=== PATIENT | female | born 1980 | race Caucasian/White ===

== ENCOUNTER → 2017-07-12 09:26 | Outpatient (CLI) | payer BC, SELFPAY ==
[2017-07-12 10:00] LABS: Basophils # 0.1 K/mm3 (0-0.2); Basophils % 0.6 % (0.1-2.0); Eosinophils # 0.1 K/mm3 (0.0-0.4); Eosinophils % 1.2 % (0.1-12.0); Hematocrit 44.5 % (37.0-47.0); Hemoglobin 14.8 g/dL (12.2-16.2); Lymphocytes # 2.2 K/mm3 (0.7-4.5); Lymphocytes % 28.5 K/mm3 (10-50); Mean Corpuscular HGB Conc 33.2 g/dL (31.8-35.4); Mean Corpuscular Hemoglobin 29.2 pg (27.0-31.2); Mean Corpuscular Volume 87.9 fl (81-99); Monocytes # 0.5 K/mm3 (0.1-1.0); Monocytes % 6.6 % (1.7-9.3); Neutrophils # 4.7 K/mm3 (1.8-7.8); Platelet Count 290 K/mm3 (142-424); Red Blood Count 5.06 M/mm3 (4.20-5.40); White Blood Count 7.5 K/mm3 (4.8-10.8)
[2017-07-12 10:56] LABS: Anion Gap 12.6 mEq/L (5-15); Blood Urea Nitrogen 12 mg/dL (7-18); Carbon Dioxide 29 mmol/L (21.0-32.0); Chloride 102 mmol/L (98-107); Creatinine,Serum 0.66 mg/dL (0.55-1.02); Estimated Glomerular Filt Rate 101 ml/min (>60); GFR (African American) 123 ML/MIN (>60); Glucose 90 mg/dL (74-106); Potassium 4.6 mmoL/L (3.5-5.1); Sodium 139 mmol/L (136-145); T4 (Thyroxine) 9.2 ug/dl (4.7-13.3); Thyroid Stimulating Hormone 1.95 uIU/ml (0.358-3.740); Triiodothryronine (T3) Uptake 33 % (31-39)
== END ==
PROVIDERS: PCP Physician Assistant; Visit Provider Nurse Practitioner Obstetrics & Gynecology
DX: N93.9 Abnormal uterine and vaginal bleeding, unspecified (principal)
CPT/HCPCS: 80048; 84436; 84443; 84479; 85025

== ENCOUNTER → 2017-07-18 11:02 | Outpatient (CLI) | payer BC, SELFPAY ==
--- NOTE | 2017-07-18 11:07 | US_ITS ---
US transvaginal HISTORY: Irregular periods. Dysfunctional uterine bleeding ITS.REASON: extremely heavy periods ORDERING PHYSICIAN: Bob Govea MD PATIENT AGE: 37 years COMPARISON: 04/22/2015 FINDINGS: The uterus is 9 x 4 x 6 cm with a combined endometrial thickness of 7 mm. There is a 1.6 cm area of increased echogenicity in the posterior aspect of the body the uterus suggesting a fibroid. Left ovary is 2.5 x 2.3 cm with small peripheral follicles. Blood flow is present. The right ovary is 2.7 x 1.5 cm with small follicles. Blood flow is present. No cul-de-sac fluid apparent. IMPRESSION: 1. Small uterine fibroid at 1.6 cm 2. Bilateral ovarian follicles with no dominant cyst or mass
== END ==
LOC: RAD 11:05
PROVIDERS: PCP Physician Assistant; Visit Provider Nurse Practitioner Obstetrics & Gynecology
DX: N93.9 Abnormal uterine and vaginal bleeding, unspecified (principal); N92.1 Excessive and frequent menstruation with irregular cycle
CPT/HCPCS: 76830

== ENCOUNTER → 2017-08-31 14:03 | Outpatient (CLI) | payer BC, SELFPAY ==
--- NOTE | 2017-08-31 14:11 | US_ITS ---
ULTRASOUND THYROID PROCEDURE: Multiple sagittal & transverse ultrasound images of the thyroid. HISTORY: Choking sensation. Follow-up thyroid ultrasound COMPARISON: Previous thyroid ultrasound January 2017 ----- FINDINGS: Diffuse inhomogeneous architecture makes visualization of any discrete nodule difficult given the diffuse swirl appearance. Question be other possible other nodules hidden by the inhomogeneous character. Mildly enlarged thyroid. RIGHT LOBE: 4.2 cm 1.8 cm 1.6 cm. Nodule A: :Vague not well discerned solid nodule 8.4 mm x 1.8 mm .: LEFT LOBE: 3.9 cm as 1.8 cm x 1.6 cm. Nodule A: Solid nodule 10 mm X8.3 x 5.5 mm. Lower left lobe. ISTHMUS: Slightly generous ~ 6.5 mm AP dimension. This was actually appears slightly thicker than on previous studies although this could merely be image sampling (Addendum if palpable thyroid nodule developed in the patient a may want to consider either CT or radionuclide study in attempt to rule out any discrete cold nodule hidden among the inhomogeneous gland. No dominant nodule is seen currently) IMPRESSION 1. Thyroid mildly enlarged bilaterally right lobe more generous than left. . Isthmus appears slightly thicker today but this may merely be due to submitted images 2. Diffuse inhomogeneous patchy appearance bilaterally makes it difficult to discern discrete nodules . Small ill-defined nodules bilaterally noted. No discrete dominant mass or nodule (Addendum if palpable thyroid nodule developed in the patient a may want to consider either CT or radionuclide study in attempt to rule out any discrete cold nodule hidden among the inhomogeneous gland. No dominant nodule is seen currently)
== END ==
PROVIDERS: PCP Physician Assistant; Visit Provider Otolaryngology
DX: E01.0 Iodine-deficiency related diffuse (endemic) goiter (principal)
CPT/HCPCS: 76536

== ENCOUNTER → 2018-02-04 09:57 | Outpatient (CLI) | payer BC, SELFPAY ==
--- NOTE | 2018-02-04 09:58 | US_ITS ---
US thyroid HISTORY: Enlarged thyroid ITS.REASON: thyroid nodules ORDERING PHYSICIAN: Raimundo Wang MD PATIENT AGE: 37 years Comparison: 08/31/2017 FINDINGS: The right lobe is 4.3 x 1.6 x 1.7 cm. Heterogeneous echogenicity with possible upper pole nodule at 8 mm unchanged The left lobe is 4.3 x 1.2 x 1.7 cm Nodule A: Isodense hypoechoic nodule lower pole at 12 mm x 8 mm. The isthmus measures 5 mm IMPRESSION: Mildly enlarged thyroid gland with bilateral isoechoic nodules the largest on the left at approximately 12 x 8 mm previously 10 x 6
== END ==
PROVIDERS: PCP Physician Assistant; Visit Provider Otolaryngology
DX: E04.9 Nontoxic goiter, unspecified (principal); E06.9 Thyroiditis, unspecified
CPT/HCPCS: 76536

== ENCOUNTER → 2018-03-12 12:38 | Outpatient (POV) | payer BC, SELFPAY | PROVIDERS: Visit Provider Otolaryngology | DX: Z00.00 Encounter for general adult medical examination without abnormal findings (principal) ==

== ENCOUNTER → 2018-04-22 13:56 | Outpatient (CLI) | payer BC, SELFPAY | PROVIDERS: PCP Physician Assistant; Visit Provider Otolaryngology | DX: G47.30 Sleep apnea, unspecified (principal); R40.0 Somnolence; R06.83 Snoring; R53.83 Other fatigue | CPT/HCPCS: 95806 ==

== ENCOUNTER → 2018-05-14 11:36 | Outpatient (POV) | payer BC, SELFPAY | PROVIDERS: Visit Provider Otolaryngology | DX: Z00.00 Encounter for general adult medical examination without abnormal findings (principal) ==

== ENCOUNTER → 2018-08-12 12:57 | Outpatient (CLI) | payer BC, SELFPAY ==
--- NOTE | 2018-08-12 12:59 | US_ITS ---
US thyroid HISTORY: Thyroiditis , trouble swallowing ITS.REASON: thyroid nodule ORDERING PHYSICIAN: Bob Govea MD PATIENT AGE: 38 years Comparison: 02/04/2018 FINDINGS: The isthmus is thickened at 6 mm The right lobe is 4.3 x 1.8 x 1.5 cm there is diffuse heterogeneous echogenicity. A 5 mm isoechoic nodule present in the upper pole and change. The left lobe is 3.5 x 1.1 x 1.6 cm. A 1.1 cm isoechoic nodule present in the mid polar region unchanged. A 5 mm isoechoic nodule is present medial Isthmus. This is not significant change. IMPRESSION: Heterogeneous thyroid echogenicity with stable bilateral nodules.
--- NOTE | 2018-08-12 12:59 | FL_ITS ---
EXAM: Barium swallow/esophagram. INDICATION: Dysphagia, difficulty swallowing ITS.REASON: Goiter ORDERING PHYSICIAN: Bob Govea MD PATIENT AGE: 38 years COMPARISON: None TECHNIQUE: In the upright position the patient was observed to swallow barium in both the AP and lateral view. The cervical esophagus was examined under fluoroscopy with images obtained. The patient was then placed prone in the right anterior oblique position and was observed to swallow barium with Valsalva technique . FLUOROSCOPY TIME: 51 seconds FINDINGS: There was no evidence of aspiration. There was normal peristalsis. No filling defects or mucosal abnormalities. No masses or strictures. No hiatal hernia. The esophagus is not deviated. There are small osteophytes along the internal aspect of C5 and C6 causing some indentation upon the posterior aspect of the esophagus IMPRESSION: Small anterior osteophytes at C5-C6 causing some mild indentation upon the esophagus posteriorly otherwise negative barium swallow.
--- NOTE | 2018-08-12 12:59 | MM_ITS ---
MM Dig mamm BI DX w/CAD, US breast LT complete INDICATION: Palpable abnormality left breast at 5:00 with nipple discharge, baseline mammogram ORDERING PHYSICIAN: Bob Govea MD PATIENT AGE: 38 years COMPARISON: None TECHNIQUE: Standard images performed of both breasts along with spot compression views of the left breast and left breast ultrasound FINDINGS: There is dense fibroglandular tissue which decreases sensitivity of mammography. Right breast: Unremarkable. No malignant appearing mass or malignant appearing microcalcifications evident. There is a faint nodular opacity in the deep aspect of the right breast which is only seen on the X cc view and may be related to fibroglandular tissue Left breast: There is dense fibroglandular tissue with asymmetric increased density in the left axillary region consistent with axillary fibroglandular tissue. Asymmetric density also present medially. No discrete nodule evident in the retroareolar region. Left breast ultrasound: There is a 3 mm x 4 mm isoechoic slightly hypoechoic nodule at 5:00 near the nipple corresponding to the area of palpable abnormality and may represent a small complex cyst. Small nodes are present in the axilla. IMPRESSION: No convincing evidence of malignancy. Probably benign findings with suspected asymmetric fibroglandular tissue on the left, small left breast cyst, and a probably benign. Nodular density in the deep aspect of the right breast. Recommend bilateral 6 month follow-up mammogram and left breast ultrasound BI-RADS Category: 3 Probably Benign Finding Short Term Follow-up RECOMMENDED FOLLOW-UP: 6M - 6 MONTH FOLLOW-UP (A letter has been sent to the patient regarding results of the study.)
== END ==
LOC: RAD 12:58
PROVIDERS: PCP Physician Assistant; Visit Provider Nurse Practitioner Obstetrics & Gynecology
DX: N63.0 Unspecified lump in unspecified breast (principal); E04.1 Nontoxic single thyroid nodule; E04.9 Nontoxic goiter, unspecified
CPT/HCPCS: 74220; 76536; 76641; 77066

== ENCOUNTER → 2018-11-18 13:53 | Outpatient (POV) | payer BC, SELFPAY | PROVIDERS: PCP Physician Assistant; Visit Provider Nurse Practitioner Family | DX: Z00.00 Encounter for general adult medical examination without abnormal findings (principal) ==

== ENCOUNTER → 2018-11-25 11:55 | Outpatient (CLI) | payer BC, SELFPAY ==
[2018-11-25 12:20] LABS: Basophils # 0.1 K/mm3 (0-0.2); Basophils % 0.8 % (0.1-2.0); Eosinophils # 0.1 K/mm3 (0.0-0.4); Eosinophils % 1.2 % (0.1-12.0); Hematocrit 41.9 % (37.0-47.0); Hemoglobin 13.4 g/dL (12.2-16.2); Lymphocytes # 2.4 K/mm3 (0.7-4.5); Lymphocytes % 35.4 % (10-50); Mean Corpuscular Hemoglobin 27.5 pg (27.0-31.2); Mean Corpuscular Volume 86.2 fl (81-99); Mean Platelet Volume 7.5 fl (7.4-10.4); Monocytes # 0.3 K/mm3 (0.1-1.0); Monocytes % 3.8 % (1.7-9.3); Neutrophils % 58.9 % (37.0-80.0); Platelet Count 311 K/mm3 (142-424); Red Blood Count 4.86 M/mm3 (4.20-5.40); Red Cell Distribution Width 13.6 % (11.5-17.5); White Blood Count 6.8 K/mm3 (4.8-10.8)
[2018-11-25 12:45] LABS: HCG Qualitative, Serum Negative (Negative)
[2018-11-25 12:48] LABS: Alanine Aminotransferase 26 U/L (12-78); Albumin Level 3.7 gm/dL (3.4-5.0); Albumin/Globulin Ratio 0.9 (1.1-1.8); Alkaline Phosphatase 79 U/L (46-116); Anion Gap 15.7 mEq/L (5-15); Aspartate Amino Transferase 17 U/L (15-37); Bilirubin,Total 0.3 mg/dL (0.2-1.0); Blood Urea Nitrogen 10 mg/dL (7-18); Calcium 9.2 mg/dL (8.5-10.1); Carbon Dioxide 26 mmol/L (21.0-32.0); Chloride 103 mmol/L (98-107); Creatinine,Serum 0.79 mg/dL (0.55-1.02); Estimated Glomerular Filt Rate 82 ml/min (>60); GFR (African American) 99 ML/MIN (>60); Glucose 140 mg/dL (74-106); Potassium 3.7 mmoL/L (3.5-5.1); Sodium 141 mmol/L (136-145); Total Protein,Serum 7.7 gm/dL (6.4-8.2)
== END ==
PROVIDERS: PCP Physician Assistant; Visit Provider Nurse Practitioner Family
DX: R14.0 Abdominal distension (gaseous) (principal); R19.4 Change in bowel habit; R10.11 Right upper quadrant pain; R13.10 Dysphagia, unspecified; K21.9 Gastro-esophageal reflux disease without esophagitis
CPT/HCPCS: 36415; 80053; 84703; 85025

== ENCOUNTER → 2018-11-27 09:40 | Outpatient (CLI) | payer BC, SELFPAY ==
[2018-11-27 09:43] LABS: Adenovirus F 40/41, stool Not Detected (NotDetected); Astrovirus Not Detected (NotDetected); Campylobacter Not Detected (NotDetected); Clostridium Difficile A/B, PCR Not Detected (NotDetected); Cryptosporidium Not Detected (NotDetected); Cyclospora Cayetanesis Not Detected (NotDetected); Entamoeba histolytica Not Detected (NotDetected); Enteroaggregative E coli Not Detected (NotDetected); Enteropathogenic E coli Not Detected (NotDetected); Enterotoxigenic E coli Not Detected (NotDetected); Giardia lamblia Not Detected (NotDetected); Norovirus Not Detected (NotDetected); Plesimonas Shigalloides, PCR Not Detected (NotDetected); Rotavirus A Not Detected (NotDetected); Salmonella, PCR Not Detected (NotDetected); Sapovirus Not Detected (NotDetected); Shiga-like toxin E coli Not Detected (NotDetected); Shigella Enterovasive E coli Not Detected (NotDetected); Vibrio Cholerae Not Detected (NotDetected); Vibrio, PCR Not Detected (NotDetected); Yersinia Entercolitica, PCR Not Detected (NotDetected)
--- NOTE | 2018-11-27 09:46 | CT_ITS ---
PROCEDURE: CT ABDOMEN PELVIS W CON CLINICAL HISTORY: BLOATING,ALTERED BOWEL FUNCTION,ABD PAIN,DYSPHAGIA,GERD COMPARISON: ABDPELW CT abdomen pelvis w con from 02/27/2018 TECHNIQUE: 75 mL Optiray 350 Readi-Cat by mouth Axial images obtained with sagittal and coronal reformats. All CT scans at the facility use one or more dose reduction, viz: automated exposure control, ma/kV adjustment per patient size (including targeted exams where dose is matched to indication, i.e. head), or iterative reconstruction technique. FINDINGS: Lung bases are clear. The liver, spleen, adrenal glands, pancreas, in gallbladder have an unremarkable appearance. There are punctate bilateral renal calculi measuring up to 4 mm in the upper pole on the left. No ureteral calculi. No hydronephrosis. No intestinal obstruction or free air. Unremarkable appendix. There is mucosal thickening of the jejunum in the mid and upper abdominal region. No pelvic mass abnormal fluid collection or focal inflammatory change in the pelvis. No acute bony anomalies. IMPRESSION: 1. Mucosal thickening of the jejunum in the mid upper abdominal region consistent with enteritis. 2. Nonobstructing bilateral renal calculi. Dictated by: Cesar Quinonez MD 11/28/2018 06:51 Electronically signed by Cesar Quinonez MD in [place] 11/28/2018 06:51
== END ==
LOC: RAD 09:40
PROVIDERS: PCP Physician Assistant; Visit Provider Nurse Practitioner Family
DX: R14.0 Abdominal distension (gaseous) (principal); R19.4 Change in bowel habit; R10.11 Right upper quadrant pain; R13.10 Dysphagia, unspecified; K21.9 Gastro-esophageal reflux disease without esophagitis
CPT/HCPCS: 74177; 87507; Q9967

== ENCOUNTER → 2018-12-17 09:20 | Outpatient (CLI) | payer BC, SELFPAY ==
--- NOTE | 2018-12-17 09:25 | US_ITS ---
PROCEDURE: US ABDOMEN LIMITED CLINICAL INDICATION: RUQ PAIN Right upper quadrant pain, bloating after eating, diarrhea COMPARISON: CT ABDOMEN PELVIS W CON from 11/27/2018 FINDINGS: PANCREAS: Unremarkable. No obvious mass or abnormal fluid collection. No ductal dilatation LIVER: No focal liver lesions demonstrated. Homogeneous echogenicity. No intrahepatic biliary ductal dilatation evident. There is appropriate direction of blood flow within a non dilated portal vein RIGHT KIDNEY: There is a small hyperechoic focus in the upper pole of the right kidney which may represent a nonobstructing stone. No hydronephrosis GALLBLADDER: No gallstones, gallbladder wall thickening, pericholecystic fluid, or biliary dilatation. IMPRESSION: 1. Negative gallbladder ultrasound. 2. Right nephrolithiasis Dictated by: Cesar Quinonez MD 12/17/2018 13:06 Electronically signed by Ceasr Quinonez MD in [place] 12/17/2018 13:06
--- NOTE | 2018-12-17 09:26 | NM_ITS ---
PROCEDURE: NM HEPATOBILIARY W PHARM CLINICAL INDICATION: RUQ PAIN Right upper quadrant pain and nausea COMPARISON: No exams were available for comparison TECHNIQUE: DOSE: 8.01 mCi technetium Choletec 1.3 mcg of CCK. Cramping was reported with CCK FINDINGS: Homogeneous activity is present within the hepatic parenchyma. Activity is present in the gallbladder by 15 minutes. Activity is present in the small bowel by 50 minutes. The gallbladder ejection fraction is calculated to be 54 minutes which is within normal limits. The patient reported mild cramping with CCK IMPRESSION: No evidence of common or cystic duct obstruction. Ejection fraction is within normal limits. There was mild delay and small bowel visualization and some pain reported with CCK infusion which could be seen with mild gallbladder dyskinesia Dictated by: Cesar Quinonez MD 12/17/2018 16:01 Electronically signed by Cesar Quinonez MD in [place] 12/17/2018 16:01
== END ==
LOC: RAD 09:20
PROVIDERS: PCP Physician Assistant; Visit Provider Internal Medicine Gastroenterology
DX: R10.11 Right upper quadrant pain (principal)
CPT/HCPCS: 76705; 78227; A9537; J2805

== ENCOUNTER → 2019-02-03 14:35 | Outpatient (CLI) | payer BC, SELFPAY ==
--- NOTE | 2019-02-03 14:36 | MM_ITS ---
PROCEDURE: MM DIG MAMM BI DX W/CAD CLINICAL INDICATION: 6 month follow up COMPARISON: DIG MAMM-DX UNI-LT from 08/12/2018 BREASTLT US breast LT complete from 08/12/2018 US BREAST LT COMPLETE from 02/03/2019 TECHNIQUE: Standard images performed along with spot compression views and left breast ultrasound FINDINGS: There is dense fibroglandular tissue which decreases the sensitivity of mammography. The Right breast: On the CC view there was a asymmetric density in the central aspect of the right breast slightly lateral which did appear to compress out on the focal spot compression view. Left breast: Asymmetric density once again noted in the axillary region consistent with axillary breast tissue not significantly changed. No malignant appearing mass or malignant-appearing microcalcification is evident in either breast. The Left breast ultrasound: 5 mm hypoechoic nodule at 12 o'clock and may represent a small complex cyst. There is a linear septation in this region. Fibroglandular tissue is also consideration. No change 4 mm hypoechoic nodule at 5 o'clock. No malignant appearing mass apparent. Small hypoechoic nodule at 1 o'clock which may represent fibroglandular tissue at 8 mm. IMPRESSION: Benign findings overall with no significant change BI-RAD Category: 2 Benign Finding(s) FOLLOW-UP: 1YR 1 Year Follow-up the (A letter has been sent to the patient regarding results of the study.) July you Dictated by: Cesar Quinonez MD 02/13/2019 09:45 Electronically signed by Cesar Quinonez MD in [place] 02/13/2019 09:45
== END ==
PROVIDERS: PCP Physician Assistant; Visit Provider Nurse Practitioner Obstetrics & Gynecology
DX: R92.8 Other abnormal and inconclusive findings on diagnostic imaging of breast (principal)
CPT/HCPCS: 76641; 77066

== ENCOUNTER → 2019-02-18 14:15 | Outpatient (CLI) | payer BC, SELFPAY ==
[2019-02-18 15:40] LABS: Free T4 (Free Thyroxine) 0.89 ng/dl (0.76-1.46)
[2019-02-18 15:40] LABS: Free Thyroxine Index 2.6 ug/dL (5.93-13.13); T4 (Thyroxine) 7.4 ug/dl (4.7-13.3); Thyroid Stimulating Hormone 3.27 uIU/ml (0.358-3.740); Triiodothryronine (T3) Uptake 35 % (31-39)
[2019-02-20 08:17] LABS: Thyroid Peroxidase Antibodies 271 IU/mL (0-34)
[2019-02-20 21:11] LABS: FSH 6.3 mIU/mL (.); LH 22.7 mIU/mL (.); Prolactin 21.6 ng/mL (4.8-23.3)
[2019-02-20 21:11] LABS: Triiodothyronine (T3) Free 2.8 pg/mL (2.0-4.4)
[2019-02-21 17:25] LABS: Thyroid Stimulating Immunoglob <0.10 IU/L (0.00-0.55)
== END ==
PROVIDERS: Otolaryngology; Visit Provider Nurse Practitioner Obstetrics & Gynecology
DX: N64.4 Mastodynia (principal); R53.82 Chronic fatigue, unspecified; E06.3 Autoimmune thyroiditis
CPT/HCPCS: 36415; 83001; 83002; 84146; 84436; 84439; 84443; 84445; 84479; 84481; 86376

== ENCOUNTER → 2019-03-10 14:36 | Outpatient (POV) | payer BC, SELFPAY | PROVIDERS: Visit Provider Nurse Practitioner Family | DX: Z00.00 Encounter for general adult medical examination without abnormal findings (principal) ==

== ENCOUNTER → 2019-04-17 17:45 | Outpatient (CLI) | payer BC, SELFPAY ==
[2019-04-17 18:15] LABS: Basophils # 0.1 K/mm3 (0-0.2); Basophils % 0.7 % (0.1-2.0); Eosinophils # 0.1 K/mm3 (0.0-0.4); Eosinophils % 1.4 % (0.1-12.0); Hematocrit 39.1 % (37.0-47.0); Hemoglobin 12.6 g/dL (12.2-16.2); Lymphocytes # 2.3 K/mm3 (0.7-4.5); Lymphocytes % 25.3 % (10-50); Mean Corpuscular HGB Conc 32.2 g/dL (31.8-35.4); Mean Corpuscular Hemoglobin 27.7 pg (27.0-31.2); Mean Corpuscular Volume 86.2 fl (81-99); Mean Platelet Volume 8.4 fl (7.4-10.4); Monocytes # 0.5 K/mm3 (0.1-1.0); Neutrophils # 6.1 K/mm3 (1.8-7.8); Neutrophils % 66.6 % (37.0-80.0); Platelet Count 315 K/mm3 (142-424); Red Blood Count 4.54 M/mm3 (4.20-5.40); Red Cell Distribution Width 13.6 % (11.5-17.5); White Blood Count 9.1 K/mm3 (4.8-10.8)
[2019-04-17 18:40] LABS: Erythrocyte Sedimentation Rate 23 mm/hr (0-20)
[2019-04-17 18:52] LABS: Alanine Aminotransferase 32 U/L (12-78); Albumin Level 3.8 gm/dL (3.4-5.0); Albumin/Globulin Ratio 1.1 (1.1-1.8); Alkaline Phosphatase 77 U/L (46-116); Anion Gap 13.4 mEq/L (5-15); Aspartate Amino Transferase 20 U/L (15-37); Bilirubin,Total 0.2 mg/dL (0.2-1.0); Blood Urea Nitrogen 18 mg/dL (7-18); Calcium 8.9 mg/dL (8.5-10.1); Carbon Dioxide 27 mmol/L (21.0-32.0); Chloride 106 mmol/L (98-107); Creatinine,Serum 0.82 mg/dL (0.55-1.02); Estimated Glomerular Filt Rate 78 ml/min (>60); GFR (African American) 95 ML/MIN (>60); Globulin 3.5 gm/dl (1.3-3.2); Glucose 90 mg/dL (74-106); Potassium 4.4 mmoL/L (3.5-5.1); Sodium 142 mmol/L (136-145); Total Protein,Serum 7.3 gm/dL (6.4-8.2)
[2019-04-17 18:59] LABS: C-Reactive Protein < 0.2 mg/dL (0.0-0.9)
[2019-04-19 09:45] LABS: RA Latex Turbid. <10.0 IU/mL (0.0-13.9)
[2019-04-19 12:08] LABS: Anti-Centromere B Antibodies <0.2 AI (0.0-0.9); Anti-Jo-1 <0.2 AI (0.0-0.9); Anti-Smith Antibody <0.2 AI (0.0-0.9); Antichromatin Antibodies <0.2 AI (0.0-0.9); Antiscleroderma-70 Antibodies <0.2 AI (0.0-0.9); RNP Antibodies <0.2 AI (0.0-0.9); Sjogren's Anti-SS-A <0.2 AI (0.0-0.9); Sjogren's Anti-SS-B <0.2 AI (0.0-0.9)
[2019-04-19 13:31] LABS: Anti-DNA (DS) Ab Qn 2 IU/mL (0-9)
[2019-04-20 10:59] LABS: Anti-Cyclic Citrullinated Pept 9 units (0-19)
== END ==
LOC: LAB.DROPOF 17:46
PROVIDERS: Visit Provider Physician Assistant
DX: M25.50 Pain in unspecified joint (principal)
CPT/HCPCS: 80053; 85025; 85651; 86140; 86200; 86225; 86235; 86431

== ENCOUNTER → 2019-05-19 13:49 | Outpatient (POV) | payer BC, SELFPAY | PROVIDERS: PCP Physician Assistant; Visit Provider Nurse Practitioner Family | DX: Z00.00 Encounter for general adult medical examination without abnormal findings (principal) ==

== ENCOUNTER → 2019-07-07 08:57 | Outpatient (POV) | payer BC, SELFPAY ==
[2019-07-07 09:15] VITALS: BP 121/81; PULSE 84; RESP 18; O2SAT 99; BMI 30.7
--- NOTE | 2019-07-07 09:24 | HMH.PMCON ---
Assessment and Plan (1) Osteoarthritis Current visit: Yes Status: Chronic Qualifiers: Osteoarthritis location: multiple joints Osteoarthritis type: primary Qualified Code(s): M89.49 - Other hypertrophic osteoarthropathy, multiple sites Category: Medical Code(s): M19.90 - Unspecified osteoarthritis, unspecified site - Assessment and plan all Dx Assessment and Plan for all problems:: We will start the patient on some compounding cream and also on diclofenac 75 mg 1 p.o. twice daily. I will see her back in 3 weeks reassess her symptoms at that time she has been instructed to call office if she has any issues prior to next appointment. We specifically discussed risk factors for Covid-19 including age, heart or lung disease, diabetes, immunosuppression and travel. We also discussed that NSAIDs may worsen Covid-19 infection symptoms and that they should not be used to treat Covid-19 symptoms. Patient was also informed that corticosteroids in any form oral or injectable will decrease immune response and may increase risk of Covid-[address] Mclean has reviewed this patient's chart and this note and agrees with plan of care. Patient has been instructed to call the office if they have any issues prior to the next appointment. This note was dictated using voice recognition software and may contain errors or omissions HPI - Data of Consult Consult date: 07/07/19 Requesting Physician: Naomi Johnson APRN Primary Care Provider: EKLLY Russo - Consult Narrative Reason for consult: Joint pain History of present illness: Ms. Tiwari is a 39 year old female who presents today for consultation regards to her multiple joint pain. Patient has recently seen her ceramics technician and was diagnosed with osteoarthritis. Patient was referred to pain management. Patient and I had a long discussion in regards to this. Patient is uninterested in any narcotic medications and is currently not on any anti-inflammatories. Patient rates her pain a 5 out of 10. It is worse in her wrists. I also do believe she may need a carpal tunnel evaluation. Patient does have a positive Phalen test. Patient's been on meloxicam and Celebrex which has not been that beneficial for her. She takes Tylenol at times CC: Naomi Johnson APRN [facility] History I have reviewed the patient's past medical history: Yes 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: Reports:: Anxiety Denies:: Cancer, Diabetes Mellitus Type 1, Diabetes Mellitus Type 2, Internal Pacemaker, Lung Disease, MRSA, Seizures *Have you ever received a pneumonia vaccine?: Yes *Have you received a flu vaccine this season?: Yes Other 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: Reports: Arthritis, Hypothyroidism, Thyroid Disease (hashimotos). Denies: Blood Transfusion Reaction Laterality Cases: Bilateral: Other Other Surgeries: Yes: Colonoscopy, EGD, Ureter Stent, Other (Cystoscopy). 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 Gastrointestinal: no new onset incontinence, normal bowel movements reported Genitourinary: no new onset incontinence Musculoskeletal: Multiple joint pain Psychiatric: normal mood/ affect, [denies depression], [denies anxiety] Neurological: [denies new onset weakness in extremities], [sherin
== END ==
PROVIDERS: PCP Physician Assistant; Visit Provider Clinical Nurse Specialist Family Health
DX: M89.49 Other hypertrophic osteoarthropathy, multiple sites (principal); M19.90 Unspecified osteoarthritis, unspecified site
CPT/HCPCS: 99202

== ENCOUNTER → 2019-07-21 11:02 | Outpatient (CLI) | payer BC, SELFPAY ==
[2019-07-21 13:54] LABS: Free T4 (Free Thyroxine) 0.98 ng/dl (0.78-2.19)
[2019-07-21 14:07] LABS: Thyroid Stimulating Hormone 5.42 uIU/mL (0.465-4.68)
[2019-07-22 12:44] LABS: Thyroid Peroxidase Antibodies 311 IU/mL (0-34)
[2019-07-24 15:04] LABS: Thyroid Stimulating Immunoglob <0.10 IU/L (0.00-0.55)
== END ==
PROVIDERS: Visit Provider Otolaryngology
DX: E06.9 Thyroiditis, unspecified (principal)
CPT/HCPCS: 36415; 84439; 84443; 84445; 86376

== ENCOUNTER → 2019-07-28 09:26 | Outpatient (POV) | payer BC, SELFPAY ==
--- NOTE | 2019-07-28 09:43 | P.CONS_ITS ---
[facility] Virtual Visit SOAP Consent for virtual visit:: With the recent concerns about the COVID-19, we are trying to minimize exposure to you by shifting to telehealth appointments whenever possible. It restricts me from seeing you in person, but the trade off is protecting you during this pandemic. Can you see and hear me okay, and do you consent to this option? If not, I would be happy to see if we can reschedule your appointment in the future, when feasible. Has patient consented to this virtual visit?: Yes Subjective:: Patient is a pleasant 39-year-old white female who presents today for follow-up after starting diclofenac and compounding cream. She is doing extremely well. She rates her pain today a 0 out of 10. Patient states her inflammation has decreased significantly. At this time she is having no side effects to her diclofenac. We will continue this. ROS General: no recent weight change, no fever, no sleep disturbances Respiratory: no cough, no shortness of air, no recurring pulmonary infections Cardiovascular/Peripheral Vascular: No chest pain, No palpitations, no edema, no shortness of breath. Gastrointestinal: no new onset incontinence, normal bowel movements reported Genitourinary: no new onset incontinence Musculoskeletal: Joint pain at times Psychiatric: normal mood/ affect Neurological: [denies new onset weakness in extremities], [denies new onset balance issues] Objective:: Physical exam: Constitutional: Healthy appearing, well-developed, alert, in no acute distress Psychiatric: Judgment and insight intact, Alert and oriented x4 Mood and affect: Mood normal, affect appropriate Head and face: Inspection: Normocephalic atraumatic, extraocular movement intact Respiratory: Breathing nonlabored, nondyspneic Cardiovascular: No cyanosis, clubbing, or edema observed Skin: Head and neck: Skin with no lesions or rash observed Gait: Able to walk without assistive device: Able to heel and toe walk Neurologic: Sensation grossly intact per patient Musculoskeletal: Patient has normal range of motion noted on video Assessment:: Osteoarthritis Plan:: Patient will continue on her compounding cream and diclofenac 75 mg 1 p.o. twice daily. I will follow-up with her in 3 months reassess her symptoms at that time she is been instructed to call the office if she has any issues prior to her next appointment. Dr. Mclean has reviewed this note and agrees with this plan of care. This note was dictated using voice recognition software and may contain errors or omissions Time In:: 09:25 Time Out:: 09:35 [facility] History I have reviewed the patient's past medical history: Yes 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: Reports:: Anxiety Denies:: Cancer, Diabetes Mellitus Type 1, Diabetes Mellitus Type 2, Internal Pacemaker, Lung Disease, MRSA, Seizures *Have you ever received a pneumonia vaccine?: No *Have you received a flu vaccine this season?: Yes Other 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: Reports: Arthritis, Hypothyroidism, Thyroid Disease. Denies: Blood Transfusion Reaction Laterality Cases: Bilateral: Other Other Surgeries: Yes: Colonoscopy, EGD, Ureter Stent, Other (Cystoscopy). 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
== END ==
PROVIDERS: Visit Provider Clinical Nurse Specialist Family Health
DX: M19.90 Unspecified osteoarthritis, unspecified site (principal)
CPT/HCPCS: 99212

== ENCOUNTER 2019-08-24 12:42 | Emergency (ER) | payer BC, SELFPAY ==
[2019-08-24 12:44] VITALS: BP 100/61; BP 143/103; PULSE 73; PULSE 92; RESP 18; RESP 20; TEMP 36.4; O2SAT 98; O2SAT 99; BMI 28.3
--- NOTE | 2019-08-24 12:57 | XR_ITS ---
PROCEDURE: XR ANKLE RT MIN 3V CLINICAL INDICATION: injury Twisting injury with pain COMPARISON: No exams were available for comparison FINDINGS: There is a nondisplaced avulsion fracture involving the tip of the lateral malleolus with some overlying soft tissue swelling. Otherwise negative. The ankle mortise is preserved IMPRESSION: Nondisplaced avulsion fracture at the tip of the lateral malleolus Dictated by: Cesar Quinonez MD 08/24/2019 13:29 Electronically signed by Cesar Quinonez MD in [place] 08/24/2019 13:29
--- NOTE | 2019-08-24 13:32 | PC.NURSE ---
Iv pack and elevation provided to pt
--- NOTE | 2019-08-24 13:47 | HMH.EDLOEX ---
ED Disposition Clinical Impression: Ankle fracture Qualifiers: Encounter type: initial encounter Fracture type: closed Laterality: right Qualified Code(s): S82.891A - Other fracture of right lower leg, initial encounter for closed fracture Disposition: Home, Self-Care Condition on Discharge: Good Instructions: Ankle Fracture Additional Instructions: ice and no wt bearing Prescriptions: Ketorolac Tromethamine [Toradol 10mg tablet] 10 mg PO Q6H 5 Days #10 tab Transmission Status: Pending to [id number] Referrals: Cheryl Moreira PA [Primary Care Provider] - - Critical Care Critical Care Time: No Attestation: On 08/24/19, the high probability of a clinically significant, sudden or life threatening deterioration of the following system(s) required my full and direct attention, intervention and personal management. The time I documented below is in addition to time spent performing reported procedures but includes the following listed in this critical care notation. Medical Decision Making - Medical Records Medical records reviewed: Yes: I reviewed the patient's medical records. - Monty Inquiry Pt receiving controlled substance: No Vital Signs: 08/24/19 12:44 Temperature 97.6 F Temperature Source Oral Pulse Rate [Right] 73 Respiratory Rate 20 Blood Pressure [Right Arm] 100/61 L Blood Pressure Mean [Right Arm] 74 Blood Pressure Source [Right Arm] Automatic Cuff 02 Sat by Pulse Oximetry 98 Orders (Tests/Meds): ED MEDICATIONS Discontinued Medications Generic Name Dose Route Start Last Admin Trade Name Freq PRN Reason Stop Dose Admin Acetaminophen 1,000 mg 08/24/19 13:32 08/24/19 13:33 Tylenol 500mg Tablet PO 08/24/19 13:33 1,000 mg ONCE ONE Administration - Radiology Data #1 Image(s): Ankle Image Reviewed: Yes I reviewed the patient's radiology image Preliminary Findings: Abnormal (fx seen ) Lower Extremity Injury HPI - General Chief Complaint: Extremity Injury, Lower Stated Complaint: rt ankle pain Time Seen by Provider: 08/24/19 13:00 Mode of Arrival: Ambulatory Source of Information: Patient, Spouse, Medical Record Limitations: No Limitations Description of Symptoms (Recalled from ER Triage Doc. by RN): Pt states she was walking and injured right her ankle 20 minutes ago - History of Present Illness HPI Narrative: acute eversion type injury to rt ankle nikita pain swelling MD complaint: ankle injury Onset (ago): hour(s) Injury: Right: ankle Type of Injury: eversion Place: home Severity: moderate Context: walking Associated symptoms: snap/pop sensation, swelling, able to partially bear weight Other symptoms: none - Related Data Home Medications Medication Instructions Recorded Confirmed Buspirone HCl [Buspar 10mg 10 mg PO BID 01/08/19 07/24/19 tablet] linaclotide 72 mcg capsule 72 mcg PO DAILY cap 04/17/19 07/24/19 doxepin 150 mg capsule 150 mg PO BID cap 07/09/19 07/24/19 Previous Rx's Medication Instructions Recorded levothyroxine 50 mcg tablet 50 mcg PO DAILY #90 tab 03/28/19 celecoxib 200 mg capsule 200 mg PO DAILY #30 cap 05/13/19 Diclofenac Sodium [Diclofenac 75mg 75 mg PO BID #60 tab 07/07/19 Tab] paroxetine HCl 20 mg tablet See Rx Instructions .ROUTE 07/07/19 .COMPLEX #90 tablet loratadine 10 mg tablet 10 mg PO DAILY #30 tab 07/09/19 Synthroid 75 mcg tablet 75 mcg PO DAILY #90 tab NS 07/24/19 Ketorolac Tromethamine [Toradol 10 mg PO Q6H 5 Days #10 tab 08/24/19 10mg tablet] Allergies Allergy/AdvReac Type Severity Reaction Status Date / Time No Known Allergies Allergy Verified 07/24/19 13:47 [facility] History - Hepatitis A Screen Drug use history?: No High risk sexual behaviors?: No History of sexually transmitted infection?: No Currently employed?: No Childcare worker?: No Do you have indoor plumbing?: Yes Do you have electricity?: Yes Attestation statement:: This patient
[2019-08-24 14:14] VITALS: BP 120/87; PULSE 87; RESP 20; TEMP 36.8; O2SAT 98
== END 2019-08-24 14:15 | disposition home or self-care (01) ==
PROVIDERS: Emergency Provider Emergency Medicine; PCP Physician Assistant
DX: S82.64XA Nondisplaced fracture of lateral malleolus of right fibula, initial encounter for closed fracture (principal); X50.1XXA Overexertion from prolonged static or awkward postures, initial encounter; Y93.01 Activity, walking, marching and hiking; Y92.018 Other place in single-family (private) house as the place of occurrence of the external cause; F41.9 Anxiety disorder, unspecified; E03.9 Hypothyroidism, unspecified; Z79.899 Other long term (current) drug therapy
CPT/HCPCS: 29515; 73610; 96372; 99284

== ENCOUNTER → 2019-08-25 13:19 | Outpatient (CLI) | payer BC, SELFPAY ==
--- NOTE | 2019-08-25 13:20 | XR_ITS ---
PROCEDURE: XR FOOT WT BEARING RT 3V CLINICAL INDICATION: Fracture Pain following injury COMPARISON: FTR3 FOOT-RT-3 VIEWS from 06/20/2012 FINDINGS: No fracture or dislocation. No lytic or blastic change. There is normal mineralization. The joint spaces are well-preserved. No significant degenerative/arthritic changes. No erosive changes evident. Other findings:There is a nondisplaced avulsion fracture involving the tip the lateral malleolus which is only best seen on the mortise view of the ankle. IMPRESSION: Negative foot Dictated by: Cesar Quinonez MD 08/25/2019 14:09 Electronically signed by Cesar Quinonez MD in [place] 08/25/2019 14:09
--- NOTE | 2019-08-25 13:20 | XR_ITS ---
PROCEDURE: XR TIBIA FIBULA RT 2V CLINICAL INDICATION: fracture Posttraumatic pain, follow-up fracture COMPARISON: XR ANKLE RT MIN 3V from 08/24/2019 FINDINGS: The avulsion fracture at the tip of the lateral malleolus is barely visible on the AP view and is better demonstrated on the mortise view of the ankle. This fracture is nondisplaced. The ankle mortise is preserved. The remaining tib fib have an unremarkable appearance. IMPRESSION: Nondisplaced avulsion fracture at the tip of the lateral malleolus Dictated by: Cesar Quinonez MD 08/25/2019 14:08 Electronically signed by Cesar Quinonez MD in [place] 08/25/2019 14:08
--- NOTE | 2019-08-25 13:20 | US_ITS ---
PROCEDURE: US THYROID CLINICAL INDICATION: hypothyroid Follow-up thyroid nodules COMPARISON: THY US thyroid from 08/12/2018 FINDINGS: Right lobe: 4.2 x 1.7 x 1.5 cm. There is diffuse heterogeneous echogenicity of both lobes of the thyroid gland. It is difficult to determine definite dimensions of possible nodules due to the heterogeneous echogenicity. In the upper pole there is a 5 mm area of decreased echogenicity which may be due to small nodule unchanged. There may be a 5 mm hypoechoic nodule in the lower pole not previously demonstrated. Left lobe: 3.5 x 1.1 x 1.8 cm. There is a 5 mm hypoechoic nodule in the upper pole unchanged. Isthmus: Thickened at 5 mm Additional findings: IMPRESSION: Vague nodules noted in both lobes of the thyroid gland unchanged in the right upper pole and in the left lobe. There may be a new nodule in the lower pole on the right. Consider six-month follow-up. Dictated by: Cesar Quinonez MD 08/25/2019 15:03 Electronically signed by Cesar Quinonez MD in [place] 08/25/2019 15:03
== END ==
LOC: RAD 13:20
PROVIDERS: PCP Physician Assistant; Visit Provider Otolaryngology
DX: E03.9 Hypothyroidism, unspecified (principal); T14.8XXA Other injury of unspecified body region, initial encounter; S82.891A Other fracture of right lower leg, initial encounter for closed fracture
CPT/HCPCS: 73590; 73630; 76536

== ENCOUNTER → 2019-09-11 08:20 | Outpatient (CLI) | payer BC, SELFPAY ==
--- NOTE | 2019-09-11 08:24 | XR_ITS ---
PROCEDURE: XR ANKLE WT BEARING RT MIN 3V CLINICAL INDICATION: fracture follow up COMPARISON: ANKL3 ANKLE-LT-3 VIEWS from 11/13/2016 XR ANKLE RT MIN 3V from 08/24/2019 FINDINGS: Nondisplaced avulsion fracture involves the tip of the lateral malleolus. The joint spaces are well-preserved. No significant degenerative/arthritic changes. No erosive changes evident. Other findings:None. IMPRESSION: No change nondisplaced avulsion fracture of the tip the lateral malleolus Dictated by: Cesar Quinonez MD 09/11/2019 17:26 Electronically signed by Cesar Quinonez MD in [place] 09/11/2019 17:26
== END ==
LOC: RAD 08:21
PROVIDERS: PCP Physician Assistant; Visit Provider Podiatrist
DX: S93.491D Sprain of other ligament of right ankle, subsequent encounter (principal); S82.831D Other fracture of upper and lower end of right fibula, subsequent encounter for closed fracture with routine healing
CPT/HCPCS: 73610

== ENCOUNTER 2019-10-01 08:00 | Outpatient (RCR) | payer BC, SELFPAY ==
--- NOTE | 2019-09-24 16:09 | HMH.PTOPEV ---
PT Outpatient Evaluation Rehab PT Outpatient Evaluation Start: 09/24/19 14:59 Freq: Status: Active Protocol: Document 09/24/19 15:55 PHOANJELICA (Rec: 09/24/19 16:09 PHORNE [id number]) Electronically Signed By Braydon Jorgensen, PT 09/24/19 15:55 Outpatient Therapy Subjective History Subjective History Pt is 39 yowf who presents with R lateral ankle pain and stiffness S/P R inversion ankle sprain with small distal fibula avulsion fx occuring ~ 1 mo ago. She reports mild pain in the lateral R ankle and increased ankle jt stiffness. She reports increased edema and pain with prolonged standing and walking . Chief Complaint Pain,Stiff Symptom Type Ache Symptoms Relieved By Rest/Positioning Symptoms Aggravated By Standing,Walking Prior Functional Limitations None Current Functional Limitations Standing,Walking Symptom Description Intermittent,Activity Dependent Level of pain today (0-10) 1 Pain scale - at its worst (0-10) 2 Ankle/Foot Eval Gait Observation General Gait Pattern Observation Antalgic Gait Palpation Tenderness right Ankle/Foot Palpation Findings Tenderness ATF TTP positive ROM Ankle/Foot Dorsiflexion w/Knee Extended 0 Active Range Motion (degrees) Ankle/Foot Plantar Flexion Active Range 0-45 of Motion (degrees) Ankle/Foot Eversion Active Range of 0-10 Motion (degrees) Ankle/Foot Inversion Active Range of 0-37 Motion (degrees) MMT Ankle Dorsiflexion Strength Grade 4 Good Ankle Plantarflexion Strength Grade 5 Normal Foot Eversion Strength Grade 5 Normal Foot Inversion Strength Grade 4- Good- Special Tests Talar Tilt Test Negative Left,Positive Right Outpatient Therapy Assessment Impairments Problems/Impairmments Palpation Tenderness,Impaired Range of Motion,Impaired Strength,Impaired Endurance, Impaired Gait Pattern,Impaired Walking,Impaired Standing, Subjective C/O Pain,Impaired Self Care/Self Management Prognosis Rehab Potential Good Clinical Impression Consistent with Diagnosis Yes Short Term Goals Number of Weeks 4 Decreased Palpation Tenderness Yes: to min Increase Range of Motion Yes: R ankle by 5 deg
== END 2019-10-01 08:05 | disposition home or self-care (01) ==
LOC: PT 08:00
PROVIDERS: PCP Physician Assistant; Visit Provider Podiatrist
DX: S82.831A Other fracture of upper and lower end of right fibula, initial encounter for closed fracture (principal); S93.401A Sprain of unspecified ligament of right ankle, initial encounter; S99.911A Unspecified injury of right ankle, initial encounter
CPT/HCPCS: 97033; 97035; 97110; 97163; 97530

== ENCOUNTER → 2019-10-06 09:26 | Outpatient (CLI) | payer BC, SELFPAY ==
--- NOTE | 2019-10-06 09:36 | XR_ITS ---
PROCEDURE: XR DEXA AXIAL SKELETON CLINICAL HISTORY: fracture COMPARISON: No exams were available for comparison FINDINGS: The right hip BMD is 0.802 with a t-score of -0.4. The left hip BMD is 0.809 with a t-score of -1.1. The lumbar spine BMD is 1.041 with a t-score of -1.0. IMPRESSION: This patient is considered osteopenic according to the World Health Organization criteria. Bone density is between 10 and 25 percent below young normal . Fracture risk is moderate. Treatment is advised. Based on these results of follow-up exam is recommended in 2 years Dictated by: Cesar Quinonez MD 10/07/2019 11:04 Electronically signed by Cesar Quinonez MD in [place] 10/07/2019 11:04
== END ==
PROVIDERS: PCP Physician Assistant; Visit Provider Nurse Practitioner Obstetrics & Gynecology
DX: S82.899A Other fracture of unspecified lower leg, initial encounter for closed fracture (principal); M85.89 Other specified disorders of bone density and structure, multiple sites
CPT/HCPCS: 77080

== ENCOUNTER → 2019-10-10 13:49 | Outpatient (CLI) | payer BC, SELFPAY ==
[2019-10-10 14:10] LABS: Basophils # 0.1 K/mm3 (0-0.2); Basophils % 0.6 % (0.1-2.0); Eosinophils # 0.1 K/mm3 (0.0-0.4); Eosinophils % 1.5 % (0.1-12.0); Hematocrit 39.2 % (37.0-47.0); Hemoglobin 13.6 g/dL (12.2-16.2); Lymphocytes # 2.7 K/mm3 (0.7-4.5); Lymphocytes % 30.5 % (10-50); Mean Corpuscular HGB Conc 34.7 g/dL (31.8-35.4); Mean Corpuscular Hemoglobin 29.4 pg (27.0-31.2); Mean Corpuscular Volume 84.5 fl (81-99); Monocytes # 0.5 K/mm3 (0.1-1.0); Monocytes % 5.1 % (1.7-9.3); Neutrophils # 5.4 K/mm3 (1.8-7.8); Neutrophils % 62.2 % (37.0-80.0); Platelet Count 288 K/mm3 (142-424); Red Blood Count 4.64 M/mm3 (4.20-5.40); Red Cell Distribution Width 13.9 % (11.5-17.5); White Blood Count 8.7 K/mm3 (4.8-10.8)
[2019-10-12 10:02] LABS: Vitamin B12 563 pg/mL (232-1245)
[2019-10-16 12:31] LABS: 1,25 Dihydroxy Vitamin D 63 pg/mL (.); 1,25-Dihydroxy, Vitamin D-2 <10 pg/mL (.); 1,25-Dihydroxy, Vitamin D-3 63 pg/mL (.)
== END ==
PROVIDERS: Visit Provider Nurse Practitioner Obstetrics & Gynecology
DX: R53.82 Chronic fatigue, unspecified (principal); S82.899A Other fracture of unspecified lower leg, initial encounter for closed fracture
CPT/HCPCS: 36415; 82607; 82652; 85025

== ENCOUNTER 2019-11-03 17:50 | Emergency (ER) | payer BC, SELFPAY ==
--- NOTE | 2019-11-03 17:50 | ECG_ITS ---
APPROVED REPORT Exam: Resting ECG HR:75 bpm ECG Measurements Heart Rate 75 AXES TX 142 P 38 QRSd 92 QRS 14 QT 382 T 51 QTc 426 <Conclusion> Normal sinus rhythm Possible Left atrial enlargement Incomplete RBBB Borderline ECG Electronically signed by : Tank Erazo, 11/04/2019 15:05:30
[2019-11-03 17:56] VITALS: BP 144/95; PULSE 77; RESP 18; TEMP 36.8; O2SAT 99; BMI 28.3
[2019-11-03 18:13] LABS: Basophils # 0.1 K/mm3 (0-0.2); Basophils % 0.6 % (0.1-2.0); Eosinophils # 0.2 K/mm3 (0.0-0.4); Eosinophils % 1.4 % (0.1-12.0); Hematocrit 39.6 % (37.0-47.0); Hemoglobin 13.4 g/dL (12.2-16.2); Lymphocytes % 29.6 % (10-50); Mean Corpuscular HGB Conc 33.9 g/dL (31.8-35.4); Mean Corpuscular Hemoglobin 28.9 pg (27.0-31.2); Mean Corpuscular Volume 85.4 fl (81-99); Mean Platelet Volume 7.5 fl (7.4-10.4); Monocytes # 0.6 K/mm3 (0.1-1.0); Monocytes % 5.6 % (1.7-9.3); Neutrophils # 6.4 K/mm3 (1.8-7.8); Neutrophils % 62.7 % (37.0-80.0); Platelet Count 314 K/mm3 (142-424); Red Blood Count 4.64 M/mm3 (4.20-5.40); Red Cell Distribution Width 13.8 % (11.5-17.5); White Blood Count 10.2 K/mm3 (4.8-10.8)
[2019-11-03 18:15] VITALS: BP 122/87; PULSE 70; O2SAT 99
[2019-11-03 18:16] LABS: Chloride 103 mmol/L (98-107); Potassium 3.8 mmoL/L (3.5-5.1); Sodium 140 mmol/L (136-145)
[2019-11-03 18:19] LABS: Anion Gap 13.8 mEq/L (5-15); Blood Urea Nitrogen 13 mg/dl (7-17); Calcium 10.3 mg/dl (8.4-10.2); Carbon Dioxide 27 mmol/L (22.0-30.0); Creatinine Clearance Estimated 137 mL/min (50-200); Estimated Glomerular Filt Rate 112 ml/min (>60); GFR (African American) 135 ML/MIN (>60); Glucose 125 mg/dl (74-100)
[2019-11-03 18:40] LABS: Troponin I < 0.01 ng/ml (0.00-0.034)
--- NOTE | 2019-11-03 18:47 | XR_ITS ---
PROCEDURE: XR CHEST PORTABLE CLINICAL HISTORY: CHest Pain COMPARISON: No exams were available for comparison FINDINGS: The cardiomediastinal silhouette and pulmonary vascularity are within normal limits. The lungs are clear without infiltrates, suspicious nodules, or pleural effusions. No acute bony abnormalities. IMPRESSION: No acute findings. Dictated b Cesar Quinonez MD 11/03/2019 22:41 Cesar Quinonez MD in [place] 11/03/2019 22:41
[2019-11-03 18:48] VITALS: BP 113/97; PULSE 69; O2SAT 97
[2019-11-03 19:00] VITALS: BP 118/84; PULSE 64; O2SAT 98
--- NOTE | 2019-11-03 19:13 | HMH.EDCP ---
ED Disposition Clinical Impression: Chest pain, Atypical chest pain Disposition: Home, Self-Care Condition on Discharge: Good Instructions: DI for Atypical Chest Pain Referrals: Susie Dela Cruz APRN [Primary Care Provider] - - Critical Care Critical Care Time: No Attestation: On 11/03/19, the high probability of a clinically significant, sudden or life threatening deterioration of the following system(s) required my full and direct attention, intervention and personal management. The time I documented below is in addition to time spent performing reported procedures but includes the following listed in this critical care notation. Medical Decision Making - Medical Records Medical records reviewed: Yes: I reviewed the patient's medical records. - Monty Inquiry Pt receiving controlled substance: No Vital Signs: 11/03/19 17:56 11/03/19 18:15 11/03/19 18:48 Temperature 98.2 F Temperature Source Oral Pulse Rate [Right Radial] 77 70 69 Respiratory Rate 18 Blood Pressure [Right Arm] 144/95 H 122/87 113/97 H Blood Pressure Mean [Right Arm] 111 98 102 Blood Pressure Source [Right Arm] Automatic Cuff Automatic Cuff Automatic Cuff Blood Pressure Position [Right Arm] Sitting Sitting Sitting 02 Sat by Pulse Oximetry 99 99 97 Oxygen Delivery Method Room Air Room Air Room Air 11/03/19 19:00 Temperature Temperature Source Pulse Rate [Right Radial] 64 Respiratory Rate Blood Pressure [Right Arm] 118/84 Blood Pressure Mean [Right Arm] 95 Blood Pressure Source [Right Arm] Automatic Cuff Blood Pressure Position [Right Arm] Sitting 02 Sat by Pulse Oximetry 98 Oxygen Delivery Method Room Air - Lab Data Lab results reviewed: Yes: I reviewed the patient's lab results. Lab Results 11/03/19 18:00: WBC 10.2, RBC 4.64, Hgb 13.4, Hct 39.6, MCV 85.4, MCH 28.9, MCHC 33.9, RDW 13.8, Plt Count 314, MPV 7.5, Neut % (Auto) 62.7, Lymph % (Auto) 29.6, Chambers % (Auto) 5.6, Eos % (Auto) 1.4, Baso % (Auto) 0.6, Neut # (Auto) 6.4, Lymph # (Auto) 3.0, Chambers # (Auto) 0.6, Eos # (Auto) 0.2, Baso # (Auto) 0.1 11/03/19 18:00: Sodium 140, Potassium 3.8, Chloride 103, Carbon Dioxide 27, Anion Gap 13.8, BUN 13, Creatinine 0.60, Estimated Creat Clear 137, Estimated GFR 112, Est GFR ( Amer) 135, Glucose 125 H, Calcium 10.3 H, Troponin I < 0.01 Result diagrams: 11/03/19 18:00 11/03/19 18:00 Orders (Tests/Meds): ED MEDICATIONS Discontinued Medications Generic Name Dose Route Start Last Admin Trade Name Jason PRN Reason Stop Dose Admin Aspirin 324 mg 11/03/19 18:02 11/03/19 18:07 Aspirin 81mg Chewable Tablet PO 11/03/19 18:03 324 mg ONCE ONE Administration ORDERS Category Date Time Status XR chest portable Stat Exams 11/03/19 18:47 Taken Troponin I Q3H Lab 11/03/19 21:15 Ordered Troponin I Q3H Lab 11/04/19 00:15 Ordered - ECG Data Tracing #1 I reviewed this ECG and interpreted as documented below: Normal Sinus Rhythm: Yes Medical Decision Narrative: We had put patient on a Holter monitor for 48 hours. Chest Pain HPI - General Chief Complaint: Chest Pain Stated Complaint: chest pain Time Seen by Provider: 11/03/19 18:00 Mode of Arrival: Ambulatory Source of Information: Patient Limitations: No Limitations Description of Symptoms (Recalled from ER Triage Doc. by RN): Pt reports aching type L sided chest pain, pt reports pain radiates into her neck. Pt also reports SOA and nausea. Pt reports pain began approx 12 pm today while at work. - History of Present Illness HPI narrative: A healthy 39-year-old female presents the emergency department with with chest pressure chest pain and fluctuation of heart rate. Patient states that her heart rate was bouncing up to the 130s and coming back to the 80s. She said this happened to 3 times today. She does wear a fitness monitor on her while on her hand and that is how she noticed that her heart rate was elevated when she started t
[2019-11-03 20:07] VITALS: BP 135/87; PULSE 76; RESP 14; TEMP 36.7; O2SAT 99
== END 2019-11-03 20:09 | disposition home or self-care (01) ==
PROVIDERS: Emergency Provider Family Medicine; PCP Nurse Practitioner Family
DX: R07.89 Other chest pain (principal); R06.02 Shortness of breath; F41.9 Anxiety disorder, unspecified; E03.9 Hypothyroidism, unspecified; Z87.442 Personal history of urinary calculi; Z79.899 Other long term (current) drug therapy
CPT/HCPCS: 71045; 80048; 84484; 85025; 93005; 93225; 93226; 99284

== ENCOUNTER 2019-11-25 01:24 | Emergency (ER) | payer BC, SELFPAY ==
[2019-11-25 01:39] VITALS: BP 147/88; PULSE 114; RESP 16; TEMP 37.7; O2SAT 98; BMI 28.3
--- NOTE | 2019-11-25 01:47 | HMH.EDGENADL ---
ED Disposition Clinical Impression: Suspected COVID-19 virus infection Upper respiratory infection Qualifiers: URI type: unspecified viral URI Qualified Code(s): J06.9 - Acute upper respiratory infection, unspecified Disposition: Home, Self-Care Condition on Discharge: Good Instructions: DI for Acute Bronchitis, Preventing the Spread of Coronavirus Discharge Instructions Additional Instructions: You have been evaluated for myalgias, headache, nausea. Please take Tylenol for pain. Take Zofran for nausea. Please self isolate. Avoid contact with others. You will be called in 24 to 48 hours with COVID results. Follow-up with your primary care doctor. Prescriptions: Ondansetron [Zofran 4mg ODT] 4 mg PO Q6 PRN #10 tab.rapdis PRN Reason: Nausea Transmission Status: Sent to [facility] Referrals: Susie Dela Cruz APRN [Primary Care Provider] - Forms: Work/School Release Time of Disposition: 01:54 - Critical Care Critical Care Time: No Attestation: On 11/25/19, the high probability of a clinically significant, sudden or life threatening deterioration of the following system(s) required my full and direct attention, intervention and personal management. The time I documented below is in addition to time spent performing reported procedures but includes the following listed in this critical care notation. Medical Decision Making - Medical Records Medical records reviewed: Yes: I reviewed the patient's medical records. - Monty Inquiry Pt receiving controlled substance: No Vital Signs: 11/25/19 01:39 Temperature 99.9 F H Temperature Source Oral Pulse Rate [Right] 114 H Respiratory Rate 16 Blood Pressure [Right Arm] 147/88 H Blood Pressure Mean [Right Arm] 107 Blood Pressure Source [Right Arm] Automatic Cuff Blood Pressure Position [Right Arm] Sitting 02 Sat by Pulse Oximetry 98 Oxygen Delivery Method Room Air Orders (Tests/Meds): ORDERS Category Date Time Status Covid-19 Nasal PCR Sendout Gerardo Stat Lab 11/25/19 01:46 Ordered UA [Urinalysis and Microscopic] Stat Lab 11/25/19 01:45 Received Medical Decision Narrative: In summary this is a 39-year-old previously healthy female presenting to the emergency department with fatigue, myalgias, nausea, headache. Clinically stable on arrival. Temperature is 99 Fahrenheit. Slightly tachycardic. Most likely diagnosis is COVID-19. Also concern for urinary tract infection, other viral illness. Does not appear consistent with bacterial or viral meningitis. No abdominal pain. COVID swab obtained. Patient given prescription for ondansetron. Recommended to take Tylenol for pain and fever. Given COVID isolation precautions. Stable for discharge. General Adult HPI - General Chief complaint: Upper Respiratory Infection Stated complaint: Fever,body aches,headache Time Seen by Provider: 11/25/19 01:37 Mode of Arrival: Ambulatory Limitations: No Limitations Description of Symptoms (Recalled from ER Triage Doc. by RN): PT c/o headache, fever, body aches, chills - History of Present Illness HPI narrative: 39-year-old female presenting to the emergency department with generalized malaise, headaches, nausea, chills. Symptoms started yesterday. She felt generally fatigued. Had fevers and chills. Global throbbing headache. No neck pain or vision changes. Today she felt very cold before she went to bed. When she woke up in the night she had fever and chills, temperature at home was 101 Fahrenheit. She took 500 mg of acetaminophen. Has sinus pressure, congestion, sore throat. No cough, shortness of breath. No known positive COVID contacts. She has not been tested previously - Related Data Home Medications Medication Instructions Recorded Confirmed Buspirone HCl [Buspar 10mg 10 mg PO BID 01/08/19 10/30/19 tablet] Previous Rx's Medication Instructions Recorded Diclofenac Sodium [Diclofenac 75mg 75 mg PO BID #60 tab
[2019-11-25 01:48] LABS: Microscopic, Urine URINE MICROSCOPIC (MICROSCOPIC)
[2019-11-25 02:02] VITALS: BP 123/84; PULSE 94; RESP 18; TEMP 37.2; O2SAT 100
[2019-11-25 03:13] LABS: Appearance,Urine CLEAR (Clear); Bilirubin,Urine Negative (Negative); Blood, Urine 1+ (Negative); Color,Urine YELLOW (Yellow); Glucose,Urine (UA) Negative (Negative); Ketones,Urine Negative (Negative); Leukocyte Esterase,Urine Negative (Negative); Nitrate,Urine Negative (Negative); PH,Urine 6.5 (5.0-8.5); Protein,Urine Negative (Negative); Specific Gravity, Urine 1.025 (1.005-1.030)
[2019-11-25 03:29] LABS: Bacteria,Urine 1+ /lpf; Mucus,Urine 1+ /lpf
[2019-11-26 14:15] LABS: Covid-19 Nasal PCR Sendout Lex Not Detected
== END 2019-11-25 02:03 | disposition home or self-care (01) ==
PROVIDERS: Emergency Provider Emergency Medicine; PCP Nurse Practitioner Family
DX: Z20.828 Contact with and (suspected) exposure to other viral communicable diseases (principal); J06.9 Acute upper respiratory infection, unspecified; F41.9 Anxiety disorder, unspecified; E03.9 Hypothyroidism, unspecified; Z79.899 Other long term (current) drug therapy
CPT/HCPCS: 81001; 99282; U0004

== ENCOUNTER 2019-12-02 17:43 | Emergency (ER) | payer BC, SELFPAY ==
[2019-12-02 18:21] LABS: UTC Influenza A Antigen Negative (Negative); UTC Influenza B Antigen Negative (Negative); UTC Strep Screen (Rapid) Positive (Negative)
[2019-12-02 18:22] VITALS: BP 121/78; PULSE 104; RESP 19; TEMP 36.9; O2SAT 99; BMI 25.7
--- NOTE | 2019-12-02 18:44 | HMH.EDUTC ---
[facility] [place] Clinical Impression: Strep throat Disposition: Home, Self-Care Condition on Discharge: Good Instructions: Strep Throat, DI for Strep Throat Additional Instructions: Drink plenty of fluids. Take tylenol or ibuprofen for pain or fever. Take the medications as directed. Follow up with your regular doctor. GO TO THE ER FOR ANY WORSENING SYMPTOMS Throw your tooth brush away and get a new one. Prescriptions: Ondansetron [Zofran 4mg ODT] 4 mg PO Q8HP PRN #20 tab.rapdis PRN Reason: Nausea Transmission Status: Received by [facility] Amoxicillin/Potassium Clav [Augmentin 875-125 Tablet] 1 tab PO Q12H 10 Days #20 tab Transmission Status: Received by [facility] Fluconazole [Diflucan 150mg tab] 150 mg PO ONCE #1 tab Transmission Status: Received by [facility] Referrals: Susie Dela Cruz APRN [Primary Care Provider] - Forms: Work/School Release Time of Disposition: 18:46 Medical Decision Making - Medical Records Medical records reviewed: No: I reviewed the patient's medical records. - Monty Inquiry Pt receiving controlled substance: No Vital Signs: 12/02/19 18:22 12/02/19 18:48 Temperature 98.4 F 98.4 F Temperature Source Oral Pulse Rate 104 H Pulse Rate [Right Brachial] 104 H Respiratory Rate 19 19 Blood Pressure 121/78 Blood Pressure [Right Arm] 121/78 Blood Pressure Mean [Right Arm] 92 Blood Pressure Source [Right Arm] Automatic Cuff Blood Pressure Position [Right Arm] Sitting 02 Sat by Pulse Oximetry 99 Oxygen Delivery Method Room Air - Lab Data Lab results reviewed: Yes: I reviewed the patient's lab results. Lab Results 12/02/19 17:58: Influenza Type A Ag Negative, Influenza Type B Ag Negative 12/02/19 17:58: Strep Scn Rapid [facility] Positive [place] [facility] [place] - General Stated complaint: Feever, headache, nausea Time Seen by Provider: 12/02/19 18:30 Mode of Arrival: Ambulatory Source of Information: Patient Limitations: No Limitations Description of Symptoms (Recalled from Triage Doc. by RN): PATIENT C/O FEVER, LOSS OF APPETITE AND HEADACHE HEENT Symptoms (Recalled from RN notes): Yes Resp Symptoms (Recalled from RN notes): No Skin Symptoms (Recalled from RN notes): No MS Symptoms (Recalled from RN notes): No Functional Status (Recalled from RN notes): WNL - History of Present Illness Provider Complaint: She c/o 2 days of feeling bad, sore throat and poor appetite. - Related Data Home Medications Medication Instructions Recorded Confirmed Buspirone HCl [Buspar 10mg 10 mg PO BID 01/08/19 12/02/19 tablet] Levothyroxine Sodium [Synthroid] 75 mcg PO DAILY 12/02/19 12/02/19 PARoxetine HCL [Paxil 20mg Tablet] See Rx Instructions .ROUTE .COMPLEX 12/02/19 12/02/19 Previous Rx's Medication Instructions Recorded Amoxicillin/Potassium Clav 1 tab PO Q12H 10 Days #20 tab 12/02/19 [Augmentin 875-125 Tablet] Fluconazole [Diflucan 150mg tab] 150 mg PO ONCE #1 tab 12/02/19 Ondansetron [Zofran 4mg ODT] 4 mg PO Q8HP PRN #20 tab.rapdis 12/02/19 Allergies Allergy/AdvReac Type Severity Reaction Status Date / Time No Known Allergies Allergy Verified 11/25/19 01:45 - Worker's Comp Is this a Worker's Comp case?: No [facility] History - Hepatitis A Screen Drug use history?: No High risk sexual behaviors?: No History of sexually transmitted infection?: No Currently employed?: No Childcare worker?: No Do you have indoor plumbing?: Yes Do you have electricity?: Yes Attestation statement:: This patient has been screened for Hepatitis A risk factors. I have reviewed the patient's past medical history: Yes 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: Reports:: Anxiety Denies:: Cancer, Diabetes Mellitus Type 1, Diabetes Mellitus Type 2, Internal Pacemaker, Lung Disease, MRSA, Seizures Other 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: Reports: Arthritis, Hypothyroidism, Thyroid Disease. Denies: Blood Transfusion Reaction Comment: [facility] uses CPAP Latera
[2019-12-02 18:48] VITALS: BP 121/78; PULSE 104; RESP 19; TEMP 36.9; O2SAT 99
== END 2019-12-02 18:52 | disposition home or self-care (01) ==
PROVIDERS: Emergency Provider Nurse Practitioner Family; PCP Nurse Practitioner Family
DX: J02.0 Streptococcal pharyngitis (principal); F41.9 Anxiety disorder, unspecified; E03.9 Hypothyroidism, unspecified; Z79.899 Other long term (current) drug therapy
CPT/HCPCS: 87804; 87880; 99202

== ENCOUNTER → 2020-02-25 13:22 | Outpatient (CLI) | payer BC, SELFPAY ==
--- NOTE | 2020-02-25 13:23 | US_ITS ---
PROCEDURE: US THYROID CLINICAL INDICATION: thyroiditis Follow-up thyroid nodules COMPARISON: US US THYROID from 08/25/2019 FINDINGS: The right lobe is 4 x 1.4 x 1.2 cm. The left lobe is 3 x 1.2 x 1.3 cm. The isthmus is thickened at 5 mm. There is diffuse heterogeneous echogenicity. The thyroid gland has a nodular contour. No discrete dominant nodule is evident IMPRESSION: Mild diffuse heterogeneous echogenicity of the thyroid gland not significantly changed with no discrete dominant nodule apparent Dictated by: Cesar Qunionez MD 02/25/2020 19:17 Cesar Quinonez MD in [place] 02/25/2020 19:17
[2020-02-27 13:02] LABS: Thyroid Peroxidase Antibodies 246 IU/mL (0-34)
[2020-02-28 12:54] LABS: Thyroid Stimulating Immunoglob <0.10 IU/L (0.00-0.55)
== END ==
PROVIDERS: PCP Physician Assistant; Visit Provider Otolaryngology
DX: E04.1 Nontoxic single thyroid nodule (principal); E06.9 Thyroiditis, unspecified
CPT/HCPCS: 36415; 76536; 84439; 84443; 84445; 86376

== ENCOUNTER → 2020-04-13 13:24 | Outpatient (CLI) | payer BC, SELFPAY ==
--- NOTE | 2020-04-13 13:24 | MM_ITS ---
PROCEDURE: MM DIG SCREENING MAMM BI W/CAD Digital Breast Tomosynthesis Included CLINICAL INDICATION: screening xmg There is no personal or family history of breast cancer. COMPARISON: MG DIG MAMM-DX UNI-LT from 08/12/2018 MG MM DIG MAMM BI DX W/CAD from 02/03/2019 TECHNIQUE: Standard CC and MLO images and 3D Tomosynthesis was obtained. R2 CAD reviewed. FINDINGS: Moderate diffuse somewhat heterogenic fibroglandular densities are seen throughout both breast. The findings are bilateral and symmetrical. There is no suspicious lesion and no suspicious microcalcifications. IMPRESSION: Moderate breast density with no suspicious lesions seen BI-RAD Category: 1 Negative FOLLOW-UP: 1YR 1 Year Follow-up (A letter has been sent to the patient regarding results of the study.) Dictated by: Dr. Fernando Moody MD 04/19/2020 10:48 Dr. Fernando Moody MD in [place] 04/19/2020 10:48
== END ==
PROVIDERS: PCP Physician Assistant; Visit Provider Nurse Practitioner Obstetrics & Gynecology
DX: Z12.31 Encounter for screening mammogram for malignant neoplasm of breast (principal)
CPT/HCPCS: 77063; 77067

== ENCOUNTER → 2020-04-15 13:16 | Outpatient (CLI) | payer BC, SELFPAY ==
--- NOTE | 2020-04-15 13:19 | XR_ITS ---
PROCEDURE: XR LUMBAR SPINE MIN 4V CLINICAL INDICATION: Back pain radiating down BLE COMPARISON: No exams were available for comparison FINDINGS: No fracture or dislocation. No lytic or blastic change. There is normal mineralization. The joint spaces are well-preserved. No significant degenerative/arthritic changes. No erosive changes evident. Other findings:There is minimal spurring along the superior endplate of L4. Incidental note is made left-sided nephrolithiasis with a least 3 stones present on the left measuring up to 3 mm. There are multiple pelvic calcifications consistent phleboliths IMPRESSION: 1. No acute finding of the lumbar spine with minimal spurring of L4. 2. Left-sided nephrolithiasis Dictated by: Cesar Quinonez MD 04/15/2020 15:19 Cesar Quinonez MD in [place] 04/15/2020 15:19
--- NOTE | 2020-04-15 13:19 | XR_ITS ---
PROCEDURE: XR CERVICAL SPINE 4V CLINICAL INDICATION: neck pain radiating down LUE COMPARISON: No exams were available for comparison FINDINGS: There is reversal of the cervical lordosis at the C4-C5 level with degenerative disc disease at C5-C6 with endplate hypertrophic change. There is normal alignment. No fracture or dislocation. No lytic or blastic change. No cervical ribs. There is mild narrowing of the left C5-C6 foramen. IMPRESSION: 1. Reversal cervical lordosis with degenerative disc disease and left-sided foraminal narrowing at C5-C6 Dictated by: Cesar Quinonez MD 04/15/2020 15:21 Cesar Quinonez MD in [place] 04/15/2020 15:21
== END ==
LOC: RAD 13:17
PROVIDERS: PCP Physician Assistant; Visit Provider Physician Assistant
DX: M54.2 Cervicalgia (principal); M54.9 Dorsalgia, unspecified; M54.5 Low back pain
CPT/HCPCS: 72050; 72110

== ENCOUNTER → 2020-04-30 07:58 | Outpatient (CLI) | payer BC, SELFPAY ==
--- NOTE | 2020-04-30 07:59 | MR_ITS ---
PROCEDURE: MR LUMBAR SPINE WO CON CLINICAL INDICATION: lumbar Low back pain with bilateral lower extremity numbness COMPARISON: CR XR LUMBAR SPINE MIN 4V from 04/15/2020 MR MR CERVICAL SPINE WO CON from 04/30/2020 TECHNIQUE: Standard multiplanar multiecho sequences are performed without contrast. 3-D MIP and myelographic images are also rendered and reviewed FINDINGS: The spinal cord ends at the L1-L2 level. There is normal alignment. No fracture or dislocation evident. L1-L2: Unremarkable. L2-L3: There is a minuscule left paracentral disc protrusion without impingement. L3-L4: Unremarkable. L4-5: Mild facet and ligamentum hypertrophy. L5-S1: Unremarkable. IMPRESSION: No extruded herniated disc or canal stenosis. Mild facet and ligamentum hypertrophy is present at L4-5 with a miniscule left paracentral disc protrusion at L2-L3 Dictated by: Cesar Quinonez MD 04/30/2020 09:33 Cesar Quinonez MD in [place] 04/30/2020 09:33
--- NOTE | 2020-04-30 07:59 | MR_ITS ---
PROCEDURE: MR CERVICAL SPINE WO CON CLINICAL INDICATION: neck pain radiating down LUE PT C/O NECK PAIN RADIATING DOWN LUE X A FEW MONTHS COMPARISON: CR XR CERVICAL SPINE 4V from 04/15/2020 TECHNIQUE: Standard multiplanar multiecho sequences are performed without contrast. 3-D MIP and myelographic images are also rendered and reviewed FINDINGS: There is normal alignment. The craniocervical junction has an unremarkable appearance. There is reversal of the cervical lordosis which may be due to patient positioning or muscle spasm. C2-C3: Unremarkable. C3-C4: Unremarkable. C4-C5: Small central disc protrusion versus prominent posterior longitudinal ligament without impingement. C5-C6: Degenerative disc disease with endplate ridging and bulging disc with canal stenosis of 9 mm without impingement. There is mild bilateral lateral recess and foraminal narrowing slightly greater on the left. C6-C7: There is a small right paracentral disc protrusion without impingement. C7-T1 unremarkable. T1-T2: Mild bulging disc. IMPRESSION: 1. C4-C5: Small central disc protrusion versus prominent posterior longitudinal ligament without impingement. 2. C5-C6: Degenerative disc disease with endplate ridging and bulging disc with canal stenosis of 9 mm without impingement. There is mild bilateral lateral recess and foraminal narrowing slightly greater on the left. 3. C6-C7: There is a small right paracentral disc protrusion without impingement. 4. Reversal of normal cervical lordosis Dictated by: Cesar Quinonez MD 05/02/2020 11:42 Cesar Quinonez MD in [place] 05/02/2020 11:42
== END ==
LOC: RAD 07:58
PROVIDERS: PCP Physician Assistant; Visit Provider Physician Assistant
DX: M54.2 Cervicalgia (principal); M54.5 Low back pain
CPT/HCPCS: 72141; 72148; 76376

== ENCOUNTER 2020-05-01 09:41 | Emergency (ER) | payer BC, SELFPAY ==
[2020-05-01 09:45] VITALS: BP 139/89; PULSE 89; RESP 18; TEMP 37; O2SAT 98; BMI 29.2
--- NOTE | 2020-05-01 09:58 | HMH.EDUTC ---
[facility] Disposition Clinical Impression: Sinusitis Qualifiers: Sinusitis location: maxillary Chronicity: acute Recurrence: non-recurrent Qualified Code(s): J01.00 - Acute maxillary sinusitis, unspecified Disposition: Home, Self-Care Condition on Discharge: Good Additional Instructions: You have been tested for COVID19. Please isolate as if you are positive until test results received. Prescriptions: Cefdinir [Omnicef 300mg Capsule] 300 mg PO BID #20 cap Transmission Status: Pending to [id number] predniSONE [Prednisone 20mg Tab] 20 mg PO BID 5 Days #10 tab Transmission Status: Pending to [id number] Referrals: Cheryl Moreira PA [Primary Care Provider] - Time of Disposition: 10:05 Medical Decision Making - Monty Inquiry Pt receiving controlled substance: No - Lab Data Lab results reviewed: Yes: I reviewed the patient's lab results. [facility] HPI - General Stated complaint: sore throat, stuffy nose Time Seen by Provider: 05/01/20 09:59 - History of Present Illness Provider Complaint: Sore throat, headache, nasal congestion. Has been on Amoxil for 5 days for ear pain but started feeling much worse last night. No fever. No N/V/D. No known exposure to COVID19. Onset (ago): day(s) (1) Location: mouth Radiation: non-radiation Relieving factors: none Exacerbating factors: none Associated symptoms: denies other symptoms Treatments prior to arrival: other (Amoxil) - Related Data Home Medications Medication Instructions Recorded Confirmed Buspirone HCl [Buspar 10mg 10 mg PO BID 01/08/19 04/21/20 tablet] Previous Rx's Medication Instructions Recorded Ondansetron [Zofran 4mg ODT] 4 mg PO Q8HP PRN #20 tab.rapdis 12/02/19 levothyroxine 75 mcg tablet 75 mcg PO DAILY #90 tab 03/02/20 paroxetine HCl 20 mg tablet See Rx Instructions .ROUTE 03/16/20 .COMPLEX #90 tab amoxicillin 500 mg tablet 500 mg PO BID 10 Days #20 tab 04/21/20 Cefdinir [Omnicef 300mg Capsule] 300 mg PO BID #20 cap 05/01/20 predniSONE [Prednisone 20mg 20 mg PO BID 5 Days #10 tab 05/01/20 Tab] Allergies Allergy/AdvReac Type Severity Reaction Status Date / Time No Known Allergies Allergy Verified 04/21/20 13:53 [facility] History - Hepatitis A Screen Attestation statement:: This patient has been screened for Hepatitis A risk factors. I have reviewed the patient's past medical history: Yes 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: Reports:: Anxiety Denies:: Cancer, Diabetes Mellitus Type 1, Diabetes Mellitus Type 2, Internal Pacemaker, Lung Disease, MRSA, Seizures Other 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: Reports: Arthritis, Hypothyroidism, Thyroid Disease. Denies: Blood Transfusion Reaction Comment: [facility] uses CPAP Laterality Cases: Bilateral: Other Other Surgeries: Yes: Colonoscopy, EGD, Ureter Stent, Other. No: Pacemaker Amputation: No Fractures: No Comment: 07/2017 Novasure Ablation. 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 , Abnormal Uterine Bleeding ROS Obtained: Yes All systems reviewed & no additional complaints - Constitutional Constitutional: Reports headache(s) - ENT Ears, Nose, Mouth, and Throat: Reports nasal congestion, Reports sore throat Physical Exam - General General appearance: alert, in no apparent distress - Head Head exam: atraumatic, normocephalic, normal inspection - Eye Eye exam: Present: normal appearance, PERRL, EOMI - ENT ENT exam: Present: normal exam, normal oropharynx, mucous membranes moist, TM's normal bilaterally, normal external ear exam - Expanded ENT Exam Throat exam: Present: tonsillar erythema, tonsillomegaly - Neck Neck exam: Present: nor
[2020-05-01 10:05] LABS: UTC Strep Screen (Rapid) Negative (Negative)
[2020-05-01 10:24] VITALS: BP 139/89; PULSE 89; RESP 18; TEMP 37; O2SAT 98
== END 2020-05-01 10:27 | disposition home or self-care (01) ==
PROVIDERS: Emergency Provider Physician Assistant; PCP Physician Assistant
DX: J01.00 Acute maxillary sinusitis, unspecified (principal); Z20.822 Contact with and (suspected) exposure to COVID-19; F41.9 Anxiety disorder, unspecified; Z79.899 Other long term (current) drug therapy
CPT/HCPCS: 87880; 96372; 99202; G0463; J1030; U0003

== ENCOUNTER → 2020-06-03 18:18 | Outpatient (CLI) | payer BC, SELFPAY ==
[2020-06-03 18:32] LABS: Basophils # 0.1 K/mm3 (0-0.2); Basophils % 0.9 % (0.1-2.0); Eosinophils # 0.1 K/mm3 (0.0-0.4); Eosinophils % 1.1 % (0.1-12.0); Hematocrit 41.6 % (37.0-47.0); Hemoglobin 13.6 g/dL (12.2-16.2); Lymphocytes # 3.7 K/mm3 (0.7-4.5); Lymphocytes % 39.9 % (10-50); Mean Corpuscular HGB Conc 32.6 g/dL (31.8-35.4); Mean Corpuscular Hemoglobin 28.2 pg (27.0-31.2); Mean Corpuscular Volume 86.5 fl (81-99); Mean Platelet Volume 8.8 fl (7.4-10.4); Monocytes # 0.5 K/mm3 (0.1-1.0); Monocytes % 5.8 % (1.7-9.3); Neutrophils # 4.9 K/mm3 (1.8-7.8); Neutrophils % 52.3 % (37.0-80.0); Platelet Count 356 K/mm3 (142-424); Red Blood Count 4.82 M/mm3 (4.20-5.40); Red Cell Distribution Width 14.6 % (11.5-17.5); White Blood Count 9.3 K/mm3 (4.8-10.8)
[2020-06-03 20:04] LABS: Chloride 103 mmol/L (98-107); Sodium 141 mmol/L (136-145)
[2020-06-03 20:05] LABS: Potassium 4.4 mmoL/L (3.5-5.1)
[2020-06-03 20:07] LABS: Alanine Aminotransferase 26 U/L (12-78); Albumin Level 4.7 g/dl (3.5-5.0); Albumin/Globulin Ratio 1.2 (1.1-1.8); Alkaline Phosphatase 87 U/L (38-126); Anion Gap 14.4 mEq/L (5-15); Aspartate Amino Transferase 26 U/L (14-36); Bilirubin,Total 0.4 mg/dl (0.2-1.3); Blood Urea Nitrogen 15 mg/dl (7-17); Carbon Dioxide 28 mmol/L (22.0-30.0); Estimated Glomerular Filt Rate 94 ml/min (>60); GFR (African American) 113 ML/MIN (>60); Globulin 3.8 g/dL (1.3-3.2); Total Protein,Serum 8.5 g/dl (6.3-8.2)
[2020-06-03 20:08] LABS: Calcium 9.9 mg/dl (8.4-10.2); Chol/HDL Ratio 5.2 (1-3.5); Cholesterol 289 mg/dl (140-200); Glucose 91 mg/dl (74-100); HDL Cholesterol 56 mg/dl (40-60); Triglycerides 271 mg/dl (30-150); VLDL Cholesterol 54 mg/dL (0-40)
[2020-06-03 20:19] LABS: Direct LDL Cholesterol 175.87 mg/dL (100-129)
[2020-06-03 20:27] LABS: T4 (Thyroxine) 9.8 ug/dl (5.53-11.0)
[2020-06-03 20:38] LABS: Thyroid Stimulating Hormone 2.62 uIU/mL (0.465-4.68)
[2020-06-05 08:34] LABS: Testosterone,Total 40 ng/dL (8-48)
[2020-06-05 09:35] LABS: FSH 6.9 mIU/mL (.); LH 11.4 mIU/mL (.); Progesterone 0.2 ng/mL (.); Thyroid Peroxidase Antibodies 213 IU/mL (0-34)
[2020-06-08 18:49] LABS: Thyroid Stimulating Immunoglob <0.10 IU/L (0.00-0.55)
[2020-06-10 11:38] LABS: Estrogen 130 pg/mL (.)
== END ==
LOC: LAB.DROPOF 18:19
PROVIDERS: Visit Provider Physician Assistant
DX: R23.2 Flushing (principal); Z79.899 Other long term (current) drug therapy
CPT/HCPCS: 80053; 80061; 82672; 83001; 83002; 84144; 84403; 84436; 84443; 84445; 85025; 86376

== ENCOUNTER 2020-06-15 08:00 | Outpatient (RCR) | payer BC, SELFPAY ==
--- NOTE | 2020-05-25 14:32 | HMH.PTOPEV ---
PT Outpatient Evaluation Rehab PT Outpatient Evaluation Start: 05/25/20 13:21 Freq: Status: Active Protocol: Document 05/25/20 14:17 LAURA (Rec: 05/25/20 14:31 PHORCARLOS [id number]) Electronically Signed By Braydon Jorgensen, PT 05/25/20 14:17 Outpatient Therapy Subjective History Subjective History Pt is 39 yowf who presents with c/o pain in neck and B shlds x ~ 6 mos with insidious onset of symptoms. She reports frequent headaches and intermittent numbness/ tingling in B UE. SHe had MRI performed which shows DDD with disc bulge at C4/5, C5/6, C6/ 7. She reports PMH of hasimoto 's thyroid disease. Chief Complaint Pain Symptom Type Burning,Numbness,Tingling Symptoms Relieved By Rest/Positioning Symptoms Aggravated By Sitting Prior Functional Limitations None Current Functional Limitations Desk Work/Reading,Driving, Sleeping,Sitting,Recreation Activity Symptom Description Constant but Variable Level of pain today (0-10) 2 Pain scale - at its worst (0-10) 5 Cervical Eval Palpation Cervical Muscles R Cervical Paraspinal,L Cervical Paraspinal,R Suboccipital,L Suboccipital,R Upper Trapezius,L Upper Trapezius Cervical/Thoracic Palpation Findings Tenderness Flexibility Deficits Upper Trapezius Muscle Length (R) Mild Tightness,(L) Mild Tightness Levaetor Scapulae Muscle Length (R) Mild Tightness,(L) Mild Tightness Scalene Group Muscle Length (R) Mild Tightness,(L) Mild Tightness Passive Joint Mobility Cervical PIVM Dec: R C4/5 L C4/5 R C5/6 L C5/6 R C6/7 L C6/7 R C7/T1 L C7/T1 WNL: R OA L OA R AA L AA R C2/3 L C2/3 R C3/4 L C3/4 AROM Cervical Spine Extension Active Range of
== END 2020-06-15 08:05 | disposition home or self-care (01) ==
LOC: PT 08:00
PROVIDERS: PCP Physician Assistant; Visit Provider Physician Assistant
DX: M48.02 Spinal stenosis, cervical region (principal); M50.20 Other cervical disc displacement, unspecified cervical region
CPT/HCPCS: 97010; 97012; 97014; 97110; 97140; 97163; G0283

== ENCOUNTER 2020-06-15 18:42 | Observation (INO) | payer BC, SELFPAY ==
[2020-06-15] VITALS (12 sets, daily range): BP systolic 111–133; BP diastolic 78–98; PULSE 62–86; RESP 14–21; TEMP 36.7; O2SAT 95–100; BMI 25.6
--- NOTE | 2020-06-15 18:38 | ECG_ITS ---
APPROVED REPORT Exam: Resting ECG HR:69 bpm ECG Measurements Heart Rate 69 AXES AK 146 P 20 QRSd 92 QRS 16 QT 404 T 33 QTc 432 Conclusion Normal sinus rhythm Normal ECG Electronically signed by : Riog Dennis, 06/16/2020 17:46:44
--- NOTE | 2020-06-15 18:48 | XR_ITS ---
PROCEDURE: XR CHEST PORTABLE CLINICAL HISTORY: chest pain COMPARISON: CR XR CHEST PORTABLE from 11/03/2019 FINDINGS: The cardiomediastinal silhouette and pulmonary vascularity are within normal limits. The lungs are clear without infiltrates, suspicious nodules, or pleural effusions. No acute bony abnormalities. IMPRESSION: No acute findings. Dictated by: Cesar Quinonez MD 06/15/2020 19:07 Cesar Quinonez MD in [place] 06/15/2020 19:07
[2020-06-15 19:16] LABS: Chloride 103 mmol/L (98-107); Potassium 3.9 mmoL/L (3.5-5.1); Sodium 139 mmol/L (136-145)
[2020-06-15 19:17] LABS: Basophils # 0.1 K/mm3 (0-0.2); Basophils % 0.5 % (0.1-2.0); Eosinophils # 0.1 K/mm3 (0.0-0.4); Eosinophils % 0.7 % (0.1-12.0); Hematocrit 39.2 % (37.0-47.0); Hemoglobin 13.1 g/dL (12.2-16.2); Lymphocytes # 4.3 K/mm3 (0.7-4.5); Lymphocytes % 40.6 % (10-50); Mean Corpuscular HGB Conc 33.4 g/dL (31.8-35.4); Mean Corpuscular Hemoglobin 28.8 pg (27.0-31.2); Mean Platelet Volume 7.9 fl (7.4-10.4); Monocytes # 0.5 K/mm3 (0.1-1.0); Neutrophils # 5.7 K/mm3 (1.8-7.8); Neutrophils % 53.2 % (37.0-80.0); Platelet Count 270 K/mm3 (142-424); Red Blood Count 4.56 M/mm3 (4.20-5.40); Red Cell Distribution Width 14.2 % (11.5-17.5); White Blood Count 10.7 K/mm3 (4.8-10.8)
[2020-06-15 19:19] LABS: Anion Gap 12.9 mEq/L (5-15); Blood Urea Nitrogen 10 mg/dl (7-17); Carbon Dioxide 27 mmol/L (22.0-30.0); Creatinine Clearance Estimated 126 mL/min (50-200); Estimated Glomerular Filt Rate 111 ml/min (>60); GFR (African American) 135 ML/MIN (>60); Glucose 102 mg/dl (74-100)
[2020-06-15 19:33] LABS: Troponin I < 0.01 ng/ml (0.00-0.034)
--- NOTE | 2020-06-15 21:33 | HMH.EDCP ---
ED Disposition Clinical Impression: Chest pain at rest HLD (hyperlipidemia) Qualifiers: Hyperlipidemia type: unspecified Qualified Code(s): E78.5 - Hyperlipidemia, unspecified Disposition: Admitted as Observation Condition on Discharge: Good - Critical Care Critical Care Time: No Attestation: On 06/15/20, the high probability of a clinically significant, sudden or life threatening deterioration of the following system(s) required my full and direct attention, intervention and personal management. The time I documented below is in addition to time spent performing reported procedures but includes the following listed in this critical care notation. Medical Decision Making - Medical Records Medical records reviewed: Yes: I reviewed the patient's medical records. - Monty Inquiry Pt receiving controlled substance: No Vital Signs: 06/15/20 18:43 06/15/20 19:07 06/15/20 19:30 Temperature 98.1 F Temperature Source Oral Pulse Rate 66 62 Pulse Rate [Right Brachial] 73 Respiratory Rate 20 14 21 Blood Pressure 129/78 132/81 Blood Pressure [Right Arm] 120/98 H Blood Pressure Mean 90 Blood Pressure Mean [Right Arm] 105 Blood Pressure Source Automatic Cuff Blood Pressure Source [Right Arm] Automatic Cuff 02 Sat by Pulse Oximetry 98 96 Oxygen Delivery Method Room Air 06/15/20 20:00 06/15/20 20:30 06/15/20 21:00 Temperature Temperature Source Pulse Rate 86 64 75 Pulse Rate [Right Brachial] Respiratory Rate 16 20 18 Blood Pressure 126/79 129/78 133/90 Blood Pressure [Right Arm] Blood Pressure Mean 91 89 102 Blood Pressure Mean [Right Arm] Blood Pressure Source Blood Pressure Source [Right Arm] 02 Sat by Pulse Oximetry 100 98 99 Oxygen Delivery Method 06/15/20 21:30 06/15/20 21:35 06/15/20 22:00 Temperature Temperature Source Pulse Rate 71 85 74 Pulse Rate [Right Brachial] Respiratory Rate 16 17 16 Blood Pressure 121/90 123/84 111/79 Blood Pressure [Right Arm] Blood Pressure Mean 103 94 86 Blood Pressure Mean [Right Arm] Blood Pressure Source Blood Pressure Source [Right Arm] 02 Sat by Pulse Oximetry 97 95 96 Oxygen Delivery Method - Lab Data Lab results reviewed: Yes: I reviewed the patient's lab results. Lab Results 06/15/20 18:55: WBC 10.7, RBC 4.56, Hgb 13.1, Hct 39.2, MCV 86.0, MCH 28.8, MCHC 33.4, RDW 14.2, Plt Count 270, MPV 7.9, Neut % (Auto) 53.2, Lymph % (Auto) 40.6, [place] % (Auto) 5.0, Eos % (Auto) 0.7, Baso % (Auto) 0.5, Neut # (Auto) 5.7, Lymph # (Auto) 4.3, [place] # (Auto) 0.5, Eos # (Auto) 0.1, Baso # (Auto) 0.1 06/15/20 18:55: Sodium 139, Potassium 3.9, Chloride 103, Carbon Dioxide 27, Anion Gap 12.9, BUN 10, Creatinine 0.60, Estimated Creat Clear 126, Estimated GFR 111, Est GFR ( Amer) 135, Glucose 102 H, Calcium 10.0, Troponin I < 0.01 Result diagrams: 06/15/20 18:55 06/15/20 18:55 Orders (Tests/Meds): ED MEDICATIONS Discontinued Medications Generic Name Dose Route Start Last Admin Trade Name Jason PRN Reason Stop Dose Admin Aspirin 324 mg 06/15/20 18:49 06/15/20 18:51 Aspirin 81mg Chewable Tablet PO 06/15/20 18:50 324 mg ONCE ONE Administration Nitroglycerin 0.4 mg 06/15/20 21:33 06/15/20 21:38 Nitroglycerin 0.4mg Sl Tablet SL 06/15/20 21:34 1 tab ONCE ONE Administration Nitroglycerin 1 gm 06/15/20 21:40 06/15/20 21:41 Nitroglycerin 1 Gm Ointment TD 06/15/20 21:41 1 gm ONCE ONE Administration ORDERS Category Date Time Status Covid-19 Nasal PCR ([facility]) Routine Lab 06/15/20 19:45 Received Troponin I Q3H Lab 06/15/20 22:20 Received Troponin I Q3H Lab 06/16/20 01:00 Ordered - Radiology Data #1 Image(s): Chest Image Reviewed: Yes I reviewed the patient's radiology image Preliminary Findings: Normal/NAD - ECG Data Tracing #1 Normal Sinus Rhythm: Yes Ischemic changes: non-specific ST-T wave changes Medical Decision Narrative:
[2020-06-15 23:05] LABS: Troponin I < 0.01 ng/ml (0.00-0.034)
--- NOTE | 2020-06-15 23:15 | PC.NURSE ---
pt arrived via w/c to floor from ed with staff at [phone]
[2020-06-16] VITALS (17 sets, daily range): BP systolic 97–116; BP diastolic 59–77; PULSE 58–79; RESP 14–20; TEMP 36.7; O2SAT 91–100; BMI 27.2
--- NOTE | 2020-06-16 | IR_ITS ---
APPROVED REPORT Patient Location: Inpatient PROCEDURES Left heart catheterization Left ventriculogram Selective coronary angiogram INDICATION Family history of sudden cardiac , Unstable angina Informed consent was obtained prior to the procedure. COMPLICATIONS None Estimated Blood Loss: Less than 10 mls TECHNIQUE One percent lidocaine used to anesthetize the right anterior aspect of the wrist. The right radial artery was accessed via the Seldinger technique. A 6 Polish sheath was placed in the right radial artery. 2.5 mg of verapamil, 800 mcg of nitroglycerin, 1mg Lidocaine and 5000 U Heparin were given through the arterial sheath. The trap catheter was also used to perform left heart catheterization, left ventriculogram and selective coronary angiogram. At the end of the procedure the sheath was removed good hemostasis was achieved using Traclet band, patient was transferred to the postop holding area in stable condition. ANGIOGRAPHIC RESULTS The left main artery Normal The left anterior descending artery Normal The circumflex artery Normal The right coronary artery Dominant normal The DRAPER ventriculogram reveals Hyperdynamic 70% The left ventricular end-diastolic pressure Less than 20 mmHg IMPRESSION Normal coronary arteries Hyperdynamic ventricle Mildly elevated LVEDP PLAN 1. Medical management 2. Patient appears to have some type of a tachyarrhythmia. During the cardiac catheterization and sedate she developed a tachycardia at 135 bpm. 3. Patient will be started on bisoprolol 10 mg daily and then referred to EP for EP study. Also given patient's family history of sudden cardiac in her sibling at age 26 I believe additional work-up is warranted Electronically signed by : Yuo Nava, 06/21/2020 12:30:15
[2020-06-16 01:48] LABS: Troponin I < 0.01 ng/ml (0.00-0.034)
--- NOTE | 2020-06-16 05:03 | PC.NURSE ---
pt is AxOx4, has rested well t/o shift, lungs CTA, remains on room air, monitor worker shows NSR, no complaints of chest pain since arriving to floor, no complaints of SOA, N/V, HR 65-80, systolic BP 115-117
[2020-06-16 06:52] LABS: Basophils # 0.1 K/mm3 (0-0.2); Basophils % 0.5 % (0.1-2.0); Eosinophils # 0.1 K/mm3 (0.0-0.4); Eosinophils % 0.9 % (0.1-12.0); Hematocrit 37.6 % (37.0-47.0); Hemoglobin 12.8 g/dL (12.2-16.2); Lymphocytes # 4.3 K/mm3 (0.7-4.5); Lymphocytes % 39.8 % (10-50); Mean Corpuscular HGB Conc 34.1 g/dL (31.8-35.4); Mean Platelet Volume 7.9 fl (7.4-10.4); Monocytes # 0.6 K/mm3 (0.1-1.0); Monocytes % 5.2 % (1.7-9.3); Neutrophils # 5.8 K/mm3 (1.8-7.8); Neutrophils % 53.7 % (37.0-80.0); Platelet Count 268 K/mm3 (142-424); Red Blood Count 4.42 M/mm3 (4.20-5.40); Red Cell Distribution Width 14.3 % (11.5-17.5); White Blood Count 10.8 K/mm3 (4.8-10.8)
[2020-06-16 07:02] LABS: Anion Gap 13.8 mEq/L (5-15); Blood Urea Nitrogen 9 mg/dl (7-17); Calcium 9.2 mg/dl (8.4-10.2); Carbon Dioxide 23 mmol/L (22.0-30.0); Chloride 106 mmol/L (98-107); Creatinine Clearance Estimated 112 mL/min (50-200); Estimated Glomerular Filt Rate 93 ml/min (>60); GFR (African American) 113 ML/MIN (>60); Glucose 99 mg/dl (74-100); Magnesium 1.7 mg/dl (1.6-2.3); Potassium 3.8 mmoL/L (3.5-5.1); Sodium 139 mmol/L (136-145)
--- NOTE | 2020-06-16 07:17 | HMH.PHAVTE ---
[facility] Pharmacy VTE Monitoring - Patient Demographics Admission date: 06/16/20 Report Date: 06/16/20 Time: 07:17 Allergies/Adverse Reactions: Patient Allergies No Known Allergies Allergy (Verified 06/07/20 13:31) Height: 1.55 m Weight: 65.459 kg Patient Problems: Current Active Problems Chest pain at rest (Acute) HLD (hyperlipidemia) (Chronic) - VTE Risk Labs: VTE Related Lab Results Hgb 12.8 g/dL (12.2-16.2) 06/16/20 06:39 Hct 37.6 % (37.0-47.0) 06/16/20 06:39 Plt Count 268 K/mm3 (142-424) 06/16/20 06:39 BUN 10 mg/dl (7-17) 06/15/20 18:55 Creatinine 0.60 mg/dl (0.52-1.04) 06/15/20 18:55 Estimated Creat Clear 126 mL/min (50-200) 06/15/20 18:55 Was VTE Risk Assessment Performed: Yes VTE Score: 0 VTE Risk Level: Very Low Risk Clinical Trial Participant: No - Prophylaxis VTE Prophylaxis Ordered?: Yes Types of VTE Prophylaxis: TEDS Knee High
--- NOTE | 2020-06-16 07:20 | HMH.PHAINT ---
HOME MED LIST VERIFIED USING LIST FROM [facility]
--- NOTE | 2020-06-16 08:00 | CA_ITS ---
APPROVED REPORT EXAM: Comprehensive 2D, Doppler, and color-flow Echocardiogram Executive Steward: Ирина Durham CRT Ht: 5 ft 1 in Wt: 140lbs BSA: 1.62 BP: 126/83 mmHg Indications: Chest Pain, Dizziness and Vertigo, Palpitations, Hyperlipidemia, Hypertension/HDD 2D Dimensions LVOT 1.82 cm (M/F) 1.5-2.5 M-Mode Dimensions RVDd 2.44 cm (0.9-2.6) LA Diam 2.73 cm (1.9-4.0) LVDd 3.94 cm (3.5-5.7) Ao Diam 3.04 cm (2.0-3.7) LVDs 2.47 cm (3.5-5.7) IVSd 1.00 cm (0.6-1.1) PWd 1.10 cm (0.6-1.1) EF (Teich) 67.90% FS 37.30% EDV (Teich) 67.50 mL TAPSE 2.54 (<1.7) ESV (Teich) 21.70 mL LV Diastology E Decel Time 183.00 (160-240 msec) E/A Ratio 1.56 MED E' 6.20 (< 7 cm/sec) MED A' 6.50 cm/s E'/MED E' Ratio 14.60 (>14) LAT E' 12.10 (<10 cm/sec) LAT A' 9.20 cm/s E/LAT E' Ratio 7.48 (>14) Aortic Valve AO Peak GR. 6.00 mmHg Mitral Valve MV A Velocity 58.00 (40-130 cm/s) E/A Ratio 1.56 MV Decel. Time 183.00 (160-240 ms) Pulmonary Valve PV Peak Velocity 62.00 (50-150 cm/s) Tricuspid Valve TR P. Velocity 103.00 cm/s RAP Estimate 10.00 mmHg RVSP 14.20 mmHg Left Ventricle Left atrium is normal size, left ventricle is normal size, there is no concentric left ventricular hypertrophy, visually estimated ejection fraction 55% with no regional wall motion abnormality, diastolic parameters are within normal range. Right Ventricle Right atrium and right ventricle are normal size and contractility. Aortic Valve Aortic valve is grossly normal, there is no aortic stenosis or aortic insufficiency. Mitral Valve Mitral valve grossly normal, there is trace mitral regurgitation. Tricuspid Valve Tricuspid grossly normal, there is trace tricuspid regurgitation. Tricuspid regurgitation jet velocity is inadequate for calculation of the right ventricular systolic pressure. Pulmonic Valve Pulmonic valve is poorly visualized. Great Vessels Aortic root is normal size. Pericardium No significant pericardial effusion noted. Conclusion 1. Normal left ventricular size, preserved left ventricular systolic function, visually estimated ejection fraction 55% with no regional wall motion abnormality, diastolic parameters are within normal range. 2. Trace mitral and tricuspid regurgitation. 3. No significant pericardial effusion noted. Electronically signed by : Satish Doll, 06/17/2020 14:52:07
--- NOTE | 2020-06-16 08:02 | HMH.CNCARD ---
<Renetta Sawyer - Last Filed: 06/16/20 09:13> History of Present Illness Consult date: 06/16/20 Requesting physician: Ervin Cantu Consult reason: chest pain Chief complaint: Chest pain History of present illness: 40-year female presented to [facility] ED with heaviness in center of chest. Patient states she was sitting in the car, started experiencing heaviness in her chest nonradiating. Patient states the heaviness became very intense to where she felt nauseated and near syncope. Patient stated this heaviness lasted for 15 to 20 minutes. Patient then became very concerned and presented to the emergency room. Patient had been seen by cardiology 1 week ago for the same complaint. Patient at that time stated that she had been having this chest heaviness off and on for the past couple weeks. Patient states that shortness of breath that accompanies the chest heaviness. Patient states nitroglycerin seems to relieve the chest heaviness and improves the shortness of breath. Patient denies chest pain, tightness or pressure at this time. Patient denies shortness of breath. No swelling noted of the lower extremities. Patient denies dizziness. Patient does complain of palpitations especially with exertion. Patient has extensive family history of coronary artery disease. Father at the age of 60 after having multiple MIs. Brother at the age of 26 had an NE. Brother at the age of 39. Patient does have history of hyperlipidemia. LDL was 175, patient was prescribed Lipitor. EKG revealed normal sinus rhythm with a heart rate of [address] changes were noted. Initial lab work was unremarkable. Serial enzymes were noted as negative. Vital signs are stable. Chest x-ray noted with no acute findings. Patient does have history of obstructive sleep apnea. Patient states she does have a CPAP at home but does not use it because her face breaks out. Discussed plan of care with Dr. Nava and PCP. Patient to undergo left heart catheterization this a.m due to atypical chest pain and significant family history. Discussed the benefits and risk of left heart catheterization accessing the right wrist. Patient verbalized understanding of procedure and is agreeable. Obtain echocardiogram to assess LV function and valve status. Pending on the results of the echocardiogram and left heart catheterization, medication changes may be recommended. Please notify cardiology of any changes in patient status. Thank you for allowing cardiology to participate in the care of this patient. [facility] History I have reviewed the patient's past medical history: Yes 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: Reports:: Anxiety Denies:: Cancer, Diabetes Mellitus Type 1, Diabetes Mellitus Type 2, Internal Pacemaker, Lung Disease, MRSA, Seizures *Have you ever received a pneumonia vaccine?: No *Have you received a flu vaccine this season?: No Other 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: Reports: Arthritis, Hypothyroidism, Thyroid Disease. Denies: Blood Transfusion Reaction Laterality Cases: Bilateral: Other Other Surgeries: Yes: Colonoscopy, EGD, Ureter Stent, Other. 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
[2020-06-16 09:48] LABS: HCG Qualitative, Serum Negative (Negative)
--- NOTE | 2020-06-16 10:54 | PC.NURSE ---
Pt to lab director at this time.
--- NOTE | 2020-06-16 16:34 | HMH.HPDC ---
General - General Admission date:: 06/15/20 Discharge date: 06/16/20 *Admission Date: 06/16/20 *Chief complaint: Chest Pain *History of present illness: 40-year-old female patient presented to the emergency department with complaints of heaviness in her chest. She states she was sitting in the car and started having nonradiating chest heaviness. She reports she became nauseated and almost fainted, reporting the heaviness lasted for 15 to 20 minutes. She has been seen by cardiology 1 week prior for same complaint and was scheduled for testing tomorrow. During previous episode she reports shortness of breath, chest pain, tightness, and pressure. She reports pain will radiate into her neck and into her shoulder she reports she does have a family history of coronary artery disease, father at 60 with multiple MIs, brother [place] at age 26, other brother at age 39. She does have a history of hyperlipidemia, history of SHAWN but does not use her CPAP. Chest x-ray revealed no acute abnormalities Lab work was unremarkable Troponins negative x3 [facility] History I have reviewed the patient's past medical history: Yes 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: Reports:: Anxiety Denies:: Cancer, Diabetes Mellitus Type 1, Diabetes Mellitus Type 2, Internal Pacemaker, Lung Disease, MRSA, Seizures *Have you ever received a pneumonia vaccine?: No *Have you received a flu vaccine this season?: No Other 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: Reports: Arthritis, Hypothyroidism, Thyroid Disease. Denies: Blood Transfusion Reaction Laterality Cases: Bilateral: Other Other Surgeries: Yes: Colonoscopy, EGD, Ureter Stent, Other. 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 , Abnormal Uterine Bleeding Review of Systems - Review of Systems Review of systems:: pertinent systems reviewed and negative unless documented below - Constitutional Denies anorexia, Denies body ache(s) - Eyes Denies blurry vision, Denies double vision - ENT Denies abnormal hearing, Denies ear pain - *Cardiovascular Reports chest pain, Reports chest pain at rest, Reports chest pain with activity, Reports shortness of breath, Reports shortness of breath with activity, Reports radiating jaw, neck or arm pain - *Respiratory Reports shortness of breath, Reports shortness of breath with activity - *Gastrointestinal Denies abdominal pain, Denies excessive passing of gas - *Musculoskeletal Denies abnormal walking, Denies muscle cramps - Integumentary/Breasts Denies changing lesions, Denies redness - *Neurologic Reports weakness, Denies localized weakness, Denies headache(s) - Psychiatric Denies behavioral changes, Denies confusion - Endocrine Denies cold intolerance, Denies heat intolerance - Hematologic/Lymphatic Denies easy bleeding, Denies enlarged lymph nodes - Allergic/Immunologic Denies GI upset with certain foods, Denies wheezing Exam Vital signs and Labs for Last 24 Hours: Temp Pulse Resp BP Pulse Ox 98.1 F 78 18 116/77 96 06/16/20 07:41 06/16/20 16:00 06/16/20 16:00 06/16/20 16:00 06/16/20 14:35 Laboratory Results - last 24 hr 06/15/20 18:55: WBC 10.7, RBC 4.56, Hgb 13.1, Hct 39.2, MCV 86.0, MCH 28.8, MCHC 33.4, RDW 14.2, Plt Count 270, MPV 7.9, Neut % (Auto) 53.2, Lymph % (Auto) 40.6, Tift % (Auto) 5.0, Eos % (Auto) 0.7, Baso % (Auto) 0.5, Neut # (Auto) 5.7, Lymph # (Auto) 4.3, Tift # (Auto) 0.5, Eos # (Auto) 0.1, Baso # (Auto) 0.1 06/15/20 18:55: Sodium 139, Potassium 3.9, Chloride 103, Carbon Dioxide 27, Anion Gap 12.9, BUN 10, Creatinine 0.60, Estimated Creat Cl
== END 2020-06-16 17:00 | disposition home or self-care (01) ==
LOC: ER 19:00 → 2ND 22:41
PROVIDERS: Internal Medicine; Admitting Provider Emergency Medicine; Emergency Provider Emergency Medicine; PCP Physician Assistant; Visit Provider Emergency Medicine
DX: R07.9 Chest pain, unspecified (principal); Z82.49 Family history of ischemic heart disease and other diseases of the circulatory system; E03.9 Hypothyroidism, unspecified; R00.0 Tachycardia, unspecified; R42 Dizziness and giddiness; G47.33 Obstructive sleep apnea (adult) (pediatric); R00.2 Palpitations
CPT/HCPCS: 36415; 71045; 80048; 83735; 84484; 84703; 85025; 93005; 93306; 93458; 99152; 99284; C1725; C1769; G0378; J1644; Q9967; U0003

== ENCOUNTER 2020-07-03 16:48 | Emergency (ER) | payer BC, SELFPAY ==
[2020-07-03 17:32] VITALS: BP 120/74; PULSE 60; RESP 20; TEMP 36.6; O2SAT 98; BMI 27.3
--- NOTE | 2020-07-03 18:12 | HMH.EDGENADL ---
ED Disposition Clinical Impression: Abscess Disposition: Home, Self-Care Condition on Discharge: Good Prescriptions: Sulfamethoxazole/Trimethoprim [Bactrim DS tablet] 1 each PO BID #20 tab Transmission Status: Pending to [facility] Referrals: Cheryl Moreira PA [Primary Care Provider] - - Critical Care Critical Care Time: No Attestation: On 07/03/20, the high probability of a clinically significant, sudden or life threatening deterioration of the following system(s) required my full and direct attention, intervention and personal management. The time I documented below is in addition to time spent performing reported procedures but includes the following listed in this critical care notation. Medical Decision Making - Medical Records Medical records reviewed: Yes: I reviewed the patient's medical records. - Monty Inquiry Pt receiving controlled substance: No Vital Signs: 07/03/20 17:32 Temperature 98 F Temperature Source Oral Pulse Rate [Radial] 60 Respiratory Rate 20 Blood Pressure [Right Radial Artery] 120/74 Blood Pressure Mean [Right Radial Artery] 89 Blood Pressure Position [Right Radial Artery] Sitting 02 Sat by Pulse Oximetry 98 Oxygen Delivery Method Room Air - Lab Data Lab results reviewed: Yes: I reviewed the patient's lab results. Lab Results 07/03/20 18:15: WBC 9.4, RBC 4.41, Hgb 12.7, Hct 37.7, MCV 85.4, MCH 28.8, MCHC 33.8, RDW 14.1, Plt Count 303, MPV 7.6, Neut % (Auto) 52.4, Lymph % (Auto) 40.4, Mobile % (Auto) 5.5, Eos % (Auto) 1.0, Baso % (Auto) 0.8, Neut # (Auto) 4.9, Lymph # (Auto) 3.8, Mobile # (Auto) 0.5, Eos # (Auto) 0.1, Baso # (Auto) 0.1 07/03/20 18:15: Sodium 140, Potassium 3.9, Chloride 106, Carbon Dioxide 26, Anion Gap 11.9, BUN 12, Creatinine 0.60, Estimated Creat Clear 126, Estimated GFR 111, Est GFR ( Amer) 135, Glucose 97, Calcium 9.1 Result diagrams: 07/03/20 18:15 07/03/20 18:15 Orders (Tests/Meds): ORDERS Category Date Time Status Wound Culture and Gram Stain Stat Micro 07/03/20 17:50 Results General Adult HPI - General Chief complaint: PAIN Stated complaint: R arm swelling following heart cath two weeks ago Time Seen by Provider: 07/03/20 16:50 Mode of Arrival: Ambulatory Limitations: No Limitations Description of Symptoms (Recalled from ER Triage Doc. by RN): TO ED PER PVT CAR WITH C/O PAIN RT ARM NUMBNESS TINGLING RT HAND STARTING YESTERDAY STATES HAD A HEART CATH 2 WEEKS AGO. PT WITH REDNESS AT SITE RT WRIST - History of Present Illness HPI narrative: This is a 40-year-old female who presents with right upper extremity pain. Pain is at the wrist. She reports she had recent left heart cath last week and developed a nodule at the right wrist. She reports numbness in her fingers radiating up the arm. Pain is sharp constant and rated at 5 out of 10 intensity. Movement of the arm worsens the pain. She does note purulence at the OpSite. No fever no chills. She also denies any chest pain or shortness of breath. - Related Data Home Medications Medication Instructions Recorded Confirmed Buspirone HCl [Buspar 10mg 10 mg PO BID 01/08/19 06/28/20 tablet] Atorvastatin Calcium [Lipitor 10mg 10 mg PO DAILY 06/15/20 06/28/20 Tab] Levothyroxine Sodium [Synthroid 100 mcg PO DAILY MDD hypothyroidism 06/15/20 06/28/20 100mcg (0.1mg) tablet] PARoxetine HCL [Paxil 20mg Tablet] 20 mg PO DAILY 06/16/20 06/28/20 Previous Rx's Medication Instructions Recorded bisoprolol fumarate 5 mg tablet 5 mg PO DAILY #30 tab 06/23/20 Sulfamethoxazole/Trimethoprim 1 each PO BID #20 tab 07/03/20 [Bactrim DS tablet] Allergies Allergy/AdvReac Type Severity Reaction Status Date / Time No Known Allergies Allergy Verified 06/28/20 13:13 [facility] History - Hepatitis A Screen Drug use history?: No High risk sexual behaviors?: No History of sexually transmitted infection?: No Currently employed?: No [employer]
[2020-07-03 18:27] LABS: Basophils # 0.1 K/mm3 (0-0.2); Basophils % 0.8 % (0.1-2.0); Eosinophils # 0.1 K/mm3 (0.0-0.4); Hematocrit 37.7 % (37.0-47.0); Hemoglobin 12.7 g/dL (12.2-16.2); Lymphocytes # 3.8 K/mm3 (0.7-4.5); Lymphocytes % 40.4 % (10-50); Mean Corpuscular HGB Conc 33.8 g/dL (31.8-35.4); Mean Corpuscular Hemoglobin 28.8 pg (27.0-31.2); Mean Corpuscular Volume 85.4 fl (81-99); Mean Platelet Volume 7.6 fl (7.4-10.4); Monocytes # 0.5 K/mm3 (0.1-1.0); Monocytes % 5.5 % (1.7-9.3); Neutrophils # 4.9 K/mm3 (1.8-7.8); Neutrophils % 52.4 % (37.0-80.0); Platelet Count 303 K/mm3 (142-424); Red Blood Count 4.41 M/mm3 (4.20-5.40); Red Cell Distribution Width 14.1 % (11.5-17.5); White Blood Count 9.4 K/mm3 (4.8-10.8)
[2020-07-03 18:36] LABS: Anion Gap 11.9 mEq/L (5-15); Blood Urea Nitrogen 12 mg/dl (7-17); Calcium 9.1 mg/dl (8.4-10.2); Carbon Dioxide 26 mmol/L (22.0-30.0); Chloride 106 mmol/L (98-107); Creatinine Clearance Estimated 126 mL/min (50-200); Estimated Glomerular Filt Rate 111 ml/min (>60); GFR (African American) 135 ML/MIN (>60); Glucose 97 mg/dl (74-100); Potassium 3.9 mmoL/L (3.5-5.1); Sodium 140 mmol/L (136-145)
[2020-07-03 18:56] VITALS: BP 120/74; PULSE 60; RESP 20; TEMP 36.7; O2SAT 98
== END 2020-07-03 18:56 | disposition home or self-care (01) ==
PROVIDERS: Emergency Provider Emergency Medicine; PCP Physician Assistant
DX: T81.41XA Infection following a procedure, superficial incisional surgical site, initial encounter (principal); L02.413 Cutaneous abscess of right upper limb; F41.9 Anxiety disorder, unspecified; E78.5 Hyperlipidemia, unspecified; R00.2 Palpitations; E03.9 Hypothyroidism, unspecified; Z79.899 Other long term (current) drug therapy
CPT/HCPCS: 10060; 80048; 85025; 87070; 87205; 99283

== ENCOUNTER → 2020-07-05 09:08 | Outpatient (CLI) | payer BC, SELFPAY ==
--- NOTE | 2020-07-05 | CA_ITS ---
APPROVED REPORT Laterality: Unilateral right Kosher Dietary Service Manager: Ирина Durham, PROJECT CONSTRUCTION ASSISTANT MANAGER Comments Pt had cath 06-15-20 right wrist. Pt went to ER 07/03/20 due to pain and treated for right wrist abcess which was drained. Findings Negative for pseudoaneurysm or fistula. Conclusion Negative for pseudoaneurysm or fistula. Electronically signed by : Cesar Quinonez MD 07/05/2020 15:47:24
== END ==
LOC: RT 09:09
PROVIDERS: PCP Physician Assistant; Visit Provider Internal Medicine
DX: M25.531 Pain in right wrist (principal)
CPT/HCPCS: 93931

== ENCOUNTER → 2020-07-19 08:04 | Outpatient (CLI) | payer BC, SELFPAY ==
[2020-07-19 09:21] LABS: Free T4 (Free Thyroxine) 0.84 ng/dl (0.78-2.19)
[2020-07-19 09:35] LABS: Thyroid Stimulating Hormone 3.03 uIU/mL (0.465-4.68)
[2020-07-20 08:34] LABS: Prolactin 13.4 ng/mL (4.8-23.3)
[2020-07-20 15:38] LABS: Adrenocorticotropic Hormone 32.3 pg/mL (7.2-63.3); Estradiol 40.4 pg/mL (.); FSH 5.6 mIU/mL (.); LH 17.5 mIU/mL (.); Triiodothyronine (T3) Free 2.8 pg/mL (2.0-4.4)
[2020-07-23 15:53] LABS: Testosterone, Total, LC/MS 56.2 ng/dL (10.0-55.0)
[2020-07-23 16:09] LABS: Testosterone,Free 7.5 pg/mL (0.0-4.2)
== END ==
LOC: LAB 08:04
PROVIDERS: Visit Provider Internal Medicine Endocrinology, Diabetes & Metabolism
DX: E03.8 Other specified hypothyroidism (principal); E06.3 Autoimmune thyroiditis; L68.0 Hirsutism; R63.5 Abnormal weight gain
CPT/HCPCS: 36415; 82024; 82533; 82626; 82670; 82787; 83001; 83002; 84146; 84402; 84403; 84439; 84443; 84481

== ENCOUNTER → 2020-07-20 15:42 | Outpatient (CLI) | payer BC, SELFPAY ==
[2020-07-25 14:41] LABS: Cortisol,F,ug/L,U 11 ug/L (Undefined)
[2020-07-25 16:38] LABS: Cortisol,F,ug/24hr,U 18 ug/24 hr (6-42)
== END ==
PROVIDERS: Visit Provider Internal Medicine Endocrinology, Diabetes & Metabolism
DX: E03.8 Other specified hypothyroidism (principal); E06.3 Autoimmune thyroiditis; L68.0 Hirsutism; R63.5 Abnormal weight gain
CPT/HCPCS: 82530

== ENCOUNTER → 2020-08-06 17:20 | Outpatient (CLI) | payer BC, SELFPAY ==
--- NOTE | 2020-08-06 19:32 | CA_ITS ---
APPROVED REPORT Tree Trimming Line Technician: Natalia Zhang [facility] Indications Leg Pain Hematoma Risk Factors recent ablation through rt groin post 1 week Findings No evidence of pseudoaneurysm, hematoma, or AV fistula of the right groin. Conclusion No evidence of pseudoaneurysm, hematoma, or AV fistula of the right groin. Electronically signed by : Cesar Quinonez MD 08/09/2020 17:39:02
== END ==
PROVIDERS: PCP Physician Assistant; Visit Provider Internal Medicine Clinical Cardiac Electrophysiology
DX: R10.31 Right lower quadrant pain (principal); Z98.890 Other specified postprocedural states; Z86.79 Personal history of other diseases of the circulatory system
CPT/HCPCS: 93926

== ENCOUNTER → 2020-08-31 13:27 | Outpatient (CLI) | payer BC, SELFPAY ==
--- NOTE | 2020-08-31 13:27 | US_ITS ---
PROCEDURE: US THYROID CLINICAL INDICATION: nodule COMPARISON: US US THYROID from 02/25/2020 FINDINGS: Right lobe: 4.2 x 1.5 x 1.5 cm Left lobe: 4 x 2.2 x 1.4 cm. Isthmus: Thickened at 5 mm Additional findings: There is diffuse heterogeneous echogenicity with nodular contour the thyroid gland overall not significantly changed. No discrete dominant nodule apparent. IMPRESSION: No change mild diffuse heterogeneous echogenicity without discrete dominant nodule Dictated by: Cesar Quinonez MD 08/31/2020 14:13 Cesar Quinonez MD in [place] 08/31/2020 14:13
== END ==
PROVIDERS: PCP Physician Assistant; Visit Provider Otolaryngology
DX: E03.9 Hypothyroidism, unspecified (principal)
CPT/HCPCS: 76536

== ENCOUNTER → 2020-09-07 14:21 | Outpatient (CLI) | payer BC, SELFPAY | PROVIDERS: Visit Provider Nurse Practitioner Family | DX: Z01.812 Encounter for preprocedural laboratory examination (principal); Z11.52 Encounter for screening for COVID-19 | CPT/HCPCS: U0003 ==

== ENCOUNTER → 2020-09-08 20:08 | Outpatient (CLI) | payer BC, SELFPAY | PROVIDERS: PCP Physician Assistant; Visit Provider Nurse Practitioner Family | DX: G47.33 Obstructive sleep apnea (adult) (pediatric) (principal) | CPT/HCPCS: 95811 ==

== ENCOUNTER → 2020-09-21 13:32 | Outpatient (CLI) | payer BC, SELFPAY ==
[2020-09-21 14:44] LABS: Thyroid Stimulating Hormone 4.03 uIU/mL (0.465-4.68)
[2020-09-21 14:57] LABS: Free T4 (Free Thyroxine) 0.81 ng/dl (0.78-2.19)
== END ==
PROVIDERS: Visit Provider Otolaryngology
DX: E03.9 Hypothyroidism, unspecified (principal)
CPT/HCPCS: 36415; 84439; 84443

== ENCOUNTER 2020-10-10 17:56 | Emergency (ER) | payer BC, SELFPAY ==
[2020-10-10 18:17] VITALS: BP 126/84; PULSE 76; RESP 19; TEMP 36.9; O2SAT 100; BMI 28.3
--- NOTE | 2020-10-10 18:24 | XR_ITS ---
PROCEDURE INFORMATION: Exam: XR Right Foot Exam date and time: 10/10/2020 6:24 PM Age: 40 years old Clinical indication: Toes; Right; Patient HX: Stubbed 4th toe, pain, swelling, bruising. ; Additional info: Stubbed toe TECHNIQUE: Imaging protocol: XR Right foot. Views: 3 or more views. COMPARISON: CR XR FOOT WT BEARING RT 3V 08/25/2019 1:42 PM FINDINGS: Bones/joints: A subtle linear lucency is seen in the distal aspect of the proximal phalanx of the 4th toe. This could potentially represent a nondisplaced fracture. Soft tissues: Normal. IMPRESSION: Potential nondisplaced fracture of the proximal phalanx of the 4th toe. If follow-up is obtained, recommend dedicated images of the toes.
--- NOTE | 2020-10-10 19:20 | HMH.EDUTC ---
[facility] [place] Disposition Clinical Impression: Fracture of fourth toe, right, closed Qualifiers: Encounter type: initial encounter Qualified Code(s): S92.501A - Displaced unspecified fracture of right lesser toe(s), initial encounter for closed fracture Disposition: Home, Self-Care Condition on Discharge: Good Instructions: Toe Fracture, DI for Toe Fracture Additional Instructions: Rest the extremity, Elevate the extremity as tolerated while you are resting. Take ibuprofen for pain. I sent in a prescription to your pharmacy. Follow up with Dr. Barragan (podiatry). I put in a referral but you need to call her office and schedule an appointment. Follow up with your regular doctor. GO TO THE ER FOR ANY WORSENING SYMPTOMS Prescriptions: Ibuprofen [Ibuprofen 800mg Tablet] 800 mg PO Q8HP PRN #30 tab PRN Reason: Moderate Pain Transmission Status: Received by [id number] Referrals: Cheryl Moreira PA [Primary Care Provider] - Era Barragan DPM [Staff Physician] - Forms: Work/School Release Time of Disposition: 19:55 Medical Decision Making - Medical Records Medical records reviewed: No: I reviewed the patient's medical records. - Monty Inquiry Pt receiving controlled substance: No Vital Signs: 10/10/20 18:17 10/10/20 19:47 Temperature 98.4 F 98 F Temperature Source Oral Pulse Rate 72 Pulse Rate [Left] 76 Respiratory Rate 19 20 Blood Pressure 122/81 Blood Pressure [Right Arm] 126/84 Blood Pressure Mean [Right Arm] 98 02 Sat by Pulse Oximetry 100 - Radiology Data #1 Image(s): Foot/Toes Image Reviewed: Yes I reviewed the patient's radiology image, Yes I have reviewed radiologist's interpretation Preliminary Findings: Abnormal PROCEDURE INFORMATION: Exam: XR Right Foot Exam date and time: 10/10/2020 6:24 PM Age: 40 years old Clinical indication: Toes; Right; Patient HX: Stubbed 4th toe, pain, swelling, bruising. ; Additional info: Stubbed toe TECHNIQUE: Imaging protocol: XR Right foot. Views: 3 or more views. COMPARISON: CR XR FOOT WT BEARING RT 3V 08/25/2019 1:42 PM FINDINGS: Bones/joints: A subtle linear lucency is seen in the distal aspect of the proximal phalanx of the 4th toe. This could potentially represent a nondisplaced fracture. Soft tissues: Normal. IMPRESSION: Potential nondisplaced fracture of the proximal phalanx of the 4th toe. If follow-up is obtained, recommend dedicated images of the toes. [facility] [place] HPI - General Stated complaint: AO 10/09@1999 injuredR Index toe Time Seen by Provider: 10/10/20 18:30 Mode of Arrival: Ambulatory Source of Information: Patient Limitations: No Limitations Description of Symptoms (Recalled from Triage Doc. by RN): pt stubbed her fourth toe on her R foot. pt has bruising, swelling and pain in her R foot. HEENT Symptoms (Recalled from RN notes): No Resp Symptoms (Recalled from RN notes): No Skin Symptoms (Recalled from RN notes): No MS Symptoms (Recalled from RN notes): Yes (pain, swelling and bruising in fourth toe of R foot) Functional Status (Recalled from RN notes): na - History of Present Illness Provider Complaint: She states that she accidentily bumped her right foot on something last night. Since then she has had pain at the base of her 4th toe on her right foot. The pain is worse with walking and bearing weight on it. - Related Data Home Medications Medication Instructions Recorded Confirmed Buspirone HCl [Buspar 10mg 10 mg PO BID 01/08/19 09/29/20 tablet] Atorvastatin Calcium [Lipitor 10mg 10 mg PO DAILY 06/15/20 09/29/20 Tab] PARoxetine HCL [Paxil 20mg Tablet] 20 mg PO DAILY 06/16/20 09/29/20 Previous Rx's Medication Instructions Recorded levothyroxine 100 mcg tablet 100 mcg PO DAILY #90 tab MDD 09/23/20 hypothyroidism amoxicillin 500 mg capsule 500 mg PO Q12H 10 Days #20 cap 09/29/20 Ibupr
[2020-10-10 19:47] VITALS: BP 122/81; PULSE 72; RESP 20; TEMP 36.6
== END 2020-10-10 19:58 | disposition home or self-care (01) ==
PROVIDERS: Emergency Provider Nurse Practitioner Family; PCP Physician Assistant
DX: S92.514A Nondisplaced fracture of proximal phalanx of right lesser toe(s), initial encounter for closed fracture (principal); W22.8XXA Striking against or struck by other objects, initial encounter; Y92.019 Unspecified place in single-family (private) house as the place of occurrence of the external cause; F41.9 Anxiety disorder, unspecified; Z87.442 Personal history of urinary calculi; E03.9 Hypothyroidism, unspecified; R00.2 Palpitations; Z79.899 Other long term (current) drug therapy
CPT/HCPCS: 73630; 99202; G0463

== ENCOUNTER → 2020-10-21 07:10 | Outpatient (CLI) | payer BC, SELFPAY ==
--- NOTE | 2020-10-21 07:11 | CT_ITS ---
PROCEDURE: CT ABDOMEN PELVIS WO CON CLINICAL INDICATION: back pain Left flank pain COMPARISON: CT CT ABDOMEN PELVIS W CON from 11/27/2018 TECHNIQUE: Axial images obtained with sagittal and coronal reformats. All CT scans at the facility use one or more dose reduction, viz: automated exposure control, ma/kV adjustment per patient size (including targeted exams where dose is matched to indication, i.e. head), or iterative reconstruction technique. FINDINGS: LOWER THORAX: No acute finding ABDOMEN & PELVIS: The liver, spleen, adrenal glands, and pancreas have an unremarkable unenhanced appearance. There is a small hyperdensity in the region of the gallbladder posteriorly and could be due to tiny stone. There are nonobstructing bilateral renal calculi measuring up to 5 mm in the lower pole on the left and 3-4 mm in the upper pole on the right. No ureteral calculi are evident. No evidence of appendicitis. No intestinal obstruction or free air. No pelvic mass or abnormal pelvic fluid collection. Bowel gas pattern is nonspecific with a few air-fluid levels in the lower/pelvic abdominal area. No free fluid apparent. No acute bony findings. IMPRESSION: 1. Nonobstructing bilateral renal calculi. 2. Possible cholelithiasis. 3. Possible mild enteritis Dictated by: Cesar Quinonez MD 10/21/2020 16:47 Cesar Quinonez MD in [place] 10/21/2020 16:47
== END ==
PROVIDERS: PCP Physician Assistant; Visit Provider Urology
DX: R10.31 Right lower quadrant pain (principal); M54.9 Dorsalgia, unspecified
CPT/HCPCS: 74176

== ENCOUNTER → 2020-11-16 17:21 | Outpatient (CLI) | payer BC, SELFPAY | PROVIDERS: Visit Provider Nurse Practitioner Family | DX: N39.0 Urinary tract infection, site not specified (principal) | CPT/HCPCS: 87086 ==

== ENCOUNTER → 2021-02-15 07:38 | Outpatient (CLI) | payer BC, SELFPAY ==
--- NOTE | 2021-02-15 07:38 | MR_ITS ---
PROCEDURE: MR HEAD/BRAIN WO CON CLINICAL INDICATION: headache, brisk reflexes COMPARISON: No exams were available for comparison TECHNIQUE: Routine multiplanar multi echo sequences are performed without gadolinium enhancement. FINDINGS: No midline shift, mass effect, intracranial hemorrhage, or hydrocephalus. The cerebellopontine angles, cerebellum, brainstem and mid brain have an unremarkable appearance. There are scattered T2 white matter hyperintensities. These are located within the frontal and parietal lobes bilaterally. No corpus callosum or cerebellar involvement. No Sellers's fingers type lesions. No restricted diffusion. The pituitary, optic chiasm, corpus callosum, and craniocervical junction have an unremarkable appearance. No mastoid effusion or sinus air-fluid level. IMPRESSION: Scattered T2 white matter hyperintensities which are nonspecific. Patient is somewhat younger than expected for ischemic gliotic change from microvascular disease however insert risk factors could elevate the possibility such as hypertension diabetes or smoking. Multiple sclerosis is also consideration. Certain imaging findings seeing in MS such as corpus callosum , temporal lobe, or cerebellar involvement is not present. Sellers finger white matter lesions also not identified. Please correlate with clinical parameters. Other vascular etiology such as migraine headache also a possibility. Dictated by: Cesar Quinonez MD 02/16/2021 08:43 Cesar Quinonez MD in [place] 02/16/2021 08:43
[2021-02-15 09:02] LABS: Basophils # 0.1 K/mm3 (0-0.2); Basophils % 0.9 % (0.1-2.0); Eosinophils # 0.1 K/mm3 (0.0-0.4); Eosinophils % 1.3 % (0.1-12.0); Hematocrit 40.4 % (37.0-47.0); Hemoglobin 13.8 g/dL (12.2-16.2); Lymphocytes # 2.6 K/mm3 (0.7-4.5); Lymphocytes % 41.3 % (10-50); Mean Corpuscular HGB Conc 34.2 g/dL (31.8-35.4); Mean Corpuscular Volume 84.8 fl (81-99); Mean Platelet Volume 8.3 fl (7.4-10.4); Monocytes # 0.3 K/mm3 (0.1-1.0); Monocytes % 5.1 % (1.7-9.3); Neutrophils # 3.2 K/mm3 (1.8-7.8); Neutrophils % 51.4 % (37.0-80.0); Platelet Count 283 K/mm3 (142-424); Red Blood Count 4.77 M/mm3 (4.20-5.40); Red Cell Distribution Width 14.2 % (11.5-17.5); White Blood Count 6.3 K/mm3 (4.8-10.8)
[2021-02-15 10:21] LABS: Albumin Level 4.4 g/dl (3.5-5.0); Albumin/Globulin Ratio 1.4 (1.1-1.8); Anion Gap 12.1 mEq/L (5-15); Aspartate Amino Transferase 27 U/L (14-36); Bilirubin,Total 0.5 mg/dl (0.2-1.3); Blood Urea Nitrogen 10 mg/dl (7-17); Calcium 9.3 mg/dl (8.4-10.2); Carbon Dioxide 32 mmol/L (22.0-30.0); Chloride 101 mmol/L (98-107); Estimated Glomerular Filt Rate 93 ml/min (>60); GFR (African American) 113 ML/MIN (>60); Globulin 3.1 g/dL (1.3-3.2); Glucose 107 mg/dl (74-100); Potassium 4.1 mmoL/L (3.5-5.1); Sodium 141 mmol/L (136-145); Total Protein,Serum 7.5 g/dl (6.3-8.2)
[2021-02-15 11:28] LABS: Vitamin B12 415 pg/mL (239-931)
[2021-02-15 11:41] LABS: Alanine Aminotransferase 19 U/L (12-78); Alkaline Phosphatase 76 U/L (38-126)
== END ==
PROVIDERS: PCP Physician Assistant; Visit Provider Nurse Practitioner Family
DX: G43.909 Migraine, unspecified, not intractable, without status migrainosus (principal); G89.29 Other chronic pain; I10 Essential (primary) hypertension; M54.2 Cervicalgia; R29.2 Abnormal reflex; Z68.28 Body mass index [BMI] 28.0-28.9, adult
CPT/HCPCS: 36415; 70551; 80053; 82607; 82746; 85025

== ENCOUNTER → 2021-02-15 08:18 | Outpatient (CLI) | payer BC, SELFPAY | PROVIDERS: Visit Provider Nurse Practitioner Family | DX: R51.9 Headache, unspecified (principal) | CPT/HCPCS: 36415; 80053; 82607; 82746; 85025 ==

== ENCOUNTER 2021-02-24 14:30 | Outpatient (RCR) | payer BC, SELFPAY ==
--- NOTE | 2021-02-11 10:24 | HMH.PTOPEV ---
PT Outpatient Evaluation Rehab PT Outpatient Evaluation Start: 02/11/21 08:13 Freq: Status: Active Protocol: Document 02/11/21 10:08 LAURA (Rec: 02/11/21 10:24 PHORNE [id number]) Electronically Signed By Braydon Jorgensen, PT 02/11/21 10:08 Outpatient Therapy Subjective History Subjective History Pt is 40 yowf who presents with c/o pain in neck, worse on L side, and headaches x ~ 1 -2 yrs. She reports burning pain in the post area of her head, fairly dull, but constant. She also reports B hand tingling intermittently, worse on the L side. She had previous Physical Terapy for same condition with relief during treatment, but return of symptoms while not undergoing treatment. 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 She reports hx of anxiety, kidney stones, and SVT S/P ablation. 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/Reading,Driving Symptom Description Constant but Variable Level of pain today (0-10) 1 Pain scale - at its worst (0-10) 5 Cervical Eval Palpation Cervical Muscles R Suboccipital,L Suboccipital, R Upper Trapezius,L Upper Trapezius Cervical/Thoracic Palpation Findings Tenderness Flexibility Deficits Upper Trapezius Muscle Length (R) Mild Tightness,(L) Mild Tightness Levaetor Scapulae Muscle Length (R) Mild Tightness,(L) Mild Tightness Pectoralis Major Muscle Length (R) Mild Tightness,(L) Mild Tightness Pectoralis Minor Muscle Length (R) Mild Tightness,(L) Mild Tightness Passive Joint Mobility Cervical PIVM WNL: R OA L OA R AA L AA R C2/3 L C2/3 R C3/4 L C3/4 R C4/5 L C4/5
== END 2021-02-24 14:35 | disposition home or self-care (01) ==
LOC: PT 14:30
PROVIDERS: PCP Physician Assistant; Visit Provider Nurse Practitioner Family
DX: G43.909 Migraine, unspecified, not intractable, without status migrainosus (principal); M54.2 Cervicalgia; G89.29 Other chronic pain; R29.2 Abnormal reflex
CPT/HCPCS: 97010; 97014; 97033; 97110; 97140; 97163; G0283

== ENCOUNTER → 2021-02-25 07:44 | Outpatient (CLI) | payer BC, SELFPAY ==
--- NOTE | 2021-02-25 07:44 | MR_ITS ---
PROCEDURE: MR ANGIO HEAD WO CON CLINICAL INDICATION: eval for vasculitis Headache and dizziness COMPARISON: No exams were available for comparison TECHNIQUE: 3D [id number] images are obtained with multi slab reformats. FINDINGS: No aneurysm, AVM, or major vascular occlusion apparent. The vessels have an unremarkable appearance without obvious beading or irregularity. Single-shot MRV is unremarkable. IMPRESSION: Negative MRA of the brain Dictated by: Cesar Quinonez MD 02/28/2021 08:08 Cesar Quinonez MD in [place] 02/28/2021 08:08
[2021-02-25 09:10] LABS: Erythrocyte Sedimentation Rate 21 mm/hr (0-20)
[2021-05-11 10:04] LABS: Antinuclear Antibodies (ANA) NEGATIVE
== END ==
PROVIDERS: PCP Physician Assistant; Visit Provider Nurse Practitioner Family
DX: R51.9 Headache, unspecified (principal); G89.29 Other chronic pain; R90.89 Other abnormal findings on diagnostic imaging of central nervous system
CPT/HCPCS: 36415; 70544; 85651; 86038

== ENCOUNTER 2021-03-02 16:50 | Emergency (ER) | payer BC, SELFPAY ==
[2021-03-02 17:10] VITALS: BP 128/89; PULSE 87; RESP 18; TEMP 37.5; O2SAT 98; BMI 27.9
--- NOTE | 2021-03-02 17:34 | HMH.EDUTC ---
[facility] [place] Disposition Clinical Impression: Viral syndrome Skin abscess Qualifiers: Site of cutaneous abscess: unspecified site Qualified Code(s): L02.91 - Cutaneous abscess, unspecified Disposition: Home, Self-Care Condition on Discharge: Good Instructions: Trimethoprim/Sulfamethoxazole (Alternative Therapy), DI for Skin Abscess, DI for COVID-19 (Suspected or Confirmed ) Additional Instructions: *Start antibiotic(s) immediately and be sure to take as ordered for the FULL length of time although you may be feeling better or start to see improvement in the next 24-48 hours *Monitor closely. Outlined redness so that you can monitor easier. Follow up immediately for new or worsening symptoms including but not limited to redness, swelling, streaking from site fever or chills. *Warm compress 15 minutes 3-4 times day *Never squeeze or pop these on your own. Seek immediate medical attention next time this occurs *Monitor Temp. Tylenol every 4 hours as needed and ibuprofen every 6 hours as needed (as long as your primary care doctor has told you that it is ok to take both. For fever, aches, pain. ER if no less that 101 despite Tylenol and ibuprofen Follow up with your family doctor/primary care physician in the next 48-72 hours if no improvement *Monitor Temp, Over the counter Motrin or Tylenol as directed/as needed Tylenol every 4 hours and Motrin every 6 hours (as long as your family doctor has told you that you can take it) for fever or pain. and straight to ER if unable to lower temp less than 101.0 after medication given Follow up IMMEDIATELY for new or worsening symptoms or no Noticeable improvement over the next 48-72 hours. 911 for difficulty breathing or swallowing You were tested for today for COVID19 your test result should be back in the next 24-48 hours, you check your results on the [facility] My Health Portal if you have trouble logging on or seeing your results you may call You was given a handout with instructions for Self Quarantine and Self isolation for while you wait on test results and what to do if they are positive If you are positive the Health Dept will be contacting you also Make sure to take your Vitamins Vit. C Vit D and Zinc if you can take them Prescriptions: Sulfamethoxazole/Trimethoprim [Bactrim DS tablet] 1 each PO BID 10 Days #20 tab [facility] Mupirocin Calcium [Mupirocin 2% Cream 15gm] 1 applicatio TP TID 10 Days #15 gm Transmission Status: [facility] Referrals: Cheryl Moreira PA [Primary Care Provider] - As needed Forms: Work/School Release Time of Disposition: 18:01 Medical Decision Making - Monty Inquiry Pt receiving controlled substance: No Monty was queried for this patient: No Vital Signs: 03/02/21 17:10 Temperature 99.5 F Temperature Source Oral Pulse Rate [Left] 87 Respiratory Rate 18 Blood Pressure [Right Arm] 128/89 Blood Pressure Mean [Right Arm] 102 02 Sat by Pulse Oximetry 98 Orders (Tests/Meds): ORDERS Category Date Time Status Full Resp Panel w/COVID ([facility]) Routine Lab 03/02/21 17:35 Ordered Wound Culture and Gram Stain Stat Micro 03/02/21 17:34 Ordered Medical Decision Narrative: Patient states that she has taken bactim before with medication with no reaction or complications [facility] [place] HPI - General Stated complaint: Fever; chills Time Seen by Provider: 03/02/21 17:35 Mode of Arrival: Ambulatory Source of Information: Patient Limitations: No Limitations Description of Symptoms (Recalled from Triage Doc. by RN): pt c/o fever and chills. pt states she has an infected area on the L lower side of her back. HEENT Symptoms (Recalled from RN notes): No Resp Symptoms (Recalled from RN notes): No Skin Symptoms (Recalled from RN notes): Yes MS Symptoms (Recalled from RN notes): No Functional Status (Recalled from RN notes): wnl - History of Present Illness Provider Complaint: Patient state that she has h
[2021-03-02 18:05] LABS: UTC Influenza A Antigen Negative (Negative)
[2021-03-02 18:06] LABS: UTC Influenza B Antigen Negative (Negative)
[2021-03-02 18:09] VITALS: BP 128/89; PULSE 87; RESP 18; TEMP 37.5
[2021-03-02 19:10] LABS: Adenovirus,PCR Not Detected (NotDetected); Bordetella Pertussis Not Detected (NotDetected); Chlamydophila Pneumoniae, PCR Not Detected (NotDetected); Coronavirus 19, PCR Not Detected (NotDetected); Coronavirus 229E Not Detected (NotDetected); Coronavirus NL63 Not Detected (NotDetected); Coronavirus OC43 Not Detected (NotDetected); Coronovirus HKU1,PCR Not Detected (NotDetected); Human Metapneumovirus Not Detected (NotDetected); Influenza A, PCR Not Detected (NotDetected); Influenza AH1, 2009 Not Detected (NotDetected); Influenza AH1, PCR Not Detected (NotDetected); Influenza AH3,PCR Not Detected (NotDetected); Influenza B, PCR Not Detected (NotDetected); Mycoplasma Pneumoniae, PCR Not Detected (NotDetected); Parainfluenza 1, PCR Not Detected (NotDetected); Parainfluenza 2, PCR Not Detected (NotDetected); Parainfluenza 3, PCR Not Detected (NotDetected); Parainfluenza 4, PCR Not Detected (NotDetected); Respiratory Syncytial Virus Not Detected (NotDetected); Rhinovirus/Enterovirus Not Detected (NotDetected)
== END 2021-03-02 18:13 | disposition home or self-care (01) ==
PROVIDERS: Emergency Provider Nurse Practitioner; PCP Physician Assistant
DX: L02.212 Cutaneous abscess of back [any part, except buttock and flank] (principal); B95.7 Other staphylococcus as the cause of diseases classified elsewhere; B34.9 Viral infection, unspecified; F41.9 Anxiety disorder, unspecified; I47.2 Ventricular tachycardia; E03.9 Hypothyroidism, unspecified; Z79.899 Other long term (current) drug therapy
CPT/HCPCS: 10060; 87070; 87077; 87186; 87205; 87581; 87632; 87798; 87804; 99203; C9803; G0463; U0003; U0005

== ENCOUNTER → 2021-03-08 12:22 | Outpatient (CLI) | payer BC, SELFPAY ==
[2021-04-01 15:09] LABS: Antinuclear Antibodies (ANA) NEGATIVE
== END ==
PROVIDERS: Visit Provider Nurse Practitioner Family
DX: G43.709 Chronic migraine without aura, not intractable, without status migrainosus (principal); G47.33 Obstructive sleep apnea (adult) (pediatric); G89.29 Other chronic pain; I10 Essential (primary) hypertension; M54.2 Cervicalgia; R29.2 Abnormal reflex; E66.3 Overweight; Z68.28 Body mass index [BMI] 28.0-28.9, adult; Z86.79 Personal history of other diseases of the circulatory system
CPT/HCPCS: 36415; 86038

== ENCOUNTER → 2021-04-21 08:20 | Outpatient (CLI) | payer BC, SELFPAY ==
--- NOTE | 2021-04-21 08:20 | US_ITS ---
FINAL REPORT CLINICAL HISTORY: ruq pain FINDINGS: ULTRASOUND RIGHT UPPER QUADRANT Sonographic imaging of the right upper quadrant was obtained. The pancreas is partially obscured. The liver is unremarkable. There is a minimal, trace amount of sludge in the gallbladder. There is no evidence of gallstones. There is no gallbladder wall thickening. There is no biliary ductal dilatation. The common duct is normal at 2 mm. Limited images of the right kidney are unremarkable. IMPRESSION: A minimal, trace amount of sludge in the gallbladder. Reviewed, Interpreted and Dictated by Philip Carbajal MD Transcribed by Kassandra Sinclair Authenticated by Philip Carbajal MD on 04/21/2021 01:34:47 PM [facility]
== END ==
LOC: RAD 08:20
PROVIDERS: PCP Nurse Practitioner Family; Visit Provider Nurse Practitioner Family
DX: R10.11 Right upper quadrant pain (principal)
CPT/HCPCS: 76705

== ENCOUNTER → 2021-05-05 10:29 | Outpatient (CLI) | payer BC, SELFPAY ==
--- NOTE | 2021-05-05 10:35 | NM_ITS ---
FINAL REPORT CLINICAL HISTORY: RUQ PAIN 10:45am 7.85 mci tc choletec 11:55am ensure FINDINGS: Sequential anterior projection images of the abdomen were obtained after the intravenous injection of 7.85 mCi technetium 99m Choletec. There is normal uptake of radiotracer by the liver. The bile ducts are visualized by 10 minutes. Gallbladder activity is seen by 40 minutes. Bowel activity is noted by 15 minutes. After 1 hour, 1.0 Ensure was given for calculation of gallbladder ejection fraction. The gallbladder ejection fraction is 85%, which is within normal limits. IMPRESSION: No evidence of cystic duct or bile duct obstruction. Normal gallbladder ejection fraction of 85%. Reviewed, Interpreted and Dictated by Lazaro Uribe III, MD Transcribed by Marianne Slaughter Authenticated by Lazaro Uribe III, MD on 05/05/2021 03:32:[address] [facility]
== END ==
LOC: RAD 10:29
PROVIDERS: PCP Nurse Practitioner Family; Visit Provider Physician Assistant
DX: R10.11 Right upper quadrant pain (principal)
CPT/HCPCS: 78226; A9537

== ENCOUNTER → 2021-05-14 09:59 | Outpatient (CLI) | payer BC, SELFPAY | PROVIDERS: Visit Provider Internal Medicine Gastroenterology | DX: Z01.812 Encounter for preprocedural laboratory examination (principal); Z11.52 Encounter for screening for COVID-19 | CPT/HCPCS: C9803; U0003; U0005 ==

== ENCOUNTER 2021-06-14 17:30 | Emergency (ER) | payer BC, SELFPAY ==
[2021-06-14 18:54] VITALS: BP 111/69; PULSE 118; RESP 16; TEMP 37.9; O2SAT 97; BMI 27.0
[2021-06-14 18:57] LABS: UTC Influenza A Antigen Negative (Negative)
[2021-06-14 18:58] LABS: UTC Influenza B Antigen Negative (Negative)
--- NOTE | 2021-06-14 18:59 | HMH.EDUTC ---
[facility] Disposition Clinical Impression: Viral syndrome Disposition: Home, Self-Care Condition on Discharge: Good Instructions: Diarrhea, Nausea and Vomiting-Adult Additional Instructions: Drink extra fluids with and between meals. If you have difficulty drinking, try very small amounts of water or suck on ice chips. ? Avoid fruit juices, as these do not replace minerals and can actually increase diarrhea. ? Children and adults can use sports drinks to replenish electrolytes. Younger children and infants should use products formulated for children, like oral rehydration solutions. ? Eat food in small amounts and let your stomach recover. ? Get lots of rest. You may feel tired or weak. ? No greasy or fried foods for the next 24-48 hours BRAT diet Bananas Rice Apples and Fenton ? Make sure to drink plenty of liquids ? Return if needed ? Straight to ER if any life threatening symptoms ? Zofran as prescribed ? You was given an outpatient order for diarrhea panel, please collect specimen and bring back to outpatient lab then call back to the [facility] or follow up with family doctor for results ? Follow up with family doctor in the next 48-72 hours if no improvement or any worsening of symptoms Referrals: Marianne Null APRN [Primary Care Provider] - As needed Forms: Work/School Release Time of Disposition: 20:05 Medical Decision Making - Monty Inquiry Pt receiving controlled substance: No Monty was queried for this patient: No Vital Signs: 06/14/21 18:54 Temperature 100.3 F H Temperature Source Oral Pulse Rate [Left] 118 H Respiratory Rate 16 Blood Pressure [Right Arm] 111/69 Blood Pressure Mean [Right Arm] 83 02 Sat by Pulse Oximetry 97 - Lab Data Lab results reviewed: Yes: I reviewed the patient's lab results. Lab Results 06/14/21 18:45: Influenza Type A Ag Negative, Influenza Type B Ag Negative Orders (Tests/Meds): ED MEDICATIONS Generic Name Dose Route Start Last Admin Trade Name Freq PRN Reason Stop Dose Admin Sodium Chloride 500 mls @ 999 mls/hr 06/14/21 20:15 Sod Chlor 0.9% 1000ml Bag IV 06/14/21 20:45 .Q31M KIMBERLY ORDERS Category Date Time Status Full Resp Panel w/COVID ([facility]) Routine Lab 06/14/21 19:14 Received Medical Decision Narrative: After fluids patient states that she is feeling much better an not feeling as weak as she was sitting up on exam table drinking sprite [facility] HPI - General Stated complaint: V/D, body aches Time Seen by Provider: 06/14/21 18:59 Mode of Arrival: Wheelchair Source of Information: Patient Limitations: No Limitations Description of Symptoms (Recalled from Triage Doc. by RN): pt c/o body aches, fever, n/v and a OZUNA since this am. pt states she is too weak to walk. HEENT Symptoms (Recalled from RN notes): Yes Resp Symptoms (Recalled from RN notes): No Skin Symptoms (Recalled from RN notes): No MS Symptoms (Recalled from RN notes): No Functional Status (Recalled from RN notes): wnl - History of Present Illness Provider Complaint: Patient states that she has been having N/V/D body aches, chills and low grade fever all day today States that she hasnt been able to keep much down States that she did have Zofran at home and has took it and it did help her but this evening she was still feeling achy and was worried that she may have flu or stomach bug so she came in - Related Data Home Medications Medication Instructions Recorded Confirmed Buspirone HCl [Buspar 10mg 10 mg PO BID 01/08/19 03/08/21 tablet] Previous Rx's Medication Instructions Recorded Ibuprofen [Ibuprofen 800mg 800 mg PO Q8HP PRN #30 tab 10/10/20 Tablet] clonazepam 0.5 mg tablet 0.5 mg PO BID PRN #30 tab 11/30/20 Mupirocin Calcium [Mupirocin 2% 1 applicatio TP TID 10 Days #15 gm 03/02/21 Cream 15gm] Sulfamethoxazole/Trimethoprim 1 each PO BID 10 Days #20 tab 03/02/21 [Bactrim DS tablet] amitriptyline 25 mg tablet 25 mg PO HS #30 tab 03/08/21 methylprednisol
[2021-06-14 19:32] LABS: Adenovirus,PCR Not Detected (NotDetected); Coronavirus 229E Not Detected (NotDetected); Coronavirus NL63 Not Detected (NotDetected); Coronavirus OC43 Not Detected (NotDetected); Coronovirus HKU1,PCR Not Detected (NotDetected); Human Metapneumovirus Not Detected (NotDetected); Influenza A, PCR Not Detected (NotDetected); Influenza AH1, 2009 Not Detected (NotDetected); Influenza AH1, PCR Not Detected (NotDetected); Influenza AH3,PCR Not Detected (NotDetected); Influenza B, PCR Not Detected (NotDetected); Parainfluenza 1, PCR Not Detected (NotDetected); Parainfluenza 2, PCR Not Detected (NotDetected); Rhinovirus/Enterovirus Not Detected (NotDetected)
[2021-06-14 19:33] LABS: Bordetella Pertussis Not Detected (NotDetected); Chlamydophila Pneumoniae, PCR Not Detected (NotDetected); Coronavirus 19, PCR Not Detected (NotDetected); Mycoplasma Pneumoniae, PCR Not Detected (NotDetected); Parainfluenza 3, PCR Not Detected (NotDetected); Parainfluenza 4, PCR Not Detected (NotDetected); Respiratory Syncytial Virus Not Detected (NotDetected)
[2021-06-14 20:08] VITALS: BP 0/0; PULSE 92; RESP 16; TEMP 37.9
== END 2021-06-14 20:27 | disposition home or self-care (01) ==
PROVIDERS: Emergency Provider Nurse Practitioner; PCP Nurse Practitioner Family
DX: B34.9 Viral infection, unspecified (principal); F41.9 Anxiety disorder, unspecified; I47.2 Ventricular tachycardia; E03.9 Hypothyroidism, unspecified; Z79.899 Other long term (current) drug therapy
CPT/HCPCS: 87581; 87632; 87798; 87804; 99213; C9803; G0463; U0003; U0005

== ENCOUNTER → 2021-07-15 17:17 | Outpatient (CLI) | payer BC, SELFPAY ==
--- NOTE | 2021-07-15 17:17 | MR_ITS ---
PROCEDURE INFORMATION: Exam: MR Head Without and With Contrast Exam date and time: 07/15/2021 5:23 PM Age: 41 years old Clinical indication: Other: Memory loss; Additional info: Worsening of symptoms. Memory loss x few months , worse in the last few weeks. Headaches , pressure behind eyes. 14 ml prohance given to patient. TECHNIQUE: Imaging protocol: MR of the head without and with intravenous contrast. Contrast material: PROHANCE; Contrast volume: 14 ml; Contrast route: IV; COMPARISON: MR HEAD/BRAIN WO CON 02/15/2021 7:48 AM FINDINGS: Brain: No acute infarct identified on the diffusion-weighted imaging. No evidence of brain parenchymal edema or intracranial mass effect. The T2 weighted imaging demonstrates foci of increased signal intensity in the deep and subcortical white matter which are nonspecific, may reflect mild chronic small vessel ischemic change, perhaps migrainous angiopathy if there is a longstanding history of headaches, stable. No enhancing intracranial pathology. Cerebral ventricles: No ventriculomegaly. Bones/joints: Unremarkable. Paranasal sinuses: Pneumatization of the sphenoid sinuses extends into the pterygoid plates. A small amount of fluid in the right sphenoid sinus/pneumatized right pterygoid plate is new. Mastoid air cells: Normal as visualized. No mastoid effusion. Orbital cavities: Unremarkable. Soft tissues: Unremarkable. IMPRESSION: No acute intracranial abnormality. A small amount of fluid in the right sphenoid sinus, new since the prior study, this can be seen in the setting of acute sinusitis.
== END ==
LOC: RAD 17:17
PROVIDERS: PCP Nurse Practitioner Family; Visit Provider Nurse Practitioner Family
DX: R42 Dizziness and giddiness (principal); R41.89 Other symptoms and signs involving cognitive functions and awareness; F68.8 Other specified disorders of adult personality and behavior; G44.52 New daily persistent headache (NDPH); R26.89 Other abnormalities of gait and mobility; R90.89 Other abnormal findings on diagnostic imaging of central nervous system
CPT/HCPCS: 70553; A9576

== ENCOUNTER → 2021-07-18 16:47 | Outpatient (CLI) | payer BC, SELFPAY ==
--- NOTE | 2021-07-18 16:52 | MM_ITS ---
PROCEDURE INFORMATION: Exam: MG Bilateral Screening 3D Mammography Exam date and time: 07/18/2021 5:06 PM Age: 41 years old Clinical indication: Screening examination; Additional info: Screening xmg TECHNIQUE: Imaging protocol: Bilateral Screening tomosynthesis and 2D mammography including computer-aided detection (CAD) when performed. COMPARISON: 1. MG MM DIG SCREENING MAMM BI W/CAD 04/13/2020 1:30 PM 2. MG MM DIG MAMM BI DX W/CAD 02/03/2019 2:54 PM 3. MG DIG MAMM-DX UNI-LT 08/12/2018 1:35 PM 4. US BREAST LT COMPLETE 02/03/2019 3:29 PM FINDINGS: MAMMOGRAPHY: Breast composition: The breasts are heterogeneously dense, which may obscure small masses. Mass: None. Architectural distortion: None. Calcifications: No suspicious calcifications. Asymmetric density: None. Skin thickening: None. Axillary adenopathy: None. IMPRESSION: No mammographic evidence of malignancy. Annual screening is recommended unless otherwise clinically indicated. ASSESSMENT: BI-RADS Category 1: Negative
[2021-07-18 20:22] LABS: Basophils # 0.2 K/mm3 (0-0.2); Basophils % 1.8 % (0.1-2.0); Eosinophils # 0.1 K/mm3 (0.0-0.4); Eosinophils % 1.4 % (0.1-12.0); Hematocrit 38.9 % (37.0-47.0); Lymphocytes # 2.7 K/mm3 (0.7-4.5); Mean Corpuscular HGB Conc 33.4 g/dL (31.8-35.4); Mean Corpuscular Volume 86.8 fl (81-99); Mean Platelet Volume 8.1 fl (7.4-10.4); Monocytes # 0.3 K/mm3 (0.1-1.0); Monocytes % 3.1 % (1.7-9.3); Neutrophils % 64.6 % (37.0-80.0); Platelet Count 298 K/mm3 (142-424); Red Blood Count 4.49 M/mm3 (4.20-5.40); Red Cell Distribution Width 14.5 % (11.5-17.5); White Blood Count 9.2 K/mm3 (4.8-10.8)
[2021-07-18 20:28] LABS: Alanine Aminotransferase 34 U/L (12-78); Albumin Level 4.2 g/dl (3.5-5.0); Albumin/Globulin Ratio 1.3 (1.1-1.8); Alkaline Phosphatase 89 U/L (38-126); Anion Gap 9.2 mEq/L (5-15); Aspartate Amino Transferase 31 U/L (14-36); Bilirubin,Total 0.5 mg/dl (0.2-1.3); Blood Urea Nitrogen 12 mg/dl (7-17); Calcium 9.1 mg/dl (8.4-10.2); Carbon Dioxide 29 mmol/L (22.0-30.0); Chloride 104 mmol/L (98-107); Estimated Glomerular Filt Rate 93 ml/min (>60); GFR (African American) 112 ML/MIN (>60); Globulin 3.3 g/dL (1.3-3.2); Glucose 142 mg/dl (74-100); Potassium 3.2 mmoL/L (3.5-5.1); Sodium 139 mmol/L (136-145); Total Protein,Serum 7.5 g/dl (6.3-8.2)
[2021-07-18 20:33] LABS: C-Reactive Protein 2.9 mg/L (0-4)
[2021-07-18 20:59] LABS: Thyroid Stimulating Hormone 1.14 uIU/mL (0.465-4.68)
[2021-07-18 21:34] LABS: Vitamin B12 377 pg/mL (239-931)
[2021-07-18 21:35] LABS: Folate 4.31 ng/mL
[2021-07-18 21:59] LABS: Erythrocyte Sedimentation Rate 20 mm/hr (0-20)
[2021-07-20 13:46] LABS: Rapid Plasma Reagin Ab Titer Non Reactive (NonRea<1:1)
[2021-07-25 08:53] LABS: Antinuclear Antibodies (ANA) Negative
== END ==
PROVIDERS: Nurse Practitioner Family; PCP Nurse Practitioner Family; Visit Provider Nurse Practitioner Obstetrics & Gynecology
DX: Z12.31 Encounter for screening mammogram for malignant neoplasm of breast (principal); F68.8 Other specified disorders of adult personality and behavior; G44.52 New daily persistent headache (NDPH); R26.89 Other abnormalities of gait and mobility; R41.89 Other symptoms and signs involving cognitive functions and awareness; R42 Dizziness and giddiness; R90.89 Other abnormal findings on diagnostic imaging of central nervous system
CPT/HCPCS: 77063; 77067; 80053; 82607; 82746; 83036; 84443; 85025; 85651; 86038; 86140; 86225; 86235; 86592

== ENCOUNTER → 2021-09-21 13:38 | Outpatient (CLI) | payer BC, SELFPAY ==
--- NOTE | 2021-09-21 13:41 | US_ITS ---
FINAL REPORT CLINICAL HISTORY: HASHIMOTOS DISEASE FINDINGS: THYROID ULTRASOUND Sonographic images of the thyroid was obtained. The right lobe of the thyroid measures 3.5 x 1.5 x 1.1 cm. The left lobe of the thyroid measures 3.3 x 1.4 x 1.3 cm. The isthmus measures 4 mm. The thyroid appears heterogeneous without a well-defined mass or nodule. IMPRESSION: Heterogeneous appearance without a well-defined mass or nodule. Reviewed, Interpreted and Dictated by Lazaro Uribe III, MD Transcribed by Kassandra Sinclair Authenticated and [facility]
== END ==
PROVIDERS: PCP Nurse Practitioner Family; Visit Provider Otolaryngology
DX: E06.3 Autoimmune thyroiditis (principal)
CPT/HCPCS: 76536

== ENCOUNTER → 2021-10-01 10:16 | Outpatient (CLI) | payer BC, SELFPAY ==
[2021-10-01 11:46] LABS: Free T4 (Free Thyroxine) 1.05 ng/dl (0.78-2.19)
[2021-10-01 12:00] LABS: Thyroid Stimulating Hormone 0.79 uIU/mL (0.465-4.68)
[2021-10-02 08:20] LABS: Thyroid Peroxidase Antibodies 250 IU/mL (0-34)
[2021-10-03 22:07] LABS: Thyroglobulin Level <1.0 IU/mL (0.0-0.9)
== END ==
LOC: LAB 10:17
PROVIDERS: PCP Physician Assistant; Visit Provider Otolaryngology
DX: E06.3 Autoimmune thyroiditis (principal)
CPT/HCPCS: 84439; 84443; 86376; 86800

== ENCOUNTER 2021-10-13 12:11 | Emergency (ER) | payer BC, SELFPAY ==
[2021-10-13 12:12] VITALS: BP 112/78; PULSE 89; RESP 18; TEMP 36.7; O2SAT 98; BMI 27.6
--- NOTE | 2021-10-13 12:34 | HMH.EDUTC ---
[facility] [place] Clinical Impression: Viral syndrome Pharyngitis Qualifiers: Pharyngitis/tonsillitis etiology: unspecified etiology Qualified Code(s): J02.9 - Acute pharyngitis, unspecified Disposition: Home, Self-Care Condition on Discharge: Good Instructions: DI for COVID-19 (Suspected or Confirmed ), Preventing the Spread of Coronavirus Discharge Instructions Additional Instructions: Drink plenty of fluids. Take tylenol or ibuprofen for pain or fever. Take the medications as directed. Follow up with your regular doctor. GO TO THE ER FOR ANY WORSENING SYMPTOMS Quarantine until you know the results of your covid-19 test. Notify your school or workplace of your results and follow their instructions regarding return to work/school. Prescriptions: Ondansetron [Zofran 4mg ODT] 4 mg PO Q8HP PRN #12 tab PRN Reason: Nausea [facility] Benzonatate [Benzonatate 100mg cap] 100 mg PO TIDP PRN #30 cap PRN Reason: Cough Transmission Status: Received by [facility] predniSONE [Deltasone 10mg tablet] 10 mg PO BID 3 Days #6 tab Transmission Status: Received by [facility] Azithromycin [Z-Andrew 250mg Tab*] 250 mg PO UD DOSE PK #6 tab [facility] Referrals: Tika Mojica PA [Primary Care Provider] - Time of Disposition: 12:56 Medical Decision Making - Medical Records Medical records reviewed: No: I reviewed the patient's medical records. - Monty Inquiry Pt receiving controlled substance: No Vital Signs: 10/13/21 12:12 10/13/21 13:05 Temperature 98.1 F 98.1 F Temperature Source Oral Oral Pulse Rate 89 Pulse Rate [Radial] 89 Respiratory Rate 18 18 Blood Pressure 112/78 Blood Pressure [Right Arm] 112/78 Blood Pressure Mean [Right Arm] 89 02 Sat by Pulse Oximetry 98 Oxygen Delivery Method Room Air - Lab Data Lab Results 10/13/21 12:27: Strep Scn Rapid Clinic Negative Orders (Tests/Meds): ORDERS Category Date Time Status Strep Screen Confirmation Stat Micro 10/13/21 12:27 Received [facility] [place]PI - General Stated complaint: Sore throat; headache; cough Time Seen by Provider: 10/13/21 12:34 - History of Present Illness Provider Complaint: She states that she has had body aches, chills, n/v/d for the past 2 days. She states that she feels like she is dehydrated. She denies any shortness of breath, chest pain, chest congestion and significant cough. - Related Data Home Medications Medication Instructions Recorded Confirmed Buspirone HCl [Buspar 10mg 10 mg PO BID 01/08/19 07/12/21 tablet] linaclotide 72 mcg capsule 72 mcg PO DAILY cap 07/12/21 07/12/21 omeprazole 40 mg capsule,delayed 40 mg PO DAILY cap 07/12/21 07/12/21 release Previous Rx's Medication Instructions Recorded Ibuprofen [Ibuprofen 800mg 800 mg PO Q8HP PRN #30 tab 10/10/20 Tablet] clonazepam 0.5 mg tablet 0.5 mg PO BID PRN #30 tab 11/30/20 paroxetine HCl 20 mg tablet 20 mg PO DAILY #90 tab 03/23/21 levothyroxine 100 mcg tablet 100 mcg PO DAILY #90 tab MDD 04/18/21 hypothyroidism amoxicillin 875 mg-potassium 1 tab PO BID 10 Days #20 tab 07/18/21 clavulanate 125 mg tablet Azithromycin [Z-Andrew 250mg Tab*] 250 mg PO UD DOSE PK #6 tab 10/13/21 Benzonatate [Benzonatate 100mg 100 mg PO TIDP PRN #30 cap 10/13/21 cap] Ondansetron [Zofran 4mg ODT] 4 mg PO Q8HP PRN #12 tab 10/13/21 predniSONE [Deltasone 10mg tablet] 10 mg PO BID 3 Days #6 tab 10/13/21 Allergies Allergy/AdvReac Type Severity Reaction Status Date / Time No Known Allergies Allergy Verified 07/12/21 14:39 [facility] History - Hepatitis A Screen Attestation statement:: This patient has been screened for Hepatitis A risk factors. I have reviewed the patient's past medical history: Yes 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: Reports:: Anxiety, Kidney Stones, Palpitations, Supraventricular Tachycardia Michael
[2021-10-13 12:45] LABS: UTC Strep Screen (Rapid) Negative (Negative)
[2021-10-13 13:05] VITALS: BP 112/78; PULSE 89; RESP 18; TEMP 36.7; O2SAT 98
== END 2021-10-13 13:08 | disposition home or self-care (01) ==
PROVIDERS: Emergency Provider Nurse Practitioner Family; PCP Physician Assistant
DX: J02.9 Acute pharyngitis, unspecified (principal); B34.9 Viral infection, unspecified
CPT/HCPCS: 87880; 99212; G0463

== ENCOUNTER → 2021-12-01 16:37 | Outpatient (CLI) | payer OTHER, SELFPAY ==
--- NOTE | 2021-12-01 16:44 | XR_ITS ---
PROCEDURE INFORMATION: Exam: XR Cervical Spine Exam date and time: 12/01/2021 4:45 PM Age: 41 years old Clinical indication: Pain; Cervicalgia; Additional info: Neck pain, abn cspine mri 04/2020 TECHNIQUE: Imaging protocol: Radiologic exam of the cervical spine. Views: 4 or 5 views. COMPARISON: MR CERVICAL SPINE WO CON 04/30/2020 8:22 AM FINDINGS: Bones/joints: Mild disc space narrowing and anterior osteophyte at C5-C6. No acute fracture or subluxation. No abnormal motion of the spine with flexion or extension. Soft tissues: Unremarkable. Lungs: Lung apices are clear. IMPRESSION: Mild degenerative changes at the C5-C6 level.
== END ==
PROVIDERS: PCP Physician Assistant; Visit Provider Nurse Practitioner Family
DX: M54.2 Cervicalgia (principal); G89.29 Other chronic pain; R29.2 Abnormal reflex; R93.7 Abnormal findings on diagnostic imaging of other parts of musculoskeletal system; G47.33 Obstructive sleep apnea (adult) (pediatric); E66.3 Overweight; Z68.28 Body mass index [BMI] 28.0-28.9, adult; Z86.79 Personal history of other diseases of the circulatory system
CPT/HCPCS: 72052; 95806

== ENCOUNTER → 2021-12-08 07:34 | Outpatient (CLI) | payer OTHER, SELFPAY ==
--- NOTE | 2021-12-08 07:34 | MR_ITS ---
FINAL REPORT CLINICAL HISTORY: abn cspine xray 04/2020. HEADACHE. NECK PAIN WITH INTERMITTENT BILATERAL ARM NUMBNESS AND TINGLING. NO INJURY OR TRAUMA. FINDINGS: Multiplanar MR imaging of the cervical spine was performed without contrast. On the sagittal T2-weighted images, disc degeneration is seen at multiple levels. There is no evidence of fracture. There is mild kyphosis centered at C5. The cervical spinal cord has an unremarkable appearance without evidence of mass, edema or syrinx. No significant canal stenosis is identified. The cervicomedullary junction is normal. C2-3: There is no significant canal stenosis or neural foraminal narrowing. C3-4: There is no significant canal stenosis or neural foraminal narrowing. C4-5: There is a small central disc protrusion which indents the thecal sac. C5-6: A disc osteophyte complex is present with mild left neural foraminal narrowing. C6-7: An annular disc bulge is present. There is a small right paracentral disc protrusion. C7-T1: There is no significant canal stenosis or neural foraminal narrowing. IMPRESSION: Multilevel degenerative disc disease and spondylosis as described. Reviewed, Interpreted and Dictated by Lazaro Uribe III, MD Transcribed by Kassandra Sinclair Authenticated and [facility]
== END ==
LOC: RAD 07:34
PROVIDERS: PCP Physician Assistant; Visit Provider Nurse Practitioner Family
DX: M54.2 Cervicalgia (principal); G89.29 Other chronic pain; R29.2 Abnormal reflex; R93.7 Abnormal findings on diagnostic imaging of other parts of musculoskeletal system
CPT/HCPCS: 72141; 76376

== ENCOUNTER 2021-12-21 17:00 | Outpatient (RCR) | payer OTHER, SELFPAY ==
--- NOTE | 2021-12-06 17:44 | HMH.PTOPEV ---
PT Outpatient Evaluation Rehab PT Outpatient Evaluation Start: 12/06/21 16:50 Freq: Status: Active Protocol: Document 12/06/21 17:28 BYRON (Rec: 12/06/21 17:43 BYRON [id number]) E-signed By Ata White, PT Outpatient Therapy Subjective History Subjective History Patient is a 41 year old female presenting to outpatient PT with reports of chronic cervical spine pain starting approximately 2 years ago. Most recent imaging indicates multi-level DDD CS. Patient reports BUE radicular symptoms. Patient has previously been seen by LMT and chiro with minimal improvements noted. No other comorbidities to report. Chief Complaint Pain,Spasms,Stiff,Paresthesia Symptom Type Ache,Sharp,Dull,Numbness, Tingling Symptoms Relieved By Ice,OTC Meds Symptoms Aggravated By Physical Activity,Lifting Prior Functional Limitations None Current Functional Limitations Reaching,Lifting,Desk Work/ Reading Symptom Description Constant but Variable Level of pain today (0-10) 5 Pain scale - at its best (0-10) 4 Pain scale - at its worst (0-10) 10 Cervical Eval Palpation Cervical Muscles R Cervical Paraspinal,L Cervical Paraspinal,R Suboccipital,L Suboccipital,R CT Junction,L CT Junction,R Upper Trapezius,L Upper Trapezius,R Thoracic Paraspinals,L Thoracic Paraspinals Posture Head/C-Spine Posture Sitting Position C-Spine Flattened Head/C-Spine Posture Standing Position C-Spine Flattened Flexibility Deficits Upper Trapezius Muscle Length (R) Moderate Tightness,(L) Moderate Tightness Levaetor Scapulae Muscle Length (R) Moderate Tightness,(L) Moderate Tightness Pectoralis Minor Muscle Length (R) Moderate Tightness,(L) Moderate Tightness Passive Joint Mobility Cervical PIVM Dec: R OA L OA R AA L AA R C2/3 L C2/3 R C3/4 L C3/4
== END 2021-12-21 17:05 | disposition home or self-care (01) ==
LOC: PT 17:00
PROVIDERS: PCP Physician Assistant; Visit Provider Nurse Practitioner Family
DX: M54.2 Cervicalgia (principal); G89.29 Other chronic pain; G43.719 Chronic migraine without aura, intractable, without status migrainosus; G44.86 Cervicogenic headache
CPT/HCPCS: 20560; 20561; 97010; 97014; 97110; 97163; 97535; G0283

== ENCOUNTER → 2021-12-29 15:04 | Outpatient (POV) | payer OTHER, SELFPAY ==
[2021-12-29 15:19] VITALS: BP 138/83; PULSE 99; RESP 20; TEMP 37; O2SAT 99; BMI 30.2
--- NOTE | 2021-12-29 15:43 | EXP.PAIN.OV ---
HPI Data of Consult Patient: new to practice Consult date: 12/29/21 Requesting Physician: Goldie Baird APRN Consult Narrative Reason for consult: Neck pain, headache History of present illness: Ms. Tiwari is a 41 year old female who presents today as a new patient. Today the patient rates her pain a 3 out of 10. She states the pain is all in her neck that radiates into her bilateral upper extremities as well as frequent headaches. Patient states that last week she did in fact have a spinal tap trying to figure out where her pain was coming from. Patient states that she had a horrible headache following this procedure and did go to the ER for treatment. Patient describes this pain as a aching, throbbing, sharp, pressure sensation that varies at different times throughout the day. Patient states the pain is worsened with increased activity or range of motion of her head. Patient has tried heat which provides some improvement of her symptoms. Patient denies any new trauma or injury. She states she has had this on again off again for over 2 years and it is worsened with time. Patient has been to physical therapy with her last visit being last week. Patient states that it did help while she was at therapy however when she had left within about an hour all her pain symptoms would return. Patient was scheduled for a visit this week however she did cancel it due to not seeing any improvement of her symptoms. Patient does take naproxen 500 mg that she states at first did seem to help however now is not as effective. Patient has tried ibuprofen 800 mg in the past however it did not touch her pain. Patient is also been prescribed a muscle relaxer, Flexeril 10 mg however she has not started this medication. Patient is scheduled to see neurosurgery but not until April. Patient states she is not on any scheduled medications. CC: Goldie Baird APRN [facility] 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 (Updated 12/29/21 @ 15:54 by Goldie Baird APRN) Arrhythmia History of left heart catheterization Kidney stones Normal colonoscopy Obstructive Sleep Apnea-Hypopnea Syndrome Tachyarrhythmia Surgical History (Updated 12/29/21 @ 15:22 by Terrie Moreira RN) H/O cardiac radiofrequency ablation H/O lithotripsy History of esophagogastroduodenoscopy (EGD) Family History (Updated 11/30/21 @ 16:10 by Damaris Mahmood) Other Coronary artery disease Hypertension Thyroid disorder Social History (Updated 12/29/21 @ 15:23 by Terrie Moreira RN) Smoking Status: Former smoker second hand exposure: No alcohol intake: current substance use type: denies use current occupational status: employed Travel in the last 8 weeks: None household members: spouse housing: house marital status: current occupation: [employer] current occupational exposures/hazards: No caffeine: Yes Review of Systems Review of Systems Review of systems:: pertinent systems reviewed and negative unless documented below Review of systems (narrative): Review of Systems: General: No recent weight changes, no fever, no sleep disturbances Respiratory: No cough, no shortness of air, no recurring pulmonary infections Cardiovascular/peripheral vascular: No chest pain, no palpitations, no edema, no shortness of breath Gastrointestinal: No new onset incontinence, normal bowel movements reported Genitourinary: No new onset incontinence Musculoskeletal: Neck pain, headache Psychiatric: [Normal mood/affect] Neurological: [Denies weakness in extremities], [denies balance issues] Meds Home Medications and Allergies Home Medications Medication Instructions Recorded Confirmed Type buspirone 10 mg tablet 10 mg PO BID Depression 01/08/19 12/29/21 History clonazepam 0.5 mg tablet (Klonopin) 0.5 mg PO BID PRN anxiety/grief 11/30/20 12/29/21 Rx #30 tabs paroxetine HCl 20 mg tablet 20 mg PO DAILY Depression #90 tabs 03/23/21 12/29/21 Rx levothyroxine 100 mcg tablet 100 mcg
== END ==
LOC: SC.PAIN 15:05
PROVIDERS: Visit Provider Nurse Practitioner Family
DX: M50.10 Cervical disc disorder with radiculopathy, unspecified cervical region (principal); M47.22 Other spondylosis with radiculopathy, cervical region
CPT/HCPCS: 99202; G0463

== ENCOUNTER 2022-01-03 08:24 | Day surgery (SDC) | payer OTHER, SELFPAY ==
[2022-01-03 08:39] VITALS: BP 132/84; PULSE 69; RESP 18; TEMP 36.7; O2SAT 98; BMI 29.2
[2022-01-03 09:01] VITALS: BP 122/85; PULSE 81; RESP 18; O2SAT 99
[2022-01-03 09:02] VITALS: BP 149/92; PULSE 62; RESP 18; O2SAT 99
[2022-01-03 09:08] VITALS: BP 131/87; PULSE 67; RESP 20; O2SAT 99
--- NOTE | 2022-01-03 09:45 | P.PCN_ITS ---
Procedure Date: 01/03/22 Time: 09:00 Anesthesiologist:: Brian Rubio CRNA Complications:: None Pre-procedure Diagnosis:: Degenerative disc disease cervical spine multilevels. Cervical radiculopathy. Post-procedure Diagnosis:: Same. Indications for Procedure:: Very pleasant 41-year-old female comes our clinic today for cervical epidural steroid injection. She has cervical spine symptoms as well as chronic headaches. She rates her pain 6/10. Procedure Details:: Procedure:Cervical epidural steroid injection Informed consent was obtained and the risks and benefits of the procedure were explained to the patient. The patient was taken to the procedure room and noninvasive monitors placed, including noninvasive blood pressure cuff and pulse oximeter. The neck was prepped using Betadine as a cleansing solution. The C6-C7 interspace was palpated. The skin and subcutaneous tissues were anesthetized using lidocaine 1.5% and a 25-gauge needle. After this an 18-gauge Touhy epidural needle was placed into the C6-C7 interspace and advanced using loss of resistance to air until the epidural space was encountered. After confirmation of needle placement in the epidural space, a solution containing normal saline, 2 mL and Depo-Medrol 80 mg was incrementally injected into the cervical epidural space.~ The patient tolerated the procedure well with no complications. The patient was observed in the Pain Clinic and then discharged home n eurologically intact. Plan and Disposition:: Patient was discharged without incident.
== END 2022-01-03 09:09 | disposition home or self-care (01) ==
LOC: SC.PAINP 08:25
PROVIDERS: PCP Nurse Practitioner Family; Visit Provider Nurse Anesthetist, Certified Registered
DX: M50.123 Cervical disc disorder at C6-C7 level with radiculopathy (principal); M47.22 Other spondylosis with radiculopathy, cervical region
CPT/HCPCS: 62321; J1040

== ENCOUNTER → 2022-01-13 15:52 | Outpatient (CLI) | payer OTHER, SELFPAY | LOC: LAB.DROPOF 15:54 | PROVIDERS: PCP Family Medicine; Visit Provider Family Medicine | DX: R31.9 Hematuria, unspecified (principal) | CPT/HCPCS: 87086 ==

== ENCOUNTER → 2022-02-01 09:25 | Outpatient (CLI) | payer OTHER, SELFPAY ==
[2022-02-01 09:53] LABS: Adenovirus,PCR Not Detected (NotDetected); Bordetella Pertussis Not Detected (NotDetected); Chlamydophila Pneumoniae, PCR Not Detected (NotDetected); Coronavirus 19, PCR Not Detected (NotDetected); Coronavirus 229E Not Detected (NotDetected); Coronavirus NL63 Not Detected (NotDetected); Coronavirus OC43 Not Detected (NotDetected); Coronovirus HKU1,PCR Not Detected (NotDetected); Human Metapneumovirus Not Detected (NotDetected); Influenza A, PCR Not Detected (NotDetected); Influenza AH1, 2009 Not Detected (NotDetected); Influenza AH1, PCR Not Detected (NotDetected); Influenza AH3,PCR Not Detected (NotDetected); Influenza B, PCR Not Detected (NotDetected); Mycoplasma Pneumoniae, PCR Not Detected (NotDetected); Parainfluenza 1, PCR Not Detected (NotDetected); Parainfluenza 2, PCR Not Detected (NotDetected); Parainfluenza 3, PCR Not Detected (NotDetected); Parainfluenza 4, PCR Not Detected (NotDetected); Respiratory Syncytial Virus Not Detected (NotDetected); Rhinovirus/Enterovirus Not Detected (NotDetected)
== END ==
LOC: LAB 09:26
PROVIDERS: PCP Family Medicine; Visit Provider Family Medicine
DX: J02.9 Acute pharyngitis, unspecified (principal)
CPT/HCPCS: 87581; 87632; 87798; C9803; U0003; U0005

== ENCOUNTER → 2022-03-08 08:09 | Outpatient (CLI) | payer OTHER, SELFPAY ==
[2022-03-08 09:11] LABS: Basophils # 0.1 K/mm3 (0-0.2); Basophils % 1.2 % (0.1-2.0); Eosinophils # 0.1 K/mm3 (0.0-0.4); Eosinophils % 1.4 % (0.1-12.0); Hematocrit 35.3 % (37.0-47.0); Hemoglobin 11.9 g/dL (12.2-16.2); Lymphocytes # 2.5 K/mm3 (0.7-4.5); Lymphocytes % 37.5 % (10-50); Mean Corpuscular HGB Conc 33.7 g/dL (31.8-35.4); Mean Corpuscular Hemoglobin 28.8 pg (27.0-31.2); Mean Corpuscular Volume 85.6 fl (81-99); Mean Platelet Volume 8.1 fl (7.4-10.4); Monocytes # 0.4 K/mm3 (0.1-1.0); Monocytes % 5.7 % (1.7-9.3); Neutrophils # 3.6 K/mm3 (1.8-7.8); Neutrophils % 54.2 % (37.0-80.0); Platelet Count 346 K/mm3 (142-424); Red Blood Count 4.12 M/mm3 (4.20-5.40); Red Cell Distribution Width 14.6 % (11.5-17.5); White Blood Count 6.6 K/mm3 (4.8-10.8)
[2022-03-08 09:23] LABS: Hemoglobin A1C 5.6 % (4.0-6.0)
[2022-03-08 10:23] LABS: Alanine Aminotransferase 39 U/L (12-78); Albumin Level 4.2 g/dl (3.5-5.0); Albumin/Globulin Ratio 1.4 (1.1-1.8); Alkaline Phosphatase 106 U/L (38-126); Anion Gap 12.3 mEq/L (5-15); Aspartate Amino Transferase 33 U/L (14-36); Bilirubin,Total 0.2 mg/dl (0.2-1.3); Blood Urea Nitrogen 14 mg/dl (7-17); Calcium 9.2 mg/dl (8.4-10.2); Carbon Dioxide 27 mmol/L (22.0-30.0); Chloride 106 mmol/L (98-107); Chol/HDL Ratio 5.9 (1-3.5); Cholesterol 252 mg/dl (140-200); Estimated Glomerular Filt Rate 93 ml/min (>60); GFR (African American) 112 ML/MIN (>60); Globulin 2.9 g/dL (1.3-3.2); Glucose 115 mg/dl (74-100); HDL Cholesterol 43 mg/dl (40-60); Potassium 4.3 mmoL/L (3.5-5.1); Sodium 141 mmol/L (136-145); Total Protein,Serum 7.1 g/dl (6.3-8.2); Triglycerides 221 mg/dl (30-150); VLDL Cholesterol 44 mg/dL (0-40)
[2022-03-08 10:56] LABS: Iron 49 ug/dL (37-170)
[2022-03-08 11:05] LABS: Total Iron Binding Capacity 289 ug/dL (265-497)
[2022-03-08 11:11] LABS: Vitamin B12 514 pg/mL (239-931)
[2022-03-08 15:28] LABS: Direct LDL Cholesterol 160.92 mg/dL (100-129)
[2022-03-08 15:48] LABS: Thyroid Stimulating Hormone 0.49 uIU/mL (0.465-4.68)
[2022-03-11 20:28] LABS: Testosterone,Free 9.6 pg/mL (0.0-4.2)
[2022-03-18 19:08] LABS: 1,25 Dihydroxy Vitamin D 52 pg/mL (.); 1,25-Dihydroxy, Vitamin D-2 <10 pg/mL (.); 1,25-Dihydroxy, Vitamin D-3 50 pg/mL (.)
== END ==
LOC: LAB 08:10
PROVIDERS: PCP Family Medicine; Visit Provider Family Medicine
DX: E03.9 Hypothyroidism, unspecified (principal); R53.83 Other fatigue; L67.8 Other hair color and hair shaft abnormalities; E78.5 Hyperlipidemia, unspecified; I10 Essential (primary) hypertension
CPT/HCPCS: 36415; 80053; 80061; 82607; 82652; 83036; 83540; 83550; 84402; 84443; 85025

== ENCOUNTER → 2022-04-21 08:16 | Outpatient (CLI) | payer OTHER, SELFPAY ==
[2022-04-21 09:59] LABS: Chloride 108 mmol/L (98-107); Sodium 143 mmol/L (136-145)
[2022-04-21 10:00] LABS: Potassium 4.4 mmoL/L (3.5-5.1)
[2022-04-21 10:02] LABS: Alanine Aminotransferase 20 U/L (12-78); Albumin Level 3.9 g/dl (3.5-5.0); Albumin/Globulin Ratio 1.3 (1.1-1.8); Alkaline Phosphatase 88 U/L (38-126); Anion Gap 11.4 mEq/L (5-15); Aspartate Amino Transferase 26 U/L (14-36); Bilirubin,Total 0.2 mg/dl (0.2-1.3); Blood Urea Nitrogen 11 mg/dl (7-17); Calcium 8.5 mg/dl (8.4-10.2); Carbon Dioxide 28 mmol/L (22.0-30.0); Cholesterol 142 mg/dl (140-200); Estimated Glomerular Filt Rate 93 ml/min (>60); GFR (African American) 112 ML/MIN (>60); Globulin 3.1 g/dL (1.3-3.2); Glucose 107 mg/dl (74-100); Triglycerides 158 mg/dl (30-150); VLDL Cholesterol 32 mg/dL (0-40)
[2022-04-21 10:03] LABS: HDL Cholesterol 48 mg/dl (40-60)
[2022-04-21 10:14] LABS: Direct LDL Cholesterol 73.45 mg/dL (100-129)
== END ==
LOC: LAB 08:17
PROVIDERS: PCP Family Medicine; Visit Provider Family Medicine
DX: E78.5 Hyperlipidemia, unspecified (principal)
CPT/HCPCS: 36415; 80053; 80061

== ENCOUNTER → 2022-05-19 13:45 | Outpatient (CLI) | payer OTHER, SELFPAY ==
--- NOTE | 2022-05-19 13:49 | CT_ITS ---
FINAL REPORT TECHNIQUE: Axial images through the abdomen and pelvis were performed without contrast.This study was performed with techniques to keep radiation doses as low as reasonably achievable, (ALARA). Individualized dose reduction techniques using automated exposure control or adjustment of mA and/or kV according to the patient's size were employed. CLINICAL HISTORY: stone protocol, flank pain. COMPARISON: 10/21/2020 FINDINGS: ABDOMEN: The lung bases demonstrate mild bibasilar atelectasis. The heart size is normal. Limited images of the liver are unremarkable. Gallbladder is partially collapsed. The spleen is normal. No adrenal mass is identified. The aorta is normal in caliber. There is no significant free fluid or adenopathy. There are multiple, bilateral nonobstructing renal stones measuring up to 4 mm. There is no hydronephrosis. PELVIS: The appendix is normal. The urinary bladder is unremarkable. There is no significant free fluid or adenopathy. IMPRESSION: Bilateral, nonobstructing nephrolithiasis. Reviewed, Interpreted and Dictated by Lazaro Uribe III, MD Transcribed by Leanne Plata Authenticated and [facility]
== END ==
LOC: RAD 13:46
PROVIDERS: PCP Family Medicine; Visit Provider Family Medicine
DX: R10.9 Unspecified abdominal pain (principal)
CPT/HCPCS: 74176

== ENCOUNTER → 2022-06-29 08:02 | Outpatient (CLI) | payer OTHER, SELFPAY ==
--- NOTE | 2022-06-29 08:03 | US_ITS ---
FINAL REPORT CLINICAL HISTORY: RUQ Pain COMPARISON: 04/21/2021 FINDINGS: Sonographic images of the right upper quadrant were obtained. The pancreas is partially obscured. There is mild fatty infiltration of the liver. There is a minimal amount of sludge in the gallbladder. There is no evidence of biliary ductal dilatation.The common duct measures 4mm. Limited images of the right kidney are unremarkable. IMPRESSION: Minimal sludge in the gallbladder. Mild fatty infiltration of the liver. Reviewed, Interpreted and Dictated by Philip Carbajal MD Transcribed by Melody Alexandra Authenticated and [facility]
== END ==
LOC: RAD 08:03
PROVIDERS: PCP Nurse Practitioner Family; Visit Provider Nurse Practitioner Family
DX: R10.11 Right upper quadrant pain (principal)
CPT/HCPCS: 76705

== ENCOUNTER → 2022-07-04 13:31 | Outpatient (CLI) | payer OTHER, SELFPAY ==
[2022-07-08 18:09] LABS: Testosterone, Total, LC/MS 55 ng/dL (.)
== END ==
LOC: LAB.DROPOF 07-18 13:31
PROVIDERS: PCP Physician Assistant; Visit Provider Physician Assistant
DX: R79.89 Other specified abnormal findings of blood chemistry (principal)
CPT/HCPCS: 82397; 82626; 84403

== ENCOUNTER → 2022-07-04 14:18 | Outpatient (CLI) | payer OTHER, SELFPAY | PROVIDERS: PCP Physician Assistant; Visit Provider Physician Assistant | DX: R79.89 Other specified abnormal findings of blood chemistry (principal) ==

== ENCOUNTER → 2022-07-10 17:05 | Outpatient (CLI) | payer OTHER, SELFPAY ==
--- NOTE | 2022-07-10 17:05 | US_ITS ---
FINAL REPORT CLINICAL HISTORY: high testosterone FINDINGS: Transvaginal sonographic images of the pelvis were obtained. The uterus measures 8.4 x 3.6 x 4.3 cm. There is a 1.6 cm presumed uterine fibroid. The endometrium is not well appreciated. The right ovary measures up to 4.0 cm. There is a 2.3 cm right ovarian cyst. The left ovary measures up to 2.9 cm. No free fluid is identified. IMPRESSION: Presumed uterine fibroid. Right ovarian cyst. Reviewed, Interpreted and Dictated by Lazaro Uribe III, MD Transcribed by Marianne Slaughter Authenticated and [facility]
== END ==
LOC: RAD 17:05
PROVIDERS: PCP Physician Assistant; Visit Provider Physician Assistant
DX: R79.89 Other specified abnormal findings of blood chemistry (principal)
CPT/HCPCS: 76830

== ENCOUNTER → 2022-07-14 12:47 | Outpatient (CLI) | payer OTHER, SELFPAY ==
[2022-07-14 13:20] LABS: Basophils # 0.1 K/mm3 (0-0.2); Eosinophils # 0.1 K/mm3 (0.0-0.4); Hematocrit 43.1 % (37.0-47.0); Lymphocytes # 4.1 K/mm3 (0.7-4.5); Lymphocytes % 34.4 % (10-50); Mean Corpuscular HGB Conc 32.5 g/dL (31.8-35.4); Mean Corpuscular Volume 82.8 fl (81-99); Monocytes # 0.7 K/mm3 (0.1-1.0); Monocytes % 5.9 % (1.7-9.3); Neutrophils # 6.9 K/mm3 (1.8-7.8); Neutrophils % 57.7 % (37.0-80.0); Platelet Count 314 K/mm3 (142-424); Red Blood Count 5.21 M/mm3 (4.20-5.40); Red Cell Distribution Width 15.3 % (11.5-17.5)
[2022-07-14 13:21] LABS: Urine Pregnancy, HCG Qual. Negative (Negative)
[2022-07-14 13:36] LABS: Chloride 101 mmol/L (98-107); Sodium 138 mmol/L (136-145)
[2022-07-14 13:37] LABS: Potassium 4.1 mmoL/L (3.5-5.1)
[2022-07-14 13:39] LABS: Alanine Aminotransferase 23 U/L (12-78); Albumin Level 4.7 g/dl (3.5-5.0); Albumin/Globulin Ratio 1.4 (1.1-1.8); Alkaline Phosphatase 99 U/L (38-126); Anion Gap 11.1 mEq/L (5-15); Aspartate Amino Transferase 24 U/L (14-36); Bilirubin,Total 0.6 mg/dl (0.2-1.3); Blood Urea Nitrogen 12 mg/dl (7-17); Carbon Dioxide 30 mmol/L (22.0-30.0); Estimated Glomerular Filt Rate 79 ml/min (>60); GFR (African American) 96 ML/MIN (>60); Globulin 3.4 g/dL (1.3-3.2); Total Protein,Serum 8.1 g/dl (6.3-8.2)
[2022-07-14 13:40] LABS: Calcium 9.4 mg/dl (8.4-10.2); Glucose 90 mg/dl (74-100)
== END ==
PROVIDERS: PCP Physician Assistant; Visit Provider Surgery
DX: Z01.818 Encounter for other preprocedural examination (principal); R10.11 Right upper quadrant pain
CPT/HCPCS: 36415; 80053; 81025; 85025

== ENCOUNTER 2022-07-27 16:25 | Observation (INO) | payer OTHER, SELFPAY ==
[2022-07-25 14:30] VITALS: BMI 29.2
[2022-07-27] VITALS (26 sets, daily range): BP systolic 108–152; BP diastolic 74–99; PULSE 65–130; RESP 12–24; TEMP 36.2–43; O2SAT 87–99; BMI 31.0
--- NOTE | 2022-07-27 08:31 | ECG_ITS ---
APPROVED REPORT Exam: Resting ECG HR:65 bpm ECG Measurements Heart Rate 65 AXES IA 151 P 22 QRSd 104 QRS 36 QT 389 T 35 QTc 401 Conclusion SINUS RHYTHM POSSIBLE INFERIOR MYOCARDIAL INFARCTION , PROBABLY OLD [30 ms Q WAVE IN II/aVF] BORDERLINE ECG UNCONFIRMED REPORT Electronically signed by : Rigo Dennis MD 07/27/2022 21:23:16
[2022-07-27 10:23] LABS: Urine Pregnancy, HCG Qual. Negative (Negative)
--- NOTE | 2022-07-27 10:37 | EXP.ANES.CKL ---
[facility] Disclaimer: The information contained in this section may have been updated after the patient was seen, as this information can be updated by other users. 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 Abnormal MRI, cervical spine Ankle fracture Arrhythmia BMI 28.0-28.9,adult Brisk deep tendon reflexes Chest pain Chest pain at rest Chronic headaches Chronic intractable headache DDD (degenerative disc disease) Dizziness Dyspnea Fracture of fourth toe, right, closed History of left heart catheterization Hypothyroidism Kidney stones Neuroforaminal stenosis of cervical spine Normal colonoscopy Normal Pap smear Apr 2020 Obstructive Sleep Apnea-Hypopnea Syndrome Pharyngitis Right ankle sprain Right lower quadrant pain Sinusitis Sinusitis, acute Skin abscess Strep throat Suspected COVID-19 virus infection Tachyarrhythmia Upper respiratory infection URI (upper respiratory infection) Viral syndrome Surgical History H/O cardiac radiofrequency ablation H/O colonoscopy with polypectomy 09/2021 H/O lithotripsy History of endometrial ablation History of esophagogastroduodenoscopy (EGD) Family History Father Heart attack Family history of diabetes mellitus type II Brother Heart attack Other Coronary artery disease Hypertension Thyroid disorder Social History (Updated 07/27/22 @ 10:19 by Chanel Crane RN) Smoking Status: Former smoker years smoked: 2 second hand exposure: No alcohol intake: current substance use type: denies use current occupational status: employed Travel in the last 8 weeks: None adopted: No caregiver/support person: Yes foster care: No household members: spouse housing: house lives independently: Yes marital status: number of children: 3 number of grandchildren: 0 current occupation: [employer] Main current occupational exposures/hazards: No pets and animals: Yes sexually active: Yes other: Last 2020 caffeine: Yes physical activity: none [employer] Anesthesia Checklist Patient Identification Patient Identification: Arm Band and Verbal (Name & ) Structural Data Admitted From: Home Planned Operative Procedure/s: Laparascopic Cholecystecytomy Consent for Planned Operative Procedure(s) Verified: Yes Verified Documents: Surgical Consent NPO Status Verified Time NPO: 00:00 Chart Verification Results Verified: CBC, BMP and HCG Additional verifications Anesthesia Reactions: No Hx Blood Transfusions: No Blood Transfusion Reaction: No Airway Assessment C-Spine Mobility Assessed: Yes TMJ Mobility Assessed: Yes Dentition: Good Dentition Neurological Assessment Level of Consciousness: Awake, Alert and Appropriate Anesthesia Plan ASA Class: II Anesthesia Type: General
--- NOTE | 2022-07-27 12:20 | P.PN_ITS ---
[facility] Disclaimer: The information contained in this section may have been updated after the patient was seen, as this information can be updated by other users. 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 Abnormal MRI, cervical spine Ankle fracture Arrhythmia BMI 28.0-28.9,adult Brisk deep tendon reflexes Chest pain Chest pain at rest Chronic headaches Chronic intractable headache DDD (degenerative disc disease) Dizziness Dyspnea Fracture of fourth toe, right, closed History of left heart catheterization Hypothyroidism Kidney stones Neuroforaminal stenosis of cervical spine Normal colonoscopy Normal Pap smear Apr 2020 Obstructive Sleep Apnea-Hypopnea Syndrome Pharyngitis Right ankle sprain Right lower quadrant pain Sinusitis Sinusitis, acute Skin abscess Strep throat Suspected COVID-19 virus infection Tachyarrhythmia Upper respiratory infection URI (upper respiratory infection) Viral syndrome Surgical History H/O cardiac radiofrequency ablation H/O colonoscopy with polypectomy 09/2021 H/O lithotripsy History of endometrial ablation History of esophagogastroduodenoscopy (EGD) Family History Father Heart attack Family history of diabetes mellitus type II Brother Heart attack Other Coronary artery disease Hypertension Thyroid disorder Social History (Updated 07/27/22 @ 10:19 by Chanel Crane RN) Smoking Status: Former smoker years smoked: 2 second hand exposure: No alcohol intake: current substance use type: denies use current occupational status: employed Travel in the last 8 weeks: None adopted: No caregiver/support person: Yes foster care: No household members: spouse housing: house lives independently: Yes marital status: number of children: 3 number of grandchildren: 0 current occupation: [employer] Main current occupational exposures/hazards: No pets and animals: Yes sexually active: Yes other: Last 2020 caffeine: Yes physical activity: none [employer] Anesthesia Checklist Patient Identification Patient Identification: Verbal (Name & ) Structural Data Admitted From: Home Planned Operative Procedure/s: lap alli Consent for Planned Operative Procedure(s) Verified: Yes NPO Status Verified Time NPO: 00:00 Additional verifications Anesthesia Reactions: No Hx Blood Transfusions: No Blood Transfusion Reaction: No Airway Assessment C-Spine Mobility Assessed: Yes TMJ Mobility Assessed: Yes Dentition: Good Dentition Neurological Assessment Level of Consciousness: Awake, Alert and Appropriate Anesthesia Plan Anesthesia Risk discussed: Yes Anesthesia Plan: Verified ASA Class: II Anesthesia Type: General
--- NOTE | 2022-07-27 12:51 | P.OP_ITS ---
Date of procedure: 07/27/22 Pre-op Diagnosis:: Biliary dyskinesia Post-op Diagnosis:: Chronic cholecystitis Procedure performed:: Laparoscopic cholecystectomy Surgeon:: Jareth Cota MD CORPORATE QUALITY ASSURANCE MANAGER:: Ced De Souza Anesthesia: GETA Estimated blood loss (mL): 15 Operative findings:: Moderate fat stranding with adhesed stomach and small bowel to gallbladder margin Infundibular thickening Operative note:: After informed consent was obtained, the patient was taken to the operating room and placed in the supine position. General anesthesia was induced and the abdomen was prepped and draped in a sterile fashion. After infiltration with local anesthetic an infraumbilical incision was made. A Veress needle was placed in position. The abdomen was insufflated. A 5 mm optical trocar was placed in position. Under direct visualization, a 12 mm trocar was placed in the subxiphoid position and 2 additional 5 mm trocars were placed in the right upper quadrant. The gallbladder was elevated up and over the liver margin. The tissue around the cystic duct was carefully dissected. 3 clips were placed proximally and the duct was transected with harmonic joyce. Harmonic joyce were then utilized to dissect the gallbladder away from the liver margin with careful attention to the control of the cystic artery. The gallbladder was placed in a retrieval bag and removed through the subxiphoid trocar site. The right upper quadrant was thoroughly irrigated. No active bleeding or bile leak was noted. Fascia at the subxiphoid trocar site was reapproximated utilizing the NeoClose device. The remaining trocars were removed. All wounds were irrigated and skin was closed with 4-0 Monocryl in a mattress fashion to facilitate hemostasis. Steri-Strips were applied. The patient's anesthetic agents were reversed and extubation was completed prior to transfer to recovery in stable condition. Condition: stable Disposition: PACU Specimens:: Gallbladder and contents Complications:: No immediate
--- NOTE | 2022-07-27 13:27 | EXP.ANES.I ---
[facility] Anesthesia Record Part I Anesthesia Record I Intake, IV Amount: 1,900 Estimated blood loss (mL): 0 Urine output (mL): 0 Blood Pressure: 125/79 SaO2: 95 Pulse Rate: 87 Respiratory Rate: 14 Temperature: 97.2 F Patient is:: Awake and Stable Stable to PACU at:: 13:15 Comments:: shaking and clenching entering pacu = versed 2 mg iv
--- NOTE | 2022-07-27 14:15 | SUR.PHASEI ---
1315- upon arrival to pacu pt started to shake and clench on airway (opa). Jtaylor,fax machine repairer administered 2mg IV versed and the patient relaxed. CTM, no further orders at this time
--- NOTE | 2022-07-27 14:18 | ECG_ITS ---
APPROVED REPORT Exam: Resting ECG HR:87 bpm ECG Measurements Heart Rate 87 AXES AZ 158 P 30 QRSd 97 QRS 5 QT 308 T 46 QTc 352 Conclusion SINUS RHYTHM NONSPECIFIC T-WAVE ABNORMALITY BORDERLINE ECG UNCONFIRMED REPORT Electronically signed by : Rigo Dennis MD 07/27/2022 21:20:47
--- NOTE | 2022-07-27 14:35 | SUR.PHASEI ---
1415- respiratory in at this time to do 12 lead ekg per jtaylor,intelligence manager
--- NOTE | 2022-07-27 14:39 | SUR.PHASEI ---
1440- family updated of pt current status via marce chiang
--- NOTE | 2022-07-27 16:44 | PC.NURSE ---
pt arrived to floor per wheelchair, assisted to bathroom.
--- NOTE | 2022-07-27 16:56 | EXP.HP ---
History of Present Illness *Admission Date: 07/27/22 *Reason for visit:: Seizure-like *History of present illness: 42-year-old female with no history of seizure disorder. Does have a history of anxiety, headaches, and hypothyroidism. She presented today for an elective laparoscopic cholecystectomy. After surgery, had a seizure-like episode in postop. Received 2 mg of Versed with improvement in her condition. Proceeded to begin to have another episode and received 1 more milligram of Versed. Patient is hemodynamically stable. Has not had episodes like this before. Does have significant anxiety and had anxiety about her procedure today. Appears slightly confused on evaluation in the PACU. Decision made to admit for monitoring overnight. After arriving to the floor, patient was reevaluated. She does not recall speaking to me in the PACU. She is much more alert and oriented. Knows who she is, where she is, why she is here. Tolerating p.o. intake without any nausea. Does have some mild abdominal pain PFSH PFS Disclaimer: The information contained in this section may have been updated after the patient was seen, as this information can be updated by other users. 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 Abnormal MRI, cervical spine Ankle fracture Arrhythmia BMI 28.0-28.9,adult Brisk deep tendon reflexes Chest pain Chest pain at rest Chronic headaches Chronic intractable headache DDD (degenerative disc disease) Dizziness Dyspnea Fracture of fourth toe, right, closed History of left heart catheterization Hypothyroidism Kidney stones Neuroforaminal stenosis of cervical spine Normal colonoscopy Normal Pap smear Obstructive Sleep Apnea-Hypopnea Syndrome Pharyngitis Right ankle sprain Right lower quadrant pain Sinusitis Sinusitis, acute Skin abscess Strep throat Suspected COVID-19 virus infection Tachyarrhythmia Upper respiratory infection URI (upper respiratory infection) Viral syndrome Surgical History H/O cardiac radiofrequency ablation H/O colonoscopy with polypectomy H/O lithotripsy History of endometrial ablation History of esophagogastroduodenoscopy (EGD) Family History Coronary artery disease Heart attack Father Brother Family history of diabetes mellitus type II Father Hypertension Thyroid disorder Social History Smoking Status: Former smoker years smoked: 2 second hand exposure: No alcohol intake: current substance use type: denies use current occupational status: employed Travel in the last 8 weeks: None adopted: No caregiver/support person: Yes foster care: No household members: spouse housing: house lives independently: Yes marital status: number of children: 3 number of grandchildren: 0 current occupation: [employer] Main current occupational exposures/hazards: No pets and animals: Yes sexually active: Yes other: Last Papsm2020 caffeine: Yes physical activity: none Review of Systems Review of Systems Review of systems (narrative): 14 point review of systems performed, pertinent positives and negatives as per [facility] Meds Home Medications and Allergies Home Medications Medication Instructions Recorded Confirmed Type buspirone 10 mg tablet 10 mg PO DAILY Depression 01/08/19 07/27/22 History omeprazole 20 mg capsule,delayed 40 mg PO DAILY gerd 01/10/22 07/27/22 History release atorvastatin 10 mg tablet See Rx Instructions .Route 07/25/22 07/27/22 History .COMPLEX Cholesterol levothyroxine 100 mcg tablet 100 mcg PO DAILY thyroid 07/25/22 07/27/22 History (Synthroid) paroxetine HCl 20 mg tablet See Rx Instructions .Route 07/25/22 07/27/22 History .COMPLEX . semaglutide 0.25 mg or 0.5 mg (2 0.25 mg SQ WEEKLY Diabetes 07/25/22 07/27/22 History m
--- NOTE | 2022-07-27 17:00 | PC.NURSE ---
pt arrived to the floor from PACU. pt alert and oriented at this time. LS clear t/o. abdomen distended, soft, bowl sounds active t/o. [address] with 2 dressings having scant amount of serosanguineous drainage that was noted when pt arrived to her room. dressings outlined to monitor drainage. pt getting up and ambulating to the bathroom with standby assistance. scds in place. bed in lowest position with call light w/i reach. pt's at bedside.
--- NOTE | 2022-07-27 17:14 | SUR.PHASEI ---
1600- Dr Vargas and family at bedside 1620- [facility] reports pt will be going to room 210 1623- 20g PIV placed in pt's left hand per [place] Arias 1630- Report called to [place] Erickosn
[2022-07-28] VITALS: BP 116/81; PULSE 66; RESP 20; TEMP 36.8; O2SAT 95
[2022-07-28 03:38] VITALS: BP 110/68; PULSE 72; RESP 20; TEMP 36.8; O2SAT 94
[2022-07-28 03:48] LABS: Coronavirus 19, PCR Not Detected (NotDetected); Influenza A, PCR Not Detected (NotDetected); Influenza B, PCR Not Detected (NotDetected)
--- NOTE | 2022-07-28 04:50 | HMH.PHAINT ---
PATIENT HAS RESTED WELL THIS SHIFT. SPOUSE AT BEDSIDE. COVID SWAB OBTAINED AND SENT TO LAB. ABDOMEN SOFT, MILDLY DISTENDED. BOWEL SOUNDS HYPOACTIVE. HAS NOT PASSED GAS YET. DRSGS X 4 DRY AND INTACT AND SECURED WITH OPSITE. SMALL AMT OF OLD BLOODY DRAINAGE ON 2 OF THE DRSGS. VOIDING WITHOUT DIFFICULTY. TOLERATING FLUIDS. SAYS HER POST OP PAIN IS TOLERABLE AND THAT SHE IS NOT MUCH ON NARCOTICS.
--- NOTE | 2022-07-28 06:26 | EXP.DC.SUM ---
General Admission date:: 07/27/22 Discharge date: 07/28/22 HPI HPI HPI: 42-year-old female with no history of seizure disorder. Does have a history of anxiety, headaches, and hypothyroidism. She presented today for an elective laparoscopic cholecystectomy. After surgery, had a seizure-like episode in postop. Received 2 mg of Versed with improvement in her condition. Proceeded to begin to have another episode and received 1 more milligram of Versed. Patient is hemodynamically stable. Has not had episodes like this before. Does have significant anxiety and had anxiety about her procedure today. Appears slightly confused on evaluation in the PACU. Decision made to admit for monitoring overnight. After arriving to the floor, patient was reevaluated. She does not recall speaking to me in the PACU. She is much more alert and oriented. Knows who she is, where she is, why she is here. Tolerating p.o. intake without any nausea. Does have some mild abdominal pain Hospital Course Hospital Course Hospital Course: 42-year-old female with seizure-like episode after surgery.? Differential diagnosis includes new onset seizure, anxiety attack, emergence reaction from anesthesia.? No further events overnight. Patient feels at her baseline this morning aside from some slight abdominal pain which is to be expected after surgery. Tolerating p.o. intake. Stable on room air. Stable for discharge home. Problems addressed as follows: Seizure-like activity -No previous history of seizures.? Back to baseline mentation after arrival to the floor. Maintained normal neurologic function throughout admission. No further episodes. Of note, received Demerol after her surgery, has potential side effects of agitation, anxiety, tachycardia, seizures.? Unclear if this is an etiology however it does not appear patient has had this medication before. Given that there were no further episodes, no EEG obtained at this time. Would recommend considering outpatient referral to neurology after discussion with PCP. Suspect confusion after surgery and episode related to postictal versus Versed induced, appears to have been amnestic as she does not remember encounter in the PACU with provider. Anxiety: Continue home medication with Paxil and BuSpar at home dose Hypothyroidism: Continue home levothyroxine 100 mcg daily Continue home omeprazole for GERD Status post cholecystectomy, Tylenol ibuprofen for pain.? Advance diet as tolerated. Medically stable for discharge home. Follow-up with surgery as scheduled. Follow-up with PCP in the next 1 to 2 weeks. Defer further evaluation for seizure-like activity to primary care physician. Exam Data for Last 24 hours Vital signs and Labs for Last 24 Hours: Temp Pulse Resp BP Pulse Ox 98.2 F 72 20 110/68 94 L 07/28/22 03:38 07/28/22 03:38 07/28/22 03:38 07/28/22 03:38 07/28/22 03:38 Laboratory Results - last 24 hr 07/27/22 10:00: Urine HCG, Qual Negative 07/28/22 03:30: SARS-CoV-2 (PCR) Not detected, Influenza A Untype (PCR) Not detected, Influenza Type B (PCR) Not detected I & O for Last 24 hours: Intake & Output 07/25/22 07/26/22 07/27/22 07/28/22 23:59 23:59 23:59 23:59 Intake Total 1899 120 / 120 Output Total 0 / 0 Balance 1898 120 / 120 Weight 68.039 kg 72.15 kg Constitutional Constitutional: no acute distress *Routine HEENT Exam Head: Present normocephalic and atraumatic Eye: Present EOMI and PERRL ENT: Present mucous membranes moist *Routine Neck Exam Neck: Present supple; Absent lymphadenopathy *Routine Respiratory Exam Respiratory: Present CTA bilaterally; Absent rhonchi, wheezes or crackles *Routine Cardiovascular Exam Cardiovascular: Present RRR *Routine Abdominal Exam Abdominal: Present soft, normoactive bowel sounds and tenderness (At surgical sites, mild in right upper quadrant. Minimal blood staining of dressings. No significant bruising. Active b
[2022-07-28 06:52] LABS: Basophils % 0.1 % (0.1-2.0); Eosinophils % 0.3 % (0.1-12.0); Hematocrit 36.6 % (37.0-47.0); Hemoglobin 11.6 g/dL (12.2-16.2); Lymphocytes # 1.6 K/mm3 (0.7-4.5); Lymphocytes % 13.1 % (10-50); Mean Corpuscular HGB Conc 31.6 g/dL (31.8-35.4); Mean Corpuscular Hemoglobin 26.4 pg (27.0-31.2); Mean Corpuscular Volume 83.7 fl (81-99); Mean Platelet Volume 7.8 fl (7.4-10.4); Monocytes # 0.8 K/mm3 (0.1-1.0); Monocytes % 6.5 % (1.7-9.3); Neutrophils # 10.1 K/mm3 (1.8-7.8); Platelet Count 276 K/mm3 (142-424); Red Blood Count 4.37 M/mm3 (4.20-5.40); Red Cell Distribution Width 14.9 % (11.5-17.5); White Blood Count 12.6 K/mm3 (4.8-10.8)
--- NOTE | 2022-07-28 07:00 | HMH.PHAINT1 ---
Pharmacy Intervention Comments: MEDICATION RECONCILIATION COMPLETED ON PATIENT USING EXTERNAL FILL HISTORY FROM PHARMACY. -LEA LEWIS, STUARTD
[2022-07-28 07:09] LABS: Alanine Aminotransferase 308 U/L (12-78); Albumin Level 3.7 g/dl (3.5-5.0); Albumin/Globulin Ratio 1.2 (1.1-1.8); Alkaline Phosphatase 135 U/L (38-126); Anion Gap 9.7 mEq/L (5-15); Aspartate Amino Transferase 198 U/L (14-36); Bilirubin,Total 0.6 mg/dl (0.2-1.3); Blood Urea Nitrogen 10 mg/dl (7-17); Calcium 8.4 mg/dl (8.4-10.2); Carbon Dioxide 27 mmol/L (22.0-30.0); Chloride 103 mmol/L (98-107); Creatinine Clearance Estimated 141 mL/min (50-200); Estimated Glomerular Filt Rate 110 ml/min (>60); GFR (African American) 133 ML/MIN (>60); Globulin 3.2 g/dL (1.3-3.2); Glucose 112 mg/dl (74-100); Magnesium 1.5 mg/dl (1.6-2.3); Potassium 3.7 mmoL/L (3.5-5.1); Sodium 136 mmol/L (136-145); Total Protein,Serum 6.9 g/dl (6.3-8.2)
[2022-07-28 08:00] VITALS: BP 113/71; PULSE 68; RESP 18; TEMP 36.9; O2SAT 97
--- NOTE | 2022-07-28 09:32 | HMH.PHAINT1 ---
Pharmacy Intervention Comments: DISCHARGE MEDICATION COUNSELING PROVIDED. DISCUSSED THE NORCO (FOR PAIN, TAKE EVERY 6 HOURS NEEDED FOR PAIN, IF NOT IN PAIN YOU DONT HAVE TO TAKE, MAY CAUSE NAUSEA, TAKING WITH FOOD CAN ALLEVIATE THAT, MAY CAUSE CONSTIPATION AND SEDATION. PATIENT VERBALIZED NO QUESTIONS AT THIS TIME.
--- NOTE | 2022-07-28 11:08 | P.PNANES_ITS ---
[facility] Anesthesia Record Part II Anesthesia Record Part II Discharge Time: 13:45 Destination: Surgical Day Care (OP Surgery) PACU nurse assessment reviewed?: Yes Patient Condition:: Good Anesthesia Complications:: None Swallowing reflex intact?: Yes Cyanosis?: No Blood Pressure: 127/85 Pulse Rate: 90 Temperature: 97 F Mental Status: Alert & Oriented Pain level:: 0 Nausea and/or vomitting:: None Intake, IV Amount: 0
[2022-07-28 11:10] VITALS: BP 127/85; PULSE 90; TEMP 36.1
--- NOTE | 2022-07-31 14:23 | CARE MANAGER ---
Left message for patient for post-discharge phone interview, left message.
--- NOTE | 2022-08-01 11:49 | CARE MANAGER ---
Attempted to contact patient related to hospital discharge x2. Left VM message. [place] Quezada
== END 2022-07-28 09:59 | disposition home or self-care (01) ==
LOC: 2ND 16:27
PROVIDERS: Surgery; Admitting Provider Internal Medicine Adolescent Medicine; PCP Physician Assistant; Visit Provider Internal Medicine Adolescent Medicine
PROC: 0FT44ZZ Resection of Gallbladder, Percutaneous Endoscopic Approach (ICD-10-PCS; CPT 47562; principal; 2022-07-27 11:00)
DX: K81.1 Chronic cholecystitis (principal); E03.9 Hypothyroidism, unspecified; Z20.822 Contact with and (suspected) exposure to COVID-19; F41.9 Anxiety disorder, unspecified; G47.33 Obstructive sleep apnea (adult) (pediatric); Z79.899 Other long term (current) drug therapy; Z87.891 Personal history of nicotine dependence; R56.9 Unspecified convulsions; T40.2X5A Adverse effect of other opioids, initial encounter; T42.4X5A Adverse effect of benzodiazepines, initial encounter; Y92.234 Operating room of hospital as the place of occurrence of the external cause
CPT/HCPCS: 47562; 36415; 80053; 81025; 83735; 85025; 93005; 96374; C9803; G0378; J2405; J2710; U0003; U0005

== ENCOUNTER 2022-11-18 16:54 | Emergency (ER) | payer BC, SELFPAY ==
--- NOTE | 2022-11-18 17:19 | PC.NURSE ---
rounded on pt advised that we were full we would get to er as soon as possible, pt given a blanket and urine obtained and sent to lab.
[2022-11-18 17:25] VITALS: BP 154/90; PULSE 82; RESP 18; TEMP 37.1; O2SAT 97; BMI 28.9
[2022-11-18 17:36] LABS: Microscopic, Urine URINE MICROSCOPIC (MICROSCOPIC)
[2022-11-18 17:45] LABS: Urine Pregnancy, HCG Qual. Negative (Negative)
[2022-11-18 17:47] VITALS: BP 133/73; PULSE 69; RESP 18; O2SAT 97
--- NOTE | 2022-11-18 17:58 | PC.NURSE ---
DR NGUYEN AT BEDSIDE
--- NOTE | 2022-11-18 18:02 | CT_ITS ---
PROCEDURE INFORMATION: Exam: CT Abdomen And Pelvis Without Contrast Exam date and time: 11/18/2022 6:47 PM Age: 42 years old Clinical indication: Abdominal pain; Flank; Left; Additional info: L flank pain, R/O stone TECHNIQUE: Imaging protocol: Computed tomography of the abdomen and pelvis without contrast. Radiation optimization: All CT scans at this facility use at least one of these dose optimization techniques: automated exposure control; mA and/or kV adjustment per patient size (includes targeted exams where dose is matched to clinical indication); or iterative reconstruction. REPORTING DATA: Count of CT and Cardiac NM exams in prior 12 months: This patient has received [address] and 0 known cardiac nuclear medicine studies in the 12 months prior to the current study. COMPARISON: CT ABDOMEN PELVIS WO CON 05/19/2022 1:50 PM FINDINGS: Liver: Normal. No mass. Gallbladder and bile ducts: The patient is status post cholecystectomy. Pancreas: Normal. No ductal dilation. Spleen: There are multiple calcifications in the spleen most likely reflects small granulomas. Adrenal glands: Normal. No mass. Kidneys and ureters: There is moderate left hydroureteronephrosis extending to a 6 mm left distal ureteral calculus (image 89 series 3) . . . There are nonobstructing bilateral intrarenal calculi. Stomach and bowel: Unremarkable. No obstruction. No mucosal thickening. Appendix: No evidence of appendicitis. Intraperitoneal space: Unremarkable. No free air. No significant fluid collection. Vasculature: Multiple pelvic phleboliths are present. There is atherosclerotic disease of the visualized aorta and its major branch vessels. Lymph nodes: Unremarkable. No enlarged lymph nodes. Urinary bladder: Unremarkable as visualized. Reproductive: Unremarkable as visualized. Bones/joints: There is diffuse degenerative disease of the visualized osseous structures. Soft tissues: Unremarkable. IMPRESSION: There is moderate left hydroureteronephrosis extending to a 6 mm left distal ureteral calculus (image 89 series 3) .
--- NOTE | 2022-11-18 18:11 | HMH.EDGENADL ---
Discharge Plan Disposition Patient Disposition: Home, Self-Care Condition: Good Prescriptions Prescriptions: New tamsulosin [Flomax] 0.4 mg capsule 0.4 mg PO DAILY Qty: 10 0RF ketorolac 10 mg tablet 10 mg PO Q8H PRN (Reason: pain) Qty: 20 0RF oxycodone 5 mg tablet 5 mg PO Q8H PRN (Reason: pain) Qty: 12 0RF ondansetron 4 mg tablet,disintegrating 4 mg PO Q8H PRN (Reason: nausea and vomiting) 4 Days Qty: 12 0RF No Action omeprazole 20 mg capsule,delayed release(DR/EC) 20 mg PO DAILY Patient Comments: TAKE ONE CAPSULE BY MOUTH EVERY MORNING paroxetine HCl 20 mg tablet See Rx Instructions .ROUTE .COMPLEX Qty: 150 0RF Dose Instruction: TAKE ONE TABLET BY MOUTH EVERY DAY Rx Instructions: TAKE ONE TABLET BY MOUTH EVERY DAY amoxicillin 875 mg tablet 875 mg PO BID 10 Days Qty: 20 0RF buspirone 10 MG tablet 10 mg PO BID atorvastatin 10 mg tablet 10 mg PO DAILY spironolactone 25 mg tablet 25 mg PO DAILY levothyroxine [Synthroid] 100 mcg tablet 100 mcg PO DAILY Ozempic 0.25 mg or 0.5 mg (2 mg/3 mL) pen injector 0.25 mg SQ WEEKLY Referrals Follow up/Referrals: Cheryl Moreira PA [Primary Care Provider] - See instructions Chase Rich MD [Referring] - See instructions Activity Restrictions/Add. Instructions Additional Instructions/Restrictions: You were evaluated in the emergency department today. You have a 6 mm kidney stone. Please chicken picker your prescriptions at the pharmacy and take them as prescribed. You may also take Tylenol in addition to this as needed for pain. Follow-up outpatient with urology and your primary care provider as soon as possible. Return to the emergency department for new or worsening symptoms, such as fever, worsening pain, intractable vomiting, or other concerns. Clinical Impressions Clinical Impression: Calculus of left ureter Instructions Patient Instructions: DI for Kidney Stones Discharge ED Provider: Goldie Melo General Adult HPI General Chief complaint: PAIN Stated complaint: suspects kidney stones, back pain Time Seen by Provider: 11/18/22 18:03 Mode of Arrival: Ambulatory Source of Information: Patient Limitations: No Limitations Description of Symptoms (Recalled from ER Triage Doc. by RN): pt reports L flank pain that began lastnight, burning with urination that started today. Pt reports blood note urine this afternoon. Pt reports hx of kidney stones, states the pain she is currently having in the same as previous time of having kidney stones History of Present Illness HPI narrative: This patient is a 42-year-old female with a history of kidney stones and previous cholecystectomy presenting to the emergency department for evaluation with concern for left flank pain radiating around to her groin.? She states that started yesterday.? It was initially cramping, but today has become more intermittent and severe.? She states she is also noted blood in her urine.? This was similar to prior kidney stones.? No fevers, chills, vomiting, change in bowel movements, or other concerns.? She does note nausea when the pain becomes severe. Related Data Home Medications Medication Instructions Recorded Confirmed buspirone 10 mg tablet 10 mg PO BID Anxiety 01/08/19 08/03/22 omeprazole 20 mg capsule,delayed 20 mg PO DAILY Acid reflux 01/10/22 08/03/22 release atorvastatin 10 mg tablet 10 mg PO DAILY Cholesterol 07/25/22 08/03/22 levothyroxine 100 mcg tablet 100 mcg PO DAILY thyroid 07/25/22 08/03/22 (Synthroid) semaglutide 0.25 mg or 0.5 mg (2 0.25 mg SQ WEEKLY Diabetes 07/25/22 08/03/22 mg/3 mL) subcutaneous pen injector (Ozempic) spironolactone 25 mg tablet 25 mg PO DAILY fluid 07/25/22 08/03/22 Previous Rx's Medication Instructions Recorded paroxetine HCl 20 mg tablet See Rx Instructions .Route 09/20/22 .COMPLEX #150 tabs amoxicillin 875 mg tablet 875 mg PO BID 10 days
[2022-11-18 18:22] LABS: Basophils # 0.1 K/mm3 (0-0.2); Basophils % 0.5 % (0.1-2.0); Eosinophils # 0.1 K/mm3 (0.0-0.4); Eosinophils % 0.5 % (0.1-12.0); Hematocrit 41.3 % (37.0-47.0); Hemoglobin 13.5 g/dL (12.2-16.2); Lymphocytes # 1.9 K/mm3 (0.7-4.5); Lymphocytes % 18.3 % (10-50); Mean Corpuscular HGB Conc 32.7 g/dL (31.8-35.4); Mean Corpuscular Hemoglobin 27.5 pg (27.0-31.2); Mean Corpuscular Volume 84.1 fl (81-99); Mean Platelet Volume 8.1 fl (7.4-10.4); Monocytes # 0.5 K/mm3 (0.1-1.0); Monocytes % 5.1 % (1.7-9.3); Neutrophils % 75.6 % (37.0-80.0); Platelet Count 338 K/mm3 (142-424); Red Blood Count 4.91 M/mm3 (4.20-5.40); Red Cell Distribution Width 14.6 % (11.5-17.5); White Blood Count 10.6 K/mm3 (4.8-10.8)
[2022-11-18 18:28] LABS: Alanine Aminotransferase 40 U/L (12-78); Albumin Level 4.5 g/dl (3.5-5.0); Alkaline Phosphatase 106 U/L (38-126); Anion Gap 16.7 mEq/L (5-15); Aspartate Amino Transferase 35 U/L (14-36); Bilirubin,Total 0.3 mg/dl (0.2-1.3); Blood Urea Nitrogen 12 mg/dl (7-17); Calcium 9.3 mg/dl (8.4-10.2); Carbon Dioxide 25 mmol/L (22.0-30.0); Chloride 103 mmol/L (98-107); Creatinine Clearance Estimated 98 mL/min (50-200); Estimated Glomerular Filt Rate 79 ml/min (>60); GFR (African American) 96 ML/MIN (>60); Globulin 4.3 g/dL (1.3-3.2); Glucose 108 mg/dl (74-100); Potassium 3.7 mmoL/L (3.5-5.1); Sodium 141 mmol/L (136-145); Total Protein,Serum 8.8 g/dl (6.3-8.2)
[2022-11-18 18:44] LABS: Appearance,Urine Cloudy (Clear); Color,Urine Dark Yellow (Yellow)
--- NOTE | 2022-11-18 18:46 | PC.NURSE ---
pt resting in bed no needs,call light at bs
[2022-11-18 18:47] LABS: PH,Urine 6.5 (5.0-8.5)
[2022-11-18 18:48] LABS: Bilirubin,Urine 1+ (Negative); Blood, Urine 3+ (Negative); Glucose,Urine (UA) Negative (Negative); Ketones,Urine Negative (Negative); Leukocyte Esterase,Urine Negative (Negative); Nitrate,Urine Negative (Negative); Protein,Urine 2+ (Negative); Specific Gravity, Urine > 1.030 (1.005-1.030)
[2022-11-18 18:49] LABS: RBC,Urine TNTC #/hpf (0-3); WBC,Urine Occasional #/hpf (0-3)
--- NOTE | 2022-11-18 19:27 | PC.NURSE ---
upon shift change patient had returned from ct scan, RN went in and hooked patient back up to monitor and iv fluids, pt has no complaints at this time and RN answered all questions.
[2022-11-18 20:13] VITALS: BP 139/76; PULSE 67; RESP 16; TEMP 36.7; O2SAT 99
== END 2022-11-18 20:14 | disposition home or self-care (01) ==
PROVIDERS: Emergency Provider Emergency Medicine; PCP Physician Assistant
DX: N20.1 Calculus of ureter (principal); R10.2 Pelvic and perineal pain; E03.9 Hypothyroidism, unspecified; G47.33 Obstructive sleep apnea (adult) (pediatric)
CPT/HCPCS: 74176; 80053; 81001; 81025; 85025; 96361; 96374; 99285

== ENCOUNTER 2022-11-26 21:34 | Emergency (ER) | payer SELFPAY ==
[2022-11-26 21:35] VITALS: BP 160/108; PULSE 91; RESP 18; TEMP 36.5; O2SAT 98; BMI 28.3
[2022-11-26 22:00] VITALS: PULSE 66; RESP 20; O2SAT 96
--- NOTE | 2022-11-26 22:47 | PC.NURSE ---
in room talking with patient at this time.
[2022-11-26 23:00] VITALS: PULSE 77; RESP 18; O2SAT 99
--- NOTE | 2022-11-26 23:08 | HMH.EDGENADL ---
Discharge Plan Disposition Patient Disposition: Home, Self-Care Prescriptions Prescriptions: New cefdinir 300 mg capsule 300 mg PO BID 7 Days Qty: 14 0RF No Action omeprazole 20 mg capsule,delayed release(DR/EC) 20 mg PO DAILY Patient Comments: TAKE ONE CAPSULE BY MOUTH EVERY MORNING paroxetine HCl 20 mg tablet See Rx Instructions .ROUTE .COMPLEX Qty: 150 0RF Dose Instruction: TAKE ONE TABLET BY MOUTH EVERY DAY Rx Instructions: TAKE ONE TABLET BY MOUTH EVERY DAY amoxicillin 875 mg tablet 875 mg PO BID 10 Days Qty: 20 0RF buspirone 10 MG tablet 10 mg PO BID tamsulosin [Flomax] 0.4 mg capsule 0.4 mg PO DAILY Qty: 10 0RF ketorolac 10 mg tablet 10 mg PO Q8H PRN (Reason: pain) Qty: 20 0RF oxycodone 5 mg tablet 5 mg PO Q8H PRN (Reason: pain) Qty: 12 0RF ondansetron 4 mg tablet,disintegrating 4 mg PO Q8H PRN (Reason: nausea and vomiting) 4 Days Qty: 12 0RF atorvastatin 10 mg tablet 10 mg PO DAILY spironolactone 25 mg tablet 25 mg PO DAILY levothyroxine [Synthroid] 100 mcg tablet 100 mcg PO DAILY Ozempic 0.25 mg or 0.5 mg (2 mg/3 mL) pen injector 0.25 mg SQ WEEKLY Referrals Follow up/Referrals: Cheryl Moreira PA [Primary Care Provider] - See instructions Activity Restrictions/Add. Instructions Additional Instructions/Restrictions: You have a distal left ureteral stone with hydronephrosis and hydroureter. Please continue to take your Percocet Toradol your Zofran and Flomax until you see Dr. Rich. Your urinalysis that was done at [facility] was positive for white blood cells and leukocyte esterase which most the time is secondary to inflammatory changes from the kidney stone on infection itself. However we will give you Omnicef and send for urine culture have Dr. Rich follow-up on the urine culture result if it is negative you can discontinue your antibiotic. As discussed if your symptoms are refractory again you will need to go somewhere where there is urology coverage as refractory symptoms or indication for surgical intervention. Clinical Impressions Clinical Impression: Hydronephrosis with renal and ureteral calculous obstruction Instructions Patient Instructions: DI for Acute Abdominal Pain Discharge ED Provider: Bertha Delaney General Adult HPI General Chief complaint: Abdominal Pain Stated complaint: abd pain Time Seen by Provider: 11/26/22 22:46 Mode of Arrival: Ambulatory Source of Information: Patient Limitations: No Limitations Description of Symptoms (Recalled from ER Triage Doc. by RN): pt reports pain in the abdoman after leaving the hospital in [facility] this after noon. pt states that she has a hx of stones and UTI and that she was diagnosed with a 3 mm obstructing stone in the left ureter History of Present Illness HPI narrative: Patient is a 42-year-old female here for refractory abdominal pain after recent diagnosis of a kidney stone. She was here last week was diagnosed with an obstructing ureteral stone that was noted to be 6 mm went home had worsening symptoms decided to go to [facility] where she knew there is urology coverage she had repeat CT scan there and has the results with her which showed a distal 3 mm ureteral stone with hydronephrosis she also had blood work and urinalysis which was done urinalysis showed positive leukocyte esterase and white blood cells in the urine and she was started on Keflex. She denies any fever or UTI symptoms. On her way home she started having some abdominal discomfort and she called them back and they told her to come to the nearest ER for symptoms. She was given morphine and Zofran and IV fluids prior to my evaluation and her symptoms have significantly resolved at this point. Related Data Home Medications Medication Instructions Recorded Confirmed buspirone 10 mg tablet 10 mg PO BID Anxiety 01/08/19 08/03/22 omeprazole 20 mg capsule,delayed 20
[2022-11-26 23:23] LABS: Microscopic, Urine URINE MICROSCOPIC (MICROSCOPIC)
[2022-11-26 23:32] VITALS: BP 134/74; PULSE 81; RESP 17; TEMP 36.9; O2SAT 98
[2022-11-26 23:50] LABS: Appearance,Urine Slightly Cloudy (Clear); Bilirubin,Urine Negative (Negative); Blood, Urine Trace (Negative); Color,Urine Yellow (Yellow); Glucose,Urine (UA) Negative (Negative); Ketones,Urine Trace (Negative); Leukocyte Esterase,Urine Negative (Negative); Nitrate,Urine Negative (Negative); PH,Urine 6.5 (5.0-8.5); Protein,Urine 1+ (Negative)
[2022-11-26 23:51] LABS: Bacteria,Urine Trace /lpf; WBC,Urine Occasional #/hpf (0-3)
== END 2022-11-26 23:32 | disposition home or self-care (01) ==
PROVIDERS: Emergency Provider Student in an Organized Health Care Education/Training Program; PCP Physician Assistant
DX: N13.2 Hydronephrosis with renal and ureteral calculous obstruction (principal)
CPT/HCPCS: 81001; 96361; 96374; 96375; 99284; J2405

== ENCOUNTER → 2022-12-11 13:30 | Outpatient (CLI) | payer BC, SELFPAY | PROVIDERS: PCP Nurse Practitioner Family; Visit Provider Nurse Practitioner Family | DX: J02.9 Acute pharyngitis, unspecified (principal); R50.9 Fever, unspecified | CPT/HCPCS: 87070 ==

== ENCOUNTER → 2022-12-13 13:41 | Outpatient (CLI) | payer BC, SELFPAY ==
[2022-12-13 13:48] LABS: Adenovirus,PCR Not Detected (NotDetected); Coronavirus 19, PCR Not Detected (NotDetected); Coronavirus 229E Not Detected (NotDetected); Coronavirus NL63 Not Detected (NotDetected); Coronavirus OC43 Not Detected (NotDetected); Coronovirus HKU1,PCR Not Detected (NotDetected); Human Metapneumovirus Not Detected (NotDetected); Influenza A, PCR Not Detected (NotDetected); Influenza AH1, 2009 Not Detected (NotDetected); Influenza AH1, PCR Not Detected (NotDetected); Influenza AH3,PCR Not Detected (NotDetected); Influenza B, PCR Not Detected (NotDetected); Parainfluenza 1, PCR Not Detected (NotDetected); Parainfluenza 2, PCR Not Detected (NotDetected); Parainfluenza 3, PCR Not Detected (NotDetected); Parainfluenza 4, PCR Not Detected (NotDetected); Respiratory Syncytial Virus Not Detected (NotDetected)
[2022-12-13 15:56] LABS: Bordetella Pertussis Not Detected (NotDetected); Chlamydophila Pneumoniae, PCR Not Detected (NotDetected); Mycoplasma Pneumoniae, PCR Not Detected (NotDetected); Rhinovirus/Enterovirus Detected (NotDetected)
== END ==
LOC: LAB 13:42
PROVIDERS: PCP Nurse Practitioner Family; Visit Provider Nurse Practitioner Family
DX: J06.9 Acute upper respiratory infection, unspecified (principal); B34.1 Enterovirus infection, unspecified
CPT/HCPCS: 87581; 87632; 87798

== ENCOUNTER 2023-01-21 12:08 | Emergency (ER) | payer BC, SELFPAY ==
--- NOTE | 2023-01-21 12:11 | XR_ITS ---
PROCEDURE INFORMATION: Exam: XR Right Ankle Exam date and time: 01/21/2023 12:25 PM Age: 42 years old Clinical indication: Pain; Ankle; Right; Additional info: Pain after squatting down TECHNIQUE: Imaging protocol: Radiologic exam of the right ankle. Views: 3 or more views. COMPARISON: CR XR ANKLE WT BEARING RT MIN 3V 09/11/2019 8:31 AM FINDINGS: Bones/joints: Normal. Soft tissues: Normal. IMPRESSION: No acute findings.
[2023-01-21 12:15] VITALS: BP 139/92; PULSE 69; RESP 18; TEMP 36.6; O2SAT 97; BMI 28.9
--- NOTE | 2023-01-21 12:15 | PC.NURSE ---
Called RAD about xray
--- NOTE | 2023-01-21 12:27 | EXP.UTC ---
Discharge Plan Disposition Patient Disposition: Home, Self-Care Condition: Good Prescriptions Prescriptions: No Action omeprazole 20 mg capsule,delayed release(DR/EC) 20 mg PO DAILY Patient Comments: TAKE ONE CAPSULE BY MOUTH EVERY MORNING paroxetine HCl 20 mg tablet See Rx Instructions .ROUTE .COMPLEX Qty: 150 0RF Dose Instruction: TAKE ONE TABLET BY MOUTH EVERY DAY Rx Instructions: TAKE ONE TABLET BY MOUTH EVERY DAY buspirone 10 MG tablet 10 mg PO BID levothyroxine [Synthroid] 100 mcg tablet 100 mcg PO DAILY Referrals Follow up/Referrals: Joyce Mckeon APRN [Primary Care Provider] - See instructions Activity Restrictions/Add. Instructions Additional Instructions/Restrictions: *weight bearing as tolerated *RICE, Rest the extremity, Ice 15-20 minutes 3-4 times daily, Compress- wear the boy wrap as discussed as much as possible to help reduce swelling and pain, Elevate the extremity when at rest *Boy wrap is for support and help control swelling, use it except in the shower. Be sure that is not to tight but not to loose either *Elevate when resting? *Ibuprofen 600-800mg every 6-8 hours as needed for pain an inflammation. If need something more can take Tylenol in between doses of Ibuprofen to help Immediately follow up with your family doctor for new or worsening of symptoms, or no noticeable improvement over the next 3-5 days Clinical Impressions Clinical Impression: Ankle sprain Qualifiers: Encounter type: initial encounter Involved ligament of ankle: unspecified ligament Laterality: right Qualified Code(s): S93.401A - Sprain of unspecified ligament of right ankle, initial encounter Instructions Patient Instructions: Ankle Sprain, How To Perform RICE (Rest, Ice, Compress, Elevate) Discharge ED Provider: Arabella Reed [facility] General Stated complaint: right ankle pain Mode of Arrival: Ambulatory Source of Information: Patient and Spouse Limitations: No Limitations Time Seen by Provider: 01/21/23 12:27 Description of Symptoms (Recalled from Triage Doc. by RN): Pt stated that yesterday she was squating down and she felt a pop in her right ankle. She went down a step and it had a second popping noise and she could no longer bare weight. She stated that it swollen and starting to bruise. HEENT Symptoms (Recalled from RN notes): No Resp Symptoms (Recalled from RN notes): No Skin Symptoms (Recalled from RN notes): No MS Symptoms (Recalled from RN notes): Yes Functional Status (Recalled from RN notes): n/a History of Present Illness Provider Complaint: Patient states that she squatted down yesterday and felt a pop in her right ankle States that she then stepped down the steps and felt another pop and after that she was having pain when she tried to put weight on it so today when it was swollen and looked like it was starting to bruise she came in to get it checked Related Data Home Medications Medication Instructions Recorded Confirmed buspirone 10 mg tablet 10 mg PO BID Anxiety 01/08/19 01/21/23 omeprazole 20 mg capsule,delayed 20 mg PO DAILY Acid reflux 01/10/22 01/21/23 release levothyroxine 100 mcg tablet 100 mcg PO DAILY thyroid 07/25/22 01/21/23 (Synthroid) Previous Rx's Medication Instructions Recorded paroxetine HCl 20 mg tablet See Rx Instructions .Route 09/20/22 .COMPLEX #150 tabs Allergies Allergy/AdvReac Type Severity Reaction Status Date / Time meperidine [From Demerol] AdvReac Intermediate seizure Verified 01/21/23 12:26 like episode Worker's Comp Is this a Worker's Comp case?: No [facility] Disclaimer: The information contained in this section may have been updated after the patient was seen, as this information can be updated by other users. 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 (Updated 01/21/23 @ 13:33 by Arabella Reed APRN) Abnormal MRI, cervical spine Ankle fracture Arrhythmia BMI 28.0-28.9,adult Brisk ocby
[2023-01-21 13:44] VITALS: BP 139/92; PULSE 69; RESP 18; TEMP 36.6; O2SAT 97
== END 2023-01-21 13:43 | disposition home or self-care (01) ==
PROVIDERS: Emergency Provider Nurse Practitioner; PCP Nurse Practitioner Family
DX: S93.401A Sprain of unspecified ligament of right ankle, initial encounter (principal); E03.9 Hypothyroidism, unspecified; K21.9 Gastro-esophageal reflux disease without esophagitis; X50.0XXA Overexertion from strenuous movement or load, initial encounter
CPT/HCPCS: 73610; 99212; 99214; G0463

== ENCOUNTER → 2023-02-14 09:37 | Outpatient (CLI) | payer BC, SELFPAY ==
[2023-02-14 11:41] LABS: Free T4 (Free Thyroxine) 0.65 ng/dl (0.78-2.19)
[2023-02-14 11:53] LABS: Thyroid Stimulating Hormone 4.14 uIU/mL (0.465-4.68)
== END ==
PROVIDERS: PCP Nurse Practitioner Family; Visit Provider Nurse Practitioner
DX: E03.9 Hypothyroidism, unspecified (principal)
CPT/HCPCS: 36415; 84439; 84443

== ENCOUNTER → 2023-03-14 15:17 | Outpatient (POV) | payer BC, SELFPAY | PROVIDERS: Visit Provider Specialist/Technologist | DX: Z00.00 Encounter for general adult medical examination without abnormal findings (principal) ==

== ENCOUNTER → 2023-03-15 16:42 | Outpatient (CLI) | payer BC, SELFPAY ==
[2023-03-15 20:22] LABS: Alanine Aminotransferase 30 U/L (12-78); Albumin Level 4.7 g/dl (3.5-5.0); Albumin/Globulin Ratio 1.3 (1.1-1.8); Alkaline Phosphatase 86 U/L (38-126); Anion Gap 13.1 mEq/L (5-15); Aspartate Amino Transferase 33 U/L (14-36); Bilirubin,Direct 0.2 mg/dl (0.0-0.4); Bilirubin,Indirect 0.2 mg/dL (0.0-0.9); Bilirubin,Total 0.4 mg/dl (0.2-1.3); Bilirubin,Unconjugated 0.2 mg/dL (0.0-1.1); Blood Urea Nitrogen 11 mg/dl (7-17); Calcium 9.2 mg/dl (8.4-10.2); Carbon Dioxide 28 mmol/L (22.0-30.0); Chloride 102 mmol/L (98-107); Estimated Glomerular Filt Rate 79 ml/min (>60); GFR (African American) 96 ML/MIN (>60); Globulin 3.7 g/dL (1.3-3.2); Glucose 79 mg/dl (74-100); Potassium 4.1 mmoL/L (3.5-5.1); Sodium 139 mmol/L (136-145); Total Protein,Serum 8.4 g/dl (6.3-8.2)
[2023-03-15 20:27] LABS: Basophils # 0.1 K/mm3 (0-0.2); Basophils % 0.8 % (0.1-2.0); Eosinophils # 0.1 K/mm3 (0.0-0.4); Eosinophils % 0.9 % (0.1-12.0); Hemoglobin 14.5 g/dL (12.2-16.2); Lymphocytes # 3.2 K/mm3 (0.7-4.5); Lymphocytes % 34.5 % (10-50); Mean Corpuscular HGB Conc 32.9 g/dL (31.8-35.4); Mean Corpuscular Hemoglobin 28.5 pg (27.0-31.2); Mean Corpuscular Volume 86.6 fl (81-99); Monocytes # 0.6 K/mm3 (0.1-1.0); Monocytes % 6.5 % (1.7-9.3); Neutrophils # 5.2 K/mm3 (1.8-7.8); Neutrophils % 57.4 % (37.0-80.0); Platelet Count 301 K/mm3 (142-424); Red Blood Count 5.08 M/mm3 (4.20-5.40); Red Cell Distribution Width 14.9 % (11.5-17.5); White Blood Count 9.1 K/mm3 (4.8-10.8)
[2023-03-15 20:41] LABS: Troponin I < 0.01 ng/ml (0.00-0.034)
[2023-03-15 20:56] LABS: Thyroid Stimulating Hormone 1.66 uIU/mL (0.465-4.68)
[2023-03-15 21:15] LABS: Vitamin B12 524 pg/mL (239-931)
== END ==
LOC: RT 16:43
PROVIDERS: Visit Provider Family Medicine
DX: R06.09 Other forms of dyspnea (principal); R00.0 Tachycardia, unspecified; R07.89 Other chest pain; I20.89 Other forms of angina pectoris; R68.84 Jaw pain; R53.83 Other fatigue; R74.8 Abnormal levels of other serum enzymes
CPT/HCPCS: 80053; 80076; 82306; 82607; 84443; 84484; 85025; 93270

== ENCOUNTER → 2023-03-23 13:03 | Outpatient (CLI) | payer BC, SELFPAY ==
--- NOTE | 2023-03-23 13:04 | US_ITS ---
FINAL REPORT CLINICAL HISTORY: Swelling right submandibular mass FINDINGS: Limited sonographic images of the soft tissue neck were obtained. There is a 1.6 x 1.0 cm ovoid hypoechoic nodule corresponding to the palpable abnormality in the right neck, probably related to a mildly enlarged lymph node. Fatty hilum is not seen. Pathologic involvement is not excluded. Other smaller benign-appearing nodes are other smaller cysts present. IMPRESSION: Enlarged hypoechoic nodule corresponding to the palpable abnormality, can not exclude a pathologically involved lymph node. Consider needle sampling. Reviewed, Interpreted and Dictated by Philip Carbajal MD Transcribed by Marianne Slaughter Authenticated and [facility]
== END ==
LOC: RAD 13:04
PROVIDERS: PCP Nurse Practitioner Family; Visit Provider Nurse Practitioner
DX: K11.20 Sialoadenitis, unspecified (principal)
CPT/HCPCS: 76536

== ENCOUNTER 2023-04-02 10:27 | Outpatient (CLI) | payer OTHER, SELFPAY ==
--- NOTE | 2023-04-02 10:28 | US_ITS ---
FINAL REPORT CLINICAL HISTORY: K11.20 - Sialoadenitis, unspecified -- EZRA MENDOZA -- PALPABLE LYMPH NODE RT NECK FINDINGS: Ultrasound guided lymph node biopsy. HISTORY: . Submental lymph node. Attending radiologist: Dr. Uribe Physician Test Director: Ezra Rose PA-C PROCEDURE: After informed consent was obtained and a time-out was performed, the patient was prepped and draped in usual sterile fashion over the neck midline. Utilizing local anesthesia and sterile technique with a 25-gauge needle, access to lesion was obtained. A total of 3 passes were made under direct ultrasound guidance. The pathologist historian research assistant stated that the samples contained diagnostic material. The patient received no conscious sedation. The patient tolerated procedure well and left the department in good condition. IMPRESSION: Status post ultrasound guided biopsy of submental lymph nodewithout immediate complication. Films reviewed , interpreted and dictated by Dr. Uribe. Transcribed by Ezra Rose PA-C. Reviewed, Interpreted and Dictated by Lazaro Uribe III, MD Transcribed by KELLY Farfan Authenticated and [facility]
== END 2023-04-02 23:59 ==
LOC: RAD 10:28
PROVIDERS: PCP Nurse Practitioner Family; Visit Provider Nurse Practitioner
DX: R22.0 Localized swelling, mass and lump, head (principal); K11.20 Sialoadenitis, unspecified
CPT/HCPCS: 10005

== ENCOUNTER 2023-04-09 13:26 | Outpatient (CLI) | payer OTHER, SELFPAY | END 2023-04-09 23:59 | LOC: RT 13:27 | PROVIDERS: PCP Nurse Practitioner Family; Visit Provider Family Medicine | DX: I20.89 Other forms of angina pectoris (principal); R00.0 Tachycardia, unspecified; R07.89 Other chest pain; R94.31 Abnormal electrocardiogram [ECG] [EKG] | CPT/HCPCS: 93270 ==

== ENCOUNTER 2023-05-14 17:16 | Emergency (ER) | payer OTHER, SELFPAY ==
[2023-05-14] VITALS (7 sets, daily range): BP systolic 119–139; BP diastolic 76–94; PULSE 59–68; RESP 18–21; TEMP 36.7–36.8; O2SAT 97–100; BMI 29.2
--- NOTE | 2023-05-14 17:15 | ECG_ITS ---
APPROVED REPORT Exam: Resting ECG HR:65 bpm ECG Measurements Heart Rate 65 AXES OR 142 P 45 QRSd 119 QRS 29 QT 404 T 65 QTc 415 Conclusion SINUS RHYTHM MODERATE INTRAVENTRICULAR CONDUCTION DELAY [110+ ms QRS DURATION] BORDERLINE ECG UNCONFIRMED REPORT Electronically signed by : Rigo Dennis MD 05/15/2023 20:09:50
--- NOTE | 2023-05-14 17:26 | ED_ITS ---
The above medical decision making portion was authored by KELLY Boles. I was consulted by the TYLER and we discussed the complexity of the problems being addressed. I approved the treatment and management plan for this patient's care in the emergency department, thus performing a substantive portion of the medical decision making. Signed, Kiki Edmondson MD Discharge Plan Disposition Patient Disposition: Home, Self-Care Condition: Good Prescriptions Prescriptions: No Action bisoprolol fumarate 5 mg tablet 5 mg PO DAILY Qty: 90 3RF omeprazole 20 mg capsule,delayed release(DR/EC) 20 mg PO DAILY Patient Comments: TAKE ONE CAPSULE BY MOUTH EVERY MORNING levothyroxine [Synthroid] 100 mcg tablet 100 mcg PO DAILY Qty: 90 3RF azelastine 137 mcg (0.1 %) aerosol,spray 1 spray intranasal BID Qty: 30 3RF Rx Instructions: administer into each nostril levocetirizine [Xyzal] 5 mg tablet 5 mg PO DAILY Qty: 30 3RF paroxetine HCl 20 mg tablet See Rx Instructions .ROUTE .COMPLEX Qty: 150 0RF Dose Instruction: TAKE ONE TABLET BY MOUTH EVERY DAY Rx Instructions: TAKE ONE TABLET BY MOUTH EVERY DAY buspirone 10 MG tablet 10 mg PO BID Referrals Follow up/Referrals: Joyce Mckeon APRN [Primary Care Provider] - See instructions Activity Restrictions/Add. Instructions Additional Instructions/Restrictions: Please call your supervisor [employer] in the a.m. about your visit to the ER. Please return to the ER for recurrence of symptoms or symptoms worsen or change. Clinical Impressions Clinical Impression: Acute chest pain Discharge ED Provider: Kiki Edmondson HPI General Chief Complaint: Chest Pain Stated Complaint: CP Time Seen by Provider: 05/14/23 17:26 Mode of Arrival: Ambulatory Source of Information: Patient Limitations: No Limitations Description of Symptoms (Recalled from ER Triage Doc. by RN): PT REPORTS DIFFUSE CHEST PAIN ALL WEEKEND, WORSE TODAY. REPORTS SHORTNESS OF BREATH, UPPER BACK PAIN AND BECOMING LIGHTHEADED UPON STANDING History of Present Illness HPI narrative: Patient presents for evaluation of diffuse upper anterior chest pain with shortness of breath upper back pain and lightheadedness with standing. Relieving factors: leaning forward Related Data On Oral Contraceptives: No Home Medications Medication Instructions Recorded Confirmed buspirone 10 mg tablet 10 mg PO BID Anxiety 01/08/19 04/12/23 omeprazole 20 mg capsule,delayed 20 mg PO DAILY Acid reflux 01/10/22 04/12/23 release Previous Rx's Medication Instructions Recorded levothyroxine 100 mcg tablet 100 mcg PO DAILY thyroid #90 tabs 02/14/23 (Synthroid) paroxetine HCl 20 mg tablet See Rx Instructions .Route 02/28/23 .COMPLEX #150 tabs bisoprolol fumarate 5 mg tablet 5 mg PO DAILY #90 tabs 03/15/23 azelastine 137 mcg (0.1 %) nasal 1 spray intranasal BID #30 mL 04/12/23 spray aerosol levocetirizine 5 mg tablet (Xyzal) 5 mg PO DAILY #30 tabs 04/12/23 Allergies Allergy/AdvReac Type Severity Reaction Status Date / Time meperidine [From Demerol] AdvReac Intermediate seizure Verified 04/12/23 13:15 like episode [facility] Disclaimer: The information contained in this section may have been updated after the pat ient was seen, as this information can be updated by other users. 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 (Updated 05/14/23 @ 19:49 by KELLY Boles) Abnormal MRI, cervical spine Ankle fracture Arrhythmia Bilateral chronic serous otitis media BMI 28.0-28.9,adult Brisk deep tendon reflexes Chest pain Chest pain at rest Chronic headaches Chronic intractable headache DDD (degenerative disc disease) Dizziness Dyspnea Family history of ischemic heart disease before age 50 Fracture of fourth toe, right, closed History of left heart catheterization History of paroxysmal supraventricular tachycardia Hypothyroidism Kidney stones Lipoma Neuroforaminal stenosis of cervical spine Normal colonoscopy Normal Pap smear Obstructive Sleep Apnea-Hypopnea Syndrome Pharyngitis Right ankle sprain Right lower quadrant pain Sialoadenitis of submandibular gland Sinusitis Sinusitis, acute Skin abscess Strep throat Suspected COVID-19 virus infection Tachyarrhythmia Upper respiratory infection URI (upper respiratory infection) Viral syndrome Surgical History H/O cardiac radiofrequency ablation H/O colonoscopy with polypectomy H/O lithotripsy History of colonoscopy History of endometrial ablation History of esophagogastroduodenoscopy (EGD) History of laparoscopic cholecystectomy S/P laparoscopic cholecystectomy Family History Father Heart attack Family history of diabetes mellitus type II Brother Heart attack Other Coronary artery disease Hypertension Thyroid disorder Social History Smoking Status: Former smoker years smoked: 2 second hand exposure: No alcohol intake: current substance use type: denies use current occupational status: employed Travel in the last 8 weeks: None adopted: No caregiver/support person: Yes foster care: No household members: spouse housing: house lives independently: Yes marital status: number of children: 3 number of grandchildren: 0 current occupation: [employer] Main current occupational exposures/hazards: No pets and animals: Yes sexually active: Yes other: Last Papsmear 2020 caffeine: Yes physical activity: none ROS Obtained: Yes Systems reviewed as appropriate & no additional complaints except as documented Physical Exam Narrative Physical exam: Patient is very pleasant well-nourished well-developed 42-year-old female who otherwise is in no acute distress General General appearance: alert and in no apparent distress Head Head exam: atraumatic and normal inspection Eye Eye exam: Present normal appearance, PERRL and EOMI ENT ENT exam: Present normal exam, normal oropharynx and mucous membranes moist Neck Neck exam: Present normal inspection, full ROM and trachea midline; Absent lymphadenopathy Chest Chest inspection: Present normal inspection and symmetric chest wall rise Respiratory Respiratory exam: Present normal lung sounds bilaterally; Absent accessory muscle use Cardiovascular Cardiovascular exam: Present regular rate, normal rhythm, normal heart sounds, +S1 and +S2 Abdominal Exam Abdominal exam: Present soft and normal bowel sounds; Absent tenderness, guarding or rebound Extremities Exam Extremities exam: Present normal inspection and full ROM Neurological Exam Neurological exam: Present alert, oriented X3 and CN II-XII intact Psychiatric Psychiatric exam: Present normal affect and normal mood Skin Skin exam: Present warm, dry and normal color Lymphatic Lymphatic Findings: no adenopathy HEART Score HEART Score HEART Score assessment performed?: Yes History (anamnesis): Moderately suspicious ECG: Normal Age: <45 years Risk factors: 1-2 risk factors Troponin: </= normal limit HEART Score: 2 Critical Care Critical Care Time Critical Care Time: No Medical Decision Making Monty Inquiry Pt receiving controlled substance: No Vital Signs Vital Signs: 05/14/23 17:16 05/14/23 17:54 05/14/23 18:30 Temperature 98.0 F Temperature Source Oral Pulse Rate 63 62 Pulse Rate [Apical] 68 Respiratory Rate 18 19 20 Blood Pressure 130/86 119/76 Blood Pressure [Right Arm] 134/83 Blood Pressure Mean 100 94 Blood Pressure Mean [Right Arm] 100 Blood Pressure Source [Right Arm] Automatic Cuff 02 Sat by Pulse Oximetry 98 100 98 Oxygen Delivery Method Room Air 05/14/23 19:00 05/14/23 19:30 05/14/23 20:00 Temperature Temperature Source Pulse Rate 67 59 L Pulse Rate [Apical] Respiratory Rate 20 21 Blood Pressure 120/83 122/80 139/94 H Blood Pressure [Right Arm] Blood Pressure Mean 92 97 109 Blood Pressure Mean [Right Arm] Blood Pressure Source [Right Arm] 02 Sat by Pulse Oximetry 97 98 Oxygen Delivery Method Lab Data Lab results reviewed: Yes I reviewed the patient's lab results. Labs: Lab Results 05/14/23 17:26: WBC 9.1, RBC 4.68, Hgb 13.6, Hct 38.9, MCV 83.1, MCH 28.9, MCHC 34.8, RDW 14.7, Plt Count 230, MPV 8.6, Neut % (Auto) 56.8, Lymph % (Auto) 36.8, [place] % (Auto) 4.0, Eos % (Auto) 1.8, Baso % (Auto) 0.6, Neut # (Auto) 5.2, Lymph # (Auto) 3.4, [place] # (Auto) 0.4, Eos # (Auto) 0.2, Baso # (Auto) 0.1 05/14/23 17:50: Sodium 139, Potassium 3.8, Chloride 106, Carbon Dioxide 29, Anion Gap 7.8, BUN 11, Creatinine 0.70, Estimated Creat Clear 114, Estimated GFR 92, Est GFR ( Amer) 112, Glucose 114 H, Calcium 8.7, Magnesium 1.9, Total Bilirubin 0.5, AST 34, ALT 23, Alkaline Phosphatase 82, Troponin I < 0.01, Total Protein 7.7, Albumin 4.2, Globulin 3.5 H, Albumin/Globulin Ratio 1.2, TSH 3.78 05/14/23 18:10: SARS-CoV-2 (PCR) Not detected, Influenza A Untype (PCR) Not detected, Influenza Type B (PCR) Not detected 05/14/23 18:23: PT 10.8, INR 1.00, D-Dimer 0.36 05/14/23 17:26 05/14/23 17:50 Response Orders (Tests/Meds): ED MEDICATIONS Generic Name Dose Route Start Last Admin Trade Name Jason PRN Reason Stop Dose Admin Sodium Chloride 10 ml 05/14/23 17:27 Sodium Chloride 0.9% 10ml Flush Syringe IV 06/13/23 17:26 NEEDED PRN Maintain IV Site Discontinued Medications Generic Name Dose Route Start Last Admin Trade Name Jason PRN Reason Stop Dose Admin Acetaminophen 1,000 mg 05/14/23 17:40 05/14/23 17:59 Acetaminophen 1,000mg/100ml Vial IV 05/14/23 17:41 1,000 mg ONCE ONE Administration Belladonna Alkaloids 60 ml 05/14/23 19:14 05/14/23 19:20 Belladonna Alkaloids 60 Ml Ml PO 05/14/23 19:15 60 ml ONCE ONE Administration Ketorolac Tromethamine 15 mg 05/14/23 17:40 05/14/23 17:57 Ketorolac 30mg/Ml Vial IM 05/14/23 17:41 Not Given ONCE ONE Ketorolac Tromethamine 15 mg 05/14/23 17:57 05/14/23 17:58 Ketorolac 30mg/Ml Vial IV 05/14/23 17:58 15 mg ONCE ONE Administration ORDERS Category Date Time Status CXR 2 view (NOT portable) [XR chest 2V] Stat Exams 05/14/23 17:27 Completed CMP [Comprehensive Metabolic Panel] Stat Lab 05/14/23 17:50 Completed Complete Blood Count Auto Diff Stat Lab 05/14/23 17:26 Completed D-Dimer Stat Lab 05/14/23 18:23 Completed INR [Prothrombin Time INR] Stat Lab 05/14/23 18:23 Completed Magnesium Stat Lab 05/14/23 17:50 Completed Rapid PCR Covid and Flu A/B Stat Lab 05/14/23 18:10 Completed TSH [Thyroid Stimulating Hormone] Stat Lab 05/14/23 17:50 Completed Trop I [Troponin I] Stat Lab 05/14/23 17:50 Completed Troponin I Q3H Lab 05/14/23 20:30 Ordered Troponin I Q3H Lab 05/14/23 23:30 Ordered ECG initial Besson Stat Y 05/14/23 17:15 Completed MDM Narrative Medical Decision Narrative: In summary patient is a 42-year-old female who presents to the emergency department for evaluation of chest pain back pain shortness of breath. Patient is hemodynamically stable upon arrival, and afebrile. Patient has a 9 reproducible chest pain on exam. Currently her pain is a 4 out of 10 however it has been as high as 7 out of 10 today. Additionally patient reports back pain and left neck pain. Patient does have a fairly long history of cardiac arrhythmia who underwent cardiac ablation last fall. Additionally she has had a 2-week Holter monitor followed by 30-day Holter monitor that was recently completed last week. She has a follow-up appointment with cardiology scheduled. Patient however is been having intermittent chest pain since February which is the reason for the prolonged Holter event monitor. There are no aggravating or relieving factors. There is no worsening with food intake. She denies diaphoresis today nausea vomiting fever chills hemoptysis hematochezia melena. Differential diagnosis includes ACS versus cardiac arrhythmia versus PE versus musculoskeletal injury etc. Initial workup will be conducted with hematologic labs twelve-lead EKG. Initial interventions include Toradol and acetaminophen GI cocktail. Initial workup reviewed by me shows nonactionable laboratory results including a negative troponin and a normal D-dimer for age. Upon repeat evaluation patient had resolution of her back pain after administration of Toradol and acetaminophen. Patient still reports chest pressure that is essen tially unchanged since arrival rating it at a proximately a 4 out of 10. Given this is appropriate for discharge to home with close follow-up with her supervisor [employer]. Patient return to the ER for worsening symptoms.
--- NOTE | 2023-05-14 17:27 | XR_ITS ---
PROCEDURE INFORMATION: Exam: XR Chest Exam date and time: 05/14/2023 5:30 PM Age: 42 years old Clinical indication: Pain; Chest pressure; Additional info: Chest pain since Sunday. HX of smoking TECHNIQUE: Imaging protocol: Radiologic exam of the chest. Views: 2 views. COMPARISON: CR XR CHEST PORTABLE 06/15/2020 6:57 PM FINDINGS: Lungs: Unremarkable. No consolidation. Pleural spaces: Unremarkable. No pleural effusion. No pneumothorax. Heart/Mediastinum: Unremarkable. No cardiomegaly. Bones/joints: Unremarkable. IMPRESSION: No acute findings.
[2023-05-14 17:42] LABS: Basophils # 0.1 K/mm3 (0-0.2); Basophils % 0.6 % (0.1-2.0); Eosinophils # 0.2 K/mm3 (0.0-0.4); Eosinophils % 1.8 % (0.1-12.0); Hematocrit 38.9 % (37.0-47.0); Hemoglobin 13.6 g/dL (12.2-16.2); Lymphocytes # 3.4 K/mm3 (0.7-4.5); Lymphocytes % 36.8 % (10-50); Mean Corpuscular HGB Conc 34.8 g/dL (31.8-35.4); Mean Corpuscular Hemoglobin 28.9 pg (27.0-31.2); Mean Corpuscular Volume 83.1 fl (81-99); Mean Platelet Volume 8.6 fl (7.4-10.4); Monocytes # 0.4 K/mm3 (0.1-1.0); Neutrophils # 5.2 K/mm3 (1.8-7.8); Neutrophils % 56.8 % (37.0-80.0); Platelet Count 230 K/mm3 (142-424); Red Blood Count 4.68 M/mm3 (4.20-5.40); Red Cell Distribution Width 14.7 % (11.5-17.5); White Blood Count 9.1 K/mm3 (4.8-10.8)
[2023-05-14] MEDS: KETOROLAC 30MG/ML VIAL 15 MG IV (17:58)
[2023-05-14] MEDS: ACETAMINOPHEN 1,000MG/100ML VIAL 1000 MG IV (17:59)
[2023-05-14 18:07] LABS: Chloride 106 mmol/L (98-107)
[2023-05-14 18:08] LABS: Potassium 3.8 mmoL/L (3.5-5.1); Sodium 139 mmol/L (136-145)
[2023-05-14 18:10] LABS: Alanine Aminotransferase 23 U/L (12-78); Aspartate Amino Transferase 34 U/L (14-36); Blood Urea Nitrogen 11 mg/dl (7-17); Creatinine Clearance Estimated 114 mL/min (50-200); Estimated Glomerular Filt Rate 92 ml/min (>60); GFR (African American) 112 ML/MIN (>60)
[2023-05-14 18:11] LABS: Albumin Level 4.2 g/dl (3.5-5.0); Albumin/Globulin Ratio 1.2 (1.1-1.8); Alkaline Phosphatase 82 U/L (38-126); Anion Gap 7.8 mEq/L (5-15); Bilirubin,Total 0.5 mg/dl (0.2-1.3); Calcium 8.7 mg/dl (8.4-10.2); Carbon Dioxide 29 mmol/L (22.0-30.0); Globulin 3.5 g/dL (1.3-3.2); Glucose 114 mg/dl (74-100); Magnesium 1.9 mg/dl (1.6-2.3); Total Protein,Serum 7.7 g/dl (6.3-8.2)
[2023-05-14 18:17] LABS: Coronavirus 19, PCR Not Detected (NotDetected); Influenza A, PCR Not Detected (NotDetected); Influenza B, PCR Not Detected (NotDetected)
[2023-05-14 18:25] LABS: Troponin I < 0.01 ng/ml (0.00-0.034)
[2023-05-14 18:42] LABS: Thyroid Stimulating Hormone 3.78 uIU/mL (0.465-4.68)
[2023-05-14 18:44] LABS: Prothrombin Time 10.8 seconds (10.1-12.5)
--- NOTE | 2023-05-14 18:50 | PC.NURSE ---
Rounded on pt. No needs or complaints voiced at this time. Call light within reach.
--- NOTE | 2023-05-14 18:57 | PC.NURSE ---
Dr. Edmondson at [facility] for pt eval
[2023-05-14 19:06] LABS: D-Dimer 0.36 ug/mL (0.0-0.5)
[2023-05-14] MEDS: BELLADONNA ALKALOIDS 60 ML ML PO (19:20)
== END 2023-05-14 20:13 | disposition home or self-care (01) ==
PROVIDERS: Physician Assistant; Emergency Provider Emergency Medicine; PCP Nurse Practitioner Family
DX: R07.9 Chest pain, unspecified (principal); R06.02 Shortness of breath; M54.6 Pain in thoracic spine; R42 Dizziness and giddiness; E03.9 Hypothyroidism, unspecified; Z87.891 Personal history of nicotine dependence
CPT/HCPCS: 36415; 71046; 80053; 83735; 84443; 84484; 85025; 85378; 85610; 87636; 93005; 96372; 96374; 96375; 99285; J0131

== ENCOUNTER 2023-05-31 12:16 | Outpatient (CLI) | payer OTHER, SELFPAY ==
--- NOTE | 2023-05-31 12:17 | CT_ITS ---
APPROVED REPORT Receiving Worker: CLINICAL INDICATION Chest Pain TECHNIQUE Image Acquisition: A 128 slice MDCT scanner ([employer] Locallera View) was used for data acquisition. A noncontrast coronary calcium scan was performed. A CT attenuation threshold of 130 Hounsfield units (HU) was used for the detection of calcium in contiguous voxels of 1 sq mm in area to be counted as individual lesions. Bolus tracking in the ascending aorta with a threshold of 180 HU was performed. Immediately afterwards, ECG synchronized cardiac CT was then performed from the cardiac base to apex using retrospective gating with ECG tube current modulation. A total of 85 mL of Isovue 370 mg/mL contrast medium was administered at 5 mL/sec followed by a saline flush using a biphasic injection protocol. A tube voltage of 120 KVp was used. The patient received the following medications prior to the cardiac CT. 0.8 mg of sublingual nitroglycerin The average heart rate at the time of acquisition was 69 bpm and regular. Image Reconstruction Transaxial images were reconstructed at 0.67 mm slide thickness. Data was reviewed interactively on an advanced workstation capable of 2 and 3-dimensional displays in all conventional reconstruction formats, including multiplanar reformations, maximum intensity projections, curved multiplanar reformations, and volume rendered reconstructions. When applicable, selected routine images describing the relevant coronary anatomy and pathology were saved and sent to PACS. Complications None Technical Quality Overall image quality was good. Coronary artery opacification was adequate. Total DLP (Dose-Length Product) is 1201.2 mGy-cm. The reported value represents the total of one or more individual components during the CT acquisition of this date and at this time, and as such, the same value may appear in more than one CT report depending on the interpreting/reporting physicians. COMPARISON None FINDINGS CT Coronary Calcium Scoring LMA (Left Main Artery) = 0 LAD (Left Anterior Descending) = 0 LCX (Left Coronary Circumflex) = 0 RCA (Right Coronary Artery) = 0 Total Calcium Score = 0 using the AJ-130 method. The interpretation of the calcium heart score is based on the following continuum*: 0 = no calcified plaque detected (risk of coronary artery disease is very low ??? less than 5%) 1-10 = calcium detected in extremely minimal levels (risk of coronary diseases is still low ??? less than 10%) 11-100 = mild levels of plaque detected with certainty (mild or minimal narrowing of heart arteries is likely) 101-400 = definite,at least moderate levels of plaque detected (relatively high risk of a heart attack within 3-5 years) >401-999 = extensive levels of plaque detected (high risk of heart attack, high levels of vascular disease are present, high likelihood of at least one significant coronary narrowing) *The calcium heart score quantifies the burden of coronary calcification/plaque in the coronary arteries. The calcium heart score is not able to evaluate the presence or burden of non-calcified (i.e. soft) plaque. There is no identifiable calcification in the aortic valve, mitral annulus or mitral valve, pericardium, or myocardium. Coronary CT Angiography The coronary arterial system is right dominant. Quantitative Stenosis Grading: Left Main (LM): The left main originates normally from the left sinus of Valsalva. The LM trifurcates into the left anterior descending artery, ramus intermedius, and left circumflex artery. The LM is patent with no evidence of atherosclerosis. Left Anterior Descending (LAD) and Diagonal Branches: The LAD gives off 2 diagonal branches. The LAD and its branches are patent with no evidence of atherosclerosis. There is no evidence of LAD-myocardial bridge. Ramus-intermedius (RI): The RI is patent. Left Circumflex (LCX) and Obtuse Marginals (OM): The LCX gives off 1 Obtuse Marginal (OM) branch. The LCX and its branches are patent with no evidence of atherosclerosis. Right Coronary Artery (RCA): The RCA originates normally from the right sinus of Valsalva. The RCA gives off a posterior descending artery (PDA) and posterolateral (PL) branches. The RCA and its branches are patent with no evidence of atherosclerosis. Non-Coronary Cardiac Findings: Analysis of the left ventricular (LV) structure and function was performed after 3-D reconstruction of the LV from axial images, with user-corrected automatic contouring for assessment of LV volumes and user-defined reconstruction from oblique planes for measurement of 3-D cardiac structure and function. -The left ventricle systolic function is normal. -There is no left atrial appendage filling defect. Two right pulmonary veins and two left pulmonary veins drain normally into the left atrium. -No pericardial thickening or calcification. -Central and branch pulmonary arteries in the [id number] are unremarkable. -Thoracic aorta within the visualized thoracic aortic-branches in the [id number] is unremarkable. Extracardiac Structures No significant extra-cardiac findings. Note, however, that this study is focused on the cardiac findings. IMPRESSION -No coronary calcification with an Agatston score = 0 using the AJ-130 method. -No evidence of significant flow-limiting atherosclerosis of the coronary arteries. -CAD-RADS 0. Management recommendations per ACC/AHA guidelines*, as clinically appropriate. *Recommendations: CAD RADS 0: Reassurance. Consider non-atherosclerotic causes of chest pain. CAD RADS 1: Consider non-atherosclerotic causes of chest pain. Consider preventive therapy and risk factor modification. CAD RADS 2: Consider non-atherosclerotic causes of chest pain. Consider preventive therapy and risk factor modification, particularly for patients with nonobstructive plaque in multiple segments. CAD RADS 3: Consider further functional testing. Consider symptom-guided anti-ischemic and preventive pharmacotherapy as well as risk factor modification per published guideline statements. CAD RADS 4A: Consider further functional testing or invasive coronary angiography with revascularization per published guideline statements. Consider symptom-guided anti-ischemic and preventive pharmacotherapy as well as risk factor modification per published guideline statements. CAD RADS 4B: Invasive coronary angiography recommended with revascularization per published guideline statements. Consider symptom-guided anti-ischemic and preventive pharmacotherapy as well as risk factor modification per published guideline statements. CAD RADS 5: Consider invasive angiography and/or viability assessment with revascularization per published guideline statements. Consider symptom-guided anti-ischemic and preventive pharmacotherapy as well as risk factor modification per published guideline statements. CRITICAL RESULT None COMMUNICATION Per this written report The coronary and cardiac findings of this CCTA were reviewed, reported, and signed by Scott Skinner MD (Child And Family Therapist) Conclusion Electronically signed by : Mila Skinner MD 06/01/2023 23:03:32
[2023-05-31 12:37] VITALS: BMI 29.2
--- NOTE | 2023-05-31 12:54 | CA_ITS ---
APPROVED REPORT EXAM: Comprehensive 2D, Doppler, and color-flow Echocardiogram [place]erryboat Helper: Kimmy Maxwell RVT Ht: 5 ft 0 in Wt: 157lbs BSA: 1.68 BP: 119/76 mmHg Indications: CP,SOA,SHAWN,HLD TDS-LIMITED WINDOWS 2D Dimensions LA Volume 29.50 mL LA Volume Index 17.56 mL/m2 (M/F) 16-34 M-Mode Dimensions RVDd 3.03 cm (0.9-2.6) LA Diam 3.46 cm (1.9-4.0) LVDd 4.07 cm (3.5-5.7) LVDs 2.71 cm (3.5-5.7) IVSd 0.79 cm (0.6-1.1) PWd 0.86 cm (0.6-1.1) EF (Teich) 62.60% FS 33.40% EDV (Teich) 72.90 mL TAPSE 2.36 (<1.7) ESV (Teich) 27.30 mL LV Diastology E Decel Time 217 (160-240 msec) E/A Ratio 1.9 Aortic Valve RAYSHAWN Index 1.48 cm2/m2 AoV Peak Jose. 128.0 (50-130 cm/s) AO Peak GR. 6.50 mmHg AO Mean GR. 3.60 (<5 mmHg) AO VTI 27.9 (18-25 cm) RAYSHAWN (VTI) 2.54 (2.5-4.5 cm2) Mitral Valve MV E Max Jose. 93.0 (40-130 cm/s) MV A Velocity 50.0 (40-130 cm/s) E/A Ratio 1.85 MV PHT 63.0 ms Pulmonary Valve PV Peak Velocity 59.0 (50-150 cm/s) Left Ventricle The left ventricle is normal size. The left ventricular systolic function is normal. The left ventricular ejection fraction is within the normal range. There is normal left ventricular wall thickness. There is normal LV segmental wall motion. The left ventricular diastolic function is normal. LVEF is 55%. Right Ventricle The right ventricle is mildly dilated. The right ventricular systolic function is normal. Atria The left atrium size is normal. The right atrium size is normal. There is no Doppler evidence of interatrial shunt. Aortic Valve Aortic valve opens well. There is no aortic valvular stenosis. No aortic regurgitation is present. Mitral Valve The mitral valve is normal in structure. No evidence of mitral valve stenosis. There is no mitral valve regurgitation noted. Tricuspid Valve The tricuspid valve leaflets are thin and pliable. Trace tricuspid regurgitation. There is insufficient TR jet to estimate RVSP. Pulmonic Valve The pulmonary valve is normal in structure. Trace pulmonic regurgitation. Great Vessels The aortic root is normal in size. The ascending aorta is normal in size. IVC is normal in size and collapses >50% with inspiration. Pericardium There is no pericardial effusion. Other Information Study Quality: Fair Conclusion Normal biventricular systolic function. Mild RV dilation. No significant valvular stenosis or regurgitation. Electronically signed by : Mila Skinner MD 06/04/2023 12:49:17
[2023-05-31 13:17] LABS: HCG Qualitative, Serum Negative (Negative)
[2023-05-31 13:25] VITALS: BP 141/82; PULSE 54; RESP 18; O2SAT 95
[2023-05-31] MEDS: NITROGLYCERIN 0.4MG SL TABLET 0.800000000000000044 MG SL (13:25)
[2023-05-31 13:30] VITALS: BP 149/94; PULSE 60; RESP 18; O2SAT 97
[2023-05-31 13:35] VITALS: BP 122/76; PULSE 61; RESP 18; O2SAT 97
[2023-05-31] MEDS: IOPAMIDOL-370 (76%);100ML BOTTLE 85 ML IV (13:39)
[2023-05-31] MEDS: 0.9 % SODIUM CHLORIDE 50 ML VIAL IV (13:39)
[2023-05-31 13:45] VITALS: BP 108/75; PULSE 58; RESP 18; O2SAT 97
== END 2023-05-31 23:59 | disposition home or self-care (01) ==
PROVIDERS: PCP Nurse Practitioner Family; Visit Provider Internal Medicine
DX: R07.9 Chest pain, unspecified (principal); E78.5 Hyperlipidemia, unspecified; G47.33 Obstructive sleep apnea (adult) (pediatric); F41.9 Anxiety disorder, unspecified; R06.02 Shortness of breath
CPT/HCPCS: 75571; 75574; 84703; 93306; Q9967

== ENCOUNTER 2023-07-18 16:55 | Outpatient (CLI) | payer OTHER, SELFPAY ==
[2023-07-18 14:38] LABS: Basophils # 0.1 K/mm3 (0-0.2); Eosinophils # 0.1 K/mm3 (0.0-0.4); Eosinophils % 0.9 % (0.1-12.0); Hemoglobin 13.1 g/dL (12.2-16.2); Lymphocytes % 36.6 % (10-50); Mean Corpuscular HGB Conc 33.6 g/dL (31.8-35.4); Mean Corpuscular Hemoglobin 28.9 pg (27.0-31.2); Mean Platelet Volume 8.3 fl (7.4-10.4); Monocytes # 0.4 K/mm3 (0.1-1.0); Monocytes % 5.4 % (1.7-9.3); Neutrophils # 4.5 K/mm3 (1.8-7.8); Neutrophils % 56.1 % (37.0-80.0); Platelet Count 266 K/mm3 (142-424); Red Blood Count 4.53 M/mm3 (4.20-5.40); Red Cell Distribution Width 15.2 % (11.5-17.5); White Blood Count 8.1 K/mm3 (4.8-10.8)
[2023-07-18 15:48] LABS: Alanine Aminotransferase 23 U/L (12-78); Albumin Level 4.4 g/dl (3.5-5.0); Albumin/Globulin Ratio 1.4 (1.1-1.8); Alkaline Phosphatase 80 U/L (38-126); Anion Gap 12.3 mEq/L (5-15); Aspartate Amino Transferase 27 U/L (14-36); Bilirubin,Total 0.5 mg/dl (0.2-1.3); Blood Urea Nitrogen 11 mg/dl (7-17); Calcium 9.7 mg/dl (8.4-10.2); Carbon Dioxide 26 mmol/L (22.0-30.0); Chloride 105 mmol/L (98-107); Estimated Glomerular Filt Rate 110 ml/min (>60); GFR (African American) 133 ML/MIN (>60); Globulin 3.1 g/dL (1.3-3.2); Glucose 99 mg/dl (74-100); Potassium 4.3 mmoL/L (3.5-5.1); Sodium 139 mmol/L (136-145); Total Protein,Serum 7.5 g/dl (6.3-8.2)
[2023-07-18 16:39] LABS: Vitamin B12 448 pg/mL (239-931)
[2023-07-18 16:41] LABS: Ferritin 27.7 ng/ml (6.24-137)
[2023-07-20 21:09] LABS: Magnesium,RBC 5.1 mg/dL (3.7-7.0)
[2023-07-22 10:28] LABS: Antinuclear Antibodies (ANA) Negative
== END 2023-07-18 23:59 | disposition home or self-care (01) ==
LOC: LAB.DROPOF 16:56
PROVIDERS: PCP Nurse Practitioner Family; Visit Provider Nurse Practitioner Family
DX: G24.5 Blepharospasm (principal); H53.8 Other visual disturbances; R51.9 Headache, unspecified
CPT/HCPCS: 80053; 82607; 82728; 83735; 85025; 86038; 86140; 86225; 86235

== ENCOUNTER 2023-07-31 18:30 | Outpatient (CLI) | payer OTHER, SELFPAY ==
--- NOTE | 2023-07-31 18:31 | MR_ITS ---
FINAL REPORT CLINICAL HISTORY: right eye twitching, right sided OZUNA x 1 mo FINDINGS: Multiplanar MR imaging of the brain was performed without contrast. Scattered foci of increased T2 signal are again seen in the cerebral white matter which are stable since the prior exam. These are greater than expected for the patient's age but have a nonspecific appearance. The differential diagnosis includes mild chronic ischemic/gliotic changes, demyelination or changes of vasculitis. There is no evidence of intracranial hemorrhage or mass. The ventricular size is normal. There is no evidence of shift of the midline structures. No abnormal extra-axial fluid collection is identified. The posterior fossa and brainstem have an unremarkable appearance. No area of abnormal restricted diffusion is identified. Normal major vessel vascular flow voids are seen. IMPRESSION: Stable scattered cerebral white matter signal abnormalities with a nonspecific appearance. The differential diagnosis includes mild chronic ischemic/gliotic changes, demyelination or changes of vasculitis. No acute intracranial abnormality identified. Authenticated and ERN
== END 2023-07-31 23:59 | disposition home or self-care (01) ==
LOC: RAD 18:31
PROVIDERS: PCP Nurse Practitioner Family; Visit Provider Nurse Practitioner Family
DX: H53.8 Other visual disturbances (principal); G24.5 Blepharospasm; R51.9 Headache, unspecified
CPT/HCPCS: 70551

== ENCOUNTER 2023-08-28 17:15 | Outpatient (CLI) | payer OTHER, SELFPAY ==
--- NOTE | 2023-08-28 17:15 | MR_ITS ---
FINAL REPORT CLINICAL HISTORY: Cervical neck pain, headaches. Headache on right side. right eye twitching. bilateral arm pain, numbness and tingling FINDINGS: Multiplanar MR imaging of the cervical spine was performed without contrast. On the sagittal T2-weighted images, disc degeneration is seen throughout. There is no evidence of fracture. There is kyphosis once again noted, centered at the C5-6 level. The cervical spinal cord has an unremarkable appearance without evidence of mass, edema or syrinx. The cervicomedullary junction is normal. C2-3: There is no significant canal stenosis or neural foraminal narrowing. C3-4: There is no significant canal stenosis or neural foraminal narrowing. C4-5: An annular bulge is present with a central disc protrusion which indents the thecal sac, and produces mild canal stenosis with an AP canal diameter of 9 mm. This is slightly more prominent than seen on the prior MRI of 2021. C5-6: Disc osteophyte complex is present with mild bilateral neural foraminal narrowing. C6-7: An annular bulge is present with a right paracentral disc protrusion indenting the thecal sac, slightly more prominent than noted on the prior exam. C7-T1: There is no significant canal stenosis or neural foraminal narrowing. Borderline in size bilateral cervical nodes are present, nonspecific. There is also a lobular contour to the thyroid gland anteriorly, which may represent a pyramidal lobe, although other etiologies could produce a similar appearance. Recommend dedicated thyroid ultrasound for further evaluation. IMPRESSION: Multilevel cervical disc disease as described, more prominent at the C4-5 and C6-7 levels than seen on the prior exam of 2021. Lobular contour of the anterior thyroid gland, which may represent a pyramidal lobe although other etiologies could produce a similar appearance. Recommend dedicated thyroid ultrasound for further evaluation. Reviewed, Interpreted and Dictated by Lazaro Uribe III, MD Transcribed by Charissa Jordan Authenticated and [facility]
== END 2023-08-28 23:59 | disposition home or self-care (01) ==
LOC: RAD 17:15
PROVIDERS: PCP Nurse Practitioner Family; Visit Provider Nurse Practitioner Family
DX: M54.12 Radiculopathy, cervical region (principal); M47.812 Spondylosis without myelopathy or radiculopathy, cervical region; R51.9 Headache, unspecified
CPT/HCPCS: 72141

== ENCOUNTER 2023-09-05 12:59 | Outpatient (CLI) | payer OTHER, SELFPAY ==
--- NOTE | 2023-09-05 12:59 | US_ITS ---
FINAL REPORT CLINICAL HISTORY: Irregularity of thyroid noted on CT scan. FINDINGS: Limited sonographic images of the thyroid were obtained. The thyroid demonstrates a heterogeneous echotexture. The right lobe of the thyroid measures 4.0 x 1.4 x 1.4 cm. The left lobe of the thyroid measures 3.8 x 1.5 x 1.4 cm. The isthmus measures 5 mm. No mass or nodule is identified. IMPRESSION: No mass or nodule identified. Reviewed, Interpreted and Dictated by Lazaro Uribe III, MD Transcribed by Marianne Slaughter Authenticated and [facility]
== END 2023-09-05 23:59 | disposition home or self-care (01) ==
LOC: RAD 12:59
PROVIDERS: PCP Nurse Practitioner Family; Visit Provider Nurse Practitioner Family
DX: E03.9 Hypothyroidism, unspecified (principal)
CPT/HCPCS: 76536

== ENCOUNTER 2023-09-07 10:15 | Emergency (ER) | payer OTHER, SELFPAY ==
[2023-09-07 10:30] VITALS: BP 114/70; PULSE 71; RESP 18; TEMP 36.7; O2SAT 97; BMI 29.2
[2023-09-07 10:44] LABS: UTC Strep Screen (Rapid) Positive (Negative)
--- NOTE | 2023-09-07 10:47 | ED_ITS ---
Discharge Plan Disposition Patient Disposition: Home, Self-Care Condition: Good Prescriptions Prescriptions: New amoxicillin-pot clavulanate 875-125 mg Tablet 1 tab PO Q12H Qty: 20 0RF fluconazole 150 mg tablet 150 mg PO Q3D Qty: 2 0RF No Action bisoprolol fumarate 5 mg tablet 5 mg PO DAILY Qty: 90 3RF omeprazole 20 mg capsule,delayed release(DR/EC) 20 mg PO DAILY Patient Comments: TAKE ONE CAPSULE BY MOUTH EVERY MORNING levothyroxine [Synthroid] 100 mcg tablet 100 mcg PO DAILY Qty: 90 3RF isosorbide mononitrate 30 mg tablet extended release 24 hr 30 mg PO DAILY Qty: 30 2RF paroxetine HCl 20 mg tablet See Rx Instructions .ROUTE .COMPLEX Qty: 150 0RF Dose Instruction: Take 1 tablet by mouth once daily Rx Instructions: Take 1 tablet by mouth once daily buspirone 10 MG tablet 10 mg PO BID Referrals Follow up/Referrals: Susie Dela Cruz APRN [Primary Care Provider] - See instructions Clinical Impressions Clinical Impression: Strep pharyngitis Discharge ED Provider[place] [facility] [place] General Stated complaint: sore throat, cough, headache Mode of Arrival: Ambulatory Source of Information: Patient Limitations: No Limitations Time Seen by Provider: 09/07/23 10:50 Description of Symptoms (Recalled from Triage Doc. by RN): Pt's symptoms are sore throat, OZUNA, and fever. HEENT Symptoms (Recalled from RN notes): Yes Resp Symptoms (Recalled from RN notes): No Skin Symptoms (Recalled from RN notes): No MS Symptoms (Recalled from RN notes): No Functional Status (Recalled from RN notes): n/a History of Present Illness Provider Complaint: Sore throat, headache, fever X 2 days. Onset (ago): day(s) (2) Relieving factors: none Exacerbating factors: none Associated symptoms: fever/chills and headaches Treatments prior to arrival: none Related Data Home Medications Medication Instructions Recorded Confirmed buspirone 10 mg tablet 10 mg PO BID Anxiety 01/08/19 09/07/23 omeprazole 20 mg capsule,delayed 20 mg PO DAILY Acid reflux 01/10/22 09/07/23 release Previous Rx's Medication Instructions Recorded levothyroxine 100 mcg tablet 100 mcg PO DAILY thyroid #90 tabs 02/14/23 (Synthroid) bisoprolol fumarate 5 mg tablet 5 mg PO DAILY #90 tabs 03/15/23 isosorbide mononitrate 30 mg 30 mg PO DAILY #30 tabs 06/14/23 tablet,extended release 24 hr paroxetine HCl 20 mg tablet See Rx Instructions .Route 08/24/23 .COMPLEX #150 tabs amoxicillin 875 mg-potassium 1 tab PO Q12H #20 tabs 09/07/23 clavulanate 125 mg tablet fluconazole 150 mg tablet 150 mg PO Q3D 2 doses #2 tabs 09/07/23 Allergies Allergy/AdvReac Type Severity Reaction Status Date / Time meperidine [From Demerol] AdvReac Intermediate seizure Verified 09/07/23 10:42 like episode Worker's Comp Is this a Worker's Comp case?: No [facility] Disclaimer: The information contained in this section may have been updated after the patient was seen, as this information can be updated by other users. 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 Abnormal MRI, cervical spine Ankle fracture Arrhythmia Bilateral chronic serous otitis media BMI 28.0-28.9,adult Brisk deep tendon reflexes Chest pain Chest pain at rest Chronic headaches Chronic intractable headache DDD (degenerative disc disease) Dizziness Dyspnea Endothelial dysfunction of coronary artery Family history of ischemic heart disease before age 50 Fracture of fourth toe, right, closed History of left heart catheterization History of paroxysmal supraventricular tachycardia Hypothyroidism Kidney stones Lipoma Neuroforaminal stenosis of cervical spine Normal colonoscopy Normal Pap smear Apr 2020 Obstructive Sleep Apnea-Hypopnea Syndrome Pharyngitis Right ankle sprain Right lower quadrant pain Sialoadenitis of submandibular gland Sinusitis Sinusitis, acute Skin abscess Strep throat Suspected COVID-19 virus infection Tachyarrhythmia Upper respiratory infection URI (upper respiratory infection) Viral syndrome Surgical History H/O cardiac radiofrequency ablation H/O colonoscopy with polypectomy 09/2021 H/O lithotripsy History of colonoscopy History of endometrial ablation History of esophagogastroduodenoscopy (EGD) History of laparoscopic cholecystectomy S/P laparoscopic cholecystectomy Family History Father Heart attack Family history of diabetes mellitus type II Brother Heart attack Other Coronary artery disease Hypertension Thyroid disorder Social History Smoking Status: Former smoker years smoked: 2 second hand exposure: No alcohol intake: current alcohol intake frequency: a few times a month substance use type: denies use current occupational status: employed Travel in the last 8 weeks: None adopted: No caregiver/support person: Yes foster care: No household members: spouse housing: house lives independently: Yes marital status: number of children: 3 number of grandchildren: 0 current occupation: [employer] Main current occupational exposures/hazards: No pets and animals: Yes sexually active: Yes other: Last Papsmear 2020 caffeine: Yes physical activity: none ROS Obtained: Yes All systems reviewed & no additional complaints except as documented Constitutional Constitutional: Reports fever(s) and Reports headache(s) ENT Ears, Nose, Mouth, and Throat: Reports headache(s) and Reports sore throat Neurologic Neurologic: Reports headache(s) Physical Exam General General appearance: alert and in no apparent distress Head Head exam: atraumatic, normocephalic and normal inspection ENT ENT exam: Present normal exam, normal oropharynx, mucous membranes moist, TM's normal bilaterally and normal external ear exam Expanded ENT Exam Throat exam: Present tonsillar erythema, tonsillomegaly and tonsillar exudate Chest Chest inspection: Present normal inspection and symmetric chest wall rise; Absent tenderness Respiratory Respiratory exam: Present normal lung sounds bilaterally; Absent respiratory distress Cardiovascular Cardiovascular exam: Present regular rate and normal rhythm; Absent JVD Extremities Exam Extremities exam: Present normal inspection, full ROM and normal capillary refill; Absent calf tenderness Neurological Exam Neurological exam: Present alert and oriented X3 Psychiatric Psychiatric exam: Present normal affect and normal mood Skin Skin exam: Present warm, dry, intact and normal color Lymphatic Lymphatic Findings: no adenopathy Medical Decision Making Monty Inquiry Pt receiving controlled substance: No Vital Signs: 09/07/23 10:30 Temperature 98.1 F Temperature Source Oral Pulse Rate [Right Radial] 71 Respiratory Rate 18 Blood Pressure [Right Arm] 114/70 Blood Pressure Mean [Right Arm] 84 Blood Pressure Source [Right Arm] Automatic Cuff Blood Pressure Position [Right Arm] Sitting 02 Sat by Pulse Oximetry 97 Oxygen Delivery Method Room Air Lab Data Lab results reviewed: Yes I reviewed the patient's lab results. Lab Results 09/07/23 10:43: Strep Scn Rapid Clinic Positive A
[2023-09-07] MEDS: PENICILLIN G BENZATHINE 1,200,000 UNITS/2ML SYRINGE 1200000 UNIT IM (10:56)
[2023-09-07 11:10] VITALS: BP 114/70; PULSE 71; RESP 18; TEMP 36.7; O2SAT 97
== END 2023-09-07 11:17 | disposition home or self-care (01) ==
PROVIDERS: Emergency Provider Physician Assistant; PCP Nurse Practitioner Family
DX: J02.0 Streptococcal pharyngitis (principal); R07.0 Pain in throat; R50.9 Fever, unspecified; R51.9 Headache, unspecified
CPT/HCPCS: 87880; 96372; 99212; 99214; G0463; J0561

== ENCOUNTER 2023-09-20 13:20 | Outpatient (POV) | payer OTHER, SELFPAY ==
[2023-09-20 14:06] VITALS: BP 119/83; PULSE 56; RESP 16; O2SAT 99; BMI 30.7
--- NOTE | 2023-09-20 14:07 | A.OFFVIS_ITS ---
[facility] Disclaimer: The information contained in this section may have been updated after the patient was seen, as this information can be updated by other users. 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 Abnormal MRI, cervical spine Ankle fracture Arrhythmia Bilateral chronic serous otitis media BMI 28.0-28.9,adult Brisk deep tendon reflexes Chest pain Chest pain at rest Chronic headaches Chronic intractable headache DDD (degenerative disc disease) Dizziness Dyspnea Endothelial dysfunction of coronary artery Family history of ischemic heart disease before age 50 Fracture of fourth toe, right, closed History of left heart catheterization History of paroxysmal supraventricular tachycardia Hypothyroidism Kidney stones Lipoma Neuroforaminal stenosis of cervical spine Normal colonoscopy Normal Pap smear Apr 2020 Obstructive Sleep Apnea-Hypopnea Syndrome Pharyngitis Right ankle sprain Right lower quadrant pain Sialoadenitis of submandibular gland Sinusitis Sinusitis, acute Skin abscess Strep throat Suspected COVID-19 virus infection Tachyarrhythmia Upper respiratory infection URI (upper respiratory infection) Viral syndrome Surgical History H/O cardiac radiofrequency ablation H/O colonoscopy with polypectomy 09/2021 H/O lithotripsy History of colonoscopy History of endometrial ablation History of esophagogastroduodenoscopy (EGD) History of laparoscopic cholecystectomy S/P laparoscopic cholecystectomy Family History Father Heart attack Family history of diabetes mellitus type II Brother Heart attack Other Coronary artery disease Hypertension Thyroid disorder Social History Smoking Status: Former smoker years smoked: 2 second hand exposure: No alcohol intake: current alcohol intake frequency: a few times a month substance use type: denies use current occupational status: employed Travel in the last 8 weeks: None adopted: No caregiver/support person: Yes foster care: No household members: spouse housing: house lives independently: Yes marital status: number of children: 3 number of grandchildren: 0 current occupation: [employer] Main current occupational exposures/hazards: No pets and animals: Yes sexually active: Yes other: Last Papsm2020 caffeine: Yes physical activity: none PM Subjective & Objective Subjective Subjective:: Patient is a pleasant 43-year-old female who presents today for follow-up. Today she rates her pain a 3 out of 10 however states her pain will get much more severe as she does more activity and as the day goes on. She states that at least goes to a 5 or 6 out of 10. Patient does state that she is still expe riencing the same pain that we saw her last for. She states the pain is all in her neck with radiating symptoms into her upper extremities with numbness and tingling. Patient does state with her last cervical injection she did get about 80% relief lasting 1 month. Patient does state that she would like to try and repeat this injection due to how much improved function she did have. Patient states she has recently had her gallbladder out and that she ended up having a reaction to what they believed was Dilaudid causing seizure-like activity. Patient states that she ended up having 2 seizures back to back. She denies any findings from her MRI or other testing that was done. Patient has tried and failed oral medications, heat and ice, topicals and continued at home exercising and stretching that was physician guided from her previous physical therapy. Her Monty has been reviewed and is appropriate. \ Review of Systems: General: No recent weight changes, no fever, no sleep disturbances Respiratory: No cough, no shortness of air, no recurring pulmonary infections Cardiovascular/peripheral vascular: No chest pain, no palpitations, no edema, no shortness of breath Gastrointestinal: No new onset incontinence, normal bowel movements reported Genitourinary: No new onset incontinence Musculoskeletal: Neck pain, bilateral arm pain Psychiatric: [Normal mood/affect] Neurological: [Denies weakness in extremities], [denies balance issues] Pain at rest (0-10 scale): 5 Objective Objective:: Physical Exam: General: Alert and oriented x3, no acute distress, pleasant and cooperative Lungs: Respirations even and unlabored, symmetrical chest expansion Eyes: PERRL Musculoskeletal: Flexion and extension of cervical [spine] somewhat guarded secondary to pain, [antalgic gait noted] positive Spurling's test Neurological: Speech clear, no gross sensory deficit Has patient had previous pain injection?: No Conservative treatment options previously tried: NSAIDS Length of treatment: Longer than 12 weeks, Home exercise plan Length of treatment: Longer than 12 weeks and Prescription medications Length of treatment: Longer than 12 weeks Meds Home Medications and Allergies Home Medications Medication Instructions Recorded Confirmed Type buspirone 10 mg tablet 10 mg PO BID Anxiety 01/08/19 09/20/23 History omeprazole 20 mg capsule,delayed 20 mg PO DAILY Acid reflux 01/10/22 09/20/23 History release levothyroxine 100 mcg tablet 100 mcg PO DAILY thyroid #90 tabs 02/14/23 09/20/23 Rx (Synthroid) bisoprolol fumarate 5 mg tablet 5 mg PO DAILY #90 tabs 03/15/23 09/20/23 Rx isosorbide mononitrate 30 mg 30 mg PO DAILY #30 tabs 06/14/23 09/20/23 Rx tablet,extended release 24 hr paroxetine HCl 20 mg tablet See Rx Instructions .Route 08/24/23 09/20/23 Rx .COMPLEX #150 tabs amoxicillin 875 mg-potassium 1 tab PO Q12H #20 tabs 09/07/23 09/20/23 Rx clavulanate 125 mg tablet fluconazole 150 mg tablet 150 mg PO Q3D 2 doses #2 tabs 09/07/23 09/20/23 Rx New Prescriptions to Start Prescriptions: Allergies Allergy/AdvReac Type Severity Reaction Status Date / Time meperidine [From Demerol] AdvReac Intermediate seizure Verified 09/07/23 10:42 like episode Assessment and Plan *Assessment and plan (1) Degenerative joint disease of cervical spine: Status: Acute Qualifiers: Spinal osteoarthritis complication: with radiculopathy Qualified Code(s): M47.22 - Other spondylosis with radiculopathy, cervical region Category: Medical Code(s): M47.812 - Spondylosis without myelopathy or radiculopathy, cervical region (2) Cervical radiculopathy: Status: Acute Category: Medical Code(s): M54.12 - Radiculopathy, cervical region Plan Patient is experiencing worsening pain in her neck with radiating numbness and tingling to her upper extremities. Patient did have limited range of motion of the cervical spine with a positive Spurling's test. I discussed with patient that she may benefit from repeat cervical epidural steroid injection. Risk and benefits were discussed with patient and she would like to proceed forward with this plan of care. Patient did previously had 80% relief with her injection that was done in December 2021 lasting over a month. Patient has tried and failed conservative therapy with continued at home stretching exercise for longer than 12 weeks. She did see a neurosurgeon who was recommending additional conservative therapy and injections. We will schedule the patient for a PRISCILLA C6-C7 under fluoroscopy. Patient has been instructed to contact the clinic with any concerns before the next appointment. Dr. Mclean has reviewed this note and agrees with this plan of care. This note was dictated using voice recognition software and make contain errors or omissions.
== END 2023-09-20 23:59 | disposition home or self-care (01) ==
LOC: SC.PAIN 13:21
PROVIDERS: PCP Nurse Practitioner Family; Visit Provider Nurse Practitioner Family
DX: G89.29 Other chronic pain (principal); M47.22 Other spondylosis with radiculopathy, cervical region; M50.10 Cervical disc disorder with radiculopathy, unspecified cervical region
CPT/HCPCS: 99212; G0463

== ENCOUNTER 2023-10-06 10:04 | Emergency (ER) | payer OTHER, SELFPAY ==
[2023-10-06 10:15] VITALS: BP 132/86; PULSE 80; RESP 20; TEMP 37.2; O2SAT 97; BMI 29.9
[2023-10-06 10:29] LABS: UTC Strep Screen (Rapid) Positive (Negative)
--- NOTE | 2023-10-06 10:29 | EXP.UTC ---
Discharge Plan Disposition Patient Disposition: Home, Self-Care Condition: Good Prescriptions Prescriptions: New azithromycin 250 mg tablet 250 mg PO DIRECTED Qty: 6 0RF Rx Instructions: Take two (2) tablets on day #1, then one (1) tablet day #2 thru #5 No Action bisoprolol fumarate 5 mg tablet 5 mg PO DAILY Qty: 90 3RF omeprazole 20 mg capsule,delayed release(DR/EC) 20 mg PO DAILY Patient Comments: TAKE ONE CAPSULE BY MOUTH EVERY MORNING levothyroxine [Synthroid] 100 mcg tablet 100 mcg PO DAILY Qty: 90 3RF paroxetine HCl 20 mg tablet See Rx Instructions .ROUTE .COMPLEX Qty: 150 0RF Dose Instruction: Take 1 tablet by mouth once daily Rx Instructions: Take 1 tablet by mouth once daily buspirone 10 MG tablet 10 mg PO BID Referrals Follow up/Referrals: Susie Dela Cruz APRN [Primary Care Provider] - See instructions Activity Restrictions/Add. Instructions Additional Instructions/Restrictions: Start antibiotics today be sure to take it as ordered with the full length of time although you should start feeling better in 24-48 hours. Change toothbrush and toothpaste 24-48 hours after starting antibiotics Tylenol or Motrin as needed for fever or pain Encourage fluids, water, Gatorade, Powerade, try cold fluids, popsicles, ice cream will make it feel better You are contagious for 24 hours. Avoid kissing anyone, no eating or drinking after anyone. You are contagious. Follow-up the ER for new or worsening symptoms or no noticeable improvement over the next 24-48 hours. Follow-up with PCP this week. Clinical Impressions Clinical Impression: Strep throat Instructions Patient Instructions: DI for Strep Throat Discharge ED Provider: Kapil ([facility] [place] H[place] General Stated complaint: sore throat ear pain Mode of Arrival: Ambulatory Source of Information: Patient Limitations: No Limitations Time Seen by Provider: 10/06/23 10:29 Description of Symptoms (Recalled from Triage Doc. by RN): PATIENT C/O SORE THROAT AND BILATERAL EAR PAIN THAT STARTED YESTERDAY EVENING HEENT Symptoms (Recalled from RN notes): Yes Resp Symptoms (Recalled from RN notes): No Skin Symptoms (Recalled from RN notes): No MS Symptoms (Recalled from RN notes): No Functional Status (Recalled from RN notes): WNL History of Present Illness Provider Complaint: 43 yr old female presents for sore throat and carol ear pain since last pm Related Data Home Medications Medication Instructions Recorded Confirmed buspirone 10 mg tablet 10 mg PO BID Anxiety 01/08/19 10/06/23 omeprazole 20 mg capsule,delayed 20 mg PO DAILY Acid reflux 01/10/22 10/06/23 release Previous Rx's Medication Instructions Recorded levothyroxine 100 mcg tablet 100 mcg PO DAILY thyroid #90 tabs 02/14/23 (Synthroid) bisoprolol fumarate 5 mg tablet 5 mg PO DAILY #90 tabs 03/15/23 paroxetine HCl 20 mg tablet See Rx Instructions .Route 08/24/23 .COMPLEX #150 tabs azithromycin 250 mg tablet 250 mg PO DIRECTED #6 tabs 10/06/23 Allergies Allergy/AdvReac Type Severity Reaction Status Date / Time meperidine [From Demerol] AdvReac Intermediate seizure Verified 09/24/23 13:22 like episode Worker's Comp Is this a Worker's Comp case?: No [facility] Disclaimer: The information contained in this section may have been updated after the patient was seen, as this information can be updated by other users. 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) Depression Anxiety Hyperlipidemia Hypertension Endothelial dysfunction of coronary artery Lipoma Bilateral chronic serous otitis media Sialoadenitis of submandibular gland DDD (degenerative disc disease) Normal Pap smear Hypothyroidism Sinusitis, acute Kidney stones Arrhythmia History of paroxysmal supraventricular tachycardia BMI 28.0-28.9,adult Brisk deep tendon reflexes Abnormal MRI, cervical spine Chronic intractable headache Chronic headaches History of left heart catheterization Normal colonoscopy Pharyngitis Viral syndrome Skin abscess Fracture of fourth toe, right, closed Tachyarrhythmia Chest pain at rest Dizziness Dyspnea Family history of ischemic heart disease before age 50 Neuroforaminal stenosis of cervical spine Upper respiratory infection Suspected COVID-19 virus infection Chest pain Right ankle sprain Ankle fracture URI (upper respiratory infection) Obstructive Sleep Apnea-Hypopnea Syndrome Sinusitis Right lower quadrant pain Strep throat Surgical History , 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) History of colonoscopy History of laparoscopic cholecystectomy S/P laparoscopic cholecystectomy H/O colonoscopy with polypectomy History of endometrial ablation H/O cardiac radiofrequency ablation H/O lithotripsy History of esophagogastroduodenoscopy (EGD) Family History , 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) Coronary artery disease Heart attack Father Brother Family history of diabetes mellitus type II Father Hypertension Thyroid disorder Social History , 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) Smoking Status: Former smoker years smoked: 2 second hand exposure: No alcohol intake: current alcohol intake frequency: a few times a month substance use type: denies use current occupational status: employed Travel in the last 8 weeks: None adopted: No caregiver/support person: Yes foster care: No household members: spouse housing: house lives independently: Yes marital status: number of children: 3 number of grandchildren: 0 current occupation: [employer] Main current occupational exposures/hazards: No pets and animals: Yes sexually active: Yes other: Last Papsmear 2020 caffeine: Yes physical activity: none ROS Obtained: Yes All systems reviewed & no additional complaints except as documented Constitutional Constitutional: Reports system reviewed and no additional complaints, except as documented Eyes Eyes: Reports system reviewed and no additional complaints, except as documented ENT Ears, Nose, Mouth, and Throat: Reports system reviewed and no additional complaints, except as documented, Reports otalgia and Reports sore throat Cardiovascular Cardiovascular: Reports system reviewed and no additional complaints, except as documented Respiratory Respiratory: Reports system reviewed and no additional complaints, except as documented Gastrointestinal Gastrointestingal: Reports system reviewed and no additional complaints, except as documented Musculoskeletal Musculoskeletal: Reports system reviewed and no additional complaints, except as documented Integumentary/Breasts Skin/Breast: Reports system reviewed and no additional complaints, except as documented Neurologic Neurologic: Reports system reviewed and no additional complaints, except as documented Endocrine Endocrine: Reports system reviewed and no additional complaints, except as documented Allergic/Immunologic Allergic/Immunologic: Reports system reviewed and no additional complaints, except as documented Physical Exam General General appearance: alert and in no apparent distress ENT ENT exam: Present mucous membranes moist Expanded ENT Exam Throat exam: Present tonsillar erythema, tonsillomegaly and tonsillar exudate Respiratory Respiratory exam: Present normal lung sounds bilaterally Cardiovascular Cardiovascular exam: Present regular rate and normal rhythm Neurological Exam Neurological exam: Present alert and oriented X3 Skin Skin exam: Present warm and intact Medical Decision Making Medical Records Medical records reviewed: Yes I reviewed the patient's medical records. Monty Inquiry Pt receiving controlled substance: No Monty was queried for this patient: No Vital Signs: 10/06/23 10:15 Temperature 99.0 F Temperature Source Oral Pulse Rate [Left Brachial] 80 Respiratory Rate 20 Blood Pressure [Left Arm] 132/86 Blood Pressure Mean [Left Arm] 101 Blood Pressure Source [Left Arm] Automatic Cuff Blood Pressure Position [Left Arm] Sitting 02 Sat by Pulse Oximetry 97 Oxygen Delivery Method Room Air Lab Data Lab results reviewed: Yes I reviewed the patient's lab results. Lab Results 10/06/23 10:21: Strep Scn Rapid Clinic Positive A
[2023-10-06 10:40] VITALS: BP 132/86; PULSE 80; RESP 20; TEMP 37.2; O2SAT 97
== END 2023-10-06 10:43 | disposition home or self-care (01) ==
PROVIDERS: Emergency Provider Nurse Practitioner Family; PCP Nurse Practitioner Family
DX: J02.0 Streptococcal pharyngitis (principal); H92.03 Otalgia, bilateral; R07.0 Pain in throat
CPT/HCPCS: 87880; 99212; 99214; G0463

== ENCOUNTER 2023-10-09 12:35 | Day surgery (SDC) | payer OTHER, SELFPAY ==
[2023-10-09 12:55] VITALS: BP 111/73; BP 123/66; PULSE 59; PULSE 60; RESP 18; TEMP 36.6; O2SAT 100; O2SAT 97; O2SAT 98; BMI 29.2
[2023-10-09] MEDS: methylPREDNISolone ACETATE 80MG/ML VIAL 80 MG (13:05)
[2023-10-09 13:08] VITALS: BP 123/73; PULSE 58; RESP 18; O2SAT 100
[2023-10-09] MEDS: IOPAMIDOL-200 (41%);10ML VIAL 2 ML IV (13:11)
--- NOTE | 2023-10-09 13:11 | P.PCN_ITS ---
Procedure Date: 10/09/23 Time: 13:00 Anesthesiologist:: Brian Rubio CRNA Complications:: None Pre-procedure Diagnosis:: Degenerative disc cervical spine multilevels. Cervical radiculopathy. Post-procedure Diagnosis:: Same. Indications for Procedure:: Patient is a very pleasant 43-year-old female comes our clinic today for repeat cervical epidural steroid injection. Patient reports 2 months of significant improvement terms of her overall cervical neck pain as well as bilateral arm ra dicular symptoms with previous injection at the same level. Patient describes her posterior cervical neck pain as constant, dull, aching, intermittent. Patient also reports bilateral shoulder radiculopathy. Procedure Details:: Procedure:Cervical epidural steroid injection Informed consent was obtained and the risks and benefits of the procedure were explained to the patient. The patient was taken to the procedure room and noninvasive monitors placed, including noninvasive blood pressure cuff and pulse oximeter. The neck was prepped using Chloraprep as a cleansing solution. The C6- C7 interspace was viewed using fluroscopy. The skin and subcutaneous tissues were anesthetized using lidocaine 1.5% and a 25-gauge needle. After this an 18-gauge Touhy epidural needle was placed into the C6-C7 interspace under fluroscopy guidance and advanced using loss of resistance to air until the epidural space was encountered. After confirmation of needle placement in the epidural space using contrast dye, a solution containing normal saline, 2 mL and Depo-Medrol 80 mg was incrementally injected into the cervical epidural space.~ The patient tolerated the procedure well with no complications. The patient was observed in the Pain Clinic and then discharged home neurologically intact. Plan and Disposition:: Patient was discharged without incident.
== END 2023-10-09 13:10 | disposition home or self-care (01) ==
PROVIDERS: PCP Nurse Practitioner Family; Visit Provider Nurse Anesthetist, Certified Registered
DX: M47.22 Other spondylosis with radiculopathy, cervical region (principal)
CPT/HCPCS: 62321; J1010; Q9966

== ENCOUNTER 2023-11-07 13:41 | Outpatient (POV) | payer OTHER, SELFPAY ==
--- NOTE | 2023-11-07 13:50 | EXP.PAIN.SOA ---
[facility] Disclaimer: The information contained in this section may have been updated after the patient was seen, as this information can be updated by other users. 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 Depression Anxiety Hyperlipidemia Hypertension Endothelial dysfunction of coronary artery Lipoma Bilateral chronic serous otitis media Sialoadenitis of submandibular gland DDD (degenerative disc disease) Normal Pap smear Apr 2020 Hypothyroidism Sinusitis, acute Kidney stones Arrhythmia History of paroxysmal supraventricular tachycardia BMI 28.0-28.9,adult Brisk deep tendon reflexes Abnormal MRI, cervical spine Chronic intractable headache Chronic headaches History of left heart catheterization Normal colonoscopy Pharyngitis Viral syndrome Skin abscess Fracture of fourth toe, right, closed Tachyarrhythmia Chest pain at rest Dizziness Dyspnea Family history of ischemic heart disease before age 50 Neuroforaminal stenosis of cervical spine Upper respiratory infection Suspected COVID-19 virus infection Chest pain Right ankle sprain Ankle fracture URI (upper respiratory infection) Obstructive Sleep Apnea-Hypopnea Syndrome Sinusitis Right lower quadrant pain Strep throat Surgical History History of colonoscopy History of laparoscopic cholecystectomy S/P laparoscopic cholecystectomy H/O colonoscopy with polypectomy 09/2021 History of endometrial ablation H/O cardiac radiofrequency ablation H/O lithotripsy History of esophagogastroduodenoscopy (EGD) Family History Father Heart attack Family history of diabetes mellitus type II Brother Heart attack Other Coronary artery disease Hypertension Thyroid disorder Social History Smoking Status: Former smoker years smoked: 2 second hand exposure: No alcohol intake: current alcohol intake frequency: a few times a month substance use type: denies use current occupational status: other Travel in the last 8 weeks: None adopted: No caregiver/support person: Yes foster care: No household members: spouse housing: house lives independently: Yes marital status: number of children: 3 number of grandchildren: 0 current occupation: [employer] Main current occupational exposures/hazards: No pets and animals: Yes sexually active: Yes other: Last Papsmear 2020 caffeine: Yes physical activity: none PM Subjective & Objective Subjective Subjective:: Patient is a pleasant 43-year-old female who presents today for follow-up of cervical epidural steroid injection C6-C7 on 10/09/2023. Today she rates her pain a 4 out of 10 in that area. She does state that she had approximately 85% improvement lasting 1 week with this injection. Patient states that that 1 week was amazing and that she was able to do more with overall improved function. Patient does state that she is starting to go back towards her baseline and feels like some of the neck pain is even a little bit worse than what it had been. Patient does also states she is experiencing worsening pain in her low back and hips and groin area. She states this pain is a 5 out of 10. Patient does state the right side is worse than the left side and that this has been going on for some time however it is just progressively worsened. Patient states that it has been at least 3 months or more. Patient does state it is a aching, throbbing sensation that is worse with increased activity or prolonged positioning and does interfere with her ability perform activities of daily living such as cooking and cleaning. Patient has not had any updated lumbar imaging for a couple of years. Her Monty has been reviewed and is appropriate. She is prescribed compounded cream. Review of Systems: General: No recent weight changes, no fever, no sleep disturbances Respiratory: No cough, no shortness of air, no recurring pulmonary infections Cardiovascular/peripheral vascular: No chest pain, no palpitations, no edema, no shortness of breath Gastrointestinal: No new onset incontinence, normal bowel movements reported Genitourinary: No new onset incontinence Musculoskeletal: Low back pain, bilateral hip pain, groin pain Psychiatric: [Normal mood/affect] Neurological: [Denies weakness in extremities], [denies balance issues] Pain at rest (0-10 scale): 5 Objective Objective:: Physical Exam: General: Alert and oriented x3, no acute distress, pleasant and cooperative Lungs: Respirations even and unlabored, symmetrical chest expansion Eyes: PERRL Musculoskeletal: Flexion and extension of lumbar [spine] somewhat guarded secondary to pain, [antalgic gait noted] point tenderness along bilateral SIs with positive bilateral Jennyfer's, Viral's, Gaenslen's, compression and distraction exam Neurological: Speech clear, no gross sensory deficit Has patient had previous pain injection?: Yes Percent improvement in pain since last injection: 85% Conservative treatment options previously tried: Home exercise plan Length of treatment: Longer than 12 weeks Meds Home Medications and Allergies Home Medications ?Medication ?Instructions ?Recorded ?Confirmed ?Type omeprazole 20 mg capsule,delayed 20 mg PO DAILY Acid reflux 01/10/22 11/07/23 History release levothyroxine 100 mcg tablet 100 mcg PO DAILY thyroid #90 tabs 02/14/23 11/07/23 Rx (Synthroid) bisoprolol fumarate 5 mg tablet 5 mg PO DAILY #90 tabs 03/15/23 11/07/23 Rx paroxetine HCl 20 mg tablet See Rx Instructions .Route 08/24/23 11/07/23 Rx .COMPLEX #150 tabs buspirone 10 mg tablet 10 mg PO BID Anxiety #180 tabs 10/19/23 11/07/23 Rx New Prescriptions to Start Prescriptions: Allergies Allergy/AdvReac Type Severity Reaction Status Date / Time meperidine [From Demerol] AdvReac Intermediate seizure Verified 10/24/23 15:40 like episode Assessment and Plan *Assessment and plan (1) Low back pain: Status: Acute Qualifiers: Back pain laterality: bilateral Chronicity: chronic Sciatica laterality: bilateral sciatica Sciatica presence: with sciatica Qualified Code(s): M54.42 - Lumbago with sciatica, left side; M54.41 - Lumbago with sciatica, right side; G89.29 - Other chronic pain Category: Medical Code(s): M54.50 - Low back pain, unspecified (2) Sacroiliac joint pain: Status: Acute Category: Medical Code(s): M53.3 - Sacrococcygeal disorders, not elsewhere classified Plan Patient did have point tenderness along her bilateral SIs with a positive bilateral Jennyfer's, Viral's, Gaenslen's, compression and distraction exam. I did discuss with the patient that she may benefit from bilateral SI injections. Risk and benefits were discussed with the patient and she would like to proceed forward with this plan of care. Patient has tried oral medications along with heat and ice and topicals with minimal relief. Patient does try to be very active and exercise and stretches at home over the last 12 weeks with no changes. Patient is unable to tolerate current physical therapy due to her severe pulmonary history. We will schedule the patient for bilateral SI injections under fluoroscopy. Patient has been instructed to contact the clinic with any concerns before the next appointment. Dr. Mclean has reviewed this note and agrees with this plan of care. This note was dictated using voice recognition software and make contain errors or omissions. All injections are used with Lidocaine or Bupivacaine and Depo Medrol.
[2023-11-07 13:59] VITALS: BP 139/73; PULSE 61; RESP 16; O2SAT 98; BMI 29.2
== END 2023-11-07 23:59 | disposition home or self-care (01) ==
LOC: SC.PAIN 13:42
PROVIDERS: PCP Nurse Practitioner Family; Visit Provider Nurse Practitioner Family
DX: M54.42 Lumbago with sciatica, left side (principal); M54.41 Lumbago with sciatica, right side; G89.29 Other chronic pain; M53.3 Sacrococcygeal disorders, not elsewhere classified; Z87.891 Personal history of nicotine dependence; Z73.89 Other problems related to life management difficulty
CPT/HCPCS: 99212; G0463

== ENCOUNTER 2023-11-16 10:12 | Day surgery (SDC) | payer OTHER, SELFPAY ==
[2023-11-16 10:19] VITALS: BP 115/72; PULSE 72; RESP 16; TEMP 36.7; O2SAT 100; BMI 29.2
[2023-11-16] MEDS: LIDOCAINE 1% 30ML PF VIAL 30 ML (11:00)
[2023-11-16] MEDS: BUPIVACAINE 0.25% 10ML INJ 25 MG IJ (11:00)
[2023-11-16] MEDS: methylPREDNISolone ACETATE 80MG/ML VIAL 80 MG (11:00)
[2023-11-16 11:01] VITALS: BP 111/73; PULSE 69; RESP 18; O2SAT 99
[2023-11-16 11:02] VITALS: BP 111/73; PULSE 69; RESP 18; O2SAT 99
[2023-11-16] MEDS: IOPAMIDOL-200 (41%); 20ML VIAL 20 ML IV (11:04)
[2023-11-16 11:10] VITALS: BP 109/70; PULSE 62; RESP 16; O2SAT 100
--- NOTE | 2023-11-16 17:02 | EXP.PAIN.PRO ---
Procedure Date: 11/16/23 Time: 17:02 Anesthesiologist:: Bola Mclean MD Complications:: None Pre-procedure Diagnosis:: Sacroiliitis Post-procedure Diagnosis:: Same Indications for Procedure:: The patient presents for bilateral SI joint injections under fluoroscopy today. She is tender over both SI joints. She has a positive Jennyfer's test bilaterally. She has positive illnesses bilaterally. She has positive SI joint compression test bilaterally. Will plan on bilateral SI joint injections under fluoroscopy today. There is your therapeutic SI joint injections Procedure Details:: B/L SI joint injection under fluoroscopy Informed consent was obtained and the risks and benefits of the procedure was explained to the patient. The patient was taken to the procedure room and placed prone on the procedure table. The patient was prepped using ChloraPrep. The skin and subcutaneous tissues overlying the SI joints were anesthetized using lidocaine. I placed a 22-gauge needle first in the left SI joint and second in the right SI joint. Needle placement was confirmed with dye. After this we injected 5 mL bupivacaine 0.25% and Depo-Medrol 40 mg into each SI joint. Patient tolerated the procedure well with no complication. Plan and Disposition:: Will follow-up with her in 2 weeks to 1 month. Will reevaluate symptoms at that time
== END 2023-11-16 11:10 | disposition home or self-care (01) ==
LOC: SC.PAINP 10:12
PROVIDERS: PCP Nurse Practitioner Family; Visit Provider Anesthesiology
DX: M46.1 Sacroiliitis, not elsewhere classified (principal)
CPT/HCPCS: 27096; G0260; J1010; Q9966

== ENCOUNTER 2023-11-28 13:34 | Emergency (ER) | payer OTHER, SELFPAY ==
[2023-11-28 13:40] VITALS: BP 107/63; PULSE 64; RESP 18; TEMP 37; O2SAT 98; BMI 30.4
--- NOTE | 2023-11-28 14:13 | ED_ITS ---
Discharge Plan Disposition Patient Disposition: Home, Self-Care Condition: Good Prescriptions Prescriptions: New azithromycin [Zithromax Z-Andrew] 250 mg tablet See Rx Instructions .ROUTE .COMPLEX 5 Days Qty: 6 0RF Rx Instructions: For 250 mg dose pack: take 500 mg today (day 1), then 250 mg for 4 days (days 2-5) methylprednisolone [Medrol (Andrew)] 4 mg tablets,dose pack See Rx Instructions .Route .COMPLEX 6 Days Qty: 21 0RF Rx Instructions: taper pack; No Action bisoprolol fumarate 5 mg tablet 5 mg PO DAILY Qty: 90 3RF levothyroxine [Synthroid] 100 mcg tablet 100 mcg PO DAILY Qty: 90 3RF paroxetine HCl 20 mg tablet See Rx Instructions .ROUTE .COMPLEX Qty: 150 0RF Dose Instruction: Take 1 tablet by mouth once daily Rx Instructions: Take 1 tablet by mouth once daily buspirone 10 mg tablet 10 mg PO BID Qty: 180 0RF omeprazole 20 mg capsule,delayed release(DR/EC) 20 mg PO DAILY Qty: 90 0RF amoxicillin 875 mg tablet 875 mg PO Q12H Qty: 20 0RF benzonatate 100 mg capsule 100 mg PO TIDP PRN (Reason: Cough) Qty: 30 0RF Referrals Follow up/Referrals: Susie Dela Cruz APRN [Primary Care Provider] - See instructions Activity Restrictions/Add. Instructions Additional Instructions/Restrictions: *Monitor Temp, Over the counter Motrin or Tylenol as directed/as needed Tylenol every 4 hours and Motrin every 6 hours (as long as your family doctor has told you that you can take it) for fever or pain. and straight to ER if unable to lower temp less than 101.0 after medication given *Warm salt water gargles may help to soothe the throat *Throat Lozenges? *Warm fluids like tea with honey may help to soothe the throat? *Sleep elevated *Humidifier/Vaporizer Follow up IMMEDIATELY for new or worsening symptoms or no Noticeable improvement over the next 48-72 hours. 911 for difficulty breathing or swallowing You were tested for today for COVID19 your test result should be back in the next few hours, you may check your results on the [facility] My Health Portal Clinical Impressions Clinical Impression: Strep throat Instructions Patient Instructions: DI for Strep Throat, Strep Throat Print Language Print Language: Persian Discharge ED Provider[place] Arabella [place] [facility] [place] General Stated complaint: sore throat, ear ache, headache Mode of Arrival: Ambulatory Source of Information: Patient Limitations: No Limitations Time Seen by Provider: 11/28/23 14:14 Description of Symptoms (Recalled from Triage Doc. by RN): PATIENT C/O SORE THROAT, SORE/TENDER NECK, HEADACHE AND EAR ACHE X 2 DAYS. SHE STATES SHE WAS DIAGNOSED WITH STREP ON SUNDAY, BUT HER SYMPTOMS ARE WORSE TODAY HEENT Symptoms (Recalled from RN notes): Yes Resp Symptoms (Recalled from RN notes): No Skin Symptoms (Recalled from RN notes): No MS Symptoms (Recalled from RN notes): No Functional Status (Recalled from RN notes): WNL History of Present Illness Provider Complaint: Patient states she was seen and treated on Sunday for strep throat and was given injection of steriod's States she has been taking her medication since Sunday but not feeling any better States today her throat is hurting her worse and more tender so she came in to get checked again Related Data Previous Rx's ?Medication ?Instructions ?Recorded levothyroxine 100 mcg tablet 100 mcg PO DAILY thyroid #90 tabs 02/14/23 (Synthroid) bisoprolol fumarate 5 mg tablet 5 mg PO DAILY #90 tabs 03/15/23 paroxetine HCl 20 mg tablet See Rx Instructions .Route 08/24/23 .COMPLEX #150 tabs buspirone 10 mg tablet 10 mg PO BID Anxiety #180 tabs 10/19/23 omeprazole 20 mg capsule,delayed 20 mg PO DAILY Acid reflux #90 caps 11/12/23 release amoxicillin 875 mg tablet 875 mg PO Q12H #20 tabs 11/26/23 benzonatate 100 mg capsule 100 mg PO TIDP PRN Cough #30 caps 11/26/23 azithromycin 250 mg tablet See Rx Instructions PO .COMPLEX 5 11/28/23 (Zithromax Z-Andrew) days #6 tabs methylprednisolone 4 mg tablets in See Rx Instructions .Route 11/28/23 a dose pack (Medrol (Andrew)) .COMPLEX 6 days #21 tabs Allergies Allergy/AdvReac Type Severity Reaction Status Date / Time meperidine [From Demerol] AdvReac Intermediate seizure Verified 11/26/23 11:21 like episode Worker's Comp Is this a Worker's Comp case?: No [facility] Disclaimer: The information contained in this section may have been updated after the patient was seen, as this information can be updated by other users. 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 Depression Anxiety Hyperlipidemia Hypertension Endothelial dysfunction of coronary artery Lipoma Bilateral chronic serous otitis media Sialoadenitis of submandibular gland DDD (degenerative disc disease) Normal Pap smear Apr 2020 Hypothyroidism Sinusitis, acute Kidney stones Arrhythmia History of paroxysmal supraventricular tachycardia BMI 28.0-28.9,adult Brisk deep tendon reflexes Abnormal MRI, cervical spine Chronic intractable headache Chronic headaches History of left heart catheterization Normal colonoscopy Pharyngitis Viral syndrome Skin abscess Fracture of fourth toe, right, closed Tachyarrhythmia Chest pain at rest Dizziness Dyspnea Family history of ischemic heart disease before age 50 Neuroforaminal stenosis of cervical spine Upper respiratory infection Suspected COVID-19 virus infection Chest pain Right ankle sprain Ankle fracture URI (upper respiratory infection) Obstructive Sleep Apnea-Hypopnea Syndrome Sinusitis Right lower quadrant pain Strep throat Surgical History History of colonoscopy History of laparoscopic cholecystectomy S/P laparoscopic cholecystectomy H/O colonoscopy with polypectomy 09/2021 History of endometrial ablation H/O cardiac radiofrequency ablation H/O lithotripsy History of esophagogastroduodenoscopy (EGD) Family History Father Heart attack Family history of diabetes mellitus type II Brother Heart attack Other Coronary artery disease Hypertension Thyroid disorder Social History Smoking Status: Former smoker years smoked: 2 second hand exposure: No alcohol intake: current alcohol intake frequency: a few times a month substance use type: denies use current occupational status: other Travel in the last 8 weeks: None adopted: No caregiver/support person: Yes foster care: No household members: spouse housing: house lives independently: Yes marital status: number of children: 3 number of grandchildren: 0 current occupation: [employer] Main current occupational exposures/hazards: No pets and animals: Yes sexually active: Yes other: Last Papsmear 2020 caffeine: Yes physical activity: none ROS Obtained: Yes All systems reviewed & no additional complaints except as documented and Yes Systems reviewed as appropriate & no additional complaints except as documented Constitutional Constitutional: Reports system reviewed and no additional complaints, except as documented, Reports as per HPI and Reports headache(s) ENT Ears, Nose, Mouth, and Throat: Reports system reviewed and no additional complai nts, except as documented, Reports as per HPI, Reports otalgia, Reports headache(s), Reports nasal congestion, Reports nasal discharge and Reports sore throat Cardiovascular Cardiovascular: Reports system reviewed and no additional complaints, except as documented and Reports as per HPI Respiratory Respiratory: Reports system reviewed and no additional complaints, except as documented and Reports as per HPI Gastrointestinal Gastrointestingal: Reports system reviewed and no additional complaints, except as documented and as per HPI Neurologic Neurologic: Reports headache(s) Physical Exam General General appearance: alert and in no apparent distress ENT ENT exam: Present mucous membranes moist Expanded ENT Exam Nose exam: Absent sinus tenderness Throat exam: Present tonsillar erythema and tonsillar exudate Respiratory Respiratory exam: Present normal lung sounds bilaterally; Absent respiratory distress or wheezes Cardiovascular Cardiovascular exam: Present regular rate, normal rhythm and normal heart sounds Neurological Exam Neurological exam: Present alert, oriented X3 and normal gait Medical Decision Making Monty Inquiry Pt receiving controlled substance: No Monty was queried for this patient: No Vital Signs: 11/28/23 13:40 Temperature 98.6 F Temperature Source Oral Pulse Rate [Left Brachial] 64 Respiratory Rate 18 Blood Pressure [Left Arm] 107/63 L Blood Pressure Mean [Left Arm] 77 Blood Pressure Source [Left Arm] Automatic Cuff Blood Pressure Position [Left Arm] Sitting 02 Sat by Pulse Oximetry 98 Oxygen Delivery Method Room Air
[2023-11-28 14:40] VITALS: BP 107/63; PULSE 64; RESP 18; TEMP 37; O2SAT 98
[2023-11-28 16:06] LABS: Coronavirus 19, PCR Not Detected (NotDetected); Influenza A, PCR Not Detected (NotDetected); Influenza B, PCR Not Detected (NotDetected)
== END 2023-11-28 14:50 | disposition home or self-care (01) ==
PROVIDERS: Emergency Provider Nurse Practitioner; PCP Nurse Practitioner Family
DX: J02.0 Streptococcal pharyngitis (principal); M54.2 Cervicalgia; R51.9 Headache, unspecified; R07.0 Pain in throat
CPT/HCPCS: 87636; 99212; 99214; G0463

== ENCOUNTER 2023-12-09 11:37 | Emergency (ER) | payer OTHER, SELFPAY ==
[2023-12-09 12:25] VITALS: BP 122/77; PULSE 78; RESP 20; TEMP 37.1; O2SAT 98; BMI 29.8
[2023-12-09 12:40] LABS: UTC Strep Screen (Rapid) Positive (Negative)
--- NOTE | 2023-12-09 12:42 | ED_ITS ---
Discharge Plan Disposition Patient Disposition: Home, Self-Care Condition: Good Prescriptions Prescriptions: New amoxicillin-pot clavulanate 875-125 mg Tablet 1 tab PO Q12H Qty: 20 0RF No Action bisoprolol fumarate 5 mg tablet 5 mg PO DAILY Qty: 90 3RF levothyroxine [Synthroid] 100 mcg tablet 100 mcg PO DAILY Qty: 90 3RF paroxetine HCl 20 mg tablet See Rx Instructions .ROUTE .COMPLEX Qty: 150 0RF Dose Instruction: Take 1 tablet by mouth once daily Rx Instructions: Take 1 tablet by mouth once daily buspirone 10 mg tablet 10 mg PO BID Qty: 180 0RF omeprazole 20 mg capsule,delayed release(DR/EC) 20 mg PO DAILY Qty: 90 0RF azithromycin [Zithromax Z-Andrew] 250 mg tablet See Rx Instructions .ROUTE .COMPLEX 5 Days Qty: 6 0RF Rx Instructions: For 250 mg dose pack: take 500 mg today (day 1), then 250 mg for 4 days (days 2-5) methylprednisolone [Medrol (Andrew)] 4 mg tablets,dose pack See Rx Instructions .Route .COMPLEX 6 Days Qty: 21 0RF Rx Instructions: taper pack; amoxicillin 875 mg tablet 875 mg PO Q12H Qty: 20 0RF benzonatate 100 mg capsule 100 mg PO TIDP PRN (Reason: Cough) Qty: 30 0RF Referrals Follow up/Referrals: Susie Dela Cruz APRN [Primary Care Provider] - See instructions Activity Restrictions/Add. Instructions Additional Instructions/Restrictions: *Monitor Temp, Over the counter Motrin or Tylenol as directed/as needed Tylenol every 4 hours and Motrin every 6 hours (as long as your family doctor has told you that you can take it) for fever or pain. and straight to ER if unable to lower temp less than 101.0 after medication given *Warm salt water gargles may help to soothe the throat *Throat Lozenges? *Warm fluids like tea with honey may help to soothe the throat? *Sleep elevated *Humidifier/Vaporizer Follow up IMMEDIATELY for new or worsening symptoms or no Noticeable improvement over the next 48-72 hours. 911 for difficulty breathing or swallowing *If you did not take Penicillin shot or was unable to, start taking antibiotic immediately and make sure that you take it for the FULL length of time although you should start to feel better in 24-48 hours *change toothbrush and toothpaste 24-48 hours after starting to take antibiotics so you do not reinfect yourself Monitor Temp. Tylenol and/or Ibuprofen as needed. ER if fever is no less than 101 despite alternating Tylenol and Ibuprofen * Encourage fluids, water, Gatorade, powerade, pedialyte if infant/toddler/or child *Cold fluids, popsicles and ice cream may feel good on his throat Clinical Impressions Clinical Impression: Strep throat Instructions Patient Instructions: Strep Throat, DI for Strep Throat Print Language Print Language: Serbian Discharge ED Provider[place] [facility] [place] General Stated complaint: sore throat, body aches, ear pain, soa Mode of Arrival: Ambulatory Source of Information: Patient Limitations: No Limitations Time Seen by Provider: 12/09/23 12:42 Description of Symptoms (Recalled from Triage Doc. by RN): PATIENT C/O SORE THROAT, EAR PAIN AND BODY ACHES SINCE YESTERDAY EVENING HEENT Symptoms (Recalled from RN notes): Yes Resp Symptoms (Recalled from RN notes): No Skin Symptoms (Recalled from RN notes): No MS Symptoms (Recalled from RN notes): No Functional Status (Recalled from RN notes): WNL History of Present Illness Provider Complaint: Patient states that she had strep throat a couple weeks ago and now feels like she may have it again her throat is hurting, she feels achy, and having pain in her ears Related Data Previous Rx's ?Medication ?Instructions ?Recorded levothyroxine 100 mcg tablet 100 mcg PO DAILY thyroid #90 tabs 02/14/23 (Synthroid) bisoprolol fumarate 5 mg tablet 5 mg PO DAILY #90 tabs 03/15/23 paroxetine HCl 20 mg tablet See Rx Instructions .Route 08/24/23 .COMPLEX #150 tabs buspirone 10 mg tablet 10 mg PO BID Anxiety #180 tabs 10/19/23 omeprazole 20 mg capsule,delayed 20 mg PO DAILY Acid reflux #90 caps 11/12/23 release amoxicillin 875 mg tablet 875 mg PO Q12H #20 tabs 11/26/23 benzonatate 100 mg capsule 100 mg PO TIDP PRN Cough #30 caps 11/26/23 azithromycin 250 mg tablet See Rx Instructions PO .COMPLEX 5 11/28/23 (Zithromax Z-Andrew) days #6 tabs methylprednisolone 4 mg tablets in See Rx Instructions .Route 11/28/23 a dose pack (Medrol (Andrew)) .COMPLEX 6 days #21 tabs amoxicillin 875 mg-potassium 1 tab PO Q12H #20 tabs 12/09/23 clavulanate 125 mg tablet Allergies Allergy/AdvReac Type Severity Reaction Status Date / Time meperidine [From Demerol] AdvReac Intermediate seizure Verified 11/26/23 11:21 like episode Worker's Comp Is this a Worker's Comp case?: No [facility] Disclaimer: The information contained in this section may have been updated after the patient was seen, as this information can be updated by other users. 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 Depression Anxiety Hyperlipidemia Hypertension Endothelial dysfunction of coronary artery Lipoma Bilateral chronic serous otitis media Sialoadenitis of submandibular gland DDD (degenerative disc disease) Normal Pap smear Apr 2020 Hypothyroidism Sinusitis, acute Kidney stones Arrhythmia History of paroxysmal supraventricular tachycardia BMI 28.0-28.9,adult Brisk deep tendon reflexes Abnormal MRI, cervical spine Chronic intractable headache Chronic headaches History of left heart catheterization Normal colonoscopy Pharyngitis Viral syndrome Skin abscess Fracture of fourth toe, right, closed Tachyarrhythmia Chest pain at rest Dizziness Dyspnea Family history of ischemic heart disease before age 50 Neuroforaminal stenosis of cervical spine Upper respiratory infection Suspected COVID-19 virus infection Chest pain Right ankle sprain Ankle fracture URI (upper respiratory infection) Obstructive Sleep Apnea-Hypopnea Syndrome Sinusitis Right lower quadrant pain Strep throat Surgical History History of colonoscopy History of laparoscopic cholecystectomy S/P laparoscopic cholecystectomy H/O colonoscopy with polypectomy 09/2021 History of endometrial ablation H/O cardiac radiofrequency ablation H/O lithotripsy History of esophagogastroduodenoscopy (EGD) Family History Father Heart attack Family history of diabetes mellitus type II Brother Heart attack Other Coronary artery disease Hypertension Thyroid disorder Social History Smoking Status: Former smoker years smoked: 2 second hand exposure: No alcohol intake: current alcohol intake frequency: a few times a month substance use type: denies use current occupational status: other Travel in the last 8 weeks: None adopted: No caregiver/support person: Yes foster care: No household members: spouse housing: house lives independently: Yes marital status: number of children: 3 number of grandchildren: 0 current occupation: [employer] Main current occupational exposures/hazards: No pets and animals: Yes sexually active: Yes other: Last Papsmear 2020 caffeine: Yes physical activity: none ROS Obtained: Yes All systems reviewed & no additional complaints except as documented and Yes Systems reviewed as appropriate & no additional complaints except as documented Constitutional Constitutional: Reports system reviewed and no additional complaints, except as documented and Reports as per HPI ENT Ears, Nose, Mouth, and Throat: Reports system reviewed and no additional complaints, except as documented, Reports as per HPI, Reports otalgia, Reports nasal congestion, Reports nasal discharge and Reports sore throat Cardiovascular Cardiovascular: Reports system reviewed and no additional complaints, except as documented and Reports as per HPI Respiratory Respiratory: Reports system reviewed and no additional complaints, except as documented and Reports as per HPI Gastrointestinal Gastrointestingal: Reports system reviewed and no additional complaints, except as documented and as per HPI Physical Exam General General appearance: alert and in no apparent distress ENT ENT exam: Present mucous membranes moist Expanded ENT Exam Throat exam: Present tonsillar erythema and tonsillar exudate Respiratory Respiratory exam: Present normal lung sounds bilaterally; Absent respiratory distress Cardiovascular Cardiovascular exam: Present regular rate, normal rhythm and normal heart sounds Neurological Exam Neurological exam: Present alert, oriented X3 and normal gait Medical Decision Making Monty Inquiry Pt receiving controlled substance: No Monty was queried for this patient: No Vital Signs: 12/09/23 12:25 Temperature 98.8 F Temperature Source Oral Pulse Rate [Left Brachial] 78 Respiratory Rate 20 Blood Pressure [Left Arm] 122/77 Blood Pressure Mean [Left Arm] 92 Blood Pressure Source [Left Arm] Automatic Cuff Blood Pressure Position [Left Arm] Sitting 02 Sat by Pulse Oximetry 98 Oxygen Delivery Method Room Air Lab Data Lab results reviewed: Yes I reviewed the patient's lab results. Lab Results 12/09/23 12:35: Strep Scn Rapid Clinic Positive A Medical Decision Narrative: Patient was recently on amoxil and azithromycin for strep throat and now testing positive for strep throat again will change to augmentin and patient educated to take probiotic and eat some yogurt
[2023-12-09 12:53] VITALS: BP 122/77; PULSE 78; RESP 20; TEMP 37.1; O2SAT 98
== END 2023-12-09 12:57 | disposition home or self-care (01) ==
PROVIDERS: Emergency Provider Nurse Practitioner; PCP Nurse Practitioner Family
DX: J02.0 Streptococcal pharyngitis (principal); H92.03 Otalgia, bilateral; R07.0 Pain in throat
CPT/HCPCS: 87880; 99212; 99214; G0463

== ENCOUNTER 2024-01-13 20:02 | Emergency (ER) | payer OTHER, SELFPAY ==
[2024-01-13 20:04] VITALS: BP 145/99; PULSE 77; RESP 17; TEMP 37; O2SAT 97; BMI 29.9
[2024-01-13] MEDS: KETOROLAC 30MG/ML VIAL 15 MG IV (20:28)
[2024-01-13] MEDS: MORPHINE 4MG/ML SYRINGE 4 MG IV (20:28)
[2024-01-13 20:30] LABS: Basophils # 0.1 K/mm3 (0-0.2); Basophils % 1.2 % (0.1-2.0); Eosinophils # 0.1 K/mm3 (0.0-0.4); Eosinophils % 1.1 % (0.1-12.0); Hematocrit 40.4 % (37.0-47.0); Hemoglobin 13.5 g/dL (12.2-16.2); Lymphocytes # 3.3 K/mm3 (0.7-4.5); Lymphocytes % 34.3 % (10-50); Mean Corpuscular HGB Conc 33.3 g/dL (31.8-35.4); Mean Corpuscular Hemoglobin 28.4 pg (27.0-31.2); Mean Corpuscular Volume 85.3 fl (81-99); Mean Platelet Volume 8.1 fl (7.4-10.4); Monocytes # 0.6 K/mm3 (0.1-1.0); Monocytes % 6.6 % (1.7-9.3); Neutrophils # 5.5 K/mm3 (1.8-7.8); Neutrophils % 56.8 % (37.0-80.0); Platelet Count 276 K/mm3 (142-424); Red Blood Count 4.73 M/mm3 (4.20-5.40); Red Cell Distribution Width 15.1 % (11.5-17.5); White Blood Count 9.7 K/mm3 (4.8-10.8)
[2024-01-13 20:34] LABS: Albumin Level 4.4 g/dl (3.5-5.0); Chloride 103 mmol/L (98-107); Potassium 3.6 mmoL/L (3.5-5.1); Sodium 138 mmol/L (136-145)
--- NOTE | 2024-01-13 20:36 | CT_ITS ---
PROCEDURE INFORMATION: Exam: CT Abdomen And Pelvis Without Contrast Exam date and time: 01/13/2024 9:40 PM Age: 43 years old Clinical indication: Abdominal pain; Flank; Left; Additional info: L flank pain history of stones TECHNIQUE: Imaging protocol: Computed tomography of the abdomen and pelvis without contrast. Radiation optimization: All CT scans at this facility use at least one of these dose optimization techniques: automated exposure control; mA and/or kV adjustment per patient size (includes targeted exams where dose is matched to clinical indication); or iterative reconstruction. COMPARISON: CT ABDOMEN PELVIS WO CON 11/18/2022 6:47 PM FINDINGS: Lungs: Mild atelectasis in the lung bases. Heart: Heart size normal. Esophagus: The visualized distal esophagus is largely contracted without gross abnormality. Liver: Normal contour. No mass lesions. Mild intrahepatic biliary ductal dilatation. Gallbladder and biliary ducts: Prior cholecystectomy with expected mild postoperative dilatation of the common bile duct. Pancreas: Normal. No inflammatory changes or ductal dilation. Spleen: Granulomatous calcification in the spleen without acute splenic abnormality. Adrenal glands: Adrenal adenoma in the left adrenal gland measuring 9 mm short axis and-12 Hounsfield units. Right adrenal gland is normal. Kidneys and ureters: Mild-moderate left hydronephrosis with 7.5 x 6 x 5 mm left UPJ stone. There are 6 additional small nonobstructive left renal stones, largest 3 mm. There are 5 small nonobstructive right renal stones, largest 3 mm. No right-sided ureteral stones or hydronephrosis. Stomach and bowel: The stomach is unremarkable. The small bowel is nondilated with no gross abnormality. No acute colonic abnormalities. Appendix: The appendix is normal in caliber and demonstrates no evidence of appendicitis. Intraperitoneal space: No peritoneal free fluid or air. Vasculature: No acute process. No abdominal aortic aneurysm. Lymph nodes: No adenopathy. Urinary bladder: The urinary bladder is largely contracted without gross abnormality. Reproductive: Unremarkable as visualized. Bones/joints: No acute osseous abnormalities. Soft tissues: No acute soft tissue abnormalities. IMPRESSION: 1. There is a 7.5 mm left UPJ stone with moderate left hydronephrosis. 2. Numerous additional small nonobstructive renal stones are present bilaterally. 3. Additional nonemergent findings detailed above. COMMENTS: Consistent with the [employer]'s Incidental Findings Committee white paper (J Am Dav Radiol 2017): Any incidental adrenal lesion less than 1 cm is likely benign. No follow-up imaging is recommended for these lesions per consensus recommendations based on imaging criteria. Further lab evaluation could be pursued if warranted based on clinical findings.
[2024-01-13 20:37] LABS: Alanine Aminotransferase 28 U/L (12-78); Albumin/Globulin Ratio 1.1 (1.1-1.8); Alkaline Phosphatase 64 U/L (38-126); Anion Gap 11.6 mEq/L (5-15); Aspartate Amino Transferase 27 U/L (14-36); Bilirubin,Total 0.6 mg/dl (0.2-1.3); Blood Urea Nitrogen 15 mg/dl (7-17); Calcium 9.5 mg/dl (8.4-10.2); Carbon Dioxide 27 mmol/L (22.0-30.0); Creatinine Clearance Estimated 100 mL/min (50-200); Estimated Glomerular Filt Rate 79 ml/min (>60); GFR (African American) 95 ML/MIN (>60); Globulin 3.9 g/dL (1.3-3.2); Glucose 98 mg/dl (74-100); Total Protein,Serum 8.3 g/dl (6.3-8.2)
--- NOTE | 2024-01-13 20:45 | ED_ITS ---
Discharge Plan Disposition Patient Disposition: Home, Self-Care Prescriptions Prescriptions: New tamsulosin 0.4 mg capsule 0.4 mg PO DAILY Qty: 7 0RF ketorolac 10 mg tablet 10 mg PO Q6H PRN (Reason: pain) 5 Days Qty: 20 0RF No Action bisoprolol fumarate 5 mg tablet 5 mg PO DAILY Qty: 90 3RF azithromycin 250 mg tablet See Rx Instructions PO .COMPLEX Rx Instructions: For 250 mg dose pack: take 500 mg today (day 1), then 250 mg for 4 days (days 2-5) PO methylprednisolone [Methylpred DP] 4 mg tablets,dose pack 4 mg PO DAILY levothyroxine [Synthroid] 100 mcg tablet 100 mcg PO DAILY Qty: 90 3RF paroxetine HCl 20 mg tablet See Rx Instructions .ROUTE .COMPLEX Qty: 150 0RF Dose Instruction: Take 1 tablet by mouth once daily Rx Instructions: Take 1 tablet by mouth once daily buspirone 10 mg tablet 10 mg PO BID Qty: 180 0RF omeprazole 20 mg capsule,delayed release(DR/EC) 20 mg PO DAILY Qty: 90 0RF Referrals Follow up/Referrals: Susie Dela Cruz APRN [Primary Care Provider] - See instructions Activity Restrictions/Add. Instructions Additional Instructions/Restrictions: Call your family doctor to establish care for this visit to the emergency department and schedule follow-up within 48 hours to ensure improvement. If you have any worsening of your condition or any other concerning signs or symptoms, return to the emergency department or your primary care doctor for further evaluation. Clinical Impressions Clinical Impression: Calcium ureterolithiasis Print Language Print Language: Tajik Discharge ED Provider: Too Anton General Adult HPI General Chief complaint: PAIN Stated complaint: lower back pain on left side Time Seen by Provider: 01/13/24 20:21 Mode of Arrival: Ambulatory Source of Information: Patient Limitations: No Limitations Description of Symptoms (Recalled from ER Triage Doc. by RN): She reprts lower back pain on her left side and rates pain 12(). She states the pain started 1.5 hours ago while she was bowling. She denies any injury. She reports a hx of kidney stones. She denies any incontinence of bowel or bladder. History of Present Illness HPI narrative: Please note that above description of symptoms, in this electronic medical record under categorization of recalled from ER triage doctor by RN are reflective of an initial nursing assessment, however, is not reflective of my full history and physical exam that was personally taken and clarified. Consequentially, this preceding description of symptoms, which may include the patient's categorized chief complaint in the EMR, do not reflect my personal clinical impression, and the ultimate description of history of present illness and patient stated complaints should be deferred to this section of the note. Unless stated otherwise or congruent with this section of the note, additional signs, symptoms, or incongruence should be interpreted as inaccurate with my clinical impression. Related Data Home Medications ?Medication ?Instructions ?Recorded ?Confirmed azithromycin 250 mg tablet See Rx Instructions PO .COMPLEX 12/11/23 12/11/23 methylprednisolone 4 mg tablets in 4 mg PO DAILY 12/11/23 12/11/23 a dose pack (Methylpred DP) Previous Rx's ?Medication ?Instructions ?Recorded levothyroxine 100 mcg tablet 100 mcg PO DAILY thyroid #90 tabs 02/14/23 (Synthroid) bisoprolol fumarate 5 mg tablet 5 mg PO DAILY #90 tabs 03/15/23 paroxetine HCl 20 mg tablet See Rx Instructions .Route 08/24/23 .COMPLEX #150 tabs buspirone 10 mg tablet 10 mg PO BID Anxiety #180 tabs 10/19/23 omeprazole 20 mg capsule,delayed 20 mg PO DAILY Acid reflux #90 caps 11/12/23 release ketorolac 10 mg tablet 10 mg PO Q6H PRN pain 5 days #20 01/13/24 tabs tamsulosin 0.4 mg capsule 0.4 mg PO DAILY #7 caps 01/13/24 Allergies Allergy/AdvReac Type Severity Reaction Status Date / Time meperidine [From Demerol] AdvReac Intermediate seizure Verified 01/13/24 20:24 like episode [facility] Disclaimer: The information contained in this section may have been updated after the patient was seen, as this information can be updated by other users. 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 (Updated 01/13/24 @ 22:00 by Too Anton MD) Enlarged tonsils Depression Anxiety Hyperlipidemia Hypertension Endothelial dysfunction of coronary artery Lipoma Bilateral chronic serous otitis media Sialoadenitis of submandibular gland DDD (degenerative disc disease) Normal Pap smear Hypothyroidism Sinusitis, acute Kidney stones Arrhythmia History of paroxysmal supraventricular tachycardia BMI 28.0-28.9,adult Brisk deep tendon reflexes Abnormal MRI, cervical spine Chronic intractable headache Chronic headaches History of left heart catheterization Normal colonoscopy Pharyngitis Viral syndrome Skin abscess Fracture of fourth toe, right, closed Tachyarrhythmia Chest pain at rest Dizziness Dyspnea Family history of ischemic heart disease before age 50 Neuroforaminal stenosis of cervical spine Upper respiratory infection Suspected COVID-19 virus infection Chest pain Right ankle sprain Ankle fracture URI (upper respiratory infection) Obstructive Sleep Apnea-Hypopnea Syndrome Sinusitis Right lower quadrant pain Strep throat Surgical History History of colonoscopy History of laparoscopic cholecystectomy S/P laparoscopic cholecystectomy H/O colonoscopy with polypectomy History of endometrial ablation H/O cardiac radiofrequency ablation H/O lithotripsy History of esophagogastroduodenoscopy (EGD) Family History Father Heart attack Family history of diabetes mellitus type II Brother Heart attack Other Coronary artery disease Hypertension Thyroid disorder Social History Smoking Status: Current every day smoker years smoked: 2 second hand exposure: No alcohol intake: current alcohol intake frequency: a few times a month substance use type: denies use current occupational status: other Travel in the last 8 weeks: None adopted: No caregiver/support person: Yes foster care: No household members: spouse housing: house lives independently: Yes marital status: number of children: 3 number of grandchildren: 0 current occupation: [employer] Main current occupational exposures/hazards: No pets and animals: Yes sexually active: Yes other: Last Papsmear 2020 caffeine: Yes physical activity: none Other 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 Have you received the Flu Vaccine for this season: No Have you received the Pneumonia Vaccine: No ROS Obtained: Yes All systems reviewed & no additional complaints except as documented Physical Exam General General appearance: alert and in distress (Mild secondary to pain) Head Head exam: atraumatic and normocephalic Eye Eye exam: Present normal appearance, PERRL and EOMI Neck Neck exam: Present normal inspection, full ROM and trachea midline Respiratory Respiratory exam: Absent respiratory distress, wheezes, stridor, accessory muscle use or prolonged expiratory phase Cardiovascular Cardiovascular exam: Present other (Pulses equal symmetric in upper and lower extremities) Abdominal Exam Abdominal exam: Present soft; Absent distention, tenderness or pulsatile mass Extremities Exam Extremities exam: Absent edema Back Exam Back exam: Present CVA tenderness (L); Absent CVA tenderness (R) Neurological Exam Neurological exam: Present alert, oriented X3 and CN II-XII intact; Absent motor sensory deficit Skin Skin exam: Present warm and dry; Absent diaphoresis or erythema Medical Decision Making Medical Records Medical records reviewed: Yes I reviewed the patient's medical records. Screening: Per USPSTF and CDC recommendations, given the prevalence of disease in our region, it is our hospital?s policy to screen for HIV and viral Hepatitis for all patients aged 18 and over and those with ongoing risk factors. Monty Inquiry Pt receiving controlled substance: No Monty was queried for this patient: No Vital Signs: 01/13/24 20:04 Temperature 98.6 F Temperature Source Temporal Artery Scan Pulse Rate [Right Brachial] 77 Respiratory Rate 17 Blood Pressure [Right Arm] 145/99 H Blood Pressure Mean [Right Arm] 114 Blood Pressure Source [Right Arm] Automatic Cuff Blood Pressure Position [Right Arm] Sitting 02 Sat by Pulse Oximetry 97 Oxygen Delivery Method Room Air Lab Data Lab Results 01/13/24 20:23: WBC 9.7, RBC 4.73, Hgb 13.5, Hct 40.4, MCV 85.3, MCH 28.4, MCHC 33.3, RDW 15.1, Plt Count 276, MPV 8.1, Neut % (Auto) 56.8, Lymph % (Auto) 34.3, [place]onder[place] % (Auto) 6.6, Eos % (Auto) 1.1, Baso % (Auto) 1.2, Neut # (Auto) 5.5, Lymph # (Auto) 3.3, [place] # (Auto) 0.6, Eos # (Auto) 0.1, Baso # (Auto) 0.1, Sodium 138, Potassium 3.6, Chloride 103, Carbon Dioxide 27, Anion Gap 11.6, BUN 15, Creatinine 0.80, Estimated Creat Clear 100, Estimated GFR 79, Est GFR ( Amer) 95, Glucose 98, Calcium 9.5, Total Bilirubin 0.6, AST 27, ALT 28, Alkaline Phosphatase 64, Total Protein 8.3 H, Albumin 4.4, Globulin 3.9 H, Albumin/Globulin Ratio 1.1 01/13/24 21:10: Urine Color Yellow, Urine Appearance Slightly cloudy, Urine pH 6.5, Ur Specific Winston 1.025, Urine Protein Trace, Urine Glucose (UA) Negative, Urine Ketones Negative, Urine Blood 2+ A, Urine Nitrate Negative, Urine Bilirubin Negative, Urine Urobilinogen 1.0, Ur Leukocyte Esterase Negative, Urine RBC 20-50, Urine WBC 3-5, Ur Squamous Epith Cells 10-20, Urine Bacteria 2+, Urine HCG, Qual Negative 01/13/24 20:23 01/13/24 20:23 Orders (Tests/Meds): ED MEDICATIONS Discontinued Medications Generic Name Dose Route Start Last Admin Trade Name Freq PRN Reason Stop Dose Admin Ketorolac Tromethamine 15 mg 01/13/24 20:22 01/13/24 20:28 Ketorolac 30mg/Ml Vial IV 01/13/24 20:23 15 mg ONCE ONE Administration Morphine Sulfate 4 mg 01/13/24 20:22 01/13/24 20:28 Morphine 4mg/Ml Syringe IV 01/13/24 20:23 4 mg ONCE ONE Administration ORDERS Category Date Time Status CT abdomen pelvis wo con Stat Cat Scan 01/13/24 20:36 Taken CBC w/Auto Diff [Complete Blood Count Auto Diff] Stat Lab 01/13/24 20:23 Completed CMP [Comprehensive Metabolic Panel] Stat Lab 01/13/24 20:23 Completed HIV (1&2) Antibody Rapid Stat Lab 01/13/24 20:23 Received Hep C Ab with Reflex to RNA Stat Lab 01/13/24 20:23 Received UA [Urinalysis and Microscopic] Stat Lab 01/13/24 21:10 Completed Urine , HCG Qual. Stat Lab 01/13/24 21:10 Completed Urine Culture Stat Micro 01/13/24 21:10 Received Medical Decision Narrative: 43-year-old female with history of numerous kidney stones in the past, only one needing instrumentation with lithotripsy presenting with left flank pain. It started by an hour prior to arrival. In her left flank, now radiating from her left flank, around her left side into the left side of her groin. No hematuria or dysuria. No fevers or chills or nausea or vomiting. Pain is moderate to severe in intensity, comes in waves. Feels just like her previous kidney stones. Has not taken anything for. History was obtained via conversation with patient and . On arrival, patient hemodynamically stable, alert, oriented x4, appropriate, GCS 15, moving all extremities spontaneously, pupils equal and reactive to light. Full physical exam performed and significant for mild distress secondary to pain. Speaking full sentences, complaining of pain. No rash overlying the left flank or abdomen. Tenderness in left flank. No abdominal tenderness. Nontachycardic. Mildly hypertensive. Differential includes nephrolithiasis, UTI, , ectopic , diverticulitis, constipation, musculoskeletal spasm, early zoster, among others. Patient placed on continuous cardiac monitoring and continuous pulse ox with initial blood pressure 145/99, heart rate 77, saturation 97% on room air . Patient was given Toradol and morphine for symptomatic management and correction of underlying abnormalities. Workup independently interpreted and significant for nonactionable CBC or chemistry. Urinalysis hematuria. Urine negative. On independent interpretation of imaging, 6 mm stone in the mid left ureter. See radiology read for full review of final results. On reevaluation, patient resting comfortably, states she feels much better. Given patient presentation, workup, history, this most likely represents nephrolithiasis on the left. Because patient at baseline without signs or symptoms of clinical decompensation, deemed appropriate for discharge. Results were relayed to patient who voiced understanding and were agreeable to outpatient management and follow up. I discussed my clinical impression with patient and answered all questions. At this time, the evidence for any other entities in the differential is insufficient to warrant any further testing or ED observation. This was explained as well. Advisory was given that persistent or worsening symptoms require further evaluation. I confirmed the understanding of this discussion. Middleware Solutions Architect disclaimer Much of this encounter note is an electronic embossing toolsetter spoken language to printed text. Electronic embossing toolsetter of the spoken language may permit errors. Although I have reviewed the note, some errors may still exist. Critical Care Critical Care Time Critical Care Time: No
[2024-01-13 21:23] LABS: Microscopic, Urine URINE MICROSCOPIC (MICROSCOPIC)
[2024-01-13 21:34] LABS: Bilirubin,Urine Negative (Negative); Blood, Urine 2+ (Negative); Color,Urine YELLOW (Yellow); Glucose,Urine (UA) Negative (Negative); Ketones,Urine Negative (Negative); Leukocyte Esterase,Urine Negative (Negative); Nitrate,Urine Negative (Negative); PH,Urine 6.5 (5.0-8.5); Protein,Urine TRACE (Negative); Specific Gravity, Urine 1.025 (1.005-1.030); Urine Pregnancy, HCG Qual. Negative (Negative)
--- NOTE | 2024-01-13 21:38 | PC.NURSE ---
pt to ct scan via wheelchair
[2024-01-13 21:49] LABS: Appearance,Urine Slightly Cloudy (Clear)
[2024-01-13 21:53] LABS: RBC,Urine 20-50 #/hpf (0-3)
[2024-01-13 21:54] LABS: Bacteria,Urine 2+ /lpf
[2024-01-13 22:08] VITALS: BP 118/75; PULSE 78; RESP 18; TEMP 37; O2SAT 98
[2024-01-13 22:19] LABS: HIV (1&2) Antibody Rapid NONREACTIVE (NONREACTIVE)
[2024-01-15 08:59] LABS: HCV Ab Non Reactive (Non Reactive)
== END 2024-01-13 22:13 | disposition home or self-care (01) ==
PROVIDERS: Emergency Provider Emergency Medicine; PCP Nurse Practitioner Family
DX: N20.1 Calculus of ureter (principal); M54.50 Low back pain, unspecified
CPT/HCPCS: 96374; 96375; 74176; 80053; 81001; 81025; 85025; 86803; 87086; 87389; 99284; J1885; J2270

== ENCOUNTER 2024-01-15 12:37 | Outpatient (CLI) | payer OTHER, SELFPAY ==
--- NOTE | 2024-01-15 12:59 | ECG_ITS ---
APPROVED REPORT Exam: Resting ECG HR:50 bpm ECG Measurements Heart Rate 50 AXES WI 160 P 14 QRSd 93 QRS 0 QT 446 T 11 QTc 418 Conclusion SINUS BRADYCARDIA MINIMAL VOLTAGE CRITERIA FOR LVH, CONSIDER NORMAL VARIANT [MEETS CRITERIA IN ONE OF: R(aVL), S(V1), R(V5), R(V5/V6)+S(V1)] BORDERLINE ECG UNCONFIRMED REPORT Electronically signed by : Rigo Dennis MD 01/16/2024 08:19:46
== END 2024-01-15 23:59 | disposition home or self-care (01) ==
LOC: PREOP 12:38
PROVIDERS: PCP Nurse Practitioner Family; Visit Provider Otolaryngology
DX: R00.1 Bradycardia, unspecified (principal); R94.31 Abnormal electrocardiogram [ECG] [EKG]
CPT/HCPCS: 93005

== ENCOUNTER 2024-03-26 13:19 | Emergency (ER) | payer OTHER, SELFPAY ==
[2024-03-26 13:39] VITALS: BP 131/91; PULSE 91; RESP 18; O2SAT 95; BMI 30.4
[2024-03-26 13:47] LABS: Microscopic, Urine URINE MICROSCOPIC (MICROSCOPIC)
[2024-03-26 13:55] LABS: Appearance,Urine CLEAR (Clear); Bilirubin,Urine Negative (Negative); Blood, Urine TRACE-I (Negative); Color,Urine YELLOW (Yellow); Glucose,Urine (UA) Negative (Negative); Ketones,Urine Negative (Negative); Leukocyte Esterase,Urine 1+ (Negative); Nitrate,Urine Negative (Negative); Protein,Urine Negative (Negative); Specific Gravity, Urine 1.025 (1.005-1.030); Urobilinogen,Urine 0.2 EU/dl (0.2)
--- NOTE | 2024-03-26 14:09 | CT_ITS ---
PROCEDURE INFORMATION: Exam: CT Abdomen And Pelvis Without Contrast Exam date and time: 03/26/2024 3:34 PM Age: 43 years old Clinical indication: Abdominal pain; Flank; Left; Additional info: Left flank pain, HX stones TECHNIQUE: Imaging protocol: Computed tomography of the abdomen and pelvis without contrast. Radiation optimization: All CT scans at this facility use at least one of these dose optimization techniques: automated exposure control; mA and/or kV adjustment per patient size (includes targeted exams where dose is matched to clinical indication); or iterative reconstruction. COMPARISON: CT ABDOMEN PELVIS WO CON 01/13/2024 9:40 PM FINDINGS: Lungs: Imaging through the visualized lung ryder demonstrates mild bibasilar subsegmental atelectasis. Liver: The liver appears within normal limits. Gallbladder and biliary ducts: There has been a cholecystectomy. Pancreas: The pancreas is normal. Spleen: The spleen is normal. Adrenal glands: Stable left adrenal adenoma measures 9 mm. Kidneys and ureters: There are approximately 5 nonobstructing stones within the right kidney each measuring 1 mm. Moderate left renal obstructive hydronephrosis and hydroureter. This is due to a retained stone within the distal left ureter measuring about 5 mm may be partially fragmented. The stone is located approximately 5 cm cephalad to the UVJ. Stomach and bowel: The stomach appears within normal limits. No wall thickening or inflammatory change. Appendix: No evidence of appendicitis. Intraperitoneal space: No free air. No evidence for focal fluid collection or ascites. No evidence for omental thickening. Vasculature: Unremarkable. No abdominal aortic aneurysm. Lymph nodes: Unremarkable. No pathologically enlarged lymph nodes are identified. Urinary bladder: The bladder appears within normal limits. No wall thickening. Reproductive: The uterus and adnexal structures appear normal. Bones/joints: Unremarkable. No acute fracture. Soft tissues: The visualize subcutaneous soft tissues and abdominal wall and flank wall appear unremarkable. IMPRESSION: 1. Moderate left renal obstructive hydronephrosis and hydroureter. This is due to a retained stone within the distal left ureter measuring about 5 mm may be partially fragmented. The stone is located approximately 5 cm cephalad to the UVJ. 2. Stable left adrenal adenoma measures 9 mm. There are approximately 5 nonobstructing stones within the right kidney each measuring 1 mm.
[2024-03-26 14:24] LABS: Amorphous Sediment,Urine Trace /lpf; Bacteria,Urine Trace /lpf
[2024-03-26 14:26] LABS: Basophils # 0.1 K/mm3 (0-0.2); Basophils % 0.7 % (0.1-2.0); Eosinophils # 0.1 K/mm3 (0.0-0.4); Hematocrit 40.7 % (37.0-47.0); Hemoglobin 13.4 g/dL (12.2-16.2); Lymphocytes # 1.9 K/mm3 (0.7-4.5); Lymphocytes % 28.8 % (10-50); Mean Corpuscular HGB Conc 32.9 g/dL (31.8-35.4); Mean Corpuscular Hemoglobin 27.5 pg (27.0-31.2); Mean Corpuscular Volume 83.6 fl (81-99); Mean Platelet Volume 9.7 fl (7.4-10.4); Monocytes # 0.7 K/mm3 (0.1-1.0); Monocytes % 10.4 % (1.7-9.3); Platelet Count 231 K/mm3 (142-424); Red Blood Count 4.87 M/mm3 (4.20-5.40); Red Cell Distribution Width 13.7 % (11.5-17.5); White Blood Count 6.7 K/mm3 (4.8-10.8)
[2024-03-26] MEDS: 0.9 % SODIUM CHLORIDE 1000ML 1,000 ML 999 ML IV (14:26)
[2024-03-26] MEDS: ONDANSETRON 4MG/2ML VIAL 4 MG IV ×2 (14:27→15:28)
[2024-03-26] MEDS: MORPHINE 4MG/ML SYRINGE 4 MG IV (14:27)
[2024-03-26 14:30] VITALS: BP 137/82; PULSE 61; RESP 16; TEMP 36.7; O2SAT 100
[2024-03-26 14:33] LABS: Urine Pregnancy, HCG Qual. Negative (Negative)
[2024-03-26 14:42] LABS: Alanine Aminotransferase 27 U/L (12-78); Albumin Level 4.7 g/dl (3.5-5.0); Albumin/Globulin Ratio 1.3 (1.1-1.8); Alkaline Phosphatase 79 U/L (38-126); Aspartate Amino Transferase 36 U/L (14-36); Bilirubin,Total 0.8 mg/dl (0.2-1.3); Blood Urea Nitrogen 10 mg/dl (7-17); Calcium 9.4 mg/dl (8.4-10.2); Carbon Dioxide 27 mmol/L (22.0-30.0); Chloride 102 mmol/L (98-107); Creatinine Clearance Estimated 117 mL/min (50-200); Estimated Glomerular Filt Rate 92 ml/min (>60); GFR (African American) 111 ML/MIN (>60); Globulin 3.5 g/dL (1.3-3.2); Glucose 101 mg/dl (74-100); Sodium 137 mmol/L (136-145); Total Protein,Serum 8.2 g/dl (6.3-8.2)
[2024-03-26 14:51] LABS: Anion Gap 11.9 mEq/L (5-15); Potassium 3.9 mmoL/L (3.5-5.1)
--- NOTE | 2024-03-26 15:05 | HMH.EDGENADL ---
Discharge Plan Disposition Patient Disposition: Home, Self-Care Condition: Good Prescriptions Prescriptions: New cefdinir 300 mg capsule 300 mg PO BID 7 Days Qty: 14 0RF oxycodone 5 mg tablet 5 mg PO Q6H PRN (Reason: pain) Qty: 10 0RF ondansetron 4 mg tablet,disintegrating 4 mg PO Q8H PRN (Reason: nausea and vomiting) 3 Days Qty: 9 0RF No Action bisoprolol fumarate 5 mg tablet 5 mg PO DAILY Qty: 90 3RF buspirone 10 mg tablet See Rx Instructions .ROUTE .COMPLEX Qty: 180 0RF Dose Instruction: TAKE 1 TABLET BY MOUTH TWICE DAILY FOR ANXIETY Rx Instructions: TAKE 1 TABLET BY MOUTH TWICE DAILY FOR ANXIETY paroxetine HCl 20 mg tablet See Rx Instructions .ROUTE .COMPLEX Qty: 30 1RF Dose Instruction: Take 1 tablet by mouth once daily Rx Instructions: Take 1 tablet by mouth once daily omeprazole 20 mg capsule,delayed release(DR/EC) 20 mg PO DAILY Qty: 90 0RF levothyroxine 100 mcg tablet See Rx Instructions .ROUTE .COMPLEX Qty: 90 3RF Dose Instruction: TAKE 1 TABLET BY MOUTH ONCE DAILY FOR THYROID Rx Instructions: TAKE 1 TABLET BY MOUTH ONCE DAILY FOR THYROID tamsulosin 0.4 mg capsule 0.4 mg PO DAILY Qty: 7 0RF ketorolac 10 mg tablet 10 mg PO Q6H PRN (Reason: pain) 5 Days Qty: 20 0RF Referrals Follow up/Referrals: Susie Dela Cruz APRN [Primary Care Provider] - See instructions Chase Rich MD [Referring] - See instructions Activity Restrictions/Add. Instructions Additional Instructions/Restrictions: You were seen for a kidney stone. Please return to the ER if your pain is not controlled or if you have fever or vomiting. Call your urologist tomorrow. Take your antibiotics starting tomorrow. Clinical Impressions Clinical Impression: Hydronephrosis with renal and ureteral calculous obstruction, UTI (urinary tract infection) Stand Alone Forms Stand Alone Forms: Work/School Release Instructions Patient Instructions: DI for Kidney Stones, DI for Urinary Tract Infection (UTI) Print Language Print Language: Telugu Discharge ED Provider: Too Anton General Adult HPI <KELLY Alvarado - Last Filed: 03/26/24 20:05> General Chief complaint: Urogenital-Female Stated complaint: back and side pain, urgency to urinate Time Seen by Provider: 03/26/24 14:02 Mode of Arrival: Ambulatory Source of Information: Patient and Spouse Limitations: No Limitations Description of Symptoms (Recalled from ER Triage Doc. by RN): PT REPORTS L FLANK AREA PAIN AND L LOWER ABD PAIN BEGAN APPROX 10 AM AND HAS WORSENED. PT REPORTS DIFFICULTLY WITH URINATE, PAINFUL WITH URINATION. PT REPORTS NAUSEA. PT REPORTS HX OF KIDNEY STONES WITH RECENT SURGERY WITH STENT. History of Present Illness HPI narrative: Patient presents with left flank pain that started this morning around 10 AM. She reports that her pain has worsened since onset. She reports some urinary frequency and decreased urinary output. She denies any hematuria. She has nausea without vomiting. Denies fever. She does report a history of ureteral stones. She has had surgical intervention in the past. MD complaint: flank pain Onset (ago): hour(s) Location: left Radiation: non-radiation Severity: moderate Consistency: constant Relieving factors: none Exacerbating factors: none Associated symptoms: nausea/vomiting; negative fever/chills Related Data Previous Rx's ?Medication ?Instructions ?Recorded bisoprolol fumarate 5 mg tablet 5 mg PO DAILY #90 tabs 03/15/23 ketorolac 10 mg tablet 10 mg PO Q6H PRN pain 5 days #20 01/13/24 tabs tamsulosin 0.4 mg capsule 0.4 mg PO DAILY #7 caps 01/13/24 buspirone 10 mg tablet See Rx Instructions .Route 01/18/24 .COMPLEX #180 tabs paroxetine HCl 20 mg tablet See Rx Instructions .Route 01/19/24 .COMPLEX #30 tabs omeprazole 20 mg capsule,delayed 20 mg PO DAILY Acid reflux #90 caps 01/31/24 release levothyroxine 100 mcg tablet See Rx Instructions .Route 02/11/24 .COMPLEX #90 tabs cefdinir 300 mg capsule 300 mg PO BID 7 days #14 caps 03/26/24 ondansetron 4 mg disintegrating 4 mg PO Q8H PRN nausea and 03/26/24 tablet vomiting 3 days #9 tabs oxycodone 5 mg tablet 5 mg PO Q6H PRN pain #10 tabs 03/26/24 Allergies Allergy/AdvReac Type Severity Reaction Status Date / Time meperidine (From Demerol) AdvReac Intermediate seizure Verified 01/13/24 20:24 like episode [facility] <KELLY Alvarado - Last Filed: 03/26/24 20:05> [facility] Disclaimer: The information contained in this section may have been updated after the patient was seen, as this information can be updated by other users. 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 (Updated 03/26/24 @ 18:45 by KELLY Alvarado) Enlarged tonsils Depression Anxiety Hyperlipidemia Hypertension Endothelial dysfunction of coronary artery Lipoma Bilateral chronic serous otitis media Sialoadenitis of submandibular gland DDD (degenerative disc disease) Normal Pap smear Hypothyroidism Sinusitis, acute Kidney stones Arrhythmia History of paroxysmal supraventricular tachycardia BMI 28.0-28.9,adult Brisk deep tendon reflexes Abnormal MRI, cervical spine Chronic intractable headache Chronic headaches History of left heart catheterization Normal colonoscopy Pharyngitis Viral syndrome Skin abscess Fracture of fourth toe, right, closed Tachyarrhythmia Chest pain at rest Dizziness Dyspnea Family history of ischemic heart disease before age 50 Neuroforaminal stenosis of cervical spine Upper respiratory infection Suspected COVID-19 virus infection Chest pain Right ankle sprain Ankle fracture URI (upper respiratory infection) Obstructive Sleep Apnea-Hypopnea Syndrome Sinusitis Right lower quadrant pain Strep throat Surgical History History of colonoscopy History of laparoscopic cholecystectomy S/P laparoscopic cholecystectomy H/O colonoscopy with polypectomy History of endometrial ablation H/O cardiac radiofrequency ablation H/O lithotripsy History of esophagogastroduodenoscopy (EGD) Family History Father Heart attack Family history of diabetes mellitus type II Brother Heart attack Other Coronary artery disease Hypertension Thyroid disorder Social History (Updated 03/26/24 @ 14:23 by Magaly Briggs RN) Smoking Status: Current every day smoker tobacco type: e-cigarettes years smoked: 2 second hand exposure: No alcohol intake: never substance use type: denies use current occupational status: employed and other Travel in the last 8 weeks: None adopted: No caregiver/support person: Yes foster care: No household members: spouse housing: house lives independently: Yes marital status: number of children: 3 number of grandchildren: 0 current occupation: [employer] Main current occupational exposures/hazards: No pets and animals: Yes sexually active: Yes other: Last Papsmear 2020 caffeine: Yes physical activity: none Have you lived/traveled outside US in past 30 days?: No Contact w/someone who lives/traveled outside US past 30 days?: No Exposure to someone with infectious disease in past 14 days?: No Do you have a fever (greater than 100.4 F or 38 C)?: No Have you tested positive for COVID-19: No Exposed to someone with COVID-19 in past 14 days?: No Do you have a sore throat?: No Do you have a cough?: No Do you have any weakness?: No Do you have any diarrhea?: No Are you experiencing any unusual bleeding?: No Do you have any muscle aches/pain?: No Do you have any abdominal pain?: No Are you experiencing loss of taste or smell?: No Other 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 Have you received the Flu Vaccine for this season: No Have you received the Pneumonia Vaccine: No <KELLY Alvarado - Last Filed: 03/26/24 20:05> ROS Obtained: Yes Systems reviewed as appropriate & no additional complaints except as documented Physical Exam <KELLY Alvarado Last Filed: 03/26/24 20:05> General General appearance: alert and in no apparent distress Head Head exam: atraumatic and normocephalic Eye Eye exam: Present normal appearance and EOMI Chest Chest inspection: Present symmetric chest wall rise Respiratory Respiratory exam: Present normal lung sounds bilaterally; Absent wheezes or stridor Cardiovascular Cardiovascular exam: Present regular rate and normal rhythm; Absent systolic murmur Abdominal Exam Abdominal exam: Present soft and tenderness (left lateral mid abdomen, CVA tenderness ); Absent distention Extremities Exam Extremities exam: Present full ROM Neurological Exam Neurological exam: Present alert and oriented X3 Psychiatric Psychiatric exam: Present normal affect and normal mood Skin Skin exam: Present warm, dry and intact Medical Decision Making <KELLY Alvarado Last Filed: 03/26/24 20:05> Medical Records Screening: Per USPSTF and CDC recommendations, given the prevalence of disease in our region, it is our hospital?s policy to screen for HIV and viral Hepatitis for all patients aged 18 and over and those with ongoing risk factors. Vital Signs: 03/26/24 13:39 03/26/24 14:30 03/26/24 15:29 Temperature 98.0 F Temperature Source Oral Pulse Rate 61 69 Pulse Rate [Right Radial] 91 H Respiratory Rate 18 16 16 Blood Pressure 137/82 130/80 Blood Pressure [Right Arm] 131/91 H Blood Pressure Mean [Right Arm] 104 Blood Pressure Source Automatic Cuff Automatic Cuff Blood Pressure Source [Right Arm] Automatic Cuff Blood Pressure Position Sitting Sitting Blood Pressure Position [Right Arm] Sitting 02 Sat by Pulse Oximetry 95 100 99 Oxygen Delivery Method Room Air Room Air Room Air 03/26/24 19:04 Temperature 98.1 F Temperature Source Oral Pulse Rate 56 L Pulse Rate [Right Radial] Respiratory Rate 16 Blood Pressure 130/78 Blood Pressure [Right Arm] Blood Pressure Mean [Right Arm] Blood Pressure Source Automatic Cuff Blood Pressure Source [Right Arm] Blood Pressure Position Sitting Blood Pressure Position [Right Arm] 02 Sat by Pulse Oximetry Oxygen Delivery Method Room Air Lab Data Lab Results 03/26/24 13:37: Urine Color Yellow, Urine Appearance Clear, Urine pH 6.0, Ur Specific [place] 1.025, Urine Protein Negative, Urine Glucose (UA) Negative, Urine Ketones Negative, Urine Blood Trace-i, Urine Nitrate Negative, Urine Bilirubin Negative, Urine Urobilinogen 0.2, Ur Leukocyte Esterase 1+ A, Urine RBC None, Urine WBC 3-5, Ur Squamous Epith Cells 5-10, Amorphous Sediment Trace, Urine Bacteria Trace, Urine HCG, Qual Negative 03/26/24 14:19: WBC 6.7, RBC 4.87, Hgb 13.4, Hct 40.7, MCV 83.6, MCH 27.5, MCHC 32.9, RDW 13.7, Plt Count 231, MPV 9.7, Neut % (Auto) 59.0, Lymph % (Auto) 28.8, [place] % (Auto) 10.4 H, Eos % (Auto) 1.0, Baso % (Auto) 0.7, Neut # (Auto) 4.0, Lymph # (Auto) 1.9, [place] # (Auto) 0.7, Eos # (Auto) 0.1, Baso # (Auto) 0.1, Sodium 137, Potassium 3.9, Chloride 102, Carbon Dioxide 27, Anion Gap 11.9, BUN 10, Creatinine 0.70, Estimated Creat Clear 117, Estimated GFR 92, Est GFR ( Amer) 111, Glucose 101 H, Calcium 9.4, Total Bilirubin 0.8, AST 36, ALT 27, Alkaline Phosphatase 79, Total Protein 8.2, Albumin 4.7, Globulin 3.5 H, Albumin/Globulin Ratio 1.3, Lipase 96 03/26/24 14:19 03/26/24 14:19 Orders (Tests/Meds): ED MEDICATIONS Discontinued Medications Generic Name Dose Route Start Last Admin Trade Name Freq PRN Reason Stop Dose Admin Hydromorphone HCl 1 mg 03/26/24 16:08 03/26/24 16:14 Hydromorphone 2mg/Ml Syringe IV 03/26/24 16:09 1 mg ONCE ONE Administration Sodium Chloride 1,000 mls @ 999 mls/hr 03/26/24 14:09 03/26/24 14:26 Sod Chlor 0.9% 1000ml Bag IV 03/26/24 15:09 999 mls/hr .Q1H1M ONE Administration Ceftriaxone Sodium 1 gm/ 50 mls @ 100 mls/hr 03/26/24 16:15 03/26/24 16:59 Sodium Chloride IV 04/05/24 16:14 100 mls/hr Q24H KIMBERLY Administration Morphine Sulfate 4 mg 03/26/24 14:09 03/26/24 14:27 Morphine 4mg/Ml Syringe IV 03/26/24 14:10 4 mg ONCE ONE Administration Ondansetron HCl 4 mg 03/26/24 14:09 03/26/24 14:27 Ondansetron 4mg/2ml Vial IV 03/26/24 14:10 4 mg ONCE ONE Administration Ondansetron HCl 4 mg 03/26/24 15:22 03/26/24 15:28 Ondansetron 4mg/2ml Vial IV 03/26/24 15:23 4 mg ONCE ONE Administration ORDERS Category Date Time Status CT abdomen pelvis wo con Stat Cat Scan 03/26/24 14:09 Completed CBC w/Auto Diff [Complete Blood Count Auto Diff] Stat Lab 03/26/24 14:19 Completed CMP [Comprehensive Metabolic Panel] Stat Lab 03/26/24 14:19 Completed Lipase Stat Lab 03/26/24 14:19 Completed UA [Urinalysis and Microscopic] Stat Lab 03/26/24 13:37 Completed Urine , HCG Qual. Stat Lab 03/26/24 13:37 Completed Urine Culture Stat Micro 03/26/24 13:[address] Scan: Abdomen and Pelvis Time Received: 17:46 Findings Narrative: IMPRESSION: 1. Moderate left renal obstructive hydronephrosis and hydroureter. This is due to a retained stone within the distal left ureter measuring about 5 mm may be partially fragmented. The stone is located approximately 5 cm cephalad to the UVJ. 2. Stable left adrenal adenoma measures 9 mm. There are approximately 5 nonobstructing stones within the right kidney each measuring 1 mm. Medical Decision Narrative: In summary patient is a 43-year-old female who presents the emergency department for evaluation of left flank pain. Patient is hemodynamically stable upon arrival, afebrile. Left lateral abdomen and CVA tender. Differential diagnosis includes ureteral stone, UTI, diverticulitis, musculoskeletal flank pain. Initial workup will be conducted with labs, urine, CT abdomen and pelvis. Initial inventions include IV fluids, Zofran, morphine. Initial workup reviewed by me labs on actionable, urinalysis reveals leukocyte esterase 1+, CT reveals 5 mm obstructing right ureteral stone. Upon repeat evaluation patient had resolution of pain. She is followed by Dr. Rich. I did reach out to his office, [facility] and he was unavailable at all locations. Given this discussed transfer to another facility or call to follow-up with Dr. Blanchard in the morning. Patient reports that she is well-established with him and is seeing him for over 12 years, she would prefer to follow-up with him tomorrow. Instructed to return to the ER for any worsening of symptoms. Given Rocephin in the emergency department and sent a prescription for cefdinir as well as pain medication and Zofran. She is agreeable to the plan. Ted Williamson: I was consulted by the TYLER, and we discussed the complexity of the problems being addressed. I approved the treatment and management plan for this patient's care in the emergency department, thus performing a substantive portion of the medical decision making. I agree with the initial workup and imaging orders. Initial hematologic labs reviewed by me and are nonactionable. Urinalysis equivocal for infection hCG negative. CT imaging conducted and pending at time of transition of care to the oncoming physician, Dr. Anton. <Ted Williamson MD - Last Filed: 03/26/24 15:41> Monty Inquiry Pt receiving controlled substance: No Vital Signs: 03/26/24 13:39 03/26/24 14:30 03/26/24 15:29 Temperature 98.0 F Temperature Source Oral Pulse Rate 61 69 Pulse Rate [Right Radial] 91 H Respiratory Rate 18 16 16 Blood Pressure 137/82 130/80 Blood Pressure [Right Arm] 131/91 H Blood Pressure Mean [Right Arm] 104 Blood Pressure Source Automatic Cuff Automatic Cuff Blood Pressure Source [Right Arm] Automatic Cuff Blood Pressure Position Sitting Sitting Blood Pressure Position [Right Arm] Sitting 02 Sat by Pulse Oximetry 95 100 99 Oxygen Delivery Method Room Air Room Air Room Air 03/26/24 19:04 Temperature 98.1 F Temperature Source Oral Pulse Rate 56 L Pulse Rate [Right Radial] Respiratory Rate 16 Blood Pressure 130/78 Blood Pressure [Right Arm] Blood Pressure Mean [Right Arm] Blood Pressure Source Automatic Cuff Blood Pressure Source [Right Arm] Blood Pressure Position Sitting Blood Pressure Position [Right Arm] 02 Sat by Pulse Oximetry Oxygen Delivery Method Room Air Lab Data Lab Results 03/26/24 13:37: Urine Color Yellow, Urine Appearance Clear, Urine pH 6.0, Ur Specific [place] 1.025, Urine Protein Negative, Urine Glucose (UA) Negative, Urine Ketones Negative, Urine Blood Trace-i, Urine Nitrate Negative, Urine Bilirubin Negative, Urine Urobilinogen 0.2, Ur Leukocyte Esterase 1+ A, Urine RBC None, Urine WBC 3-5, Ur Squamous Epith Cells 5-10, Amorphous Sediment Trace, Urine Bacteria Trace, Urine HCG, Qual Negative 03/26/24 14:19: WBC 6.7, RBC 4.87, Hgb 13.4, Hct 40.7, MCV 83.6, MCH 27.5, MCHC 32.9, RDW 13.7, Plt Count 231, MPV 9.7, Neut % (Auto) 59.0, Lymph % (Auto) 28.8, [place] % (Auto) 10.4 H, Eos % (Auto) 1.0, Baso % (Auto) 0.7, Neut # (Auto) 4.0, Lymph # (Auto) 1.9, [place] # (Auto) 0.7, Eos # (Auto) 0.1, Baso # (Auto) 0.1, Sodium 137, Potassium 3.9, Chloride 102, Carbon Dioxide 27, Anion Gap 11.9, BUN 10, Creatinine 0.70, Estimated Creat Clear 117, Estimated GFR 92, Est GFR ( Amer) 111, Glucose 101 H, Calcium 9.4, Total Bilirubin 0.8, AST 36, ALT 27, Alkaline Phosphatase 79, Total Protein 8.2, Albumin 4.7, Globulin 3.5 H, Albumin/Globulin Ratio 1.3, Lipase 96 Orders (Tests/Meds): ED MEDICATIONS Discontinued Medications Generic Name Dose Route Start Last Admin Trade Name Freq PRN Reason Stop Dose Admin Hydromorphone HCl 1 mg 03/26/24 16:08 03/26/24 16:14 Hydromorphone 2mg/Ml Syringe IV 03/26/24 16:09 1 mg ONCE ONE Administration Sodium Chloride 1,000 mls @ 999 mls/hr 03/26/24 14:09 03/26/24 14:26 Sod Chlor 0.9% 1000ml Bag IV 03/26/24 15:09 999 mls/hr .Q1H1M ONE Administration Ceftriaxone Sodium 1 gm/ 50 mls @ 100 mls/hr 03/26/24 16:15 03/26/24 16:59 Sodium Chloride IV 04/05/24 16:14 100 mls/hr Q24H KIMBERLY Administration Morphine Sulfate 4 mg 03/26/24 14:09 03/26/24 14:27 Morphine 4mg/Ml Syringe IV 03/26/24 14:10 4 mg ONCE ONE Administration Ondansetron HCl 4 mg 03/26/24 14:09 03/26/24 14:27 Ondansetron 4mg/2ml Vial IV 03/26/24 14:10 4 mg ONCE ONE Administration Ondansetron HCl 4 mg 03/26/24 15:22 03/26/24 15:28 Ondansetron 4mg/2ml Vial IV 03/26/24 15:23 4 mg ONCE ONE Administration ORDERS Category Date Time Status CT abdomen pelvis wo con Stat Cat Scan 03/26/24 14:09 Completed CBC w/Auto Diff [Complete Blood Count Auto Diff] Stat Lab 03/26/24 14:19 Completed CMP [Comprehensive Metabolic Panel] Stat Lab 03/26/24 14:19 Completed Lipase Stat Lab 03/26/24 14:19 Completed UA [Urinalysis and Microscopic] Stat Lab 03/26/24 13:37 Completed Urine , HCG Qual. Stat Lab 03/26/24 13:37 Completed Urine Culture Stat Micro 03/26/24 13:37 Received Medical Decision Narrative: In summary patient is a 43-year-old female who presents the emergency department for evaluation of left flank pain. Patient is hemodynamically stable upon arrival, afebrile. Left lateral abdomen and CVA tender. Differential diagnosis includes ureteral stone, UTI, diverticulitis, musculoskeletal flank pain. Initial workup will be conducted with labs, urine, CT abdomen and pelvis. Initial inventions include IV fluids, Zofran, morphine. Initial workup reviewed by me [hematologic labs are remarkable for? Imaging remarkable for? Urinalysis remarkable for?]. Upon repeat evaluation [patient had acceptable resolution of symptoms, had persistent pain for which additional interventions were conducted (describe interventions), tolerated p.o., was ambulatory, etc.]. Given this [patient is appropriate for discharge at this time will be discharged with a prescription for? The case was discussed with hospital medicine regarding management and they will meet the patient their service for continued valuation at this time? Etc.]. Ted Williamson: I was consulted by the TYLER, and we discussed the complexity of the problems being addressed. I approved the treatment and management plan for this patient's care in the emergency department, thus performing a substantive portion of the medical decision making. I agree with the initial workup and imaging orders. Initial hematologic labs reviewed by me and are nonactionable. Urinalysis equivocal for infection hCG negative. CT imaging conducted and pending at time of transition of care to the oncoming physician, Dr. Anton. <Too Anton MD - Last Filed: 03/26/24 21:20> Vital Signs: 03/26/24 13:39 03/26/24 14:30 03/26/24 15:29 Temperature 98.0 F Temperature Source Oral Pulse Rate 61 69 Pulse Rate [Right Radial] 91 H Respiratory Rate 18 16 16 Blood Pressure 137/82 130/80 Blood Pressure [Right Arm] 131/91 H Blood Pressure Mean [Right Arm] 104 Blood Pressure Source Automatic Cuff Automatic Cuff Blood Pressure Source [Right Arm] Automatic Cuff Blood Pressure Position Sitting Sitting Blood Pressure Position [Right Arm] Sitting 02 Sat by Pulse Oximetry 95 100 99 Oxygen Delivery Method Room Air Room Air Room Air 03/26/24 19:04 Temperature 98.1 F Temperature Source Oral Pulse Rate 56 L Pulse Rate [Right Radial] Respiratory Rate 16 Blood Pressure 130/78 Blood Pressure [Right Arm] Blood Pressure Mean [Right Arm] Blood Pressure Source Automatic Cuff Blood Pressure Source [Right Arm] Blood Pressure Position Sitting Blood Pressure Position [Right Arm] 02 Sat by Pulse Oximetry Oxygen Delivery Method Room Air Lab Data Lab Results 03/26/24 13:37: Urine Color Yellow, Urine Appearance Clear, Urine pH 6.0, Ur Specific [place] 1.025, Urine Protein Negative, Urine Glucose (UA) Negative, Urine Ketones Negative, Urine Blood Trace-i, Urine Nitrate Negative, Urine Bilirubin Negative, Urine Urobilinogen 0.2, Ur Leukocyte Esterase 1+ A, Urine RBC None, Urine WBC 3-5, Ur Squamous Epith Cells 5-10, Amorphous Sediment Trace, Urine Bacteria Trace, Urine HCG, Qual Negative 03/26/24 14:19: WBC 6.7, RBC 4.87, Hgb 13.4, Hct 40.7, MCV 83.6, MCH 27.5, MCHC 32.9, RDW 13.7, Plt Count 231, MPV 9.7, Neut % (Auto) 59.0, Lymph % (Auto) 28.8, [place] % (Auto) 10.4 H, Eos % (Auto) 1.0, Baso % (Auto) 0.7, Neut # (Auto) 4.0, Lymph # (Auto) 1.9, [place] # (Auto) 0.7, Eos # (Auto) 0.1, Baso # (Auto) 0.1, Sodium 137, Potassium 3.9, Chloride 102, Carbon Dioxide 27, Anion Gap 11.9, BUN 10, Creatinine 0.70, Estimated Creat Clear 117, Estimated GFR 92, Est GFR ( Amer) 111, Glucose 101 H, Calcium 9.4, Total Bilirubin 0.8, AST 36, ALT 27, Alkaline Phosphatase 79, Total Protein 8.2, Albumin 4.7, Globulin 3.5 H, Albumin/Globulin Ratio 1.3, Lipase 96 Orders (Tests/Meds): ED MEDICATIONS Discontinued Medications Generic Name Dose Route Start Last Admin Trade Name Freq PRN Reason Stop Dose Admin Hydromorphone HCl 1 mg 03/26/24 16:08 03/26/24 16:14 Hydromorphone 2mg/Ml Syringe IV 03/26/24 16:09 1 mg ONCE ONE Administration Sodium Chloride 1,000 mls @ 999 mls/hr 03/26/24 14:09 03/26/24 14:26 Sod Chlor 0.9% 1000ml Bag IV 03/26/24 15:09 999 mls/hr .Q1H1M ONE Administration Ceftriaxone Sodium 1 gm/ 50 mls @ 100 mls/hr 03/26/24 16:15 03/26/24 16:59 Sodium Chloride IV 04/05/24 16:14 100 mls/hr Q24H KIMBERLY Administration Morphine Sulfate 4 mg 03/26/24 14:09 03/26/24 14:27 Morphine 4mg/Ml Syringe IV 03/26/24 14:10 4 mg ONCE ONE Administration Ondansetron HCl 4 mg 03/26/24 14:09 03/26/24 14:27 Ondansetron 4mg/2ml Vial IV 03/26/24 14:10 4 mg ONCE ONE Administration Ondansetron HCl 4 mg 03/26/24 15:22 03/26/24 15:28 Ondansetron 4mg/2ml Vial IV 03/26/24 15:23 4 mg ONCE ONE Administration ORDERS Category Date Time Status CT abdomen pelvis wo con Stat Cat Scan 03/26/24 14:09 Completed CBC w/Auto Diff [Complete Blood Count Auto Diff] Stat Lab 03/26/24 14:19 Completed CMP [Comprehensive Metabolic Panel] Stat Lab 03/26/24 14:19 Completed Lipase Stat Lab 03/26/24 14:19 Completed UA [Urinalysis and Microscopic] Stat Lab 03/26/24 13:37 Completed Urine , HCG Qual. Stat Lab 03/26/24 13:37 Completed Urine Culture Stat Micro 03/26/24 13:37 Received Medical Decision Narrative: In summary patient is a 43-year-old female who presents the emergency department for evaluation of left flank pain. Patient is hemodynamically stable upon arrival, afebrile. Left lateral abdomen and CVA tender. Differential diagnosis includes ureteral stone, UTI, diverticulitis, musculoskeletal flank pain. Initial workup will be conducted with labs, urine, CT abdomen and pelvis. Initial inventions include IV fluids, Zofran, morphine. Initial workup reviewed by md labs on actionable, urinalysis reveals leukocyte esterase 1+, CT reveals 5 mm obstructing right ureteral stone. Upon repeat evaluation patient had resolution of pain. She is followed by Dr. Rich. I did reach out to his office, [facility] and he was unavailable at all locations. Given this discussed transfer to another facility or call to follow-up with Dr. Blanchard in the morning. Patient reports that she is well-established with him and is seeing him for over 12 years, she would prefer to follow-up with him tomorrow. Instructed to return to the ER for any worsening of symptoms. Given Rocephin in the emergency department and sent a prescription for cefdinir as well as pain medication and Zofran. She is agreeable to the plan. I was consulted by the TYLER, and we discussed the complexity of the problems being addressed. I approved the treatment and management plan for this patient's care in the Emergency Department, thus performing a substantive portion of the medical decision making. Too Anton MD Critical Care <Ted Williamson MD - Last Filed: 03/26/24 15:41> Critical Care Time Critical Care Time: No
[2024-03-26 15:29] VITALS: BP 130/80; PULSE 69; RESP 16; O2SAT 99
--- NOTE | 2024-03-26 16:06 | PC.NURSE ---
CHECKED ON PT, PT REPORTS STILL NAUSEATED, C/O PAIN IN EPIGASTRIC AREA. STATED TO PT WILL NOTIFY PROVIDER. NOTIFIED KELLY VALVERDE STATES SHE WILL ORDER MORE MEDICATION FOR PT.
[2024-03-26] MEDS: HYDROMORPHONE 2MG/ML SYRINGE 1 MG IV (16:14)
[2024-03-26 16:41] LABS: Lipase 96 U/L (23-300)
[2024-03-26] MEDS: CEFTRIAXONE SODIUM 1 GM in 0.9 % SODIUM CHLORIDE 50 ML IV (16:59)
--- NOTE | 2024-03-26 17:55 | PC.NURSE ---
KELLY VALVERDE SPEAKING WITH PT.
[2024-03-26 19:04] VITALS: BP 130/78; PULSE 56; RESP 16; TEMP 36.7; O2SAT 96
== END 2024-03-26 19:05 | disposition home or self-care (01) ==
PROVIDERS: Emergency Medicine; Physician Assistant; Emergency Provider Emergency Medicine; PCP Nurse Practitioner Family
DX: N39.0 Urinary tract infection, site not specified (principal); N13.2 Hydronephrosis with renal and ureteral calculous obstruction; R10.32 Left lower quadrant pain; R30.9 Painful micturition, unspecified; R11.0 Nausea; R35.0 Frequency of micturition
CPT/HCPCS: 74176; 80053; 81001; 81025; 83690; 85025; 87086; 96365; 96374; 96375; 99284; J0696; J1171; J2270; J2405; J7030

== ENCOUNTER 2024-05-01 11:55 | Emergency (ER) | payer OTHER, SELFPAY ==
[2024-05-01 13:28] VITALS: BP 117/70; PULSE 70; RESP 19; TEMP 36.7; O2SAT 98; BMI 28.0
[2024-05-01 13:49] LABS: UTC Strep Screen (Rapid) Negative (Negative)
--- NOTE | 2024-05-01 14:12 | ED_ITS ---
Discharge Plan Disposition Patient Disposition: Home, Self-Care Condition: Good Prescriptions Prescriptions: New amoxicillin 500 mg capsule 500 mg PO BID 10 Days Qty: 20 0RF No Action bisoprolol fumarate 5 mg tablet 5 mg PO DAILY Qty: 90 3RF levothyroxine 100 mcg tablet 100 mcg PO DAILY Qty: 90 3RF buspirone 10 mg tablet See Rx Instructions .ROUTE .COMPLEX Qty: 180 0RF Dose Instruction: TAKE 1 TABLET BY MOUTH TWICE DAILY FOR ANXIETY Rx Instructions: TAKE 1 TABLET BY MOUTH TWICE DAILY FOR ANXIETY paroxetine HCl 20 mg tablet See Rx Instructions .ROUTE .COMPLEX Qty: 30 1RF Dose Instruction: Take 1 tablet by mouth once daily Rx Instructions: Take 1 tablet by mouth once daily omeprazole 20 mg capsule,delayed release(DR/EC) 20 mg PO DAILY Qty: 90 0RF ondansetron 4 mg tablet,disintegrating 4 mg PO Q8H PRN (Reason: nausea and vomiting) 3 Days Qty: 9 0RF Referrals Follow up/Referrals: Susie Dela Cruz APRN [Primary Care Provider] - See instructions Activity Restrictions/Add. Instructions Additional Instructions/Restrictions: *Monitor Temp, Over the counter Motrin or Tylenol as directed/as needed Tylenol every 4 hours and Motrin every 6 hours (as long as your family doctor has told you that you can take it) for fever or pain. and straight to ER if unable to lower temp less than 101.0 after medication given *Warm salt water gargles may help to soothe the throat *Throat Lozenges? *Warm fluids like tea with honey may help to soothe the throat? *Sleep elevated *Humidifier/Vaporizer Your throat swab was sent for culture. Those results are typically sent to your primary care. Be sure to follow up in 2-3 days with your family doctor/primary care physician if no improvement so they can review those result and treat if necessary. If you don?t have a primary care doctor, I recommend you get one but in the mean time, you will have to return to a walk in clinic Follow up IMMEDIATELY for new or worsening symptoms or no Noticeable improvement over the next 48-72 hours. 911 for difficulty breathing or swallow ing Clinical Impressions Clinical Impression: Pharyngitis Instructions Patient Instructions: Sore Throat Print Language Print Language: Afghan Discharge ED Provider: Arabella Reed [facility] HPI General Stated complaint: sore throat Mode of Arrival: Ambulatory Source of Information: Patient Limitations: No Limitations Time Seen by Provider: 05/01/24 14:12 Description of Symptoms (Recalled from Triage Doc. by RN): SORE, ITCHY THROAT HEENT Symptoms (Recalled from RN notes): No Resp Symptoms (Recalled from RN notes): Yes Skin Symptoms (Recalled from RN notes): No MS Symptoms (Recalled from RN notes): No Functional Status (Recalled from RN notes): NA History of Present Illness Provider Complaint: Patient states that she feels like she may have strep throat States that she has been having sore scratchy throat so today when it was still bothering her she came in to get it checked Related Data Previous Rx's ?Medication ?Instructions ?Recorded bisoprolol fumarate 5 mg tablet 5 mg PO DAILY #90 tabs 03/15/23 buspirone 10 mg tablet See Rx Instructions .Route 01/18/24 .COMPLEX #180 tabs paroxetine HCl 20 mg tablet See Rx Instructions .Route 01/19/24 .COMPLEX #30 tabs omeprazole 20 mg capsule,delayed 20 mg PO DAILY Acid reflux #90 caps 01/31/24 release ondansetron 4 mg disintegrating 4 mg PO Q8H PRN nausea and 03/26/24 tablet vomiting 3 days #9 tabs levothyroxine 100 mcg tablet 100 mcg PO DAILY #90 tabs 04/17/24 amoxicillin 500 mg capsule 500 mg PO BID 10 days #20 caps 05/01/24 Allergies Allergy/AdvReac Type Severity Reaction Status Date / Time meperidine (From Demerol) AdvReac Intermediate seizure Verified 04/17/24 13:25 like episode Worker's Comp Is this a Worker's Comp case?: No [facility] Disclaimer: The information contained in this section may have been updated after the patient was seen, as this information can be updated by other users. 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 Enlarged tonsils Depression Anxiety Hyperlipidemia Hypertension Endothelial dysfunction of coronary artery Lipoma Bilateral chronic serous otitis media Sialoadenitis of submandibular gland DDD (degenerative disc disease) Normal Pap smear Apr 2020 Hypothyroidism Sinusitis, acute Kidney stones Arrhythmia History of paroxysmal supraventricular tachycardia BMI 28.0-28.9,adult Brisk deep tendon reflexes Abnormal MRI, cervical spine Chronic intractable headache Chronic headaches History of left heart catheterization Normal colonoscopy Pharyngitis Viral syndrome Skin abscess Fracture of fourth toe, right, closed Tachyarrhythmia Chest pain at rest Dizziness Dyspnea Family history of ischemic heart disease before age 50 Neuroforaminal stenosis of cervical spine Upper respiratory infection Suspected COVID-19 virus infection Chest pain Right ankle sprain Ankle fracture URI (upper respiratory infection) Obstructive Sleep Apnea-Hypopnea Syndrome Sinusitis Right lower quadrant pain Strep throat Surgical History History of colonoscopy History of laparoscopic cholecystectomy S/P laparoscopic cholecystectomy H/O colonoscopy with polypectomy 09/2021 History of endometrial ablation H/O cardiac radiofrequency ablation H/O lithotripsy History of esophagogastroduodenoscopy (EGD) Family History Father Heart attack Family history of diabetes mellitus type II Brother Heart attack Other Coronary artery disease Hypertension Thyroid disorder Social History Smoking Status: Current every day smoker tobacco type: e-cigarettes years smoked: 2 second hand exposure: No alcohol intake: never substance use type: denies use current occupational status: employed and other Travel in the last 8 weeks: None adopted: No caregiver/support person: Yes foster care: No household members: spouse housing: house lives independently: Yes marital status: number of children: 3 number of grandchildren: 0 current occupation: [employer] Main current occupational exposures/hazards: No pets and animals: Yes sexually active: Yes other: Last Papsm2020 caffeine: Yes physical activity: none Have you lived/traveled outside US in past 30 days?: No Contact w/someone who lives/traveled outside US past 30 days?: No Exposure to someone with infectious disease in past 14 days?: No Do you have a fever (greater than 100.4 F or 38 C)?: No Have you tested positive for COVID-19: No Exposed to someone with COVID-19 in past 14 days?: No Do you have a sore throat?: Yes Do you have a cough?: No Do you have any weakness?: No Do you have any diarrhea?: No Are you experiencing any unusual bleeding?: No Do you have any muscle aches/pain?: No Do you have any abdominal pain?: No Are you experiencing loss of taste or smell?: No ROS Obtained: Yes All systems reviewed & no additional complaints except as documented and Yes Systems reviewed as appropriate & no additional complaints except as documented Constitutional Constitutional: Reports system reviewed and no additional complaints, except as documented, Reports as per HPI, Reports fever(s) and Reports headache(s) ENT Ears, Nose, Mouth, and Throat: Reports system reviewed and no additional complaints, except as documented, Reports as per HPI, Reports headache(s) and Reports sore throat Cardiovascular Cardiovascular: Reports system reviewed and no additional complaints, except as documented and Reports as per HPI Respiratory Respiratory: Reports system reviewed and no additional complaints, except as documented and Reports as per HPI Gastrointestinal Gastrointestingal: Reports system reviewed and no additional complaints, except as documented and as per HPI Neurologic Neurologic: Reports headache(s) Physical Exam General General appearance: alert and in no apparent distress ENT ENT exam: Present mucous membranes moist Expanded ENT Exam Nose exam: Absent sinus tenderness Throat exam: Present tonsillar erythema Respiratory Respiratory exam: Present normal lung sounds bilaterally; Absent respiratory distress or wheezes Cardiovascular Cardiovascular exam: Present regular rate, normal rhythm and normal heart sounds Abdominal Exam Abdominal exam: Present soft and normal bowel sounds; Absent distention or tenderness Neurological Exam Neurological exam: Present alert, oriented X3 and normal gait Medical Decision Making Medical Records Screening: Per USPSTF and CDC recommendations, given the prevalence of disease in our region, it is our hospital?s policy to screen for HIV and viral Hepatitis for all patients aged 18 and over and those with ongoing risk factors. Monty Inquiry Pt receiving controlled substance: No Monty was queried for this patient: No Vital Signs: 05/01/24 13:28 Temperature 98.0 F Temperature Source Oral Pulse Rate [Left Radial] 70 Respiratory Rate 19 Blood Pressure [Right Arm] 117/70 Blood Pressure Mean [Right Arm] 85 02 Sat by Pulse Oximetry 98 Lab Data Lab results reviewed: Yes I reviewed the patient's lab results. Lab Results 05/01/24 13:27: Strep Scn Rapid Clinic Negative Orders (Tests/Meds): ORDERS Category Date Time Status Strep Screen Confirmation Stat Micro 05/01/24 13:27 Received
[2024-05-01 14:19] VITALS: BP 117/70; PULSE 70; RESP 19; TEMP 36.7; O2SAT 98
== END 2024-05-01 14:20 | disposition home or self-care (01) ==
PROVIDERS: Emergency Provider Nurse Practitioner; PCP Nurse Practitioner Family
DX: J02.9 Acute pharyngitis, unspecified (principal)
CPT/HCPCS: 87880; 99213; G0381

== ENCOUNTER 2024-06-11 16:20 | Outpatient (CLI) | payer OTHER, SELFPAY | END 2024-06-11 23:59 | disposition home or self-care (01) | LOC: LAB.DROPOF 06-12 12:52 | PROVIDERS: PCP Nurse Practitioner Family; Visit Provider Nurse Practitioner Family | DX: J02.9 Acute pharyngitis, unspecified (principal) | CPT/HCPCS: 87070 ==

== ENCOUNTER 2024-06-14 12:35 | Outpatient (CLI) | payer OTHER, SELFPAY ==
[2024-06-14 13:55] LABS: Free T4 (Free Thyroxine) 1.07 ng/dl (0.78-2.19)
[2024-06-14 14:09] LABS: Thyroid Stimulating Hormone 1.62 uIU/mL (0.465-4.68)
== END 2024-06-14 23:59 | disposition home or self-care (01) ==
LOC: LAB 12:37
PROVIDERS: PCP Nurse Practitioner Family; Visit Provider Nurse Practitioner
DX: E03.9 Hypothyroidism, unspecified (principal)
CPT/HCPCS: 36415; 84439; 84443

== ENCOUNTER 2024-06-19 16:34 | Outpatient (CLI) | payer OTHER, SELFPAY ==
--- NOTE | 2024-06-19 16:45 | MR_ITS ---
FINAL REPORT CLINICAL HISTORY: lumbar radiculopathy NUMBNESS IN LEGS AND ARMS WITH PAIN AND TINGLING X 2 MONTHS NO INJURY / TRAUMA COMPARISON: 04/30/2020 FINDINGS: Multiplanar MR imaging of the lumbar spine was performed without contrast. On the sagittal T2-weighted images, there is abnormal decreased signal throughout the lumbar discs. The vertebrae are of normal height. The vertebral alignment is normal. L1-2: There is no significant canal stenosis or neural foraminal narrowing. L2-3: Previously noted minuscule right paracentral disc protrusion is stable. Neuroforamina adequately patent. L3-4: There is no significant canal stenosis or neural foraminal narrowing. L4-5: Mild annular prominence. No disc bulge or protrusion. Neuroforamina adequately patent. L5-S1: There is no significant canal stenosis or neural foraminal narrowing. IMPRESSION: Minuscule right paracentral disc protrusion at L2-3 stable. Mild annular bulge at L4-5 stable. Reviewed, Interpreted and Dictated by Philip Carbajal MD Transcribed by Melody Alexandra Authenticated and [facility]
== END 2024-06-19 23:59 | disposition home or self-care (01) ==
LOC: RAD 16:35
PROVIDERS: PCP Nurse Practitioner Family; Visit Provider Nurse Practitioner Family
DX: M54.16 Radiculopathy, lumbar region (principal)
CPT/HCPCS: 72148

== ENCOUNTER 2024-06-24 17:15 | Outpatient (CLI) | payer OTHER, SELFPAY ==
[2024-06-25 15:43] LABS: Human Rhinovirus Not Detected (NotDetected); Influenza A, PCR Not Detected (NotDetected); Influenza B, PCR Not Detected (NotDetected); Respiratory Syncytial Virus Not Detected (NotDetected)
[2024-06-25 17:50] LABS: Coronavirus 19, PCR Detected (NotDetected)
== END 2024-06-24 23:59 | disposition home or self-care (01) ==
LOC: LAB.DROPOF 06-26 10:04
PROVIDERS: PCP Student in an Organized Health Care Education/Training Program; Visit Provider Student in an Organized Health Care Education/Training Program
DX: R50.9 Fever, unspecified (principal)
CPT/HCPCS: 87631

== ENCOUNTER 2024-06-30 13:50 | Outpatient (CLI) | payer OTHER, SELFPAY ==
--- NOTE | 2024-06-30 13:45 | MR_ITS ---
FINAL REPORT CLINICAL HISTORY: cervical radiculopathy numbness , tingling and pain down bilateral arms COMPARISON: 08/28/2023. FINDINGS: Multi planar MR imaging was obtained of the cervical spine. There is abnormal decreased signal throughout the cervical discs. The vertebrae are of normal height. There is mild reversal of the cervical lordosis at the C5-6 level. The cervical cord demonstrates normal signal and configuration. C2-C3: There is no evidence of significant disc bulge or protrusion. There is no significant facet hypertrophy. C3-C4: There is no evidence of significant disc bulge or protrusion. There is no significant facet hypertrophy. C4-C5: There is no evidence of significant disc bulge or protrusion. There is no significant facet hypertrophy. C5-C6: A moderate annular bulge is present with endplate hypertrophy, mild central canal stenosis, and moderate bilateral neural foraminal narrowing. C6-C7: A mild annular bulge is present with mild to moderate bilateral neural foraminal narrowing. C7-T1: There is no evidence of significant disc bulge or protrusion. There is no significant facet hypertrophy. Note is made of abnormal signal in the partially visualized sphenoid sinus just seen at the edge of the film. This was not present on the prior MR of 08/28/2023. This may represent mucoperiosteal soft tissue thickening, possibly a mucocele, although an underlying mass cannot be excluded. Recommend either CT of the sinuses or MRI of the head for further evaluation. IMPRESSION: Degenerative change is present at the C5-6 and C6-7 levels as described above. Abnormal signal at the edge of the film in the sphenoid sinus, which is partially visualized. This is new since the prior MR of 2023. Would recommend either CT of the sinuses or MRI of the head for further evaluation. Reviewed, Interpreted and Dictated by Philip Carbajal MD Transcribed by Charissa Jordan Authenticated and [facility]
--- OUTSIDE RECORDS SUMMARY | 2024-07-03 20:36 | XMS_ITS | Data Portability ---
Author Organization [facility] [place] [facility] Address [address] [place] [address] Care Team Providers Care Guard Sergeant Name Role Phone EJ HUMPHREY Quill Machine Tender CLIFTON LEDESMA Primary Care Provider Assessment No assessment recorded. Plan of Treatment Reminders Order Date Submit Date Provider Last Modified By Organization Details Last Modified Time Details Appointments None recorded. Lab None recorded. Referral pain management referral 2019 020 [email or web address] Zenaida Gutiérrez MD, [address] [place], [address], 0 15:58:11 Procedures None recorded. Surgeries None recorded. Imaging None recorded. Medication Orders None recorded. Patient TargetsNo targets recorded. Patient Instructions Encounter Date Encounter Id Patient Instructions Last Modified By Organization Details Last Modified Time 06/26/2019 [id number] osteoarthritis: care instructions [email or web address] Not available 06/26/2019 10:08:26 Reason for Referral Pain Management Referral for Degenerative joint disease involving multiple joints mechanical degenerative joint pains Referring Physician: Ej Humphrey, Rheumatology, Encounter Date: 06/26/2019 Medical Equipment None Reported. Allergies No known drug allergies Medications Name Sig Start Date Stop Date Status Note LastModified by Organization Details LastModified Time celecoxib 200 mg capsule 06/25 completed Not Available Not Available Not Available amoxicillin 500 mg capsule 06/25 completed Not Available Not Available Not Available azithromycin 250 mg tablet 06/25 completed Not Available Not Available Not Available BuSpar 10 mg tablet Take 1 tablet twice a day by oral route. active Not Available Not Available No t Available levothyroxine 25 mcg tablet 06/25 completed Not Available Not Available Not Available meloxicam 7.5 mg tablet 06/25 completed Not Available Not Available Not Available prednisolone acetate 1 % eye drops,suspens ion 06/25 completed Not Available Not Available Not Available tamsulosin 0.4 mg capsule 06/25 completed Not Available Not Available Not Available levothyroxine 50 mcg tablet active Not Available Not Availabl e Not Available paroxetine 20 mg tablet active Not Available Not Available No t Available omeprazole 20 mg capsule,delay ed release 06/25 completed Not Available Not Available Not Available chlorhexidine gluconate 0.12 % mouthwash 06/25 completed Not Available Not Available Not Available Linzess 72 mcg capsule 06/25 completed Not Available Not Available Not Available Vitals Date Recorded Body height Heart rate Respiratory rate Body mass index (BMI) Body weight Systolic blood pressure Diastolic blood pressure Provider Name and Address Organization Details Last Updated DateTime 0 154.94 cm 71 /min 18 /min 27.4 kg/m2 55348.8 9 g 106 mm[Hg] 79 mm[Hg] Jeny Resendez [facility] 0 09:44:40 Social History Question Answer Notes LastModified by Organizat ion Details LastModified Time Tobacco Smoking Status Former Smoker Jeny Resendez [facility] 06/26/2019 09:46:07 How Much Tobacco Do You Chew? None Information not available 06/26/2019 Do You Or Have You Ever Used E-cigarettes Or Vape? Never Used Electronic Cigarettes [email or web address] Information not available 06/26/2019 What Was The Date Of Your Most Recent Tobacco Screening? 06/26/2019 [email or web address] Information not available 06/26/2019 Do You Or Have You Ever Used Smokeless Tobacco? Never Used Smokeless Tobacco Information not available 06/26/2019 How Much Tobacco Do You Smoke? 0.5 PPD [email or web address] Information not available 06/26/2019 How Many Years Have You Smoked Tobacco? 4 [email or web address] Information not available 06/26/2019 Sex: Unknown Functional Status None recorded. Mental Status None recorded. Family History Nothing Reported. 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 Condition Response Diabetes N Bleeding Disorder N Arthritis Y Emphysema N Heart Disease N Acid Reflux (GERD) N Rheumatoid Arthritis N Hypertension N COPD N Asthma N Gynecological HistoryNo gynecological history recorded. Obstetrics History GPAL:G 0 P 0 0 0 0 Past Encounters Encounter ID Performer Location Encounter Start Date Encounter Closed Date Diagnosis/Indication Diagnosis SNOMED-CT Code Diagnosis ICD10 Code Diagnosis Note [id number] EJ HUMPHREY MD [facility] [address] [place] [address] 06/26/2019 09:21:39 06/26/2019 10:13:13 Degenerative joint disease involving multiple joints 758582726 M15.9 39-year-ol d female with clinical evidence of degenerati ve joint disease. No features of inflammato ry arthritis such as rheumatoid or connective tissue disease process noted. She had an extensive workup recently through her family physician which I have reviewed. She has negative rheumatoid profile including negative rheumatoid factor and negative anti-CCP antibodies . ESR is 23 mm/h which is physiologi c for age and body weight. CRP is negative. CBC is normal. Detailed KAREEM profile including anti-doubl e stranded DNA antibodies , Sjogren's profile, anti-Paola 1 antibodies , anti-ROOF TECHNICIAN antibodies are all negative. She does have episodes of what sounds like episclerit is and scleritis in right eye which is rather idiopathic and managed by ophthalmol xavi. No associated systemic autoimmune disease process noted. I have discussed my impression and findings with the patient. In terms of degenerati ve arthritis, symptomati c management is the best option. She has tried the NSAIDs without any benefit. I have suggested her to see our pain management physician for further discussion about adequate management of her pain. In terms of her inflammato ry eye disease, she will follow up with her ophthalmol ogist as planned. I will be happy to reassess her for any future concerns otherwise no regular follow-up arranged at this time. Health Concerns Section Related Observation LastModified by Organization Detai ls LastModified Time None Recorded Concern Status LastModified by Organization Details LastModified Time None Recorded Advance Directives Directive None Recorded Payers Encounter Date Sequence Insurance Name Policy Number Policy Reich Covered Member ID Reich Member ID Guarantor Name 06/26/2019 1 [id number] [employer] [place] [place]) [id number] Niall Tiwari [id number] Arabella Tiwari Notes Date Note Type Note Provider Name and Address Organization Details Recorded Time 06/26/2019 text/html New patient. 39-year-old female with recent episode of right eye scleritis and episcleritis rather spontaneous, for the last 6 weeks. Further she has chronic joint pain seems to be worse in the last 6 months. Denies any fevers, upper respiratory tract infections, cough, chills or shortness of breath. Denies any history of psoriasis or inflammatory bowel diseases. Her joint pains mainly in her fingers, shoulders, lower back, hips, ankles and feet. She has tried various NSAIDs including Osuna 1 inhibitor and Osuna 2 inhibitor, Celebrex without any benefit. She does not smoke cigarettes. She does not drink alcohol. 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 Family history significant for osteoarthritis. However no autoimmune disease reported. EJ HUMPHREY MD [facility] [place], [address], [facility] 06/26/2019 10:29:56 OBGyn Episode No OBEpisode recorded.
--- OUTSIDE RECORDS SUMMARY | 2024-07-03 20:36 | XMS_ITS | Continuity of Care Document ---
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 ; Left flank pain (spontaneous passage of stone); FAMILY HISTORY RELATION: Father Status: Cause of : Unknown Age at : Unknown SNOMED-CT Diagnosis Age At Onset Information not available RELATION: Mother Status: LIVING SNOMED-CT Diagnosis Age At Onset Information not available PROBLEMS PATIENT PROBLEMS Code Description/Comments Category Status Upda georgina By [id number] 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 active [id number] on April 01, 2024 7:54:47 PM UTC [id number] Left flank pain active [id number] o n April 01, 2024 7:56:06 PM UTC RESULTS Patient: HELENE MELENDEZ Date of : [birth year] 0 LABORATORY RESULTS ORDER 100: URINE T EST (LOINC: 2111-03) ORDER DATE: April 01, 2024 6:46:00 PM UTC Specimen Source: Urine Specimen Type: Urine specime n PERFORMING LAB: [address] [id number] Result Comment: Final Result Date: April 01, 2024 6:56:00 PM UTC (TECH: SHAR) LOINC TEST FLAG RESULT REFERENCE RANGE UPDA GEORGINA BY 2111-03 Choriogonadotropin.b eta subunit ( test) [Presence] in Urine N NEGATIVE NEGATIVE April 01 6:56:00 PM UT (TECH: EAB) 85133-5 Non-patient Communic ation note N PASS PASS April 01, 2024 6:56:00 PM UT (TECH: EAB) LABORATORY NARRATIVE RESULTS Information is not available RADIOLOGY RESULTS Information is not available PATHOLOGY NARRATIVE RESULTS Information is not available MICROBIOLOGY RESULTS No Micro Labs/Results Exist for Patient BLOOD ADMIN RESULTS Information is not available MEDICATIONS HOME MEDICATIONS Status RXNORM [facility] Medication Dose Route Frequency Dates Comments Reported By Updated By Active [id number] 45161 15573 1 bisoprolol (ZEBETA) 5.0 MG PO DAILY Last Dose: PATIENT KEIRA on April 01, 2024 7:04:22 PM [facility] Active 5470136 27664 27845 2 PARoxetine (PAXIL) 20.0 MG PO DAILY Last Dose: PATIENT [id number] on April 01, 2024 7:04:46 PM [facility] Active 325051 82035 22083 1 busPIRone (BuSpar) 10.0 MG PO DAILY Last Dose: PATIENT [id number] on April 01, 2024 7:05:01 PM [facility] Active 859534 39358 40744 2 Omeprazole Oral Capsule Delayed Release 20 MG 20.0 MG PO DAILY Last Dose: PATIENT [id number] on April 01, 2024 7:05:16 PM [facility] Active 340295 24061 03316 1 levothyroxin e (SYNTHROID) 100.0 MCG PO DAILY Last Dose: PATIENT [id number] on April 01, 2024 7:05:37 PM [facility] DISCHARGE MEDICATIONS Status RXNORM [facility] Medication Dose Route Frequency Dates Comments Physician Updated By No Discharge Medication Info rmation Available INPATIENT MEDICATIONS Status RXNORM [facility] Medication Dose Route Frequency Rat e Quantity Dates Comments Physician Updated By Dirk inued [id number] 4946 5625 105 ANCEF 2 G SOLR 2000. 0 MG ONE TIME ONLY Start: 2024 6:29:0 0 PM UT End: 2024 6:29:0 0 PM UT ADRI COLÓN MD INTERFAC ED on April 01, 2024 6:29:00 PM [facility] Dirk inued 1384040 3194 93 305 lidocaine (XYLOCAINE) 2% UROJET GEL 10.0 ML TOPICA L ONE TIME ONLY Start: 2024 7:33:0 0 PM UTC End: 2024 7:33:0 0 PM UTC ADRI COLÓN MD INTERFAC ED on April 01, 2024 7:32:00 PM UTC Discont inued 8255279 9864 1602 725 fentaNYL (SUBLIMAZE) 0.05 MG/ML SOLN 100.0 MCG IV PUSH ONE TIME ONLY Start: 2024 8:45:0 0 PM UTC End: 2024 8:45:0 0 PM UTC ADRI COLÓN MD INTERFAC ED on April 01, 2024 8:45:00 PM UTC Discont inued 4358085 8448 1605 710 midazolam (VERSED) 2 MG/2 ML SOLN 2.0 MG IV PUSH ONE TIME ONLY Start: 2024 8:47:0 0 PM UTC End: 2024 8:47:0 0 PM UTC ADRI COLÓN MD INTERFAC ED on April 01, 2024 8:45:00 PM UTC Discont inued 3068156 8189 3016 501 DEXAMETHASO NE SODIUM PHOSPHATE 8.0 MG IV PUSH ONE TIME ONLY 0.333 MG/HR Start: 2024 1:25:0 0 PM UTC End: 2024 2:04:0 0 AM UTC ADRI COLÓN MD [id number] on April 02, 2024 1:27:00 PM UTC Discont inued 7421476 6243 0016 505 LIDOCAINE HCL (PF) 2 % SOLN 5.0 ML INTRAV ENOUS ONE TIME ONLY 0.208 ML/HR Start: 2024 1:25:0 0 PM UTC End: 2024 2:04:0 0 AM UTC ADRI COLÓN MD [id number] on April 02, 2024 1:27:00 PM UTC Discont inued 0441913 2491 5613 005 ONDANSETRON HCL 4 MG/2ML SOLN 4.0 MG IV PUSH ONE TIME ONLY 0.167 MG/HR Start: 2024 1:25:0 0 PM UTC End: 2024 2:04:0 0 AM UTC ADRI COLÓN MD [id number] on April 02, 2024 1:27:00 PM UTC Discont inued 9865075 9735 3026 970 DIPRIVAN 200 MG/20ML EMUL 200.0 MG INTRAV ENOUS ONE TIME ONLY 8.333 MG/HR Start: 2024 1:25:0 0 PM UTC End: 2024 2:04:0 0 AM UTC ADRI COLÓN MD [id number] on April 02, 2024 1:27:00 PM UTC Discont inued 6332267 4747 0022 610 ROCURONIUM BROMIDE 100 MG/10ML 100.0 MG ONE TIME ONLY 4.167 MG/HR Start: 2024 1:26:0 0 PM UTC End: 2024 2:04:0 0 AM UTC ADRI COLÓN MD [id number] on April 02, 2024 1:27:00 PM UTC Discont inued 7126 6200 102 SUCCINYLCHO LINE CHLORIDE 200 M 20.0 MG INTRAV ENOUS ONE TIME ONLY 0.833 MG/HR Start: 2024 1:26:0 0 PM UTC End: 2024 2:04:0 0 AM UTC ADRI COLÓN MD [id number] on April 02, 2024 1:27:00 PM UTC SOCIAL HISTORY SOCIAL HISTORY SNOMED-CT Social History Element Description Effective Dates Offered Cessation Comment UpdatedBy [id number] Current Tobacco smoking status Current Every Day Smoker Refused vapes [id number] on April 01, 2024 7:03:13 PM UT SOCIAL HISTORY - Gender Sex: Female SOCIAL HISTORY - Status : status i nformation is not available Intention in Next Year: intention information is not available SOCIAL HISTORY - Sexual Behavior Sexual Orientation Gender Identity SNOMED-CT Description SNO MED -CT Description Activity Level No of Partners Partner Type UpdatedBy Information is not available VITAL SIGNS PATIENT VITAL SIGNS This section displays the mo st recent value for each vital sign as of April 03, 2024 11:34:54 AM UT Loinc Code Vital Sign Activity Date Result Updated By 8302-2 Body height April 01, 2024 7:00:07 PM UTC 152.4 cm (60.0 in) [id number] on April 01, 2024 7:00:07 PM UTC 45685-8 Body mass index (BMI ) [Ratio] April 01, 2024 7:00:07 PM UTC 30.333 kg/m2 [id number] on April 01, 2024 7:00:07 PM UTC 3140-1 Body Surface Area Derived From Formula April 01, 2024 7:00:07 PM UTC 1.6764 m2 [id number] on April 01, 2024 7:00:07 PM UTC 8310-5 Body temperature April 01, 2024 8:41:00 PM UTC 98.3 [degF] [id number] on April 01, 2024 8:53:52 PM UTC 70538-4 Body weight Measured April 01, 2024 7:00:07 PM UTC 70.45 kg (155.0 lb) [id number] on April 01, 2024 7:00:07 PM UTC 8462-4 Diastolic blood pressure April 01, 2024 8:46:00 PM UTC 78.0 mm[Hg] [id number] on April 01, 2024 8:54:57 PM UTC 8867-4 Heart rate April 01, 2024 8:46:00 PM UTC 74 /min [id number] on April 01, 2024 8:54:57 PM UTC 02003-7 Oxygen saturation in Arterial blood by Pulse oximetry April 01, 2024 8:46:00 PM UTC 98.0 % [id number] on April 01, 2024 8:54:57 PM UTC 9279-1 Respiratory rate April 01, 2024 8:46:00 PM UTC 18 /min [id number] on April 01, 2024 8:54:57 PM UTC 8480-6 Systolic blood pressure April 01, 2024 8:46:00 PM UTC 123.0 mm[Hg] [id number] on April 01, 2024 8:54:57 PM UTC PEDIATRIC GROWTH CHART - VITAL SIGNS This section displays Head C ircumference Percentile, Weight for Length Percentile and BMI Percentile Loinc Code Pediatric Measure Age (Months) Result Updat ed By No Pediatric Growth Chart Pe rcentile Information Available. PROCEDURES PATIENT PROCEDURES CODE SYSTEM DESCRIPTION STATUS PERFORMED DATE UPD ATED BY [id number] SNOMED-CT CYSTOSCOPY INSER TION STENT URETER completed April 01, 2024 5:00:00 AM [facility] [id number] on April 01, 2024 8:08:11 PM [facility] [id number] SNOMED-CT URETEROSCOPY completed April 01 5:00:00 AM UT [id number] on April 01, 2024 8:07:22 PM [facility] [id number] SNOMED-CT URETEROSCOPY RETROGRADE WITH LITHOTRIPSY cancelled April 01, 2024 5:00:00 AM UT [id number] on April 01, 2024 8:08:28 PM [facility] [id number] SNOMED-CT CYSTOSCOPY RETRO GRADE PYELOGRAMS cancelled April 01, 2024 5:00:00 AM UT [id number] on April 01, 2024 8:10:41 PM UTC PROCEDURE NOTE Note Title Operative/Procedure Note Date Of Service April 01, 2024 7:53 :47 PM UTC Created By [id number] on March 7:53:47 PM UTC Signed By [id number] on March 7:59:19 PM UTC Pre-Procedure Diagnosis 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 She would recent left-sided flank pain and CT scan at outside hospital showed a 5 mm distal ureteral stone. She presents for urologic management today. She states she is continued to have some episodic left-sided flank pain. It is controlled with Toradol. Procedure Description / Findings Patient taken to the operating room after informed consent was obtained. She was placed on the operating table in the supine position and general anesthesia administered. Preoperative antibiotics administered and sequential compression devices placed. She was then placed into the dorsal lithotomy position prepped and draped in the standard surgical fashion. After time-out the 22 Moroccan cystoscope passed into the urethra and into bladder without difficulty. The bladder was examined in a systematic fashion. There was no evidence of mucosal abnormalities, stones or diverticula. The ureteral orifices in their normal anatomic position and were of normal appearance. A guidewire passed into the left ureteral orifice and under fluoroscopy passed proximally. There was no evidence of resistance nor evidence of calcifications along the course of the ureter. We then removed the cystoscope and passed our semi-rigid ureteral scope into the left ureter and there was a little bit of resistance due to stenosis in the distal ureter as well as the mid ureter but we were able to manipulate the scope by the narrowed areas. We passed the scope proximally and no evidence of stones were noted. On fluoroscopy there was no evidence of any calcifications in the kidney. We then removed the ureteral scope slowly observing the ureter as we removed it and no evidence of stones were noted. The ureteral scope removed and the guidewire removed. I replaced the cystoscope and there was good efflux of urine from the left ureter so no stent was deemed necessary. Bladder emptied and Uro jet placed into the urethra. Specimens None Tubes/Drains None Implants None Disposition of Patient Stable to recovery room home with antibiotic return to office p.r.n. Electronically signed by ADRI COLÓN MD on 2056 HEALTH CONCERNS Problems Concern Status Health Concern problem infor mation not available. Smoking Status Status Years Used Consumed packs p er day Health Concern smoking histo ry information not available. Family History Concern Status Health Concern family histor y information not available. ENCOUNTERS ENCOUNTER INFORMATION Reason for Visit L URETERO Admission April 01, 2024 6:04:00 PM [place] [facility] [place] [id number] Discharge April 02, 2024 2:04:00 AM UT D ISCHARGED TO HOME OR SELF CARE ENCOUNTER DIAGNOSES Notes information is not sherwin ilable. Code System Diagnosis Onset Date Diagnosis information is not available. 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, UNSPECIFIED [id number] on April 03, 2024 11:34:26 AM UT G47.30 ICD10 SLEEP APNEA, UNSPECIFIED PQE 7261 on April 03, 2024 11:34:26 AM UT F41.9 ICD10 ANXIETY DISORDER, UNSPECIFIE D [id number] on April 03, 2024 11:34:26 AM UT F17.290 ICD10 NICOTINE DEPENDE NCE, OTHER TOBACCO PRODUCT, UNCOMPLICATED [id number] on April 03, 2024 11:34:26 AM UT E66.9 ICD10 OBESITY, UNSPECIFIED [id number] on April 03, 2024 11:34:26 AM UT Z68.30 ICD10 BODY MASS INDEX [BMI] 30.0-3 0.9, ADULT [id number] on April 03, 2024 11:34:26 AM UT 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 [id number] on April 03, 2024 11:34:26 AM [facility] Z87.442 ICD10 PERSONAL HISTORY OF URINARY CALCULI [id number] on April 03, 2024 11:34:26 AM [facility] Z86.79 ICD10 PERSONAL HISTORY OF OTHER DISEASES OF THE CIRCULATORY SYSTEM [id number] on April 03, 2024 11:34:26 AM [facility] Z91.199 ICD10 PATIENT'S NONCOM PLIANCE WITH OTHER MEDICAL TREATMENT AND REGIMEN DUE TO UNSPECIFIED REASON [id number] on April 03, 2024 11:34:26 AM [facility] Z88.5 ICD10 ALLERGY STATUS TO NARCOTIC A GENT [id number] on April 03, 2024 11:34:26 AM [facility] CARE TEAM Care Operations Developer Role KATARZYNA RUSH Referring KATARZYNA RUSH Primary Attending KATARZYNA RUSH Surgeon EMILIO OCONNOR Primary Care KATARZYNA RUSH Admitting CARE 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 Role on Team Status Start Date End Date Update d By GRACIELA PAGE CRNA Healthcare professional normal April 01, 2024 7:12:00 PM [facility] April 02, 2024 2:04:00 AM [facility] [id number] on April 01, 2024 8:05:01 PM [facility] ADRI COLÓN MD Surgeon normal April 01, 2024 7:12:00 PM [facility] April 02, 2024 2:04:00 AM [facility] [id number] on April 01, 2024 8:05:01 PM [facility] ELVIN JHAVERI PCP normal April 01, 2024 6:16:13 PM [facility] April 01, 2024 5:00:00 AM UTC [id number] on April 01, 2024 8:05:01 PM [place] ADRI COLÓN MD Referring normal April 01, 2024 6:16:13 PM UTC April 01, 2024 5:00:00 AM UTC [id number] on April 01, 2024 8:05:01 PM [facility] ADRI COLÓN MD Attending normal April 01, 2024 6:16:13 PM [place] April 01, 2024 5:00:00 AM UTC [id number] on April 01, 2024 8:05:01 PM UT ADRI COLÓN MD Admitting normal April 01, 2024 6:16:13 PM UT April 01, 2024 5:00:00 AM UTC [id number] on April 01, 2024 8:05:01 PM UTC
--- OUTSIDE RECORDS SUMMARY | 2024-07-03 20:36 | XMS_ITS | Data Portability ---
Author Organization [facility] Orta ADMIN Address [address] [place] [id number] Care Team Providers Care Geophysical Data Technician Name Role Phone CLIFTON LEDESMA Primary Care Provider Assessment No assessment recorded. Plan of Treatment Reminders Order Date Submit Date Provider Last Modified By Organization Details Last Modified Time Details Appointments None recorded. Lab urinalysis , dipstick 2023 [email or web address], [address], 4 20:50:43 Referral None recorded. Procedures None recorded. Surgeries None recorded. Imaging XR, abdomen, 1 view 2023 024 MERARY Not available 4 13:26:29 XR, abdomen, 1 view 2022 023 [email or web address] [facility] (Central Scheduling), [address] [place] [address] [place], [address], 3 07:54:05 Medication Orders None recorded. Patient TargetsNo targets recorded. Patient InstructionsNo instructions recorded. Reason for Referral None Reported. Results Created Date Observation Date Name Description Value Unit Range Abnormal Flag Note LastModifiedBy Organization Detail LastModifiedTime 01/18/2001/18/2024 urina lysis , dipst ick Leukocytes (reference range) trace Not Available [address], [address], 01/18/2024 11:23:35 01/18/20 24 01/18/2024 urina lysis , dipst ick Nitrite (reference range:) negati ve Not Available [address], [address], 01/18/2024 11:23:35 01/18/20 24 01/18/2024 urina lysis , dipst ick Urobilinogen (reference range) 0.2 Not Available [address], [address], 01/18/2024 11:23:35 01/18/2001/18/2024 urina lysis , dipst ick Protein (reference range) negati ve Not Available [address], [address], 01/18/2024 11:23:35 01/18/2001/18/2024 urina lysis , dipst ick pH (reference range 5-8.5) 6.0 Not Available [address], [address], 01/18/2024 11:23:35 01/18/2001/18/2024 urina lysis , dipst ick Blood (reference range:) non-He molyze d: Trace Not Available [address], [address], 01/18/2024 11:23:35 01/18/2001/18/2024 urina lysis , dipst ick Specific [place] (reference range) 1.025 Not Available [address], [address], 01/18/2024 11:23:35 01/18/20 24 01/18/2024 urina lysis , dipst ick Ketone (reference range) negati ve Not Available [address], [address], 01/18/2024 11:23:35 01/18/20 24 01/18/2024 urina lysis , dipst ick Bilirubin (reference range) negati ve Not Available [address], [address], 01/18/2024 11:23:35 01/18/2001/18/2024 urina lysis , dipst ick Glucose (reference range) negati ve Not Available [facility] [address] [place], [address], 01/18/2024 11:23:35 01/18/2001/18/2024 urina lysis , dipst ick Color (reference range: yellow-brown ) Yellow Not Available [facility] [address] [place], [address], 01/18/2024 11:23:35 02/15/2002/15/2024 URINE PREGN SHARON TEST urine test NEGATI VE negati ve Not Available [facility] (Lab Registration) [address] , [place], [address], 02/15/2024 07:23:48 02/15/2002/15/2024 URINE PREGN SHARON TEST internal control PASS PASS Not Available [facility] (Lab Registration) [address] , [place], [address], 02/15/2024 07:23:48 02/15/2002/15/2024 URINE PREGN SHARON TEST note Unles s other perla noted testi ng perfo rmed at: [facility] [address] [place] [address] [phone] Wilmer garcia MD CLIA: [id number] Not Available [facility] (Lab Registration) [address] [place], [address], 02/15/2024 07:23:48 10/28/[address], abdom en + pelvi s, w/o contr ast No observ ation record ed. [email or web address] Not Available 01/20 10:20:37 02/06/20 24 02/06/2024 XR, abdom en, 1 view [facility] [address] 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 Bowel gas patter n unrema rkable . Clips right upper quadra nt. 9 mm calcif ic densit y adjace nt to the L3 transv erse proces s on the left, this may certai nly repres ent a ureter al stone, tory us calcif icatio ns are presen t within the pelvis which may be phlebo liths. No old films. IMPRES BEATRIS: 9 mm calcif icatio n adjace nt to the left transv erse proces s of L3 . Electr onical ly signed by: Alex peng MD 2023 01:20 PM EST RP Workst ation: [id number] Dictat ed By: Alex Novak Transc ribed By: Transc ribed On: 2023 11:19 AM Electr onical ly signed by: Alex Novak 2023 Thank you for referr ing ARABELLA NARAYAN to [facility] Legall y authen ticate d by NADRES ESPINAL MD 2023-03 11:19: 00 CC'ed Logic: Orderi ng Provid er: ADRI Lozada CC Provid er: BRITNEY JHAVERI Attend ing Provid er: ADRI Lozada Referr ing Provid er: ADRI Lozada Admitt ing Provid er: ADRI Lozada [email or web address] [facility] (Radiology) [address] [place], [address], 03/30/2024 16:29:50 02/15/20 24 02/15/2024 fluor o less than 1 HR [facility] [address] [facility] [address] Phone: Fax: Name: ARABELLA NARAYAN Exam Date: 2023 : 982 Age 43 years Gender : F Access ion: [id number] Physic brian: GRADY RUSH Facili ty: [facility] Facili ty HSV: Outpat ient Exam: FLUORO LESS THAN 1 HR FL LESS THAN 1 HOUR Reason For Study: Kidney stone remova l FINDIN GS: Fluoro scopic assist ance was provid ed to the attend ing physic brian by the radio raphic techno logist . RADIAT ION DOSE: Radiat ion exposu re in refere nce to Air Kerma: 15.86 mGy FLUORO SCOPY TIME: 44.3 second s . FLUORO SCOPY FILMS: 1 IMPRES BEATRIS: Fluoro scopic assist ance provid ed. Please see operat vitor report . Electr onical ly signed by: Ferny Gross MD 2023 02:26 PM EST RP Workst ation: [id number] Dictat ed By: FERNY GROSS Transc ribed By: Transc ribed On: 2023 1:08 PM Electr onical ly signed by: FERNY GROSS 2023 Thank you for referr ing ARABELLA NARAYAN to [facility]. Legall y authen ticate d by LAURA ISAACS MD 2023-04-16 13:08: 37 CC'ed Logic: Orderi ng Provid er: ADRI Lozada CC Provid er: OUMOU PEREZ Attend ing Provid er: ADRI Lozada Referr ing Provid er: ADRI Lozada Admitt ing Provid er: ADRI Lozada [email or web address] [facility] (Radiology) [address], [address], 02/28/2024 08:12:19 03/26/19 25 03/26/2024 CT, abdom en + pelvi s, w/ contr ast No observ ation record ed. [facility] [address], [place], [address], 04/02/2024 08:45:13 Result Notes None recorded. Procedures Surgical History Date Name Laterality Status Provider Name and Address Organization Details Recorded Time 03/26/19 23 Cholecystectomy completed [facility] 01/23/2024 11:54:18 03/26/19 22 Colonoscopy completed [facility] [place] 01/23/2024 11:54:18 03/26/19 20 EGD completed [facility] 01/23/2024 11:54:18 Imaging Results Imaging Date Name Status LastModified by Organiz ation Details LastModified Time 01/21/2024 CT, abdomen + pelvis, w/o contrast completed [email or web address] Information not available 01/21/2024 10:20:37 02/06/2024 XR, abdomen, 1 view completed [email or web address] [facility] (Radiology) [address], [address], 03/30/2024 16:29:50 02/15/2024 fluoro less than 1 HR completed [email or web address] [facility] (Radiology) [address], [address], 02/28/2024 08:12:19 03/26/2024 CT, abdomen + pelvis, w/ contrast completed [facility] [address], [place], [address], 04/02/2024 08:45:13 Procedure Notes None recorded. Medical Equipment None Reported. Allergies Allergen ID Allergen Name Allergen Category Reaction Reaction Severity Criticality Documentation Date Start Date Code Code System Note Provider Name and Address Organization Details Recorded Time 18257 Demerol medicatio n Not available Not available Not available 11/28/2022 63074 1 RxNorm Lauren Warner [place], [place] - [facility] [place] 3 09:34:44 Medications Name Sig Start Date Stop Date Status Note LastModified by Organization Details LastModified Time cyclobenzap rine 10 mg tablet TAKE 1 TABLET BY MOUTH THREE TIMES DAILY NEEDED FOR MUSCLE SPASM active Not Available Not Available No t Available amoxicillin 500 mg capsule TAKE ONE CAPSULE BY MOUTH TWICE DAILY FOR 10 DAYS -- FINISH ALL MEDICINE -- 11/28 completed Not Available Not Available Not Available norgestimat e 0.25 mg-ethinyl estradiol 0.035 mg tablet TAKE ONE TABLET BY MOUTH EVERY DAY active Not Available Not Available No t Available atorvastati n 10 mg tablet TAKE ONE TABLET BY MOUTH EVERY DAY active Not Available Not Available No t Available azithromyci n 250 mg tablet TAKE 2 TABLETS BY MOUTH ON DAY 1, AND THEN TAKE 1 TABLET BY MOUTH ONCE A DAY ON DAY 2 THROUGH DAY 5 01/17 completed Not Available Not Available Not Available ibuprofen 800 mg tablet TAKE 1 TABLET BY MOUTH THREE TIMES DAILY active Not Available Not Available No t Available fluconazole 150 mg tablet TAKE 1 TABLET BY MOUTH EVERY 3 DAYS FOR 2 DOSES active Not Available Not Available No t Available valacyclovi r 1 gram tablet TAKE TWO TABLETS BY MOUTH now, TAKE TWO TABLETS tonight, THEN TAKE ONE TABLET BY MOUTH EVERY 8 HOURS FOR 5 DAYS active Not Available Not Available No t Available prednisone 20 mg tablet TAKE 1 TABLET BY MOUTH TWICE DAILY FOR 5 DAYS active Not Available Not Available No t Available isosorbide mononitrate ER 30 mg tablet,exte nded release 24 hr TAKE 1 TABLET BY MOUTH ONCE DAILY active Not Available Not Available No t Available sulfamethox azole 800 mg-trimetho prim 160 mg tablet TAKE ONE TABLET BY MOUTH TWICE DAILY -- FINISH ALL MEDICINE -- 01/17 completed Not Available Not Available Not Available spironolact one 25 mg tablet TAKE ONE TABLET BY MOUTH EVERY DAY active Not Available Not Available No t Available ketorolac 10 mg tablet TAKE 1 TABLET BY MOUTH EVERY 6 HOURS NEEDED FOR PAIN FOR 5 DAYS active Not Available Not Available No t Available bisoprolol fumarate 5 mg tablet TAKE 1 TABLET BY MOUTH ONCE DAILY active Not Available Not Available No t Available levothyroxi ne 100 mcg tablet TAKE 1 TABLET BY MOUTH ONCE DAILY FOR THYROID active Not Available Not Available No t Available amoxicillin 875 mg tablet TAKE 1 TABLET BY MOUTH EVERY 12 HOURS 01/17 completed Not Available Not Available Not Available omeprazole 10 mg capsule,del ayed release active Not Available Not Available Not Available tamsulosin 0.4 mg capsule TAKE 1 CAPSULE BY MOUTH ONCE DAILY active Not Available Not Available No t Available benzonatate 100 mg capsule TAKE 1 CAPSULE BY MOUTH THREE TIMES DAILY NEEDED FOR COUGH active Not Available Not Available No t Available paroxetine 20 mg tablet TAKE 1 TABLET BY MOUTH ONCE DAILY active Not Available Not Available No t Available buspirone 10 mg tablet TAKE 1 TABLET BY MOUTH TWICE DAILY FOR ANXIETY active Not Available Not Available No t Available omeprazole 20 mg capsule,del ayed release TAKE 1 CAPSULE BY MOUTH IN THE MORNING FOR 90 DAYS active Not Available Not Available No t Available azelastine 137 mcg (0.1 %) nasal spray USE 1 SPRAY(S) IN EACH NOSTRIL TWICE DAILY active Not Available Not Available No t Available methylpredn isolone 4 mg tablets in a dose pack TAKE BY MOUTH DIRECTED ON INSIDE OF PACKAGE active Not Available Not Available No t Available ondansetron 4 mg disintegrat ing tablet DISSOLVE 1 TABLET IN MOUTH EVERY 8 HOURS NEEDED FOR NAUSEA AND VOMITING FOR 4 DAYS active Not Available Not Available No t Available cefdinir 300 mg capsule Take 1 capsule every 12 hours by oral route. active Not Available Not Available No t Available naproxen 500 mg tablet TAKE 1 TABLET BY MOUTH TWICE DAILY NEEDED FOR PAIN active Not Available Not Available No t Available amoxicillin 875 mg-potassiu m clavulanate 125 mg tablet TAKE 1 TABLET BY MOUTH EVERY 12 HOURS 01/17 completed Not Available Not Available Not Available oxycodone 5 mg tablet TAKE 1 TABLET BY MOUTH EVERY 8 HOURS NEEDED FOR PAIN active Not Available Not Available No t Available chlorhexidi ne gluconate 0.12 % mouthwash RINSE WITH 15ML FOR 30 SECONDS AND SPIT, USE TWICE DAILY active Not Available Not Available No t Available buspirone active Not Available Not Heydi ilable Not Available levocetiriz ine 5 mg tablet TAKE 1 TABLET BY MOUTH ONCE DAILY active Not Available Not Available No t Available Ozempic 0.25 mg or 0.5 mg (2 mg/3 mL) subcutaneou s pen injector INJECT 0.25 MG (0.4 ML) SUBCUTANE OUSLY ONCE A WEEK FOR 4 WEEKS, THEN increase 0.5 MG ONCE a WEEK active Not Available Not Available No t Available Vitals Date Recorded Body height Body mass index (BMI) Body weight Body temperature Provider Name and Address Organization Details Last Updated DateTime 11/28/2022 152.4 cm 28.3 kg/m2 96224.89 g 98 [degF] Lauren KRAUS [facility] [place] 11/28/2022 09:34:26 Date Recorded Body height Body mass index (BMI) Body weight Provider Name and Address Organization Details Last Updated DateTime 01/18/2024 175.26 cm 21.4 kg/m2 45941.89 g Lauren KRAUS [facility] [place] 01/18/2024 11:14:24 Date Recorded Body height Body mass index (BMI) Body weight Body temperature Provider Name and Address Organization Details Last Updated DateTime 02/06/2024 175.26 cm 21.4 kg/m2 22260.89 g 97.9 [degF] Harish KRAUS [facility] [place] 02/06/2024 11:47:42 Date Recorded Body height Body mass index (BMI) Body weight Body temperature Provider Name and Address Organization Details Last Updated DateTime 02/20/2024 175.26 cm 21.4 kg/m2 83851.89 g 98.1 [degF] Harish KRAUS [facility] [place] 02/20/2024 12:29:51 Date Recorded Body height Body mass index (BMI) Body weight Body temperature Provider Name and Address Organization Details Last Updated DateTime 03/28/2024 175.26 cm 21.4 kg/m2 40270.89 g 98.2 [degF] Harish KRAUS [facility] [place] 03/28/2024 13:48:27 Social History Question Answer Notes LastModified by Organizat ion Details LastModified Time Tobacco Smoking Status Never Smoker [place] [facility] [place] 11/28/2022 09:36:33 Do You Have An Advance Directive? No [email or web address] Information not available 01/23/2024 What Is Your Level Of Alcohol Consumption? Occasional [email or web address] Information not available 11/28/2022 Are You Blind Or Do You Have Difficulty Seeing? No [email or web address] Information not available 01/23/2024 What Was The Date Of Your Most Recent Tobacco Screening? 11/28/2022 Information not available 01/23/2024 Are You Passively Exposed To Smoke? No [email or web address] Information no t available 01/23/2024 Do You Feel Stressed (tense, Restless, Nervous, Or Anxious, Or Unable To Sleep At Night)? [id number] [email or web address] Information not available 01/23/2024 Do You Use Any Illicit Or Recreational Drugs? No [email or web address] Information not available 01/23/2024 Sex: Unknown Functional Status Question Answer Note LastModified by Organization D etails LastModified Time What is your exercise level? None [email or web address] Information not available 01/23/2024 Mental Status None recorded. Family History Relationship Description Onset Age of this Age Resolved Age Notes LastModified by Organization Details LastModified Time Father Heart disease [email or web address] Not available 2022 09:36:08 Brother Heart disease [email or web address] Not available 2022 09:36:19 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 Condition Response Thyroid Problems Y Obstructive Sleep Apnea Y Kidney or Bladder Problems Y Kidney Stones Y High Cholesterol Y Gynecological HistoryNo gynecological history recorded. Obstetrics History GPAL:G 0 P 0 0 0 0 Past Encounters Encounter ID Performer Location Encounter Start Date Encounter Closed Date Diagnosis/Indication Diagnosis SNOMED-CT Code Diagnosis ICD10 Code Diagnosis Note [id number] Chase Rush Jr, MD [facility] [address] [place] [address] 11/28/2022 09:22:13 11/28/2022 10:18:47 Kidney stone 75906876 N20.0 42-year-ol d white female with a 3 mm ureteral stone. We discussed treatment options including trial of passage versus ureterosco py and stone extraction . She is doing well regarding symptoms at this point wishes to try and pass it. We will see her back in 1 week with a KUB. [id number] [facility] Jr[facility] [address] [address] 01/18/2024 10:49:23 01/18/2024 11:23:26 Kidney stone 17104068 N20.0 43 yo female with 7.5 mm L UPJ stone. Her pain has been ok for past week.We discussed options and she wishes to try and passf/u 2 wks with kub [id number] Chase [facility] Jr[facility] [address] [address] 02/06/2024 11:22:23 02/06/2024 13:33:21 Ureteric stone 62550895 N20.1 patient with 7 mm left proximal ureteral stone. She returns today follow-up and states he is occasional discomfort . We again discussed treatment options and she would like to proceed with stone extraction . We discussed the operative procedure, complicati ons and postoperat vitor course. We will set this up at her earliest convenienc e under general anesthesia . 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 She returns today for stent removal. She is having some moderate stent colic. Stent removed without difficulty we discussed measures to decrease her risk of further stone formation. She is to increase her fluid intake and materials on a low oxalate diet given. [id number] Chase Rush Jr, MD 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 CT with 5 mm stone in distal L ureter on 03/26/24.Dis cussed treatment options with pt. She wishes to proceed with stone extraction . She is aware of the procedure and side effects as she had stone extraction in January. Health Concerns Section Related Observation LastModified by Organization Detai ls LastModified Time None Recorded Concern Status LastModified by Organization Details LastModified Time None Recorded Advance Directives Directive N: Payers Encounter Date Sequence Insurance Name Policy Number Policy Reich Covered Member ID Reich Member ID Guarantor Name 11/28/2022 1 [place]: [place] BL[place]ESS (PPO) [id number] Arabella Narayan [id number] Arabella Narayan 01/18/2024 1 U[employer] [id number] Arabella Handatt [id number] Arabella Karie 02/06/2024 1 UMR [id number] Arabella Handatt [id number] Arabella Karie 02/20/2024 1 UMR [id number] Arabella Karie [id number] Arabella Karie 03/28/2024 1 UMR [id number] Arabella Karie [id number] Arabella Karie Notes Date Note Type Note Provider Name and Address Organization Details Recorded Time 11/28/2022 text/html patient is a 42-year-old white female who was in the emergency last week with left-sided flank pain. CT scan showed a 6 mm stone on the left. On Sunday she had more discomfort and went to [facility] and a CT scan was performed showing a 3 mm stone in the left ureter. She has been taking Toradol for pain. She denies any fever or chills. Chase Rush Jr, MD [address] [place] [address], [address], [address], [facility] 12/07/2022 16:29:32 01/18/2024 text/html 43 yo female wit h recent L flank pain. She presented to ER on 01/12. CT showed a 7.5 mm L UPJ stone with hydro. Her pain has been ok over the past week. She denies N, V, fever or chills. She has h/o prior stones that she passed. Chase Rush Jr, MD [address] [place] [address], [address], [place], [address], [facility] 01/21/2024 22:16:27 02/06/2024 text/html patient is 43-year-old white female with a history of 7 mm left UPJ stone. Her visit was Two weeks ago. She returns today in routine follow up as she has been trying to pass the stone on her own. she states that she would some pain on Sunday and he has not passed the stone. KUB performed today shows the stone is in the left proximal ureter. She denies nausea, vomiting, fever, chills. Chase Rush Jr, MD [address] [place] [address], [address], [place], [address], [facility] [place] 02/06/2024 16:55:18 02/20/2024 text/html Patient is a 43-year-old white female with history nephrolithiasis. She had some recent left-sided flank pain and a CT scan showed a 7 mm left UPJ stone. Trial of passage was observed but she was unable pass the stone and she underwent left ureteroscopy, laser lithotripsy, stone extraction left stent placement 5 days ago. She returns today and states he has had some stent discomfort and blood in her urine since placement. We did have to dilate her ureter to get up to the stone. Chase Rush Jr, MD [address] [facility], [address], [place], [address], [facility] - [facility] [place] 02/20/2024 12:33:16 03/28/2024 text/html 43 yo female wit h h/o kidney stones presented to ER at [facility] on 03/26/24 with L flank pain. WBC and Cr wnl. CT showed a 5 mm L distal ureteral stone. She was treated in Jan for a 7 mm L UPJ stone. Her pain has abated. Chase Rush Jr, MD [address] [facility], [address], [place], [address], [facility] - [facility] [place] 05/09/2024 10:54:13 OBGyn Episode No OBEpisode recorded.
== END 2024-06-30 23:59 | disposition home or self-care (01) ==
LOC: RAD 13:51
PROVIDERS: PCP Nurse Practitioner Family; Visit Provider Nurse Practitioner Family
DX: M54.12 Radiculopathy, cervical region (principal)
CPT/HCPCS: 72141

== ENCOUNTER 2024-07-14 13:59 | Outpatient (CLI) | payer OTHER, SELFPAY ==
--- NOTE | 2024-07-14 14:00 | MR_ITS ---
FINAL REPORT CLINICAL HISTORY: abnormal cervical MRI with sphenoid involevment COMPARISON: MRI of the head, 07/31/2023, MRI cervical spine, 06/30/2024 FINDINGS: Multi planar MR imaging was obtained through the brain without contrast. The midline structures appear intact. There is no evidence of Chiari malformation. On T2 and flair axial images the brain parenchyma demonstrates a few scattered foci of increased T2 signal, predominantly in the subcortical white matter, with fewer foci in the deep white matter. These foci of increased signal are more than expected given the patient's age. On diffusion-weighted images there is no evidence of restricted diffusion. There is minimal residual mucoperiosteal thickening in the ethmoid and sphenoid sinuses, with the abnormal signal seen in the sphenoid sinus on the cervical spine MRI of 06/30/2024 mostly resolved, consistent with resolved sinusitis. The seventh and eighth nerve root complexes are intact. IMPRESSION: The abnormal signal identified in the sphenoid sinus on the MRI of the cervical spine dated 06/30/2024 has mostly resolved, consistent with improved sinusitis. The scattered foci of signal predominantly in the subcortical white matter remain present and are not significantly changed since the prior MR of the head dated 07/31/2023. In this age group, this may represent sequela of migraine headache, demyelination, changes of vasculitis or other causes of ischemic change. Reviewed, Interpreted and Dictated by Philip Carbajal MD Transcribed by Charissa Jordan Authenticated and . [facility]
--- OUTSIDE RECORDS SUMMARY | 2024-07-14 14:01 | XMS_ITS | Data Portability ---
Author Organization [facility] ADMIN Address [address] [place] [address] Care Team Providers Care Forklift Wheel Loader Name Role Phone CLITFON LEDESMA Primary Care Provider [phone] Assessment No assessment recorded. Plan of Treatment Reminders Order Date Submit Date Provider Last Modified By Organization Details Last Modified Time Details Appointments None recorded. Lab urinalysis , dipstick 2023 [email or web address], [address], 4 20:50:43 Referral None recorded. Procedures None recorded. Surgeries None recorded. Imaging XR, abdomen, 1 view 2023 024 MERARY Not available 4 13:26:29 XR, abdomen, 1 view 2022 023 [email or web address] [facility] (Central Scheduling), [address] [place] [address] [place], [address], 3 07:54:05 Medication Orders None recorded. Patient TargetsNo targets recorded. Patient InstructionsNo instructions recorded. Reason for Referral None Reported. Results Created Date Observation Date Name Description Value Unit Range Abnormal Flag Note LastModifiedBy Organization Detail LastModifiedTime 01/18/2001/18/2024 urina lysis , dipst ick Leukocytes (reference range) trace Not Available [address], [address], 01/18/2024 11:23:35 01/18/20 24 01/18/2024 urina lysis , dipst ick Nitrite (reference range:) negati ve Not Available [address], [address], 01/18/2024 11:23:35 01/18/20 24 01/18/2024 urina lysis , dipst ick Urobilinogen (reference range) 0.2 Not Available [address], [address], 01/18/2024 11:23:35 01/18/2001/18/2024 urina lysis , dipst ick Protein (reference range) negati ve Not Available [address], [address], 01/18/2024 11:23:35 01/18/2001/18/2024 urina lysis , dipst ick pH (reference range 5-8.5) 6.0 Not Available [address], [address], 01/18/2024 11:23:35 01/18/2001/18/2024 urina lysis , dipst ick Blood (reference range:) non-He molyze d: Trace Not Available [address], [address], 01/18/2024 11:23:35 01/18/2001/18/2024 urina lysis , dipst ick Specific [place] (reference range) 1.025 Not Available [address], [address], 01/18/2024 11:23:35 01/18/20 24 01/18/2024 urina lysis , dipst ick Ketone (reference range) negati ve Not Available [address], [address], 01/18/2024 11:23:35 01/18/20 24 01/18/2024 urina lysis , dipst ick Bilirubin (reference range) negati ve Not Available [address], [address], 01/18/2024 11:23:35 01/18/2001/18/2024 urina lysis , dipst ick Glucose (reference range) negati ve Not Available [facility] [address] [place], [address], 01/18/2024 11:23:35 01/18/2001/18/2024 urina lysis , dipst ick Color (reference range: yellow-brown ) Yellow Not Available [facility] [address] [place], [address], 01/18/2024 11:23:35 02/15/2002/15/2024 URINE PREGN SHARON TEST urine test NEGATI VE negati ve Not Available [facility] (Lab Registration) [address] , [place], [address], 02/15/2024 07:23:48 02/15/2002/15/2024 URINE PREGN SHARON TEST internal control PASS PASS Not Available [facility] (Lab Registration) [address] , [place], [address], 02/15/2024 07:23:48 02/15/2002/15/2024 URINE PREGN SHARON TEST note Unles s other perla noted testi ng perfo rmed at: [facility] [address] [place] [address] [phone] Wilmer garcia MD CLIA: [id number] Not Available [facility] (Lab Registration) [address] [place], [address], 02/15/2024 07:23:48 10/28/[address], abdom en + pelvi s, w/o contr ast No observ ation record ed. [email or web address] Not Available 01/20 10:20:37 02/06/20 24 02/06/2024 XR, abdom en, 1 view [facility] [address] 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 Bowel [...] al. Legall y authen ticate d by ANDRES ESPINAL MD 2023-03 11:19: 00 CC'ed Logic: Orderi ng Provid er: ADRI Lozada CC Provid er: BRITNEY JHAVERI Attend ing Provid er: ADRI Lozada Referr ing Provid er: ADRI Lozada Admitt ing Provid er: ADRI Lozada [email or web address] [facility] (Radiology) [address] [place], [address], 03/30/2024 16:29:50 02/15/20 24 02/15/2024 fluor o less than 1 HR [facility] [address] [facility] [place] [address] Phone: Fax: Name: ARABELLA NARAYAN Exam Date: 2023 : 982 Age 43 years Gender : F Access ion: [id number] Physic brian: GRADY RUSH Facili ty: [facility] Facili ty HSV: Outpat ient Exam: [...] you for referr ing ARABELLA NARAYAN to [facility] Hospit [facility]. Legall y authen ticate d by LAURA ISAACS MD 2023-04-16 13:08: 37 CC'ed Logic: Orderi ng Provid er: ADRI Lozada CC Provid er: OUMOU PEREZ Attend ing Provid er: ADRI Lozada Referr ing Provid er: ADRI Lozada Admitt ing Provid er: ADRI Lozada [email or web address] [facility] (Radiology) [address], [address], 02/28/2024 08:12:19 03/26/19 25 03/26/2024 CT, abdom en + pelvi s, w/ contr ast No observ ation record ed. [facility] [address], [place], [address], 04/02/2024 08:45:13 Result Notes None recorded. Procedures Surgical History Date Name Laterality Status Provider Name and Address Organization Details Recorded Time 03/26/19 23 Cholecystectomy completed [facility] 01/23/2024 11:54:18 03/26/19 22 Colonoscopy completed [facility] & [place] 01/23/2024 11:54:18 03/26/19 20 EGD completed [facility] 01/23/2024 11:54:18 Imaging Results Imaging Date Name Status LastModified by Organiz ation Details LastModified Time 01/21/2024 CT, abdomen + pelvis, w/o contrast completed [email or web address] Information not available 01/21/2024 10:20:37 02/06/2024 XR, abdomen, 1 view completed [email or web address] [facility] (Radiology) [address], [address], 03/30/2024 16:29:50 02/15/2024 fluoro less than 1 HR completed [email or web address] [facility] (Radiology) [address], [address], 02/28/2024 08:12:19 03/26/2024 CT, abdomen + pelvis, w/ contrast completed [facility] [address], [place], [address], 04/02/2024 08:45:13 Procedure Notes None recorded. Medical Equipment None Reported. Allergies Allergen ID Allergen Name Allergen Category Reaction Reaction Severity Criticality Documentation Date Start Date Code Code System Note Provider Name and Address Organization Details Recorded Time 38310 Demerol medicatio n Not available Not available Not available 11/28/2022 06825 1 RxNorm Lauren [place], [place] - [facility] & [place] 3 09:34:44 Medications Name Sig Start Date [...] Updated DateTime 11/28/2022 152.4 cm 28.3 kg/m2 28625.89 g 98 [degF] Lauren KRAUS [facility] [place] 11/28/2022 09:34:26 Date Recorded Body height Body mass index (BMI) Body weight Provider Name and Address Organization Details Last Updated DateTime 01/18/2024 175.26 cm 21.4 kg/m2 19171.89 g Lauren KRAUS [facility] [place] 01/18/2024 11:14:24 Date Recorded Body height Body mass index (BMI) Body weight Body temperature Provider Name and Address Organization Details Last Updated DateTime 02/06/2024 175.26 cm 21.4 kg/m2 24491.89 g 97.9 [degF] Harish KRAUS [facility] [place] 02/06/2024 11:47:42 Date Recorded Body height Body mass index (BMI) Body weight Body temperature Provider Name and Address Organization Details Last Updated DateTime 02/20/2024 175.26 cm 21.4 kg/m2 81462.89 g 98.1 [degF] Harish KRAUS [facility] [place] 02/20/2024 12:29:51 Date Recorded Body height Body mass index (BMI) Body weight Body temperature Provider Name and Address Organization Details Last Updated DateTime 03/28/2024 175.26 cm 21.4 kg/m2 21099.89 g 98.2 [degF] Harish KRAUS [facility] [place] 03/28/2024 13:48:27 Social History Question Answer Notes LastModified by Organizat ion Details LastModified Time Tobacco Smoking Status Never Smoker [place] [facility] [place] 11/28/2022 09:36:33 Do You Have An Advance Directive? No [email or web address] Information not available 01/23/2024 What Is Your Level Of Alcohol Consumption? Occasional [email or web address] Information not available 11/28/2022 Are You Blind Or Do You Have Difficulty Seeing? No [email or web address] Information not available 01/23/2024 What Was The Date Of Your Most Recent Tobacco Screening? 11/28/2022 [email or web address] Information not available 01/23/2024 Are You Passively Exposed To Smoke? No [email or web address] Information no t available 01/23/2024 Do You Feel Stressed (tense, Restless, Nervous, Or Anxious, Or Unable To Sleep At Night)? [id number] [email or web address] Information not available 01/23/2024 Do You Use Any Illicit Or Recreational Drugs? No Information not available 01/23/2024 Sex: Unknown Functional Status Question Answer Note LastModified by Organization D etails LastModified Time What is your exercise level? None [email or web address] Information not available 01/23/2024 Mental Status None recorded. Family History Relationship Description Onset Age of this Age Resolved Age Notes LastModified by Organization Details LastModified Time Father Heart disease [email or web address] Not available 2022 09:36:08 Brother Heart disease [email or web address] Not available 2022 09:36:19 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 Condition Response Kidney Stones Y Thyroid Problems Y Kidney or Bladder Problems Y Obstructive Sleep Apnea Y High Cholesterol Y Gynecological HistoryNo gynecological history recorded. Obstetrics History GPAL:G 0 P 0 0 0 0 Past Encounters Encounter ID Performer Location Encounter Start Date Encounter Closed Date Diagnosis/Indication Diagnosis SNOMED-CT Code Diagnosis ICD10 Code Diagnosis Note [id number] Chase Rush Jr, MD [facility] [address] [place] [id number] 11/28/2022 09:22:13 11/28/2022 10:18:47 Kidney stone 49877426 N20.0 42-year-ol d white female with a 3 mm ureteral stone. We discussed treatment options including trial of passage versus ureterosco py and stone extraction . She is doing well regarding symptoms at this point wishes to try and pass it. We will see her back in 1 week with a KUB. [id number] Chase Rush Jr, MD [facility] [address] [address] 01/18/2024 10:49:23 01/18/2024 11:23:26 Kidney stone 43775739 N20.0 43 yo female with 7.5 mm L UPJ stone. Her pain has been ok for past week.We discussed options and she wishes to try and passf/u 2 wks with kub [id number] Chase Rush Jr, MD [facility] [address] [address] 02/06/2024 11:22:23 02/06/2024 13:33:21 Ureteric stone 55638618 N20.1 patient with 7 mm left proximal ureteral stone. She returns today follow-up and states he is occasional discomfort . We again discussed treatment options and she would like to proceed with stone extraction . We discussed the operative procedure, complicati ons and postoperat vitor course. We will set this up at her earliest convenienc e under general anesthesia . 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 She returns today for stent removal. She is having some moderate stent colic. Stent removed without difficulty we discussed measures to decrease her risk of further stone formation. She is to increase her fluid intake and materials on a low oxalate diet given. 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 65384385 N13.2 Pt with h/o stones now with [...] Name 11/28/2022 1 [place] [id number] Arabella Narayan [id number] Arabella Narayan 01/18/2024 1 UMR [id number] Arabella Handatt [id number] Arabella Karie 02/06/2024 1 UMR [id number] Arabella Handatt [id number] Arabella Karie 02/20/2024 1 UMR [id number] Arabella Karie [id number] Arabella Karie 03/28/2024 1 UMR [id number] Arabella Karie [id number] Arabella Karie Notes Date Note Type Note Provider Name and Address Organization Details Recorded Time 11/28/2022 text/html patient is a 42-year-old white female who was in the emergency last week with left-sided flank pain. CT scan showed a 6 mm stone on the left. On Sunday she had more discomfort and went to [facility] and a CT scan was performed showing a 3 mm stone in the left ureter. She has been taking Toradol for pain. She denies any fever or chills. Chase Rush Jr, MD [address] [place] [address], [address], [place], [address], [facility] 12/07/2022 16:29:32 01/18/2024 text/html 43 yo female wit h recent L flank pain. She presented to ER on 01/12. CT showed a 7.5 mm L UPJ stone with hydro. Her pain has been ok over the past week. She denies N, V, fever or chills. She has h/o prior stones that she passed. Chase Rush Jr, MD [address] [place] [address], [address], [place], [address], [facility] 01/21/2024 22:16:27 02/06/2024 text/html patient is 43-year-old [...] vomiting, fever, chills. Chase Rush Jr, MD [address] [place] [address], [address], [place], [address], [facility] & [place] 02/06/2024 16:55:18 02/20/2024 text/html Patient is a [...] the stone. Chase Rush Jr, MD [address] [facility], [address], [place], [address], [place] [facility] & [place] 02/20/2024 12:33:16 03/28/2024 text/html 43 yo female wit h h/o kidney stones presented to ER at [facility] on 03/26/24 with L flank pain. WBC and Cr wnl. CT showed a 5 mm L distal ureteral stone. She was treated in Jan for a 7 mm L UPJ stone. Her pain has abated. Chase Rush Jr, MD [address] [facility], [address], [place], [address], [place] - [facility] & [place] 05/09/2024 10:54:13 OBGyn Episode No OBEpisode recorded.
== END 2024-07-14 23:59 | disposition home or self-care (01) ==
LOC: RAD 13:59
PROVIDERS: PCP Nurse Practitioner Family; Visit Provider Nurse Practitioner Family
DX: R93.7 Abnormal findings on diagnostic imaging of other parts of musculoskeletal system (principal); R53.1 Weakness; H53.8 Other visual disturbances; G24.5 Blepharospasm; M54.12 Radiculopathy, cervical region; M54.2 Cervicalgia; G89.29 Other chronic pain; G43.719 Chronic migraine without aura, intractable, without status migrainosus; G44.86 Cervicogenic headache
CPT/HCPCS: 70551

== ENCOUNTER 2024-08-08 10:03 | Outpatient (RCR) | payer OTHER, SELFPAY | END 2024-08-08 23:59 | disposition home or self-care (01) | LOC: PT 10:03 | PROVIDERS: PCP Nurse Practitioner Family; Visit Provider Nurse Practitioner | DX: M54.16 Radiculopathy, lumbar region (principal); M54.12 Radiculopathy, cervical region; M48.02 Spinal stenosis, cervical region | CPT/HCPCS: 97163 ==

== ENCOUNTER 2024-09-02 09:00 | Outpatient (CLI) | payer OTHER, SELFPAY ==
--- OUTSIDE RECORDS SUMMARY | 2024-07-14 10:15 | XMS_ITS | Encounter Summary ---
Author Organization [facility] Address [address] [place] [address] Care Team Providers Care [employer] Business [employer] Consultant Name Role Phone Cheryl Moreira Unavailable [phone] Tika Mojica Primary Care Provider [phone] Reason for Visit * Reason Comments Consult * Consultation (Routine) - Closed Specialty Diagnoses / Procedures Referred By Contac t Referred To Contact Neurosurgery Diagnoses Radiculopathy, lumbar region Radiculopathy, cervical region Joyce Mckeon M, DRAFTER (CAD) [employer] [address] [place] [address] Phone: tel: fax: Referral ID Status Reason Start Date Expiration Date V isits Requested Visits Authorized [id number] Closed Specialty Services Required 06/12/2024 12/12/2025 1 1 Encounter Details Date Type Department Care Team (Late st Contact Info) Description 07/14/2024 10:15 AM EDT Consult [facility] [address] [place] [address] Arabella Kauffman, PA [address] [place] [address] Spinal stenosis, cervical region (Primary Dx); Radiculopathy, lumbar region; Radiculopathy, cervical region Social History Tobacco Use Types Packs/Day Years Used Date Smoking Tobacco: Former Cigarettes Q uit: 2012 Smokeless Tobacco: Never Alcohol Use Standard Drinks/Week Comments Yes 0 (1 standard drink = 0.6 oz pur e alcohol) occassional CAGE ASSESSMENT Answer Date Recorded Cage unable to access Not on file 09/14/2021 Maximum number of drinks you had on a given occasion in the last month? 0 drinks 09/14/2021 How many alcoholic Beverages do you typically drink in a week? 0 - 7 per week 09/14/2021 Have you ever felt you should CUT down on your d rinking? 0 09/14/2021 Have you been ANNOYED by peo ple criticizing your drinking? 0 09/14/2021 Have you felt GUILTY about your drinking? 0 09/14/2021 Have you had a drink first t maru in the morning ([employer]) to steady your nerves or to get rid of a hangover? 0 09/14/2021 CAGE Questionnaire Score 0 022 Comments No Sex and Gender Information Value Date Recorded Sex Assigned at Female 08/04/2021 11:01 AM EDT Legal Sex Female 8:07 PM EDT Gender Identity Female 08/04/2021 11:01 AM EDT Sexual Orientation Straight 08/04/2021 11 :01 AM EDT documented as of this encounter Last Filed Vital Signs Vital Sign Reading Time Taken Comments Blood Pressure 111/79 07/14/2024 9:53 AM EDT Pulse 54 07/14/2024 9:53 AM EDT Temperature 36.6 C (97.9 F) 07/14/2024 9:53 AM EDT Respiratory Rate - - Oxygen Saturation 97% 07/14/2024 9:53 AM EDT Inhaled Oxygen Concentration - - Weight 70.9 kg (156 lb 6.4 oz) 07/14/2024 9:53 A M EDT Height 152.4 cm (5') 07/14/2024 9:53 AM EDT Body Mass Index 30.54 07/14/2024 9:53 AM EDT documented in this encounter Miscellaneous Notes * Progress Notes - Arabella Kauffman PA - 07/14/2024 10:15 AM EDT Joyce Mckeon, DRAFTER (CAD) [employer] We had the pleasure of seeing your patient in our clinic today for Neurosurgical consultation. I personally reviewed approximately 10 pages of new patient referral paperwork that was sent to the clinic which may have included imaging. Chief Complaint Neck pain. History Of Present Illness Arabella Tiwari is a 44 y.o. female who presents to neurosurgical clinic today for consultation regarding neck pain. She states she has had pain for several years but worse since March 2024. There was no injury initiating. Presenting symptoms include pain base of neck. She states she has pain in her arms. She states alsonumbness. She states will be either one arm or both. She states the arm affected is dependent on activity. But can also happen at rest. She states she wakes every morning with shoulders and entire arms numb. She states all fingers. Shestates the arms feel heavy. These symptoms are provoked by hanging laundry, driving, holding phone to ear, writing. Symptoms are alleviated with changing position. Limitation to daily activities include difficulty with ADL's. Difficulty with work. No change bowel/bladder function. Denies saddle anesthesia. Past medical/surgical history includes Hypothyroid, GERD, HTN, Migraines, Right hand dominant. SVT with ablation approximately 4-5 years ago. Medications include below. Smoking: Former smoker - she quit 13 years ago. They report absence of autonomic deficits, no falls, no constitutional symptoms. Non-surgical management as below, and have been unattempted to the options the patient is amenable to attempting. Prior Treatments (for the current issue): Injections: Several years ago with some relief. PT/Chiro: PCP wanted her to be cleared by Neurosurgery prior to starting PT Medications: Tried Lyrical but made her too groggy and did not have relief. She does not take Tylenol or Ibuprofen. Surgery: No prior spine surgery. Past 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 She has a past medical history of Anxiety, Kidney stones, and SVT (supraventricular tachycardia) ([facility]). Surgical History She has no past surgical history on file. Family History Family History[1] Social History She reports that she quit smoking about 13 years ago. She has never used smokeless tobacco. She reports current alcohol use. She reports that she does not use drugs. Medications Current Medications[2] Allergies Meperidine hcl Review of Systems 14 point review of systems was performed and was negative except as noted per HPI. Last Recorded Vitals Visit Vitals BP 111/79 (BP Location: Left arm, Patient Position: Sitting, BP Cuff Size: Large adult) Pulse 54 Temp 36.6 ??C (97.9 ??F) (Oral) Ht 1.524 m (5') Wt 70.9 kg (156 lb 6.4 oz) SpO2 97% BMI 30.54 kg/m?? OB Status Ablation Smoking Status Former BSA 1.73 m?? Physical Exam GEN: well developed, no acute distress Head: normocephalic, atraumatic Eyes:EOMs intact Ears: normal auditory acuity PULM: no increased work of breathing, normal effort MSK: no joint swelling, normal range of motion SKIN: warm and dry, intact PSYCHE: normal mood and affect, appropriate historian Neuro Exam Strength 5/5 upper and lower extremities Sensation intact throughout DTRs 2+ upper and lower extremities Brianda's absent, clonus absent Straight leg raise negative Brian's negative Able to rise from chair without difficulty Imaging I personally reviewed MRI cervical spine dated June 30, 2024. Also flexion/extension x-ray performed July 14, 2024. She has loss lordosis. Degenerative disc disease C5-C6 but no significant compression or stenosis. I have reviewed images with patient and family if available. Assessment and Plan Arabella Tiwari is a 44 y.o. female presenting with neck pain and bilateral arm numbness/heaviness.She states her symptoms are at rest but often provoked by activity. She does not have feelings of being off balance, myelopathy. She does have degenerative changes on her imaging but no significant stenosis or compression that requires surgical intervention at this time. No instability on x-rays. We recommend she continue with conservative treatment. I have instructed her to begin Physical Therapy and to do the exercises daily. Red flag symptoms to watch for were discussed. Patient and/or family were instructed to contact theclinic sooner for any changes, worsening or other concerns. Patient and/or family voiced understanding and agreement with plan. Patient and/or family were given opportunity to ask questions which were answered to best of ability and to their satisfaction. Assessment/Plan Problem List Items Addressed This Visit None Visit Diagnoses Spinal stenosis, cervical region - Primary Relevant Orders XR Cervical Spine Complete 4 To 5 Views PT eval and treat Radiculopathy, lumbar region Relevant Orders XR Cervical Spine Complete 4 To 5 Views PT eval and treat Radiculopathy, cervical region Relevant Orders XR Cervical Spine Complete 4 To 5 Views PT eval and treat Arabella Kauffman PA-C [facility] Department of Neurosurgery Thank you for allowing us to be a part of your patient's care. Please do not hesitate to contact usat [facility] if there are any questions or concerns. This note was dictated using voice to text software and may contain minor errors. [1] No family history on file. [2] Current Outpatient Medications Medication Sig Dispense Refill bisoprolol (Zebeta) 5 MG tablet Take 1 tablet by mouth daily. busPIRone (Buspar) 10 MG tablet Take 10 mg by mouth every 12 (twelve) hours. For Stomach Upset. levothyroxine (Tirosint) 100 MCG capsule Take 100 mcg by mouth 1 (one) time each day before breakfast. omeprazole (PriLOSEC) [address] capsule Take 60 mg by mouth 1 (one) time each day. Do not crush or chew. PARoxetine (Paxil) 20 MG tablet Take 20 mg by mouth 1 (one) time each day in the morning. eclobzltfx-pinradqbamipb-numcypue 50-325-40 MG tablet Take 1 tablet by mouth every 4 (four) hours if needed for headaches. (Patient not taking: Reported on 07/14/2024) 10 tablet 0 levothyroxine (Synthroid, Levoxyl) 50 MCG tablet levothyroxine 50 mcg tablet (Patient not taking: Reported on 07/14/2024) linaCLOtide (Linzess) 145 MCG tablet Take 72 mcg by mouth 1 (one) time each day. (Patient not taking: Reported on 07/14/2024) No current facility-administered medications for this visit. documented in this encounter Plan of Treatment Upcoming Encounters Date Type Department Care Team (Late st Contact Info) Description 09/10/2024 1:00 PM EDT Office Visit Interventional Pain Medicine [address] [place] [phone] Wood Francois MD [address] [place] [phone] 09/16/2024 12:30 PM EDT Procedure Visit [facility] [address] [place] [address] Eamon Meade DO [address] [place] [address] Scheduled Orders Name Type Priority Associated Diagnoses Orde r Schedule XR Cervical Spine Complete 4 To 5 Views Imaging Routine Radiculopathy, lumbar region Radiculopathy, cervical region Spinal stenosis, cervical region Expected: 07/14/2024, Expires: 01/13/2026 documented as of this encounter Visit Diagnoses Diagnosis Spinal stenosis, cervical region- Primary Radiculopathy, lumbar region Thoracic or lumbosacral neuritis or radiculitis, unspecified Radiculopathy, cervical region Brachial neuritis or radiculitis nos documented in this encounter Additional Health Concerns Assessment Noted Time A fall risk assessment has been complete d for the patient 07/14/2024 9:57 AM EDT A Body Mass Index follow-up plan has been documented for the patient 07/17/2024 11:53 AM EDT documented as of this encounter Care Teams [employer] Business [employer] Consultant Relationship Specialty Start Date End Date Tika Mojica PA [address] [place] [address] [address] [place] [address] PCP - General 09/14/21 08/25/24 Cheryl Moreira PA [address] [place] [address] 02/10/21 documented as of this encounter
--- NOTE | 2024-09-02 09:00 | US_ITS ---
FINAL REPORT TECHNIQUE: Sonographic images of the thyroid were obtained. CLINICAL HISTORY: Hypothyroidism COMPARISON: 09/05/2023 FINDINGS: THYROID ULTRASOUND The right thyroid gland measures 4.0 x 1.4 cm. The left thyroid gland measures 4.0 x 1.6 cm. The parenchyma is diffusely heterogeneous consistent with diffuse goiter. No discrete nodule identified. IMPRESSION: Diffusely heterogeneous thyroid parenchyma consistent with diffuse goiter. No discrete nodule identified. Reviewed, Interpreted and Dictated by Philip Carbajal MD Transcribed by Berenice Beatty Authenticated and [facility]
--- OUTSIDE RECORDS SUMMARY | 2024-09-02 09:03 | XMS_ITS | Clinical Summary ---
Author Organization [employer] Address [address] [place] [address] Care Team Providers Care Crystal Grinder Name Role Phone Cheryl Moreira PA-C Primary Care Provider [phone] Allergies Active Allergy Reactions Criticality Noted Date Comments Meperidine Other (See Comments) High 11/26/2022 Unknown reaction. Medications No known medications Social History Tobacco Use Types Packs/Day Years Used Date Smoking Tobacco: Never Assessed Interpersonal Safety Answer Date Record ed Family or friends hurt you Not on file 04/13 Family or friends insult you Not on file Family or friends threaten you Not on file 0 04/13/2023 Family or friends scream or curse at you Not on file 04/13/2023 Housing Stability Answer Date Recorded Living situation today Not on file Living situation problems Not on file 2023 Food Insecurity Answer Date Recorded Food run out past 12 months Not on file 03/26 Food did not last past 12 months Not on file 04/13/2023 Employment Answer Date Recorded Help finding and keeping a job Not on file 0 04/13/2023 Family and Community Support Answer David e Recorded Help with Day to Day Activities Not on file 04/13/2023 Feeling Lonely or Isolated Not on file 04/13 Educational Attainment Answer Date Marlo rded Speak language other than Moroccan at home Not on file 04/13/2023 Want help with school or training Not on file 04/13/2023 Depression Answer Date Recorded PHQ-2 Risk Not on file 04/13/2023 Disabilities Answer Date Recorded Difficulty concentrating Not on file 024 Difficulty doing errands alone Not on file 0 04/13/2023 Substance Use Answer Date Recorded Used prescription meds for non-medical reasons N ot on file 04/13/2023 Used illegal drugs past 12 months Not on file 04/13/2023 Comments Unknown Sex and Gender Information Value Date Recorded Sex Assigned at Not on file Legal Sex Female 7:52 PM CDT Gender Identity Not on file Sexual Orientation Not on file Last Filed Vital Signs Vital Sign Reading Time Taken Comments Blood Pressure 128/80 11/26/2022 8:18 PM EDT Pulse 82 11/26/2022 5:57 PM EDT Temperature 36.6 C (97.8 F) 11/26/2022 5:57 PM EDT Respiratory Rate 20 11/26/2022 5:57 PM EDT Oxygen Saturation - - Inhaled Oxygen Concentration - - Weight 65.8 kg (145 lb) 11/26/2022 5:57 PM EDT Height 152.4 cm (5') 11/26/2022 5:57 PM EDT Body Mass Index 28.32 11/26/2022 5:57 PM EDT Plan of Treatment Health Maintenance Due Date Last Done Comments Depression Screening (12+) 1993 Tobacco Cessation Counseling and Screening (12+) 1993 HIV Screening 1996 Hepatitis C Screening 06/08/1999 DTAP/TDAP/TD VACCINES (1 - Tdap) 2000 Pap Smear 2002 Breast Cancer Screening 2021 COVID-19 VACCINE ( - 2023-2 5 season) 2023 Influenza Vaccine (Season Ended) 2024 Pneumococcal Vaccine: 0-49 Years Aged Out No longer eligible based on patient's age to complete this topic Care Teams Crystal Grinder Relationship Specialty Start Date End Date Cheryl Moreira, MILLIEC [address] [place] [address] PCP - General Physician Tool Procurement Coordinator 11/26/22
--- OUTSIDE RECORDS SUMMARY | 2024-09-02 09:03 | XMS_ITS | Referral Summary ---
Author Organization [employer] Address [address] [place] [address] Care Team Providers Care Flat Examiner Name Role Phone Cheryl Moreira PA-C Primary Care Provider [phone] Allergies Active Allergy Reactions Criticality Noted Date [...] Date Marlo rded Speak language other than Emirati at home Not on file 04/13/2023 Want [...] 11/26/2022 5:57 PM EDT Plan of Treatment Not on file Care Teams Flat Examiner Relationship Specialty Start Date End Date Cheryl Moreira, MILLIEC [address] [place] [address] PCP - General Physician Graphite Pan Drier Tender 11/26/22
--- OUTSIDE RECORDS SUMMARY | 2024-09-02 09:03 | XMS_ITS | Clinical Summary ---
Author Organization [facility] Address [address] [facility] [facility] [facility] [address] [place] [address] Phone Care Team Providers Care Intelligence Engineer Name Role Phone Unavailable Primary Care Provider Unavailabl e Allergies No known active allergies Medications atorvastatin (LIPITOR) 10 mg Oral Tablet Take 10 mg by mouth daily. 1 Active busPIRone (BUSPAR) 10 mg Oral Tablet BuSpar 10 mg tablet Take 1 tablet twice a day by oral route. 0 Active PARoxetine (PAXIL) 20 mg Oral Tablet paroxetine 20 mg tablet 0 Active LEVOthyroxine 100 mcg Oral Capsule Take 100 mcg by mouth daily. Active Eflornithine (VANIQA) 13.9 % Top Cream Apply thin layer twice daily to affected areas. 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 Hirsutism 07/16/2020 Multinodular goiter 07/16/2020 SVT (supraventricular tachycardia) 07/13/2020 Overview (07/13/2020): Added automatically from request for surgery [id number] Tachycardia Surgical History Surgery Date Site/Laterality Comments CARDIAC CATHETERIZATION KIDNEY STONE SURGERY 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 Date Comments Tachycardia Joyce's thyroiditis Kidney stones Anxiety Sleep apnea Colon polyps High cholesterol Osteopenia Family History 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 Relation Name Comments Heart Attack Brother Heart Attack Father Thyroid Disease Mother Relation Name Status Comments Brother Father Mother Alive Social History Tobacco Use Types Packs/Day Years Used Date Smoking Tobacco: Former Smokeless Tobacco: Never Alcohol Use Standard Drinks/Week Comments Not Currently 0 (1 standard drink = 0.6 oz pur e alcohol) Comments No Sex and Gender Information Value Date Recorded Sex Assigned at Not on file Legal Sex Female 3:43 PM EDT Gender Identity Not on file Sexual Orientation Not on file Obstetrics History Last Filed Vital Signs Vital Sign Reading Time Taken Comments Blood Pressure 122/78 09/14/2020 10:43 AM EDT Pulse 63 09/14/2020 10:43 AM EDT Temperature 37.1 C (98.7 F) 07/29/2020 8:02 AM EDT Respiratory Rate 18 07/29/2020 11:18 AM EDT Oxygen Saturation 98% 09/14/2020 10:43 AM EDT Inhaled Oxygen Concentration - - Weight 67.1 kg (148 lb) 09/14/2020 10:43 AM EDT Height 154.9 cm (5' 1 ) 07/29/2020 7:53 AM EDT Body Mass Index 27.96 07/29/2020 7:53 AM EDT Plan of Treatment Health Maintenance Due Date Last Done Comments Annual Wellness Exam 1984 DTaP/TDaP/Td (1 - Tdap) 2000 Hepatitis B Vaccine (1 of - 19+ 3-dose series) 2000 Cervical Cancer Screening 2002 Pap Smear 2002 HPV/Pap Cotest 06/08/2011 Breast Cancer Screening 2021 COVID-19 Vaccine ( - 2023-2 5 season) 2023 10/11/2020, 09/08/2020 Influenza Vaccine (Season Ended) 2024 Meningococcal B Vaccine Aged Out No l onger eligible based on patient's age to complete this topic Pneumococcal Vaccine 0-49 Aged Out No longer eligible based on patient's age to complete this topic Insurance [facility] [id number]
--- OUTSIDE RECORDS SUMMARY | 2024-09-02 09:04 | XMS_ITS | Data Portability ---
Author Organization [facility] Orta ADMIN Address [address] [place] [address] Care Team Providers Care Bus Driver/Monitor Name Role Phone CLIFTON LEDESMA Primary Care Provider [phone] Assessment No assessment recorded. Plan of Treatment Reminders Order Date Submit Date Provider Last Modified By Organization Details Last Modified Time Details Appointments None recorded. Lab urinalysis , dipstick [email or web address], [address], 4 20:50:43 Referral None recorded. Procedures None recorded. Surgeries None recorded. Imaging XR, abdomen, 1 view 2023 024 MERARY Not available 4 13:26:29 XR, abdomen, 1 view 2022 023 [email or web address] [facility] (Central Scheduling), [address] [place] [address] [place], [address], 3 07:54:05 Medication Orders None recorded. Patient TargetsNo targets recorded. Patient InstructionsNo instructions recorded. Reason for Referral None Reported. Results Created Date Observation Date Name Description Value Unit Range Abnormal Flag Note LastModifiedBy Organization Detail LastModifiedTime 01/18/2001/18/2024 urina lysis , dipst ick Leukocytes (reference range) trace Not Available [address], [address], 01/18/2024 11:23:35 01/18/20 24 01/18/2024 urina lysis , dipst ick Nitrite (reference range:) negati ve Not Available [address], [address], 01/18/2024 11:23:35 01/18/20 24 01/18/2024 urina lysis , dipst ick Urobilinogen (reference range) 0.2 Not Available [address], [address], 01/18/2024 11:23:35 01/18/2001/18/2024 urina lysis , dipst ick Protein (reference range) negati ve Not Available [address], [address], 01/18/2024 11:23:35 01/18/2001/18/2024 urina lysis , dipst ick pH (reference range 5-8.5) 6.0 Not Available [address], [address], 01/18/2024 11:23:35 01/18/2001/18/2024 urina lysis , dipst ick Blood (reference range:) non-He molyze d: Trace Not Available [address], [address], 01/18/2024 11:23:35 01/18/2001/18/2024 urina lysis , dipst ick Specific [place] (reference range) 1.025 Not Available [address], [address], 01/18/2024 11:23:35 01/18/20 24 01/18/2024 urina lysis , dipst ick Ketone (reference range) negati ve Not Available [address], [address], 01/18/2024 11:23:35 01/18/20 24 01/18/2024 urina lysis , dipst ick Bilirubin (reference range) negati ve Not Available [address], [address], 01/18/2024 11:23:35 01/18/2001/18/2024 urina lysis , dipst ick Glucose (reference range) negati ve Not Available [facility] [address] [place], [address], 01/18/2024 11:23:35 01/18/2001/18/2024 urina lysis , dipst ick Color (reference range: yellow-brown ) Yellow Not Available [facility] [address] [place], [address], 01/18/2024 11:23:35 02/15/2002/15/2024 URINE PREGN SHARON TEST urine test NEGATI VE negati ve Not Available [facility] (Lab Registration) [address] , [place], [address], 02/15/2024 07:23:48 02/15/2002/15/2024 URINE PREGN SHARON TEST internal control PASS PASS Not Available [facility] (Lab Registration) [address] , [place], [address], 02/15/2024 07:23:48 02/15/2002/15/2024 URINE PREGN SHARON TEST note Unles s other perla noted testi ng perfo rmed at: [facility] [address] [place] [address] [phone] Wilmer garcia MD CLIA: [id number] Not Available [facility] (Lab Registration) [address] [place], [address], 02/15/2024 07:23:48 10/28/[address], abdom en + pelvi s, w/o contr ast No observ ation record ed. Not Available 01/20 10:20:37 02/06/20 24 02/06/2024 XR, abdom en, 1 view [facility] [address] [place], [place] [address] Phone: Fax: Name: ARABELLA NARAYAN Exam Date: 2023 : 982 Age 43 years Gender : F Access ion: [id number] Physic brian: GRADY RUSH Facili ty: [facility] Facili ty HSV: Outpat ient Exam: ABD KUB 1V XR ABDOME N 1 VIEW (KUB), 2023 10:19 AM FREIGHT COORDINATOR INDICA TION: Left renal calcul us. Bowel [...] ADRI Lozada Referr ing Provid er: ADRI Loazda Admitt ing Provid er: ADRI oLzada [email or web address] [facility] (Radiology) [address] [place], [address], 03/30/2024 16:29:50 02/15/20 24 02/15/2024 fluor o less than 1 HR [facility] [address] [place] [address] Phone: Fax: Name: ARABELLA NARAYAN Exam Date: 2023 : 982 Age 43 years Gender : F Access ion: [id number] Physic brian: GRADY RUSH Facili ty: [facility] Facili ty HSV: Outpat ient Exam: [...] PM Electr onical ly signed by: FERNY RGOSS 2023 Thank you for referr ing ARABELLA NARAYAN to [facility]. Legall y authen ticate d by LAURA ISAACS MD 2023-04-16 13:08: 37 CC'ed Logic: Orderi ng Provid er: ADRI Lozada CC Provid er: OUMOU PEREZ Attend ing Provid er: ADRI Lozada Referr ing Provid er: ADRI Lozada Admitt ing Provid er: ADRI Lozada [email or web address] [facility] (Radiology) [address] , [place], [address], 02/28/2024 08:12:19 03/26/19 25 03/26/2024 CT, abdom en + pelvi s, w/ contr ast No observ ation record ed. [facility] [address], [place], [address], 04/02/2024 08:45:13 Result Notes None recorded. Procedures Surgical History Date Name Laterality Status Provider Name and Address Organization Details Recorded Time 03/26/19 23 Cholecystectomy completed [facility] [place] 01/23/2024 11:54:18 03/26/19 22 Colonoscopy completed [facility] [place] 01/23/2024 11:54:18 03/26/19 20 EGD completed [facility] [place] 01/23/2024 11:54:18 Imaging Results None recorded. Procedure Notes None recorded. Medical Equipment None Reported. Allergies Allergen ID Allergen Name Allergen Category Reaction Reaction Severity Criticality Documentation Date Start Date Code Code System Note Provider Name and Address Organization Details Recorded Time 51062 Demerol medicatio n Not available Not available Not available 11/28/2022 51989 1 RxNorm Lauren Warner [facility] & [place] 3 09:34:44 Medications Name Sig Start Date [...] Updated DateTime 03/28/2024 175.26 cm 21.4 kg/m2 71804.89 g 98.2 [degF] Harish Talavera [facility] & [place] 03/28/2024 13:48:27 Date Recorded Body height Body mass index (BMI) Body weight Body temperature Provider Name and Address Organization Details Last Updated DateTime 11/28/2022 152.4 cm 28.3 kg/m2 89461.89 g 98 [degF] Lauren Warner [facility] & [place] 11/28/2022 09:34:26 Date Recorded Body height Body mass index (BMI) Body weight Provider Name and Address Organization Details Last Updated DateTime 01/18/2024 175.26 cm 21.4 kg/m2 98968.89 g Lauren KRAUS [facility] [place] 01/18/2024 11:14:24 Date Recorded Body height Body mass index (BMI) Body weight Body temperature Provider Name and Address Organization Details Last Updated DateTime 02/06/2024 175.26 cm 21.4 kg/m2 80805.89 g 97.9 [degF] Harish KRAUS [facility] [place] 02/06/2024 11:47:42 Date Recorded Body height Body mass index (BMI) Body weight Body temperature Provider Name and Address Organization Details Last Updated DateTime 02/20/2024 175.26 cm 21.4 kg/m2 80757.89 g 98.1 [degF] Harish KRAUS [facility] [place] 02/20/2024 12:29:51 Social History Question Answer Notes LastModified by [employer] Details LastModified Time Tobacco Smoking Status Never Smoker [facility] canales [facility] [place] 11/28/2022 09:36:33 Do You Have An Advance Directive? No [email or web address] Information not available 01/23/2024 Are You Blind Or Do You Have Difficulty Seeing? No [email or web address] Information not available 01/23/2024 What Was The Date Of Your Most Recent Tobacco Screening? 11/28/2022 [email or web address] Information not available 01/23/2024 Are You Passively Exposed To Smoke? No Information not available 01/23/2024 Sex: Unknown Functional Status Question Answer Note LastModified by [employer] Details LastModified Time Do you use any illicit or recreational drugs? No Information not available 01/23/2024 What is your level of alcohol consumption? Occasional [email or web address] Information not available 11/28/2022 What is your exercise level? None Information not available 01/23/2024 Mental Status Question Answer Note LastModified by Organization D etails LastModified Time Do you feel stressed (tense, restless, nervous, or anxious, or unable to sleep at night)? [id number] [email or web address] Information not available 01/23/2024 Family History Relationship Description Onset Age of [...] SNOMED-CT Code Diagnosis ICD10 Code Diagnosis Note [id number] Chase Rush Jr, MD [facility] [address] [place] [address] 11/28/2022 09:22:13 11/28/2022 10:18:47 Kidney stone 56875357 N20.0 42-year-ol d white female with a 3 mm ureteral stone. We discussed treatment options including trial of passage versus ureterosco py and stone extraction . She is doing well regarding symptoms at this point wishes to try and pass it. We will see her back in 1 week with a KUB. [id number] Chase Rush Jr, MD [facility] [address] [address] 01/18/2024 10:49:23 01/18/2024 11:23:26 Kidney stone 07469915 N20.0 43 yo female with 7.5 mm L UPJ stone. Her pain has been ok for past week.We discussed options and she wishes to try and passf/u 2 wks with kub [id number] Chase Rush Jr, MD [facility] [address] [address] 02/06/2024 11:22:23 02/06/2024 13:33:21 Ureteric stone 41065565 N20.1 patient with 7 mm left proximal ureteral stone. She returns today follow-up and states he is occasional discomfort . We again discussed treatment options and she would like to proceed with stone extraction . We discussed the operative procedure, complicati ons and postoperat vitor course. We will set this up at her earliest convenienc e under general anesthesia . 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 She returns today for stent removal. She is having some moderate stent colic. Stent removed without difficulty we discussed measures to decrease her risk of further stone formation. She is to increase her fluid intake and materials on a low oxalate diet given. 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 25031916 N13.2 Pt with h/o stones now with [...] None Recorded Advance Directives Directive N: Payers Insurance Date Sequence Insurance Name Policy Number Policy Reich Covered Member ID Reich Member ID Guarantor Name 10/13/2023 1 [place] [id number] Niall Handatt [id number] Arabella Narayan 01/18/2024 1 [place] [id number] Arabella Narayan [id number] Arabella Narayan 05/12/2024 1 R [id number] Arabella Narayan [id number] Arabella Narayan Notes Date Note Type Note Provider Name and Address Organization Details Recorded Time 11/28/2022 text/html patient is a 42-year-old white female who was in the emergency last week with left-sided flank pain. CT scan showed a 6 mm stone on the left. On Sunday she had more discomfort and went to [facility] and a CT scan was performed showing a 3 mm stone in the left ureter. She has been taking Toradol for pain. She denies any fever or chills. Chase Rush Jr, MD [address] [place] [address], [address], [place], [address], [facility] [place] 12/07/2022 16:29:32 01/18/2024 text/html 43 yo female wit h recent L flank pain. She presented to ER on 01/12. CT showed a 7.5 mm L UPJ stone with hydro. Her pain has been ok over the past week. She denies N, V, fever or chills. She has h/o prior stones that she passed. Chase Rush Jr, MD [address] [place] [address], [address], [place], [address], [facility] [place] 01/21/2024 22:16:27 02/06/2024 text/html patient is 43-year-old [...] vomiting, fever, chills. Chase Rush Jr, MD [address] [place] [address], [address], [place], [address], [facility] [place] 02/06/2024 16:55:18 02/20/2024 text/html Patient is a [...] to the stone. Chase Rush Jr, MD [address] [place] [address], [address], [place], [address], [place] - [facility] 02/20/2024 12:33:16 03/28/2024 text/html 43 yo female wit h h/o kidney stones presented to ER at [facility] on 03/26/24 with L flank pain. WBC and Cr wnl. CT showed a 5 mm L distal ureteral stone. She was treated in Jan for a 7 mm L UPJ stone. Her pain has abated. Chase Rush Jr, MD [address] [place] [address], [address], [place], [address], [place] [facility] 05/09/2024 10:54:13 OBGyn Episode No OBEpisode recorded.
--- OUTSIDE RECORDS SUMMARY | 2024-09-02 09:04 | XMS_ITS | Encounter Summary ---
Author Organization [facility] Address [address] [place] [address] Care Team Providers Care 911 Dispatcher Name Role Phone Unknown, Unknown Primary Care Provider Unavailab Cheryl Rose Unavailable [phone] Tika Mojica Primary Care Provider [phone] Joyce Mckeon APRN Primary Care Provider Encounter Details Date Type Department Care Team (Late st Contact Info) Description 09/13/2021 Orders Only [place] [facility] [address], [address] [place] [address] Lauren Loaiza MD [address] [facility] [address] [place] [address] Social History Tobacco Use Types Packs/Day Years [...] drink first t maru in the morning (EYE-NIGHT SHIFT) to steady your nerves or to get rid of a hangover? 0 09/14/2021 CAGE Questionnaire Score 0 022 Comments No Sex and Gender Information Value Date Recorded Sex Assigned at Female 08/04/2021 11:01 AM EDT Legal Sex Female 8:07 PM EDT Gender Identity Female 08/04/2021 11:01 AM EDT Sexual Orientation Straight 08/04/2021 11 :01 AM EDT COVID-19 Exposure Response Date Recorded In the last 10 days, have yo u been in contact with someone who was confirmed or suspected to have Coronavirus/COVID-19? No / Unsure 09/14/2021 12:08 PM EDT documented as of this encounter Functional Status * Calculated C-SSRS Risk Score (Lifetime/Recent) Answer Date of Assessment Author No Risk Indicated 09/14/2021 12:58 PM EDT Yusra Addison ms * Question Answer Date of Assessment Author 1. Wish to be (Past 1 Month) No 022 12:58 PM EDT Yusra Walton 2. Non-Specific Active Suici karen Thoughts (Past 1 Month) No 09/14/2021 12:58 PM EDT Dominic Walton 6. Suicidal Behavior (Lifetime) No 12:58 PM EDT Yusra Walton documented as of this encounter Plan of Treatment Upcoming Encounters Date Type Department Care Team (Late st Contact Info) Description 09/10/2024 1:00 PM EDT Office Visit Interventional Pain Medicine [address] [place] [address] Wood Francois MD [address] [place] [address] 09/16/2024 12:30 PM EDT Procedure Visit [facility] at [facility] [address] [place] [address] Eamon Meade, DO [address] [place] [address] documented as of this encounter Visit Diagnoses Not on filedocumented in this encounter Additional Health Concerns Infection Onset Date Last Indicated Resolved Time Meningitis Rule-Out 09/13/2021 09/13/2021 09/14/19 12:05 PM EDT Assessment Noted Time A fall risk assessment has been complete d for the patient 09/13/2021 8:55 AM EDT A Body Mass Index follow-up plan has been documented for the patient 02/01/2023 11:26 PM EST documented as of this encounter Care Teams 911 Dispatcher Relationship Specialty Start Date End Date Unknown, Unknown [place] PCP - General 02/10/21 09/13/21 Tika Mojica PA [address] [facility] [address] [place] [address] PCP - General 09/14/21 08/25/24 Joyce Mckeon APRN [address] [place] [address] PCP - General 08/26/24 Cheryl Moreira PA [address] [place] [address] 02/10/21 documented as of this encounter
--- OUTSIDE RECORDS SUMMARY | 2024-09-02 09:04 | XMS_ITS | Encounter Summary ---
Author Organization Healthcare Address [address] [place] [address] Care Team Providers Care Cane Splicer Name Role Phone Cheryl Moreira Unavailable [phone] Tika Mojica Primary Care Provider [phone] Encounter Details Date Type Department Care Team (Latest Contact Info) Description 07/14/2024 Travel Social History Tobacco Use Types Packs/Day Years [...] drink first t maru in the morning (EYE-LOT BOSS) to steady your nerves or to get rid of a hangover? 0 09/14/2021 CAGE Questionnaire Score 0 022 Comments No Sex and Gender Information Value Date Recorded Sex Assigned at Female 08/04/2021 11:01 AM EDT Legal Sex Female 8:07 PM EDT Gender Identity Female 08/04/2021 11:01 AM EDT Sexual Orientation Straight 08/04/2021 11 :01 AM EDT documented as of this encounter Plan of Treatment Upcoming Encounters Date Type Department Care Team (Late st Contact Info) Description 09/10/2024 1:00 PM EDT Office Visit Interventional Pain Medicine [address] [place] [address] Wood Francois MD [address] [place] [address] 09/16/2024 12:30 PM EDT Procedure Visit [facility] [address] [place] [address] Eamon Meade DO [address] [place] [address] documented as of this encounter Visit Diagnoses Not on filedocumented in this encounter Additional Health Concerns Assessment Noted Time A fall risk assessment has been complete d for the patient 07/14/2024 9:57 AM EDT A Body Mass Index follow-up plan has been documented for the patient 07/17/2024 11:53 AM EDT documented as of this encounter Care Teams Cane Splicer Relationship Specialty Start Date End Date Tika Mojica PA [address] [place] [address] PCP - General 09/14/21 08/25/24 Cheryl Moreira PA [address] [place] [address] 02/10/21 documented as of this encounter
--- OUTSIDE RECORDS SUMMARY | 2024-09-02 09:04 | XMS_ITS | Encounter Summary ---
Author Organization [facility] Address [address] [place] [address] Care Team Providers Care Underwear Trimmer Name Role Phone Cheryl Moreira Unavailable [phone] Tika Mojica Primary Care Provider [phone] Encounter Details Date Type Department Care Team (Late st Contact Info) Description 08/22/2024 Telephone [facility] [address] [facility], [place] [address] Arabella Kauffman PA [address] [place] [address] Social History Tobacco Use Types [...] drink first t maru in the morning (EYE-CADET DECK) to steady your nerves or to get rid of a hangover? 0 09/14/2021 CAGE Questionnaire Score 0 022 Comments No Sex and Gender Information Value Date Recorded Sex Assigned at Female 08/04/2021 11:01 AM EDT Legal Sex Female 8:07 PM EDT Gender Identity Female 08/04/2021 11:01 AM EDT Sexual Orientation Straight 08/04/2021 11 :01 AM EDT documented as of this encounter Miscellaneous Notes * Telephone Encounter - Kari Alexandra - 08/22/2024 9:03 AM EDT Insurance has not approved the PT. . She did have one visit it was the consultation. Still having problems. would like to speak with Arabella documented in this encounter Plan of Treatment Upcoming Encounters Date Type Department Care Team (Late st Contact Info) Description 09/10/2024 1:00 PM EDT Office Visit Interventional Pain Medicine [address] [place] [address] Wood Francois MD [address] [place] [address] 09/16/2024 12:30 PM EDT Procedure Visit Physical Medicine & Rehabilitation Clinic at [facility] [address] [place] [address] Eamon Meade, [address] [place] [address] documented as of this encounter Visit Diagnoses Not on filedocumented in this encounter Additional Health Concerns Assessment Noted Time A fall risk assessment has been complete d for the patient 07/14/2024 9:57 AM EDT A Body Mass Index follow-up plan has been documented for the patient 07/17/2024 11:53 AM EDT documented as of this encounter Care Teams Underwear Trimmer Relationship Specialty Start Date End Date Tika Mojica PA [address] [place] [address] PCP - General 09/14/21 08/25/24 Cheryl Moreira PA [address] [place] [address] 02/10/21 documented as of this encounter
--- OUTSIDE RECORDS SUMMARY | 2024-09-02 09:04 | XMS_ITS | Data Portability ---
Author Organization [facility] [employer] hamlin CKS ADDY CLOSED Address [address] [facility] [facility] [address] [place] [address] Care Team Providers Care Dictaphone Technician Name Role Phone EJ HUMPHREY Manager Icu CLIFTON LEDESMA Primary Care Provider Assessment No assessment recorded. Plan of Treatment Reminders Order Date Submit Date Provider Last Modified By Organization Details Last Modified Time Details Appointments None recorded. Lab None recorded. Referral pain management referral 2019 020 [email or web address] Zenaida Gutiérrez MD, [address] [place] [address], [id number], 0 15:58:11 Procedures None recorded. Surgeries None recorded. Imaging None recorded. Medication Orders None recorded. Patient TargetsNo targets recorded. Patient Instructions Encounter Date Encounter Id Patient Instructions Last Modified By Organization Details Last Modified Time 06/26/2019 [id number] osteoarthritis: care instructions [email or web address] Not available 06/26/2019 10:08:26 Reason for Referral Pain Management Referral for Generalized osteoarthritis mechanical degenerative joint pains Referring Physician: Ej [...] cm 71 /min 18 /min 27.4 kg/m2 41914.8 9 g 106 mm[Hg] 79 mm[Hg] Jeny Resendez [facility] 0 09:44:40 Social History Question Answer Notes LastModified by Organizat ion Details LastModified Time Tobacco Smoking Status Former Smoker Jenydean Resendez [facility] 06/26/2019 09:46:07 How Much Tobacco Do You Chew? None [email or web address] Information not available 06/26/2019 What Was The Date Of Your Most Recent Tobacco Screening? 06/26/2019 [email or web address] Information not available 06/26/2019 How Much Tobacco Do You Smoke? 0.5 PPD [email or web address] Information not available 06/26/2019 How Many Years Have You Smoked Tobacco? 4 [email or web address] Information not available 06/26/2019 Sex: Unknown Functional Status Question Answer Note LastModified by Organizat ion Details LastModified Time Do you or have you ever used smokeless tobacco? Never used smokeless tobacco [email or web address] Information not available 06/26/2019 Do you or have you ever used e-cigarettes or vape? Never used electronic cigarettes [email or web address] Information not available 06/26/2019 Mental Status None recorded. Family History Nothing Reported. 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 Condition Response Diabetes N Bleeding Disorder N Arthritis Y Emphysema N Acid Reflux (GERD) N Heart Disease N Rheumatoid Arthritis N Hypertension N Asthma N COPD N Gynecological HistoryNo gynecological history recorded. Obstetrics History GPAL:G 0 P 0 0 0 0 Past Encounters Encounter ID Performer Location Encounter Start Date Encounter Closed Date Diagnosis/Indication Diagnosis SNOMED-CT Code Diagnosis ICD10 Code Diagnosis Note [id number] EJ HUMPHREY MD [facility] [address] [place] [address] 06/26/2019 09:21:39 06/26/2019 10:13:13 Generalized osteoarthritis 166065716 M15.9 39-year-ol d female with clinical evidence [...] , Sjogren's profile, anti-Paola 1 antibodies , anti-PEBBLE MILL OPERATOR antibodies are all negative. She does have [...] Recorded Advance Directives Directive None Recorded Payers Insurance Date Sequence Insurance Name Policy Number Policy Reich Covered Member ID Reich Member ID Guarantor Name 12/01/2022 1 [place] [id number] Niall Tiwari [id number] Arabella Tiwari Notes Date Note Type Note [...] no autoimmune disease reported. EJ HUMPHREY MD [facility] [place], [address], [facility] 06/26/2019 10:29:56 OBGyn Episode No OBEpisode recorded.
--- OUTSIDE RECORDS SUMMARY | 2024-09-02 09:04 | XMS_ITS | Encounter Summary ---
Author Organization [facility] Address [address] 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 [email or web address] documented in this encounter Plan of Treatment Upcoming Encounters Date Type Department Care Team (Late st Contact Info) Description 09/10/2024 1:00 PM EDT Office Visit Interventional Pain Medicine [address] [place] [address] Wood Francois MD [address] [place] [address] 09/16/2024 12:30 PM EDT Procedure [facility] [address] [place] [address] Eamon Meade DO [address] [place] [address] documented as of this encounter Visit Diagnoses Not on filedocumented in this encounter Additional Health Concerns Assessment Noted Time A fall risk assessment has been complete d for the patient 07/14/2024 9:57 AM EDT A Body Mass Index follow-up plan has been documented for the patient 07/17/2024 11:53 AM EDT documented as of this encounter Care Teams Vault Installer Relationship Specialty Start Date End Date Joyce Mckeon APRN [address] [place] [address] PCP - General 08/26/24 Cheryl Moreira PA [address] [place] [address] 02/10/21 documented as of this encounter
--- OUTSIDE RECORDS SUMMARY | 2024-09-02 09:04 | XMS_ITS | Encounter Summary ---
Author Organization [facility] [place] [address] Care Team Providers Care Community Theater Actor Name Role Phone Unavailable Primary Care Provider Unavailabl e Encounter Details Date Type Department Care Team (Late st Contact Info) Description 07/29/2020 Orders Only [facility] [address] [facility] [address] [place] [address] Jaime Musa MD [address] [place] [place], [place] [id number] Social History Tobacco Use Types Packs/Day Years Used Date Smoking Tobacco: Former Smokeless Tobacco: Never Alcohol Use Standard Drinks/Week Comments Not Currently 0 (1 standard drink = 0.6 oz pur e alcohol) Comments No Sex and Gender Information Value Date Recorded Sex Assigned at Not on file Legal Sex Female 3:43 PM EDT Gender Identity Not on file Sexual Orientation Not on file COVID-19 Exposure Response Date Recorded In the last month, have you been in contact with someone who was confirmed or suspected to have Coronavirus / COVID-19? No / Unsure 07/25/2020 10:57 AM EDT documented as of this encounter Plan of Treatment Not on file documented as of this encounter Procedures Procedure Name Priority Date/Time Associated Diagnosis Comments EP LAB RECORDINGS Routine 07/29/2020 9:21 AM EDT documented in this encounter Results * EP LAB RECORDINGS (07/29/2020 9:21 AM EDT) 07/29/2020 9:21 AM EDT us Jaime Musa MD CARDIAC CATH ORDERABLES Final Result Performing Organization Address City/State/[facility] Co de Phone Number [place] [phone] documented in this encounter Visit Diagnoses Not on filedocumented in this encounter
--- OUTSIDE RECORDS SUMMARY | 2024-09-02 09:04 | XMS_ITS | Clinical Summary ---
Author Organization [facility] Address [address] [place] [address] Care Team Providers Care Spanish Speaking Nanny Name Role Phone Cheryl Moreira PA Unavailable [phone] Joyce Mckeon APRN Primary Care Provider [phone] Allergies Active Allergy Reactions Criticality Noted Date Comments Meperidine Hcl Other - please docum ent in the comment field High 07/14/2024 Medications PARoxetine (Paxil) 20 MG tabletIndicati ons:Major Depressive Disorder Take 20 mg by mouth 1 (one) time each day in the morning. Active busPIRone (Buspar) 10 MG tablet Take 10 mg by mouth every 12 (twelve) hours. For Stomach Upset. Active levothyroxine (Synthroid, Levoxyl) 50 MCG tablet levothyroxine 50 mcg tablet Active levothyroxine (Tirosint) 100 MCG capsuleIndicat ions:Hypothyro idism Take 100 mcg by mouth 1 (one) time each day before breakfast. Active omeprazole (PriLOSEC) [address] capsuleIndicat ions:Heartburn Take 60 mg by mouth 1 (one) time each day. Do not crush or chew. Active linaCLOtide (Linzess) 145 MCG tabletIndicati ons:Constipati on associated with Irritable Bowel Syndrome Take 72 mcg by mouth 1 (one) time each day. Active butalbital-claudine taminophen-caf feine 50-325-40 MG tablet Take 1 tablet by mouth every 4 (four) hours if needed for headaches. 10 tablet 2 Active Additional Information Patient not taking.Reported on 07/14/2024 bisoprolol (Zebeta) 5 MG tablet Take 1 tablet by mouth daily. 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 Overview (07/20/2021): Last Assessment & Plan: No clinical change with change of medication, but I need a tsh to be certain she is on the right dose Last Assessment & Plan: No clinical change with change of medication, but I need a tsh to be certain she is on the right dose Simple goiter 02/09/2020 Overview (07/20/2021): Last Assessment & Plan: Clinically less tender than last time Last Assessment & Plan: Clinically less tender than last time Encounters Date Type Department Care Team Description 08/27/2024 Abstract [facility] [address] [place] [address] Arabella Kauffman PA 08/26/2024 Telephone [facility] [address], [address] [place] [address] Arabella Kauffman PA 08/22/2024 Telephone [facility] [address] [place] [address] Arabella Kauffman PA 07/14/2024 10:15 AM EDT Consult [facility] [address] [place] [address] Arabella Kauffman PA Spinal stenosis, cervical region (Primary Dx); Radiculopathy, lumbar region; Radiculopathy, cervical region 07/14/2024 Travel 06/27/2024 Telephone [facility] [address] [place] [address] Arabella Kauffman PA 06/26/[address] [facility] [address], [address] [place] [address] Arabella Kauffman PA from Last 3 Months Social History Tobacco Use Types Packs/Day Years Used Date Smoking Tobacco: Former Cigarettes Q uit: 2012 Smokeless Tobacco: Never Tobacco Cessation:Counseling Given: No Alcohol Use Standard Drinks/Week Comments Yes 0 [...] drink first t maru in the morning (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 0 09/14/2021 CAGE Questionnaire Score 0 022 Comments No Sex and Gender Information Value Date Recorded Sex Assigned at Female 08/04/2021 11:01 AM EDT Legal Sex Female 8:07 PM EDT Gender Identity Female 08/04/2021 11:01 AM EDT Sexual Orientation Straight 08/04/2021 11 :01 AM EDT Last Filed Vital Signs Vital Sign Reading Time Taken Comments Blood Pressure 111/79 07/14/2024 9:53 AM EDT Pulse 54 07/14/2024 9:53 AM EDT Temperature 36.6 C (97.9 F) 07/14/2024 9:53 AM EDT Respiratory Rate 18 09/14/2021 3:05 PM EDT Oxygen Saturation 97% 07/14/2024 9:53 AM EDT Inhaled Oxygen Concentration - - Weight 70.9 kg (156 lb 6.4 oz) 07/14/2024 9:53 A M EDT Height 152.4 cm (5') 07/14/2024 9:53 AM EDT Body Mass Index 30.54 07/14/2024 9:53 AM EDT Plan of Treatment Upcoming Encounters Date Type Department Care Team (Late st Contact Info) Description 09/10/2024 1:00 PM EDT Office Visit Interventional Pain Medicine [address] [place] [address] Wood Francois MD [address] [place] [address] 09/16/2024 12:30 PM EDT Procedure [facility] [address] [place] [address] Eamon Meade, [address] [place] [address] Health Maintenance Due Date Last Done Comments [facility]-Depression Screening 1981 [facility]-HIV Screening 1981 [facility]-Hepatitis C Screening 1981 [facility]-Infant/Child/Adol SDOH Screenings 1981 [facility]-Varicella Vaccines (1 of 2 - 13+ 2-dose series) 1994 HPV Vaccines (1 - 3-dose series) 1996 [facility]- SDOH Screenings 06/08/1999 [facility]-Adult SDOH Screenings 06/08/1999 [facility]-DTaP,Tdap,and Td Vaccine s (1 - Tdap) 2000 [facility]-Hepatitis B Vaccines (1 of 3 - 19+ 3-dose series) 2000 [facility]-Pap Smear 2002 [facility]-Cervical Cancer Screening 06/08/2011 [facility]-HPV/Cotest 06/08/2011 [facility]-VQQVZ-19 Vaccine (3 - Moderna risk series) 11/08/2020 10/11/2020, 09/08/2020 [facility]-Influenza Vaccine (Seaso n Ended) 2024 [facility]-Zoster Vaccines (1 of 2) 06/08/2031 [facility]-Obesity Intervention Completed 025, 09/13/2021, 07/20/2021 [facility]-HIB Vaccines Aged Out No longer e ligible based on patient's age to complete this topic [facility]-Hepatitis A Vaccines Aged Out No longer eligible based on patient's age to complete this topic [facility]-IPV Vaccines Aged Out No longer e ligible based on patient's age to complete this topic [facility]-Pneumococcal Vaccine: Pediatrics (0 to 5 Years) and At-Risk Patients (6 to 49 Years) Aged Out No longer eligible b ased on patient's age to complete this topic [facility]-Rotavirus Vaccines Aged Out No lo nger eligible based on patient's age to complete this topic Insurance [facility] Care Teams Spanish Speaking Nanny Relationship Specialty Start Date End Date Joyce Mckeon APRN [address] [place] [address] PCP - General 08/26/24 Cheryl Moreira PA [address] [place] [address] 02/10/21
--- OUTSIDE RECORDS SUMMARY | 2024-09-02 09:04 | XMS_ITS | Encounter Summary ---
Author Organization [facility] Address [address] [place] [address] Care Team Providers Care Clinical Operations Manager Name Role Phone Cheryl Moreira Unavailable [phone] Joyce Mckeon APRN Primary Care Provider Reason for Referral * Other Medical (Routine) - Authorized Specialty Diagnoses / Procedures Referred By Contac t Referred To Contact Neurology Diagnoses Radiculopathy, cervical region Spinal stenosis, cervical region Arm paresthesia, left Arm paresthesia, right Procedures EMG / Nerve Conduction Study Arabella Kauffman PA [address] [address] Phone: tel: fax: Referral ID Status Reason Start Date Expiration Date Visits Requested Visits Authorized [id number] Authorized Specialty Services Required 08/26/2024 02/25/2026 1 1 Encounter Details Date Type Department Care Team (Late st Contact Info) Description 08/26/2024 Telephone [place] [facility] [address] [place] [address] Arabella Kauffman PA [address] [facility] [address] [place] [address] Social History Tobacco Use Types [...] drink first t maru in the morning (EYE-HOME ECONOMIST CONSUMER SERVICE) to steady your nerves or to get [...] encounter Miscellaneous Notes * Telephone Encounter - Arabella Kauffman PA - 08/26/2024 8:22 AM EDT We are contacting the PT office to see if there are other documents or anything else required - so we are able to help getting PT authorized. Her MRI does not indicate anything surgical at this point. Also order an EMG for further information. [email or web address] documented in this encounter Plan of Treatment Upcoming Encounters Date Type Department Care Team (Late st Contact Info) Description 09/10/2024 1:00 PM EDT Office Visit Interventional Pain Medicine [address] [place] [address] Wood Francois MD [address] [place] [address] 09/16/2024 12:30 PM EDT Procedure Visit [facility] [address] [place] [address] Eamon Meade DO [address] [place] [address] Scheduled Orders Name Type Priority Associated Diagnoses Orde r Schedule EMG / Nerve Conduction Study Neurology Routine Radiculopathy, cervical region Spinal stenosis, cervical region Arm paresthesia, left Arm paresthesia, right Expected: 08/26/2024 (Approximate), Expires: 08/26/2025 documented as of this encounter Visit Diagnoses Diagnosis Radiculopathy, cervical region- Primary Brachial neuritis or radiculitis nos Spinal stenosis, cervical region Arm paresthesia, left Disturbance of skin sensation Arm paresthesia, right Disturbance of skin sensation documented in this encounter Additional Health Concerns Assessment Noted Time A fall risk assessment has been complete d for the patient 07/14/2024 9:57 AM EDT A Body Mass Index follow-up plan has been documented for the patient 07/17/2024 11:53 AM EDT documented as of this encounter Care Teams Clinical Operations Manager Relationship Specialty Start Date End Date Joyce Mckeon APRN [address] [place] [address] PCP - General 08/26/24 Cheryl Moreira PA [address] [place] [address] 02/10/21 documented as of this encounter
== END 2024-09-02 23:59 | disposition home or self-care (01) ==
LOC: RAD 09:00
PROVIDERS: PCP Nurse Practitioner Family; Visit Provider Nurse Practitioner
DX: R94.6 Abnormal results of thyroid function studies (principal)
CPT/HCPCS: 76536

== ENCOUNTER 2024-10-07 15:14 | Outpatient (CLI) | payer OTHER, SELFPAY ==
--- OUTSIDE RECORDS SUMMARY | 2024-09-10 13:00 | XMS_ITS | Encounter Summary ---
Author Organization [facility] Address [address] [place] [address] Care Team Providers Care Clothing Sorter Name Role Phone HarishCheryl Riddhi PA Unavailable [phone] Joyce Mckeon APRN Primary Care Provider [phone] Reason for Referral * Other Medical (Routine) - Authorized Specialty Diagnoses / Procedures Referred By Contac t Referred To Contact Pain Medicine Diagnoses Spondylosis of cervical region without myelopathy or radiculopathy Procedures Facet MBB - Cervical / Thoracic Wood Francois MD [address] [place] [address] Phone: tel: fax: [facility] Interventional Pain Medicine [address] [place] [address] Phone: tel: fax: Referral ID Status Reason Start Date Expiration Date V isits Requested Visits Authorized [id number] Authorized 09/10/2024 03/12/2026 1 1 Reason for Visit * Reason Comments Consult * Consultation (Routine) - Closed Specialty Diagnoses / Procedures Referred By Contac t Referred To Contact Pain Medicine Diagnoses Radiculopathy, lumbar region Radiculopathy, cervical region Spinal stenosis, cervical region Arabella Kauffman PA [address] [place] [address] Phone: tel: fax: [facility] Interventional Pain Medicine [address] [place] [address] Phone: tel: fax: Referral ID Status Reason Start Date Expiration Date V isits Requested Visits Authorized [id number] Closed Specialty Services Required 08/25/2024 02/24/2026 1 1 Encounter Details Date Type Department Care Team (Latest Contact Info) Description 09/10/2024 1:00 PM EDT Office Visit Interventional Pain Medicine 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 Interventional Pain Medicine New Patient Note Subjective: Referring Physician: Arabella Kauffman PA [address] [address] Record Review: I personally reviewed Neurosurgery [place] records Chief Complaint: Neck and upper back pain History of Present Illness: Arabella Tiwari is a 44 y.o. female with PMHx of SVT s/p ablation (2019), GERD, HTN, migraines, andhypothyroidism. Patient referred by Arabella Kauffman PA for evaluation of neck and upper back pain and intervention consideration. Presents with: Site: Neck and bilateral upper shoulders Onset: Years ago, gradually worsened since March 2024, no inciting event Severity: 4/10 on average Descriptors: Burring/aching Aggravating Factors: Physical activity, use of upper extremities Relieving Factors: Changing position, rest, limiting use of arms Associated Symptoms: Decreased ROM and pain with turning head and neck Global Pain Score: 20.5/100 Current Disabilities: limitations in ADLs/IADLs Functional Goals of Treatment: improvement in function Current Medication: Current Pain Medications hwopavdhde-eddpkudrolmbl-ukhcybnn 50-325-40 MG tablet Take 1 tablet by mouth every 4 (four) hours if needed for headaches. PARoxetine (Paxil) 20 MG tablet Take 20 mg by mouth 1 (one) time each day in the morning. Previous Medication: APAP Naproxen Motrin Lyrica Previous Conservative Treatment: conservative care > 6 weeks within the last 6 months heat ice medication trials modified activities rest Physical Therapy: Was referred to physical therapy but has not yet started HEP: June 2024-present, daily neck stretching/ROM exercises, no sustained benefit Previous Interventions/Consults: [facility] -Neck injections, most recently 11/16/23 (reports 3-4 x but unsure of injection type) Other 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 Work Status/Pain related to work injury: No reports that she quit smoking about 13 years ago. She has never used smokeless tobacco. Anticoagulation: No Review of Systems: CONSTITUTIONAL: denies fevers, chills HEENT: denies swallowing difficulties, sore throat CARDIOVASCULAR: denies chest pain, palpitations, syncope RESPIRATORY: denies shortness of breath, cough, wheezing GI: denies change in bowel habits, nausea, vomiting : denies change in bladder function, frequency, dysuria SKIN: denies rash, skin changes MSK: Per HPI NEURO: Per HPI PSYCH: Per HPI General Physical Exam: Constitutional Appears well-developed and well-nourished Head Normocephalic and atraumatic Neck Neck supple Cardiovascular Minimal to no peripheral edema Pulmonary/Chest Effort normal, no shortness of breath noted Skin Skin is warm and dry on exposed skin Neurologic & Musculoskeletal Exam Upper Extremity Region Exam Left (+/-) Right (+/-) Comments Cervical Musculature Tender w/ palpation + + Cervical Facet Pain w/ extension + + Upper Extremity Spurling's - - Upper Extremity Bakody - - Sensation Left Right Comments Neck Normal Normal C5: Shoulder Normal Normal C6: Thumb, radial aspect of hand/forearm (Radial Nerve) Normal Normal C7: Long finger (Median Nerve) Normal Normal C8: Little finger, ulnar aspect of hand/forearm (Ulnar n.) Normal Normal T1; Medial forearm/arm Normal Normal Motor Strength Left Right Comments C5: Shoulder abduction (Deltoid) 5 55 C5: Elbow flexion (Biceps, Brachialis) 07/28 5 C6: Wrist extension (ECRB, ECRL) 07/28 5 C7: Elbow extension (Triceps) 5/5 5/5 C8: Finger flexion (Power Distributor strength) 5/5 5/5 T1: Finger abduction 5/5 5/5 Reflexes Left Right C5: Biceps 2/4 2/4 C6: Brachioradialis 2/4 2/4 C7: Triceps 2/4 2/4 Colon's Absent Absent Clonus Absent Absent Imaging/Studies: Images of the following studies have been personally reviewed and my independent interpretation reveals as written: 06/30/24 MRI Cervical Spine: Multilevel degenerative disc disease with disc bulging throughout the lower cervical spine, notablyat C5-C6, degenerative facet changes noted, no significant central canal or neuroforaminal stenosis Labs: Lab Results Component Value Date PLT 305 07/20/2021 Lab Results Component Value Date INR 1.1 07/20/2021 No results found for: HGBA1C Assessment & Plan: Arabella Tiwari is a 44 y.o. female #Axial Neck Pain, Chronic Worsening #Cervical Spondylosis #Facetogenic pain -Patient with axial neck pain and cervicogenic headaches on exam -Will trial a bilateral C2/3, C3, C4 mbb first diagnostic block performed with fluoroscopy -If successful, will confirm with second diagnostic block then procedure to RFA performed with fluoroscopy #Cervical Radicular Syndrome, Chronic Stable -Symptoms in the C6 dermatomes -S/P PRISCILLA x 3-4 at [facility] which reportedly only last ed 3-4 weeks -Patient would like to defer additional ADELA at this time in lieu of treatment of axial neck pain -Pending reevaluation with [facility] Neurosurgery Cosigned by Wood Francois MD at 09/12/2024 1:09 PM EDT Associated attestation - Wood Francois MD - 09/12/2024 1:09 PM EDT I saw and evaluated the patient with the resident/fellow. I discussed the case with the resident/fellow and agree with the findings and plan as documented. 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
--- OUTSIDE RECORDS SUMMARY | 2024-09-16 12:30 | XMS_ITS | Encounter Summary ---
Author Organization [facility] Address [address] [place] [address] Care Team Providers Care Correction Lieutenant Name Role Phone Cheryl Moreira PA Unavailable [phone] Joyce Mckeon APRN Primary Care Provider Reason for Visit * Other Medical (Routine) - Closed Specialty Diagnoses / Procedures Referred By Samreen davidson Referred To Contact Neurology Diagnoses Radiculopathy, cervical region Spinal stenosis, cervical region Arm paresthesia, left Arm paresthesia, right Procedures EMG / Nerve Conduction Study Arabella Kauffman, KELLY [address] [place] [address] Phone: tel: fax: Referral ID Status Reason Start Date Expiration Date V isits Requested Visits Authorized [id number] Closed Specialty Services Required 08/26/2024 02/25/2026 1 1 Encounter Details Date Type Department Care Team (Late st Contact Info) Description 09/16/2024 12:30 PM EDT Procedure Visit Physical Medicine & Rehabilitation Clinic at [facility] [address] [place] [address] Eamon Meade DO [address] [place] [address] Right median nerve neuropathy (Primary Dx); Left median nerve neuropathy; Radiculopathy, cervical region; Spinal stenosis, cervical region; Arm paresthesia, left; Arm paresthesia, right Social History Tobacco Use Types Packs/Day Years [...] drink 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) to steady your nerves or to get [...] Sign Reading Time Taken Comments Blood Pressure 111/75 09/16/2024 12:41 PM EDT Pulse 58 09/16/2024 12:41 PM EDT Temperature - - Respiratory Rate - - Oxygen Saturation 99% 09/16/2024 12:41 PM EDT Inhaled Oxygen Concentration - - Weight 68 kg (150 lb) 09/16/2024 12:41 PM EDT Height 154.9 cm (5' 1 ) 09/16/2024 12:41 PM EDT Body Mass Index 28.34 09/16/2024 12:41 PM EDT documented in this encounter Miscellaneous Notes * Progress Notes - Eamon Meade DO - 09/16/2024 12:30 PM EDTAssociated Order(s): EMG / Nerve Conduction Study Pre-Procedure Diagnose(s): Radiculopathy, cervical region; Spinal stenosis, cervical region; Arm paresthesia, left; Arm paresthesia, right Post-Procedure Diagnose(s): Radiculopathy, cervical region; Spinal stenosis, cervical region; Arm paresthesia, left; Arm paresthesia, right Images from the original note were not included. Patient ID: Arabella Tiwari is a 44 y.o. female. Encounter Diagnoses Name Primary? Right median nerve neuropathy Yes Left median nerve neuropathy Radiculopathy, cervical region Spinal stenosis, cervical region Arm paresthesia, left Arm paresthesia, right EMG / Nerve Conduction Study Date/Time: 09/16/2024 12:30 PM Performed by: Eamon Meade DO Authorized by: Arabella Kauffman PA Consent: Consent obtained: Written and verbal Consent given by: Patient Risks, benefits, and alternatives were discussed: yes Risks discussed: Bleeding, infection and pain [place] protocol: Procedure explained and questions answered to patient or proxy's satisfaction: yes Immediately prior to procedure, a time out was called: yes Patient identity confirmed: Verbally with patient Indications: Indications: Paresthesias Pre-procedure details: Procedure prep: alcohol swap prior to insertion of EMG electrode. Sedation: Sedation type: None Anesthesia: Anesthesia method: None Post-procedure details: Procedure completion: Tolerated well, no immediate complications [facility] Department of Physical [place] [id number] Test Date: 09/16/2024 Patient: Arabella Tiwari : 1980 Physician: Eamon Meade DO Sex: Female Height: 5' 1 Ref Phys: KELLY Vazquez ID#: [id number] Weight: 150 lbs. Resident: Compa Michael MD Patient Complaints: Pain in bilateral shoulders radiating down bilateral arms intermittently Medications: No blood thinners, see EMR for full list Patient History / Exam: Patient is a 44 yo female with a significant PMH of Hypothyroidism who recently presented to Neurosurgery office for concern of cervical radiculopathy. Patient presents today with complaints of pain in bilateral shoulders that intermittently radiates down the arms into the hands, primarily in the outer aspect. Has not noticed any significant weakness. Patient denies history of DM, vitamin deficiencies, cancer, chemotherapy/radiation therapy, EtOH ortobacco use. Patient understanding of procedure, understanding of risks and benefits, and all questions answered appropriately. Patient was consented. No other acute medical concerns at this time. Upper extremity exam: Inspection: no gross atrophy throughout Sensation: SILT bilateral median/radial/ulnar distributions Strength: 5/5 bilateral shoulder abduction, elbow flexion/extension, wrist extension, finger flexion/extension, finger abduction Reflexes: 2+ bilateral biceps/triceps/brachioradialis Negative Colon's bilaterally Negative Tinel's at the wrist bilaterally Negative Tinel's at the elbow bilaterally NCS & EMG Findings: Left median motor study revealed normal onset latency, normal amplitudes, and normal conduction velocity (Elbow-Wrist). Right median motor study revealed normal onset latency, normal amplitudes, and normal conduction velocity (Elbow-Wrist). Left ulnar motor study revealed normal onset latency, normal amplitudes, normal conduction velocity(B Elbow-Wrist), and normal conduction velocity (A Elbow-B Elbow). Right ulnar motor study revealed normal onset latency, normal amplitudes, normal conduction velocity (B Elbow-Wrist), and normal conduction velocity (A Elbow-B Elbow). Left median (across palm) sensory study revealed normal peak latency (Wrist), normal amplitude, andnormal peak latency (Palm). Right median (across palm) sensory study revealed prolonged peak latency (Wrist), normal amplitude,and normal peak latency (Palm). Left ulnar sensory study revealed normal peak latency and normal amplitude. Right ulnar sensory study revealed normal peak latency and normal amplitude. Left median/radial (dig I) comparison study revealed normal peak latency (Median), normal amplitude(Median), normal peak latency (Radial), normal amplitude (Radial), and abnormal peak latency difference (Median-Radial). Right median/radial (dig I) comparison study revealed normal peak latency (Median), normal amplitude (Median), normal peak latency (Radial), normal amplitude (Radial), and abnormal peak latency difference (Median-Radial). Concentric EMG evaluation of the right and left APB, FDI, Pronator teres, biceps, triceps, and deltoid muscles revealed normal insertional activity, no abnormal spontaneous activity and the voluntarymotor unit action potentials were within normal parameters. I was present for the entire procedure, interpretation of the results and completion of the report.Physicians performed all the NCS. Dr. Michael performed the procedure. 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 No electrodiagnostic evidence of a bilateral C5-T1 motor radiculopathy in the muscles and nerves tested. Compa Michael MD Eamon Meade, DO Nerve Conduction Studies Anti Sensory Summary Table Stim Site NR Peak (ms) Norm Peak (ms) P-T Amp (??V) Norm P-T Amp Site1 Site2 Delta-P (ms) Dist (cm)Jose (m/s) Norm Jose (m/s) NCV Left Median Acr Palm Anti Sensory (3rd Digit) 32.8 ??C Wrist 3.5 <3.7 68.7 >20 Wrist 3rd Digit 3.5 14.0 40 Palm 1.7 <1.9 49.3 Palm 3rd Digit 1.7 7.0 41 NCV Right Median Acr Palm Anti Sensory (3rd Digit) 32.4 ??C Wrist 3.8 <3.7 48.3 >20 Wrist 3rd Digit 3.8 14.0 37 Palm 1.9 <1.9 65.0 Palm 3rd Digit 1.9 7.0 37 NCV Left Ulnar Anti Sensory (5th Digit) 33.5 ??C Wrist 2.8 <3.7 56.1 >20 Wrist 5th Digit 2.8 14.0 50 NCV Right Ulnar Anti Sensory (5th Digit) 33.5 ??C Wrist 2.9 <3.7 64.1 >20 Wrist 5th Digit 2.9 14.0 48 Motor Summary Table Stim Site NR Onset (ms) Norm Onset (ms) O-P Amp (mV) Norm O-P Amp Site1 Site2 Delta-0 (ms) Dist (cm) Jose (m/s) Norm Jose (m/s) NCV Left Median Motor (Abd Poll Brev) 33.6 ??C Wrist 3.3 <4.3 12.4 >4 Elbow Wrist 3.3 18.5 56 >45 Elbow 6.6 12.6 NCV Right Median Motor (Abd Poll Brev) 33.6 ??C Wrist 3.4 <4.3 12.0 >4 Elbow Wrist 3.5 18.0 51 >45 Elbow 6.9 11.1 NCV Left Ulnar Motor (Abd Dig Minimi) 30.4 ??C Wrist 2.3 <4.3 8.8 >2 B Elbow Wrist 2.7 18.0 67 >45 B Elbow 5.0 8.8 A Elbow B Elbow 2.0 14.0 70 >45 A Elbow 7.0 8.5 NCV Right Ulnar Motor (Abd Dig Minimi) 32.5 ??C Wrist 2.3 <4.3 10.3 >2 B Elbow Wrist 2.7 16.0 59 >45 B Elbow 5.0 10.2 A Elbow B Elbow 2.7 14.0 52 >45 A Elbow 7.7 10.3 Comparison Summary Table Stim Site NR Peak (ms) Norm Peak (ms) P-T Amp (??V) Norm P-T Amp Site1 Site2 Delta-P (ms) Norm Delta (ms) NCV Left Median/Radial Dig I Comparison (Digit 1) 33.3 ??C Median 2.9 <3.2 23.1 >20 Median Radial 0.8 <0.4 Radial 2.1 <2.9 12.6 >5 NCV Right Median/Radial Dig I Comparison (Digit 1) 33.1 ??C Median 2.9 <3.2 41.1 >20 Median Radial 0.5 <0.4 Radial 2.4 <2.9 17.9 >5 EMG Side Muscle Nerve Root Ins Act Fibs Psw Other Amp Dur Poly Recrt Comment Left Abd Poll Brev Median C8-T1 Nml 0 0 Nml Nml 0 Nml Left 1stDorInt Ulnar C8-T1 Nml 0 0 Nml Nml 0 Nml Left PronatorTeres Median C6-7 Nml 0 0 Nml Nml 0 Nml Left Biceps Musculocut C5-6 Nml 0 0 Nml Nml 0 Nml Left Triceps Radial C6-7-8 Nml 0 0 Nml Nml 0 Nml Left Deltoid Axillary C5-6 Nml 0 0 Nml Nml 0 Nml Right Abd Poll Brev Median C8-T1 Nml 0 0 Nml Nml 0 Nml Right 1stDorInt Ulnar C8-T1 Nml 0 0 Nml Nml 0 Nml Right PronatorTeres Median C6-7 Nml 0 0 Nml Nml 0 Nml Right Biceps Musculocut C5-6 Nml 0 0 Nml Nml 0 Nml Right Triceps Radial C6-7-8 Nml 0 0 Nml Nml 0 Nml Right Deltoid Axillary C5-6 Nml 0 0 Nml Nml 0 Nml Waveforms: documented in this encounter Plan of Treatment Not on file documented as of this encounter Procedures Procedure Name Priority Date/Time Associated Diagnosis Comments EMG / NERVE CONDUCTION STUDY Routine 09/16/2024 12:30 PM EDT Radiculopathy, cervical region Spinal stenosis, cervical region Arm paresthesia, left Arm paresthesia, right documented in this encounter Results * EMG / NERVE CONDUCTION STUDY (09/16/2024 12:30 PM EDT) Anatomical Region Laterality Modality Other Narrative 09/16/2024 12:30 PM EDT Eamon Meade DO 09/16/2024 2:32 PM EMG / Nerve Conduction Study Date/Time: 09/16/2024 12:30 PM Performed by: Eamon Meade DO Authorized by: Arabella Kauffman PA Consent: Consent obtained: Written and verbal Consent given by: Patient Risks, benefits, and alternatives were discussed: yes Risks discussed: Bleeding, infection and pain [place] protocol: Procedure explained and questions answered to patient or proxy's satisfaction: yes Immediately prior to procedure, a time out was called: yes Patient identity confirmed: Verbally with patient Indications: Indications: Paresthesias Pre-procedure details: Procedure prep: alcohol swap prior to insertion of EMG electrode. Sedation: Sedation type: None Anesthesia: Anesthesia method: None Post-procedure details: Procedure completion: Tolerated well, no immediate complications Arabella MENDOZA NEUROLOGY ORDERABLES Final Resul t documented in this encounter Visit Diagnoses Diagnosis Right median nerve neuropathy- Primary Left median nerve neuropathy Radiculopathy, cervical region Brachial neuritis or radiculitis nos Spinal stenosis, cervical region Arm paresthesia, left Disturbance of skin sensation Arm paresthesia, right Disturbance of skin sensation documented in this encounter Additional Health Concerns Assessment Noted Time A fall risk assessment has been complete d for the patient 09/16/2024 12:44 PM EDT A Body Mass Index follow-up plan has been documented for the patient 09/16/2024 2:32 PM EDT documented as of this encounter Care Teams Correction Lieutenant Relationship Specialty Start Date End Date Joyce Mckeon APRN [address] [place] [address] PCP - General 08/26/24 Cheryl Moreira PA [address] [place] [address] 02/10/21 documented as of this encounter
[2024-10-07 13:25] LABS: Coronavirus 19, PCR Not Detected (NotDetected); Influenza A, PCR Not Detected (NotDetected); Influenza B, PCR Not Detected (NotDetected)
--- OUTSIDE RECORDS SUMMARY | 2024-10-07 15:16 | XMS_ITS | Encounter Summary ---
Author Organization [facility] Address [address] [place] [address] Care Team Providers Care Lithographic Plate Maker Name Role Phone Cheryl Moreira PA Unavailable [phone] Joyce Mckeon APRN Primary Care Provider [phone] Reason for Visit * Reason Onset Date Comments HCN - Patient Message 09/22/2024 Encounter Details Date Type Department Care Team (Late st Contact Info) Description 09/22/2024 Telephone Interventional Pain Medicine 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 * Telephone Encounter - Lesa Neves - 09/22/2024 2:06 PM EDT 2nd call attempt to reschedule. LVM * Telephone Encounter - Lesa Neves - 09/22/2024 11:34 AM EDT LVM to reschedule * Telephone Encounter - Lauren Flores - 09/22/2024 10:48 AM EDT Clinical Concern/Question Reason for Call: Dr. Francois pt. This pt is needing to reschedule her procedure that she has tomorrow. Best contact number: [phone] (mobile) Optimal time of day to reach caller: ANYTIME Additional comments/information from caller: None Note: Please do not reply to this message. Follow-up communication and further actions as a result of this message need to be communicated with the patient directly, if the patient is not active onMyChart. If the patient is active on MyChart, they will receive notification of the communication/outcome via MyChart. documented in this encounter Plan of Treatment Not on file documented as of this encounter Visit Diagnoses Not on filedocumented in this encounter Additional Health Concerns Assessment Noted Time A fall risk assessment has been complete d for the patient 09/16/2024 12:44 PM EDT A Body Mass Index follow-up plan has been documented for the patient 09/16/2024 2:32 PM EDT documented as of this encounter Care Teams Lithographic Plate Maker Relationship Specialty Start Date End Date Joyce Mckeon APRN [address] [place] [address] PCP - General 08/26/24 Cheryl Moreira PA [address] [place] [address] 02/10/21 documented as of this encounter
--- OUTSIDE RECORDS SUMMARY | 2024-10-07 15:16 | XMS_ITS | Encounter Summary ---
Author Organization [facility] Address [address] 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
--- OUTSIDE RECORDS SUMMARY | 2024-10-07 15:16 | XMS_ITS | Encounter Summary ---
Author Organization [facility] Address [address] 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
--- OUTSIDE RECORDS SUMMARY | 2024-10-07 15:16 | XMS_ITS | Encounter Summary ---
Author Organization [facility] Address [address] 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
--- OUTSIDE RECORDS SUMMARY | 2024-10-07 15:16 | XMS_ITS | Clinical Summary ---
Author Organization [facility] Address [address] [place] [address] Care Team Providers Care Religious Studies Professor Name Role Phone Cheryl Moreira PA Unavailable [phone] Joyce Mckeon APRN Primary Care Provider Allergies Active Allergy Reactions Criticality Noted Date Comments Meperidine Hcl Other - please docum ent in the comment field High 07/14/2024 Medications PARoxetine (Paxil) 20 MG tabletIndications: Major Depressive Disorder Take 20 mg by mouth 1 (one) time each day in the morning. Active busPIRone (Buspar) 10 MG tablet Take 10 mg by mouth every 12 (twelve) hours. For Stomach Upset. Active levothyroxine (Synthroid, Levoxyl) 50 MCG tablet levothyroxine 50 mcg tablet Active levothyroxine (Tirosint) 100 MCG capsuleIndications :Hypothyroidism Take 100 mcg by mouth 1 (one) time each day before breakfast. Active omeprazole (PriLOSEC) [address] capsuleIndications :Heartburn Take 60 mg by mouth 1 (one) time each day. Do not crush or chew. Active linaCLOtide (Linzess) 145 MCG tabletIndications: Constipation associated with Irritable Bowel Syndrome Take 72 mcg by mouth 1 (one) time each day. Active butalbital-acetami nophen-caffeine 50-325-40 MG tablet Take 1 tablet by mouth every 4 (four) hours if needed for headaches. 10 tablet 09/15/19 Active bisoprolol (Zebeta) 5 MG tablet Take 1 tablet by mouth daily. 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 [place] [address] Wood Francois MD HCN - Patient Message 09/16/2024 12:30 PM EDT Procedure Visit [facility] at [facility] [address] [place] [address] Eamon Meade, DO Right median nerve neuropathy (Primary Dx); Left median nerve neuropathy; Radiculopathy, cervical region; Spinal stenosis, cervical region; Arm paresthesia, left; Arm paresthesia, right 09/16/2024 Travel 09/10/2024 1:00 PM EDT Office Visit Interventional Pain Medicine [address] [place] [address] Wood Francois MD Spondylosis of cervical region without myelopathy or radiculopathy (Primary Dx) 09/10/2024 Travel 08/27/2024 Abstract [facility] [address], [address] [place] [address] Arabella Kauffman PA 08/26/2024 Telephone [facility] [address], [address] [place] [address] Arabella Kauffman PA 08/22/2024 Telephone [facility] [address] [place] [address] Arabella Kauffman PA 07/14/2024 10:15 AM EDT Consult [facility] [address] [place] [address] Arabella Kauffman PA Spinal stenosis, cervical region (Primary Dx); Radiculopathy, lumbar region; Radiculopathy, cervical region 07/14/2024 Travel from Last 3 Months Social History Tobacco [...] 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) to steady your nerves or to get [...] Pulse 58 09/16/2024 12:41 PM EDT Temperature 36.6 C (97.9 F) 07/14/2024 9:53 AM EDT Respiratory Rate 18 09/10/2024 1:10 PM EDT Oxygen Saturation 99% 09/16/2024 12:41 PM EDT Inhaled Oxygen Concentration - - Weight 68 kg (150 lb) 09/16/2024 12:41 PM EDT Height 154.9 cm (5' 1 ) 09/16/2024 12:41 PM EDT Body Mass Index 28.34 09/16/2024 12:41 PM EDT Plan of Treatment Health Maintenance Due Date Last Done Comments [facility]-Depression Screening 1981 [facility]-HIV Screening 1981 [facility]-Hepatitis C Screening 1981 [facility]-/Child/Adol SDOH Screenings 1981 [facility]-Varicella Vaccines (1 of 2 - 13+ 2-dose series) 1994 HPV Vaccines (1 - 3-dose series) 1996 [facility]- SDOH Screenings 06/08/1999 [facility]-Adult SDOH Screenings 06/08/1999 [facility]-DTaP,Tdap,and Td Vaccines (1 - Tdap) 2000 [facility]-Hepatitis B Vaccines (1 of 3 - 19+ 3-dose series) 2000 [facility]-Pap Smear 2002 [facility]-Cervical Cancer Screening 06/08/2011 [facility]-HPV/Cotest 06/08/2011 [id number] Vaccine (3 - Moderna risk series) 11/08/2020 10/11/2020, 09/08/2020 [facility]-Influenza Vaccine (#1) 2024 [facility]-Zoster Vaccines (1 of 2) 06/08/2031 [facility]-Obesity Intervention Completed 025, 09/10/2024, 07/14/2024, Additional history exists [facility]-HIB Vaccines Aged Out No longer e [...] 49 Years) Aged Out No longer eligible based on patient's age to complete this topic [facility]-Rotavirus Vaccines Aged Out No lo nger eligible based on patient's age to complete this topic Procedures Procedure Name Priority Date/Time Associated Diagnosis Comments EMG / NERVE CONDUCTION STUDY Routine 09/16/2024 12:30 PM EDT Radiculopathy, cervical region Spinal stenosis, cervical region Arm paresthesia, left Arm paresthesia, right from Last 3 Months Results * EMG / NERVE CONDUCTION STUDY [...] yes Risks discussed: Bleeding, infection and pain [place] protocol: Procedure explained and questions answered to [...] Arabella MENDOZA NEUROLOGY ORDERABLES Final Resul t from Last 3 Months Insurance Care Teams Religious Studies Professor Relationship Specialty Start Date End Date Joyce Mckeon APRN [address] [place] [address] PCP - General 08/26/24 Cheryl Moreira PA [address] [place] [address] 02/10/21
--- OUTSIDE RECORDS SUMMARY | 2024-10-07 15:16 | XMS_ITS | Clinical Summary ---
Author Organization [employer] ([place], [place], [place], [place]) Address [address] [place] [address] Care Team Providers Care Death Claim Clerk Name Role Phone Cheryl Moreira PA-C Primary Care Provider [phone] Allergies Active Allergy Reactions Criticality Noted Date Comments Meperidine Other (See Comments) High 11/26/2022 Unknown reaction. Medications No known medications Social History Tobacco Use Types Packs/Day Years Used Date Smoking Tobacco: Never Assessed Food Insecurity Answer Date Recorded Food run [...] Date Marlo rded Speak language other than Sami at home Not on file 04/13/2023 Want help with school or training Not on file 04/13/2023 Substance Use Answer Date Recorded Used [...] 2002 Breast Cancer Screening 2021 COVID-19 VACCINE (1 - 2023-2 5 season) 2023 Influenza Vaccine (#1) 2024 Pneumococcal Vaccine: 0-49 Years Aged Out No longer eligible based on patient's age to complete this topic Care Teams Death Claim Clerk Relationship Specialty Start Date End Date Cheryl Moreira PA-C [address] [place] [address] PCP - General Physician Service Counter Cashier 11/26/22
--- OUTSIDE RECORDS SUMMARY | 2024-10-07 15:16 | XMS_ITS | Encounter Summary ---
Author Organization [place] [address] Care Team Providers Care Call Or Contact Centre Operator Name Role Phone Unavailable Primary Care Provider Unavailabl e Encounter Details Date Type Department Care Team (Late st Contact Info) Description 07/29/2020 Orders Only [facility] [address] [facility] [address] [place] [address] Jaime Musa MD [address] [place], [place] [id number] Social History Tobacco Use Types Packs/Day Years [...] CATH ORDERABLES Final Result Performing Organization Address City/State/[facility] Co de Phone Number [place] [phone] documented in this encounter Visit Diagnoses Not on filedocumented in this encounter
--- OUTSIDE RECORDS SUMMARY | 2024-10-07 15:16 | XMS_ITS | Encounter Summary ---
Author Organization [facility] Address [address] [place] [address] Care Team Providers Care Laser Beam Color Scanner Operator Name Role Phone Cheryl Moreira Unavailable [phone] Joyce Mckeon APRN Primary Care Provider [phone] Reason for Referral * Other Medical (Routine) - Closed Specialty Diagnoses / Procedures Referred By Contac t Referred To Contact Neurology Diagnoses Radiculopathy, cervical region Spinal stenosis, cervical region Arm paresthesia, left Arm paresthesia, right Procedures EMG / Nerve Conduction Study Arabella Kauffman PA [address] [address] Phone: tel: fax: Referral ID Status Reason Start Date Expiration Date V isits Requested Visits Authorized [id number] Closed Specialty Services Required 08/26/2024 02/25/2026 1 1 Encounter Details Date Type Department Care Team (Late st Contact Info) Description 08/26/2024 Telephone [place] [facility] [address], [address] [place] [address] Arabella Kauffman PA [address] [facility] [address] [place] [address] Social History Tobacco Use Types [...] drink first t maru in the morning (EYE-WORKFORCE DEVELOPMENT ASSISTANT) to steady your nerves or to get [...] on file documented as of this encounter Results * EMG / NERVE [...] yes Risks discussed: Bleeding, infection and pain [place] protocol: Procedure explained and questions answered to [...] documented in this encounter Visit Diagnoses Diagnosis Radiculopathy, cervical region- Primary Brachial neuritis or radiculitis nos Spinal stenosis, cervical region Arm paresthesia, left Disturbance of skin sensation Arm paresthesia, right Disturbance of skin sensation Right median nerve neuropathy- Primary Left median [...] documented as of this encounter Care Teams Laser Beam Color Scanner Operator Relationship Specialty Start Date End Date Joyce Mckeon APRN [address] [place] [address] PCP - General 08/26/24 Cheryl Moreira PA [address] [place] [address] 02/10/21 documented as of this encounter
--- OUTSIDE RECORDS SUMMARY | 2024-10-07 15:16 | XMS_ITS | Encounter Summary ---
Author Organization [facility] Address [address] [place] [address] Care Team Providers Care Bear Keeper Name Role Phone Cheryl Moreira Riddhi PA Unavailable [phone] Joyce Mckeon APRN Primary Care Provider [phone] Encounter Details Date Type Department Care Team (Latest Contact Info) Description 09/16/2024 Travel Social History Tobacco Use Types Packs/Day [...] drink first t maru in the morning (EYE-ETHNOARCHAEOLOGY PROFESSOR) to steady your nerves or to get [...] documented as of this encounter Care Teams Bear Keeper Relationship Specialty Start Date End Date Joyce Mckeon APRN [address] [place] [address] PCP - General 08/26/24 Cheryl Moreira PA [address] [place] [address] 02/10/21 documented as of this encounter
--- OUTSIDE RECORDS SUMMARY | 2024-10-07 15:16 | XMS_ITS | Encounter Summary ---
Author Organization [facility] Address [address] [place] [address] Care Team Providers Care Trauma Director Name Role Phone Cheryl Moreira Riddhi PA Unavailable [phone] Joyce Mckeon APRN Primary Care Provider [phone] Encounter Details Date Type Department Care Team (Latest Contact Info) Description 09/10/2024 Travel Social History Tobacco Use Types Packs/Day [...] drink first t maru in the morning (EYE-PLANT TAXONOMIST) to steady your nerves or to get [...] documented as of this encounter Care Teams Trauma Director Relationship Specialty Start Date End Date Joyce Mckeon APRN [address] [place] [address] PCP - General 08/26/24 Cheryl Moreira PA [address] [place] [address] 02/10/21 documented as of this encounter
--- OUTSIDE RECORDS SUMMARY | 2024-10-07 15:16 | XMS_ITS | Clinical Summary ---
Author Organization [facility] [place] Address [address] [facility] [place] [address] Phone Care Team Providers Care Editor At Large Name Role Phone Unavailable Primary Care Provider [...] (07/13/2020): Added automatically from request for surgery [id number] Tachycardia Surgical History Surgery Date Site/Laterality Comments [...] 06/08/2011 Breast Cancer Screening 2021 COVID-19 Vaccine (2023-2 5 season) 2023 10/11/2020, 09/08/2020 Influenza Vaccine (#1) 2024 Meningococcal B Vaccine Aged Out No l onger eligible based on patient's age to complete this topic Pneumococcal Vaccine 0-49 Aged Out No longer eligible based on patient's age to complete this topic Insurance [facility] [id number]
--- OUTSIDE RECORDS SUMMARY | 2024-10-07 15:16 | XMS_ITS | Referral Summary ---
Author Organization [employer] ([place], [place], [place], [place]) Address [address] [place] [address] Care Team Providers Care Crinkling Machine Operator Name Role Phone Cheryl Moreira PA-C Primary Care Provider [phone] Allergies Active Allergy Reactions Criticality Noted Date [...] Date Marlo rded Speak language other than Romanian at home Not on file 04/13/2023 Want [...] of Treatment Not on file Care Teams Crinkling Machine Operator Relationship Specialty Start Date End Date Cheryl Moreira, MARK [address] [place] [address] PCP - General Physician Ice Sculptor 11/26/22
== END 2024-10-07 23:59 | disposition home or self-care (01) ==
LOC: LAB.DROPOF 15:14
PROVIDERS: PCP Nurse Practitioner Family; Visit Provider Nurse Practitioner Family
DX: R50.9 Fever, unspecified (principal)
CPT/HCPCS: 87631

== ENCOUNTER 2025-03-24 18:02 | Outpatient (CLI) | payer OTHER, SELFPAY ==
[2025-03-24 20:18] LABS: Coronavirus 19, PCR Not Detected (NotDetected); Influenza A, PCR Not Detected (NotDetected); Influenza B, PCR Not Detected (NotDetected)
--- OUTSIDE RECORDS SUMMARY | 2025-03-25 10:15 | XMS_ITS | Encounter Summary ---
Author Organization [facility] Address [address] [place] [address] Care Team Providers Care Frontload Driver Name Role Phone Unknown, Unknown Primary Care Provider Unavailab Cheryl Rose Unavailable [phone] Tika Mojica Primary Care Provider Joyce Mckeon APRN Primary Care Provider [phone] Encounter Details Date Type Department Care Team (Late st Contact Info) Description 09/13/2021 Orders Only [place] [facility] [address], [address] [place] [address] Lauren Loaiza MD [address] [place] [address] Social History Tobacco Use Types Packs/Day Years Used Date Smoking Tobacco: Former Cigarettes 0 Q uit: 2012 Smokeless Tobacco: Never Alcohol [...] drink first t maru in the morning (EYE-CRIMINAL LEGAL ASSISTANT) to steady your nerves or to [...] PM EDT documented as of this encounter Plan [...] documented as of this encounter Care Teams Frontload Driver Relationship Specialty Start Date End Date Unknown, Unknown [place] PCP - General 02/10/21 09/13/21 Tika Mojica PA [address] [place] [address] PCP - General 09/14/21 08/25/24 Joyce Mckeon APRN [address] [place] [address] PCP - General 08/26/24 Cheryl Moreira PA [address] [place] [address] 02/10/21 documented as of this encounter
--- OUTSIDE RECORDS SUMMARY | 2025-03-25 10:15 | XMS_ITS | Clinical Summary ---
Author Organization [employer] ([place], [place], [place], [place], [place]) Address [address] [place] [address] Care Team Providers Care Supervising Broker Name Role Phone Cheryl Moreira PA-C Primary Care Provider [phone] Allergies Active Allergy Reactions Criticality Noted Date [...] Date Marlo rded Speak language other than Latvian at home Not on file 04/13/2023 Want [...] COVID-19 VACCINE (1 - 2023-2 5 season) 2024 Influenza Vaccine (#1) 2024 Pneumococcal Vaccine: 0-49 Years Aged Out No longer eligible based on patient's age to complete this topic Care Teams Supervising Broker Relationship Specialty Start Date End Date Cheryl Moreira, MARK [address] [place] [address] PCP - General Physician Aquarist 11/26/22
--- OUTSIDE RECORDS SUMMARY | 2025-03-25 10:15 | XMS_ITS | Clinical Summary ---
Author Organization [facility] Address [address] [place] [address] Care Team Providers Care Customer Leader Name Role Phone Cheryl Moreira PA Unavailable [phone] Joyce Mckeon APRN Primary Care Provider [phone] Allergies Active Allergy Reactions Criticality Noted Date [...] (one) time each day before breakfast. Active linaCLOtide (Linzess) 145 MCG tabletIndications: Constipation associated with Irritable Bowel Syndrome Take 72 mcg by mouth 1 (one) time each day. Active butalbital-acetami nophen-caffeine 50-325-40 MG tablet Take 1 tablet by mouth every 4 (four) hours if needed for headaches. 10 tablet 09/15/19 22 Active bisoprolol (Zebeta) 5 MG tablet Take 1 tablet by mouth daily. 01/31/20 24 Active ondansetron ODT (Zofran-ODT) 4 MG disintegrating tablet DISSOLVE 1 TABLET IN MOUTH EVERY 8 HOURS NEEDED FOR NAUSEA AND VOMITING FOR 4 DAYS Active omeprazole (PriLOSEC) [address] capsule Take 1 capsule by mouth daily. 11/12/19 25 Active levothyroxine (Synthroid, Levoxyl) 100 MCG tablet Take 1 tablet by mouth daily. 11/22/19 25 Active meloxicam (Mobic) 15 MG tabletIndications: Myofascial neck pain Take 1 tablet by mouth daily. 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 [place] [address] Wood Francois MD 01/05/2025 3:00 PM EDT Office Visit Interventional Pain Medicine [address] [place] [address] Wood Francois MD Myofascial neck pain (Primary Dx); Bilateral carpal tunnel syndrome; Spondylosis of cervical region without myelopathy or radiculopathy 01/05/2025 Travel from Last 3 Months Social History Tobacco Use Types Packs/Day Years Used Date Smoking Tobacco: Former Cigarettes 0 Q uit: 2012 Smokeless Tobacco: Never Tobacco [...] drink first t maru in the morning (EYE-PROJECT LANDSCAPE ARCHITECT) to steady your nerves or to get [...] Sign Reading Time Taken Comments Blood Pressure 100/67 01/05/2025 2:41 PM EDT Pulse 73 01/05/2025 2:41 PM EDT Temperature 36.3 C (97.3 F) 01/05/2025 2:41 PM EDT Respiratory Rate 16 01/05/2025 2:41 PM EDT Oxygen Saturation 97% 01/05/2025 2:41 PM EDT Inhaled Oxygen Concentration - - Weight 70.8 kg (156 lb 1.4 oz) 01/05/2025 2:41 P M EDT Height 152.4 cm (5') 01/05/2025 2:41 PM EDT Body Mass Index 30.48 01/05/2025 2:41 PM EDT Plan of Treatment Health Maintenance Due Date Last Done Comments [facility]-Depression Screening 1981 [facility]-HIV Screening 1981 [facility]-Hepatitis C Screening 1981 [facility]-/Child/Adol SDOH Screenings 1981 [facility]-Varicella Vaccines (1 of 2 - 13+ 2-dose series) 1994 [facility]- SDOH Screenings 06/08/1999 [facility]-Adult SDOH Screenings 06/08/1999 [facility]-DTaP,Tdap,and Td Vaccines (1 - Tdap) 2000 [facility]-Hepatitis B Vaccines (1 of 3 - 19+ 3-dose series) 2000 [facility]-Pap Smear 2002 [facility]-Cervical Cancer Screening 06/08/2011 [facility]-HPV/Cotest 06/08/2011 [id number] Vaccine (3 - Moderna risk series) 11/08/2020 10/11/2020, 09/08/2020 [facility]-Influenza Vaccine (#1) 2024 [facility]-Zoster Vaccines (1 of 2) 06/08/2031 [facility]-Obesity Intervention Completed 025, 11/20/2024, 11/11/2024, Additional history exists HPV Vaccines (No Doses Required) Completed [facility]-HIB Vaccines Aged Out No longer e [...] age to complete this topic Care Teams Customer Leader Relationship Specialty Start Date End Date Joyce Mckeon APRN [address] [place] [address] PCP - General 08/26/24 Cheryl Moreira PA [address] [place] [address] 02/10/21
--- OUTSIDE RECORDS SUMMARY | 2025-03-25 10:15 | XMS_ITS | Patient Health Record ---
[facility] [address] [place] [id number] Care Team Providers Care Maintenance Operator Name Role Phone Elder Escobedoian Primary Care Provider [phone] Allergies Allergen (clinical drug ingredient) Drug/Non Drug Allergy documented on EMR Reaction Allergy Type Onset Date Status prochlorperazine Prochlorperazine stomach upset Drug Allergy Active Medications Medication SIG (Take, Route, Frequency, Duration) Notes Start Date End Date Status Lexapro 10 MG 1/2 tab(s) orally on ce a day Not-Taking Meclizine HCl 12.5 MG 1 tab(s) orally 3 times a day as needed 08/31/2014 Not-Taking Paxil 20 MG 1 tab(s) orally once a day; Duration: 30 day(s) Active busPIRone HCl 10 MG 1 tab(s) orally 2 ti mes a day; Duration: 30 day(s) Active Synthroid 100 MCG 1 tab(s) orally once a day; Duration: 30 day(s) Active Omeprazole 40 MG 1 cap(s) orally once a day; Duration: 30 day(s) 04/18/2021 Active Hyoscyamine Sulfate 0.125 MG 1 tab(s) orally 4 times a day; Duration: 7 days 04/18/2021 Active Ondansetron HCl 4 MG 1 tab(s) orally jayshree ry 8 hours prn 04/18/2021 Active Immunizations Vaccine Route Administration Date Status Comme nts COVID 19 Moderna Unknown 09/08/2020 Administered COVID 19 Moderna Unknown 10/11/2020 Administered tuberculin (ppd) ID Intradermal 01/21/2008 Administered Problems Problem Type SNOMED Code ICD Code Onset Dates Problem Status W/U Status Risk Notes Problem Mixed anxiety and depressive disorder (863170021) Depression with anxiety (300.4) Active confirmed Problem Gastroesophageal reflux disease (544550595) GERD (gastroesophag eal reflux disease) (K21.9) Active confirmed Problem Memory loss (20436737) Memory loss (R41.3) Active confirmed Problem Chronic pain (69763817) Other chronic pain (G89.29) Active confirmed Plan Of Treatment No Information Insurance Providers Payer Name Payer Address Payer Phone Subscriber Number Group Number Insured Name Patient Relationship to Insured Coverage Start Date Coverage End Date [facility] [address] [place] [address] [id number] AL NARAYAN Self - patient is the insured Medical (General) History 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 History ICD Code Renal stone 02/2012 Surgical History Surgery Date(Month/Year) Hospitalization History Reason Date(Month/Year) [facility] ER-vomiting, diarrhea 12/05/09 [facility] ER-pt passed out and fell and hit he ad 06/04/10 [facility] ER-Kidney Stones 04/2012
--- OUTSIDE RECORDS SUMMARY | 2025-03-25 10:15 | XMS_ITS | Referral Summary ---
Author Organization [employer] ([place], [place], [place], [place], [place]) Address [address] [place] [address] Care Team Providers Care Transitional Living Specialist Name Role Phone Cheryl Moreira PA-C Primary Care Provider [phone] Allergies Active Allergy Reactions Criticality Noted Date [...] Date Marlo rded Speak language other than Italian at home Not on file 04/13/2023 Want [...] of Treatment Not on file Care Teams Transitional Living Specialist Relationship Specialty Start Date End Date Cheryl Moreira, PADaleC [address] [place] [address] PCP - General Physician Sock Lining Examiner 11/26/22
--- OUTSIDE RECORDS SUMMARY | 2025-03-25 10:15 | XMS_ITS | Clinical Summary ---
Author Organization [facility] Address [address] [place] [address] Care Team Providers Care Vegetable Ii Farmworker Name Role Phone Grace Houston DO Primary Care Provider [phone] Allergies No known active allergies Medications [place] Thyroid 60 MG tablet Take 60 mg by mouth Daily. 01/16/2020 Active busPIRone (BUSPAR) 10 MG tablet Take 10 mg by mouth Daily. 12/16/2019 Active PARoxetine (PAXIL) 20 MG tablet Take 20 mg by mouth Daily. 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 Assessment & Plan (02/09/2020 9:30 AM EST): No clinical change with change of medication, but I need a tsh to be certain she is on the right dose Simple goiter 02/09/2020 Assessment & Plan (02/09/2020 9:30 AM EST): Clinically less tender than last time Family History 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 Relation Name Comments Heart disease Father Joyce's thyroiditis Mother Rheum arthritis Mother Joyce's thyroiditis Sister Relation Name Status Comments Father Mother Sister Social History Tobacco Use Types Packs/Day Years Used Date Smoking Tobacco: Former Cigarettes Smokeless Tobacco: Never Tobacco Cessation:Counseling Given: Not Answered Alcohol Use Standard Drinks/Week Comments Yes 0 (1 standard drink = 0.6 oz pur e alcohol) sometimes Abuse Screen Answer Date Recorded Unsafe at Home or Work/School Not on file Feels Threatened by Someone? Not on file 02/2023 Does Anyone Keep You from Co ntacting Others or Doint Things Outside the Home? Not on file 01/04/2023 Physical Sign of Abuse Present Not on file 1 Housing Stability Answer Date Recorded Current Living Arrangements Not on file 12/24 Potentially Unsafe Housing Conditions Not on anmol e 01/04/2023 Family and Community Support Answer David e Recorded Help with Day-to-Day Activities Not on file 01/04/2023 Lonely or Isolated Not on file 01/04/2023 Employment Answer Date Recorded Do you want help finding or keeping work or a north b? Not on file 01/04/2023 Disabilities Answer Date Recorded Concentrating, Remembering, or Making Decisions Difficulty Not on file 01/04/2023 Doing Errands Independently Difficulty Not on fi le 01/04/2023 Education Answer Date Recorded Help with school or training? Not on file Preferred Language Not on file 01/04/2023 Comments Unknown Sex and Gender Information Value Date Recorded Sex Assigned at Not on file Legal Sex Female 1:47 PM EDT Gender Identity Not on file Sexual Orientation Not on file Last Filed Vital Signs Vital Sign Reading Time Taken Comments Blood Pressure 130/72 02/09/2020 8:59 AM EST Pulse 74 02/09/2020 8:59 AM EST Temperature - - Respiratory Rate 14 05/05/2022 9:33 AM EST Oxygen Saturation 100% 02/09/2020 8:59 AM EST Inhaled Oxygen Concentration - - Weight 71.8 kg (158 lb 3.2 oz) 05/05/2022 9:33 A M EST Height 152.4 cm (5') 05/05/2022 9:33 AM EST Body Mass Index 30.9 05/05/2022 9:33 AM EST Plan of Treatment Health Maintenance Due Date Last Done Comments Annual Gynecologic Pelvic an d Breast Exam 1981 TDAP/TD VACCINES (1 - Tdap) 2000 ANNUAL PHYSICAL 02/09/2020 HEPATITIS C SCREENING 02/09/2020 MAMMOGRAM 2021 INFLUENZA VACCINE 10/24/2024 Pneumococcal Vaccine 0-49 Aged Out No longer eligible based on patient's age to complete this topic Insurance Care Teams Vegetable Ii Farmworker Relationship Specialty Start Date End Date Grace Houston DO [address] [place] [address] PCP - General Family Medicine 05/05/22
--- OUTSIDE RECORDS SUMMARY | 2025-03-25 10:15 | XMS_ITS | Clinical Summary ---
Author Organization [facility] Address [address] [place] [address] Phone Care Team Providers Care Public Speaking Teacher Name Role Phone Unavailable Primary Care Provider [...] (07/13/2020): Added automatically from request for surgery [id number] Tachycardia Surgical History Surgery Date Site/Laterality Comments [...] Cancer Screening 2021 COVID-19 Vaccine ( - 2024-2 6 season) 2024 10/11/2020, 09/08/2020 Influenza Vaccine (#1) 2024 Meningococcal B Vaccine Aged Out No l onger eligible based on patient's age to complete this topic Pneumococcal Vaccine 0-49 Aged Out No longer eligible based on patient's age to complete this topic Insurance [facility] [id number]
--- OUTSIDE RECORDS SUMMARY | 2025-03-25 10:15 | XMS_ITS | Encounter Summary ---
Author Organization [facility] [place] [address] Care Team Providers Care Wicker Molded Candles Name Role Phone Unavailable Primary Care Provider Unavailabl e Encounter Details Date Type Department Care Team (Late st Contact Info) Description 07/29/2020 Orders Only [facility] [address] [place] [address] Jaime Musa MD [address] [place], [place] [id number] Social History Tobacco Use Types Packs/Day Years [...] CATH ORDERABLES Final Result Performing Organization Address City/State/[facility] Co de Phone Number [place] [phone] documented in this encounter Visit Diagnoses Not on filedocumented in this encounter
== END 2025-03-24 23:59 | disposition home or self-care (01) ==
LOC: LAB.DROPOF 03-25 10:12
PROVIDERS: PCP Nurse Practitioner Family; Visit Provider Nurse Practitioner Family
DX: J06.9 Acute upper respiratory infection, unspecified (principal)
CPT/HCPCS: 87631